=== PATIENT | female | born 1975 | race Two or more races ===

== ENCOUNTER → 2023-07-06 12:39 | Outpatient (BNVA) | payer OTHER, SELFPAY | PROVIDERS: PCP Pediatrics; Visit Provider Physician Assistant Surgical ==

== ENCOUNTER 2023-10-16 07:55 | Outpatient (AMB) | payer OTHER, SELFPAY ==
--- OUTSIDE RECORDS SUMMARY | 2023-10-16 07:56 | XMS_ITS | Continuity of Care Document ---
Author Organization [facility] Address [address] [place] [address]- Care Team Providers Care Detective Captain Name Role Phone Mariza Goodrich MD Primary Care Physician [phone] Encounter [facility] ACCT R [id number] Date(s): 09/18/19 - 10/18/[address] [address] [place] Attending Physician: Admtr, [id number] Admitting Physician: Admtr, [id number] Referring Physician: Admtr, Ar8 Allergies, Adverse Reactions, Alerts Substance Reaction Severity Status NKA Active Immunizations Given and Recorded Vaccine Date Status Refusal Reason influenza virus vaccine, inactivated 02/11/19 Dudley rded influenza virus vaccine, inactivated 02/11/18 Give n influenza virus vaccine, inactivated 04/02/17 Give n influenza virus vaccine, inactivated 03/15/16 Give n influenza virus vaccine, inactivated 02/22/15 Give n influenza virus vaccine, inactivated 02/17/14 Give n influenza virus vaccine, inactivated 03/14/13 Give n pneumococcal 23-valent vaccine 02/17/14 Given tetanus-diphtheria toxoids (Td) 10/08/12 Given Medications acetaminophen 325 mg oral tablet 650 mg, 2, tablet, By Mouth, Every 8 hours, PRN Pain, # 180 tablet, Refills 1, Tot. Refills 1, Maintenance, 06/11/19 11:30:00 EST, Route to Pharmacy Electronically, [facility]/pharmacy #[id number], 163, cm, 06/11/19 10:50:00 EST, Height, 108.3, kg, 02/17/19 7:48:0... Start Date: 06/11/19 Stop Date: 08/10/19 Status: Ordered Albuterol 0.083% inhalation michael PRN, Refills 0, Maintenance, lot#[id number] exp august 2020, 03/10/19 18:53:20 EST Start Date: 03/10/19 Status: Ordered Albuterol 0.083% inhalation michael See Instructions, given at office visit lot # [id number] Exp 09/17, Refills 0, Maintenance, 03/26/19 9:24:59 EST, Instructions Replace Required Details Start Date: 03/26/19 Status: Ordered albuterol 0.083% inhalation solution 3 mL = 2.5 mg, Inhalation, Every 6 hours, # 120 each, 1 Refills, Maintenance, 06/24/18 9:15:31 EST,Solution Start Date: 06/24/18 Status: Ordered albuterol CFC free 90 mcg/inh inhalation aerosol 2, puffs, Inhalation, 4 times a day, PRN, # 1 each, Refills 11, Tot. Refills 11, Maintenance, 03/25/18 9:14:15 EST, Aerosol, Route to Pharmacy Electronically, [id number], [facility]/pharmacy #[id number], Compound Start Date: 03/25/18 Status: Ordered ALPRAZolam 0.25 mg oral tablet 0.25 mg, 1, tablet, By Mouth, 2 times a day, Refills 0, Maintenance, 11/04/18 18:19:51 EDT Start Date: 11/04/18 Status: Ordered cetirizine 10 mg oral tablet 1 tablet = 10 mg, By Mouth, Daily, # 30 tablet, 6 Refills, Maintenance, 08/11/19 8:27:00 EDT, Tablet, [facility]/pharmacy #[id number], 163, cm, 06/11/19 10:50:00 EST, Height, 108.3, kg, 02/17/19 7:48:00 EDT, Dry Weight Start Date: 08/11/19 Status: Ordered CPAP and CPAP equipment CPAP and CPAP equipment, See Instructions, # 1 units, Refills 0, Tot. Refills 0, Maintenance, CPAP of 11 cm of H2O with a heated humidifier. Recommend ordering a machine with compliance data capabilities and following residual AHI. Dx: GULSHAN 327.2... Start Date: 02/19/18 Status: Ordered CPAP Equipment See Instructions, # 1 each, Maintenance, send compliance data fax [id number] Dx GULSHAN send mask and CPAP supplies for patient patient states that she has been using PAP regularly and feels better sinceusing CPAP To [facility], 02/19/18 16:36:42 EDT, C... Start Date: 02/19/18 Status: Ordered diclofenac 1% topical gel 1 application, Topically, 3 times a day, PRN Knee Pain. Scottish sig, # 100 Gm, 2 Refills, Maintenance, 08/11/19 8:28:00 EDT, Gel, [facility]/pharmacy #[id number], 163, cm, 06/11/19 10:50:00 EST, Height, 108.3, kg, 02/17/19 7:48:00 EDT, Dry Weight Start Date: 08/11/19 Status: Ordered Effexor XR 75 mg oral capsule, extended release 75 mg, 1, capsule, By Mouth, Daily, Rx'd per Psych Bello Stevens, Refills 0, Maintenance, 11/04/1917:19:33 EDT Start Date: 11/04/18 Status: Ordered ferrous sulfate 325 mg oral enteric coated tablet 325 mg, 1, tablet, By Mouth, 2 times a day, # 180 tablet, Refills 3, Tot. Refills 3, Maintenance, 08/11/19 8:30:00 EDT, Route to Pharmacy Electronically, [facility]/pharmacy #[id number], 163, cm, 06/11/19 10:50:00 EST, Height, 108.3, kg, 02/17/19 7:48:00 EDT, Dry... Start Date: 08/11/19 Status: Ordered Flonase 50 mcg/inh nasal spray 2 sprays, Nares, Both, Daily in AM, # 1 each, 6 Refills, Maintenance, 04/14/19 10:44:43 EST, [place],[facility]/pharmacy [id number], 2 sprays Nares, Both Daily in AM, 163, cm, 04/14/19 10:18:38 EST, Height, 108.3, kg, 02/17/19 7:48:07 EDT, Dry Weight Start Date: 04/14/19 Status: Ordered guaiFENesin 100 mg/5 mL oral liquid 10 mL = 200 mg, By Mouth, Every 4 hours, PRN for cough, # 600 mL, 0 Refills, Maintenance, 03/10/19 18:11:03 EST, Liquid Start Date: 03/10/19 Status: Ordered Heartburn Relief 10 mg oral tablet See Instructions, MANDA OCONNORES AL RAMESH, # 60 tablet, 2 Refills, 08/11/19 8:30:00 EDT, [facility]/pharmacy #[id number], 163, cm, 06/11/19 10:50:00 EST, Height, 108.3, kg, 02/17/19 7:48:00 EDT, Dry Weight Start Date: 08/11/19 Status: Ordered hydrochlorothiazide 25 mg oral tablet 25 mg, 1, tablet, By Mouth, Daily, # 30 tablet, Refills 11, Tot. Refills 11, Maintenance, 08/11/19 8:30:00 EDT, Route to Pharmacy Electronically, [facility]/pharmacy #[id number], 163, cm, 06/11/19 10:50:00 EST, Height, 108.3, kg, 02/17/19 7:48:00 EDT, Dry Weight Start Date: 08/11/19 Status: Ordered ibuprofen 600 mg oral tablet 600 mg, 1, tablet, By Mouth, Every 8 hours, PRN Pain Scottish Do not take with other NSAIDs (including Meloxicam), # 90 tablet, Refills 1, Tot. Refills 1, Maintenance, 08/11/19 8:31:00 EDT, Route to Pharmacy Electronically, [facility]/pharmacy #[id number], 163, c... Start Date: 08/11/19 Stop Date: 10/10/19 Status: Ordered ketoconazole 1% topical shampoo See Instructions, 1 applicator Topically 2 times per week for 4 weeks. Scottish sig, # 200 mL, 0 Refills, Maintenance, 04/09/19 9:23:01 EST, 1 applicator Topically 2 times per week for 4 weeks. Scottish sig, 163, cm, 04/09/19 8:51:21 EST, Height, 108.3,... Start Date: 04/09/19 Status: Ordered left knee hinged brace. left knee hinged brace., See Instructions, # 1 each, Refills 0, Tot. Refills 0, Maintenance, left knee hinged brace. DX: OA of knee, 07/31/18 15:34:04 EDT, Compound Start Date: 11/27/17 Status: Ordered Lyrica 100 mg oral capsule 1 capsule = 100 mg, By Mouth, Daily, # 90 capsule, 0 Refills, Maintenance, 11/04/18 18:19:01 EDT, Capsule Start Date: 11/04/18 Status: Ordered ondansetron 4 mg oral tablet, disintegrating 1 tablet = 4 mg, By Mouth, 3 times a day, # 9 tablet, 1 Refills, Maintenance, 08/11/19 8:34:00 EDT,[facility]/pharmacy #[id number], 163, cm, 06/11/19 10:50:00 EST, Height, 108.3, kg, 02/17/19 7:48:00 EDT, Dry Weight Start Date: 08/11/19 Stop Date: 08/17/19 Status: Ordered PredniSONE = 40 mg, By Mouth, Daily, PRN given at md appt, 0 Refills, Maintenance, 03/10/19 18:54:44 EST Start Date: 03/10/19 Status: Ordered ProAir HFA 90 mcg/inh inhalation aerosol with adapter 2, puffs, Inhalation, 4 times a day, PRN, # 1 each, Refills 6, Tot. Refills 6, Maintenance, 08/07/19 14:30:00 EDT, Route to Pharmacy Electronically, [id number], [facility]/pharmacy#[id number], 163, cm, 06/11/19 10:50:00 EST, Height, 108.... Start Date: 08/07/19 Stop Date: 03/04/20 Status: Ordered Singulair 10 mg oral tablet 10 mg, 1, tablet, By Mouth, Daily, # 30 tablet, Refills 6, Tot. Refills 6, Maintenance, 08/11/19 8:32:00 EDT, Route to Pharmacy Electronically, [facility]/pharmacy #[id number], 163, cm, 06/11/19 10:50:00 EST, Height, 108.3, kg, 02/17/19 7:48:00 EDT, Dry Weight Start Date: 08/11/19 Status: Ordered Spiriva HandiHaler 18 mcg inhalation capsule 1 capsule = 18 mcg, Inhalation, Daily, # 30 capsule, 11 Refills, Maintenance, 03/26/19 8:42:22 EST Start Date: 03/26/19 Stop Date: 03/20/20 Status: Ordered Symbicort 160mcg/4.5mcg Inhaler 2, puffs, Inhalation, 2 times a day, Discontinue Advair, # 6 Gm, Refills 6, Tot. Refills 6, Maintenance, 03/26/19 8:58:21 EST, Aerosol, Route to Pharmacy Electronically, [id number], [facility]/pharmacy #[id number] Start Date: 03/26/19 Status: Ordered Vitamin D3 1000 intl units oral tablet 1 tablet = 1,000 International_Units, By Mouth, Daily, # 30 tablet, 11 Refills, Maintenance, 06/28/18 18:01:13 EST, Tablet Start Date: 06/28/18 Status: Ordered Water-based Physical Therapy at [facility] Water-based Physical Therapy at [facility], See Instructions, # 1 each, Refills 0, Tot. Refills 0, Maintenance, 2 times per week. To improve function, ROM, decrease pain. Diagnosis: Fibromyalgia, Chronic Back Pain. ICD10 M79.7,M54.9, 11/04/18 18:32:11 EDT,... Start Date: 11/04/18 Status: Ordered Problem List Condition Effective Dates Status Health Status Inform ant Anemia(Confirmed) Active Asthma, Moderate-Persistent(Confirmed) Active Epiploic appendagitis(Confirmed) 1 Active Essential hypertension(Confirmed) Active Morbid obesity with BMI of 4 0.0-44.9, adult(Confirmed) Active Chronic myofascial pain/Fibromyalgia(Confirmed) Active Obstructive sleep apnea (on CPAP)(Confirmed) Active Care Management FELIX Galvez EDDY Clock Smith [phone](Confirmed) Active 1Dx in 2018 Social History Social History Type Response Smoking Status Never smoker entered on: 02/16/14 Sex Female
--- OUTSIDE RECORDS SUMMARY | 2023-10-16 07:57 | XMS_ITS | Continuity of Care Document ---
Author Organization [facility] Address [address] [place] [id number]- Care Team Providers Care Adult Nurse Practitioner Name Role Phone Kp JOHNS, Mariza Primary Care Physician [phone] Encounter [facility] Date(s): 03/09/23 - 04/08/[address] [address] Allergies, Adverse Reactions, Alerts No Known Allergies Immunizations Given and Recorded Vaccine Date Status Refusal Reason influenza virus vaccine, inactivated 01/25/23 Give n influenza virus vaccine, inactivated 02/11/19 Dudley rded influenza virus vaccine, inactivated 02/11/18 Give n influenza virus vaccine, inactivated 04/02/17 Give n influenza virus vaccine, inactivated 03/15/16 Give n influenza virus vaccine, inactivated 02/22/15 Give n influenza virus vaccine, inactivated 02/17/14 Give n influenza virus vaccine, inactivated 03/14/13 Give n tetanus/diphtheria/pertussis, acel(Tdap) 09/15/22 Given SARS-CoV-2 (COVID-19) mRNA-1273 vaccine 09/08/20 R ecorded SARS-CoV-2 (COVID-19) mRNA-1273 vaccine 08/11/20 R ecorded pneumococcal 23-valent vaccine 02/17/14 Given tetanus-diphtheria toxoids (Td) 10/08/12 Given Medications albuterol CFC free 90 mcg/inh inhalation aerosol 2, puffs, Inhalation, Every 4 hours, PRN, # 1 each, Refills 2, Tot. Refills 2, Maintenance, 01/25/23 8:49:00 EDT, Route to Pharmacy Electronically, [id number], [id number], 163, cm, 01/25/23 8:30:00 EDT, Height Start Date: 01/25/23 Status: Ordered cetirizine 10 mg oral tablet 1 tablet, By Mouth, Daily, # 30 tablet, 5 Refills, [id number], 163, cm, 01/10/21 8:49:00 EDT, Height, 102.9, kg, 05/21/20 8:52:00 EST, Dry Weight Start Date: 06/18/21 Status: Ordered cholestyramine 4 g/5.7 g oral powder for reconstitution = 2 Gm, By Mouth, Daily, dissolve in water or juice. Montenegrin Sig., # 180 Gm, 1 Refills, Maintenance, 03/14/23 10:53:00 EST, REC Powder, [facility]/pharmacy #[id number], Partial fill upon patient request if the prescription is for a schedule II opioid drug., 163, c... Start Date: 03/14/23 Stop Date: 09/10/23 Status: Ordered clonazePAM 0.5 mg oral tablet 1 tablet = 0.5 mg, By Mouth, Daily at bedtime, PRN Anxiety, # 30 tablet, 1 Refills, Maintenance, 01/25/23 9:00:00 EDT, Tablet, [facility]/pharmacy #[id number], Partial fill upon patient request if the prescription is for a schedule II opioid drug., 163, cm, ... Start Date: 01/25/23 Status: Ordered CPAP and CPAP equipment CPAP and CPAP equipment, See Instructions, # 1 units, Refills 0, Tot. Refills 0, Maintenance, CPAP of 11 cm of H2O with a heated humidifier. Recommend ordering a machine with compliance data capabilities and following residual AHI. Dx: GULSHAN 327.2... Start Date: 02/19/18 Status: Ordered CPAP Equipment See Instructions, # 1 each, Maintenance, send compliance data fax [phone] Dx GULSHAN send mask and CPAP supplies for patient patient states that she has been using PAP regularly and feels better sinceusing CPAP To [facility] [place], 02/19/18 16:36:42 EDT, C... Start Date: 02/19/18 Status: Ordered donut pillow donut pillow, See Instructions, # 1 each, Refills 0, Tot. Refills 0, Maintenance, use for sitting for 2-4 weeks for coccyx bruise M53.3, 03/07/23 16:09:00 EST, Supply Start Date: 03/07/23 Status: Ordered escitalopram 10 mg oral tablet 1 tablet = 10 mg, By Mouth, Daily, # 90 tablet, 0 Refills, Maintenance, 01/25/23 8:52:00 EDT, Tablet, [facility]/pharmacy #[id number], Partial fill upon patient request if the prescription is for a schedule II opioid drug., 163, cm, 01/25/23 8:30:00 EDT, Height Start Date: 01/25/23 Stop Date: 04/25/23 Status: Ordered Flonase 50 mcg/inh nasal spray 2 sprays, Nares, Both, Daily in AM, # 1 each, 11 Refills, Maintenance, 07/26/20 9:20:00 EDT, [place],[facility]/pharmacy #[id number], 2 sprays Nares, Both Daily in AM, 163, cm, 07/22/20 8:51:00 EDT, Height, 105.7,kg, 09/12/19 20:00:00 EDT, Dry Weight Start Date: 07/26/20 Status: Ordered hydrochlorothiazide 25 mg oral tablet 1, tablet, By Mouth, Daily, for 90 days, # 90 tablet, Refills 3, Tot. Refills 3, Physician Stop 01/20/24 9:07:00 EDT, 01/25/23 9:07:00 EDT, Route to Pharmacy Electronically, [facility]/pharmacy #[id number], 163, cm, 01/25/23 9:05:00 EDT, Height Start Date: 01/25/23 Stop Date: 01/20/24 Status: Ordered ketoconazole 2% topical shampoo See Instructions, 1 application Topically three times a week, # 120 mL, 3 Refills, Soft Stop, 01/25/23 8:59:00 EDT, Shampoo, [facility]/pharmacy #[id number], Partial fill upon patient request if the prescription is for a schedule II opioid drug., 1 application Top... Start Date: 01/25/23 Status: Ordered lidocaine 5% topical cream 1 application, Topically, 3 times a day, PRN Pain. Montenegrin sig, # 45 Gm, 1 Refills, Maintenance, 01/10/21 9:40:00 EDT, Cream, [facility]/pharmacy #[id number], Partial fill upon patient request if the prescriptionis for a schedule II opioid drug., 1 application To... Start Date: 01/10/21 Status: Ordered Lidoderm 5% film 1 patch, Topically, Daily, remove patches after 12 hours, # 30 patch, 0 Refills, Maintenance, 02/24/23 20:18:00 EDT, [facility]/pharmacy #[id number], Partial fill upon patient request if the prescription is for aschedule II opioid drug., 1 patch Topically Daily,I... Start Date: 02/24/23 Status: Ordered pregabalin 200 mg oral capsule 1 capsule = 200 mg, By Mouth, Daily, # 30 capsule, 1 Refills, Maintenance, 01/25/23 9:00:00 EDT, Capsule, [facility]/pharmacy #[id number], Partial fill upon patient request if the prescription is for a schedule II opioid drug., 163, cm, 01/25/23 8:30:00 EDT, Height Start Date: 01/25/23 Stop Date: 03/26/23 Status: Ordered Singulair 10 mg oral tablet 10 mg, 1, tablet, By Mouth, Daily, # 90 tablet, Refills 3, Tot. Refills 3, Maintenance, 01/25/23 8:49:00 EDT, Route to Pharmacy Electronically, [facility]/pharmacy #[id number], 163, cm, 01/25/23 8:30:00 EDT, Height Start Date: 01/25/23 Stop Date: 01/20/24 Status: Ordered Spiriva Respimat 10 ACT 2.5 mcg/inh inhalation aerosol 2 puffs = 5 mcg, Inhalation, Daily, georgian sig, # 4 Gm, 5 Refills, Maintenance, 03/14/23 10:57:00 EST, Aerosol, [facility]/pharmacy #[id number], Partial fill upon patient request if the prescription is for a schedule II opioid drug., 163, cm, 03/14/23 9:01:00 EST... Start Date: 03/14/23 Status: Ordered Symbicort 160mcg/4.5mcg Inhaler 2, puffs, Inhalation, 2 times a day, for 90 days, # 3 each, Refills 3, Tot. Refills 3, Physician Stop 01/20/24 8:50:00 EDT, 01/25/23 8:50:00 EDT, Route to Pharmacy Electronically, [id number], [facility]/pharmacy #[id number], 163, cm, 12/30... Start Date: 01/25/23 Stop Date: 01/20/24 Status: Ordered Tylenol Extra Strength 500 mg oral tablet 2 tablet = 1,000 mg, By Mouth, 3 times a day, PRN for fever, # 60 tablet, 0 Refills, Maintenance, 02/24/23 20:18:00 EDT, Tablet, [facility]/pharmacy #[id number], Partial fill upon patient request, 163, cm, 02/24/23 17:24:00 EDT, Height, 102, kg, 02/24/23 17:24:00... Start Date: 02/24/23 Stop Date: 03/06/23 Status: Ordered Problem List Condition Confirmation Course Effective Dates Status H ealth Status Informant Anemia Confirmed Active Asthma, Moderate-Persistent Confirmed Active Obesity (BMI 30-39.9) Confirmed Active COVID-19 Confirmed Active Epiploic appendagitis 1 Confirmed Active Essential hypertension Confirmed Active Morbid obesity with BMI of 40.0-44.9, adult Confirmed Active Chronic myofascial pain/Fibromyalgia Confirmed Active Obstructive sleep apnea (on CPAP) Confirmed Active Osteoarthritis of left knee Confirmed Active Severe obesity (BMI 35.0-39.9) with comorbidity Confirmed Active 1Dx in 2018 Social History Social History Type Response Smoking Status Never smoker entered on: 02/16/14 Sex Patient Care team information Care Team Personnel Name: Belle Stevens NP Position: [facility] PCO Associate Professional Member Role: [employer] Provider Address: Address: [address] [place] [address]- Name: Mariza Goodrich MD Position: [facility] Physician - Primary Care Member Role: PCP Address: Address: [address] [place] [address]- Name: Pati Apodaca RN Position: [facility] RN Member Role: Primary Care Nurse Name: Hollie Pfeiffer RN Position: [facility] Hospital Analyst Member Role: Primary Care Nurse Care Team Related Persons Name: ESTEPHANIA WYNN Address: [address] [place] [address] Name: EUNICE WYNN Address: home [address] [place] [address] Name: NELLI RENO Name: MATTHEW RENO Address: home [address] [place] [address]
--- OUTSIDE RECORDS SUMMARY | 2023-10-16 07:57 | XMS_ITS | Continuity of Care Document ---
Author Organization [facility] Address [address] [place] [address]- Care Team Providers Care Fork Truck Driver Name Role Phone Mariza Goodrich MD Primary Care Physician [phone] Encounter [facility] Date(s): 08/11/19 - 08/18/[address] [address]- [place] Encounter Diagnosis Asthma, Moderate-Persistent(Discharge Diagnosis) - 08/11/19 Anemia(Discharge Diagnosis) - 08/11/19 Chronic myofascial pain/Fibromyalgia(Discharge Diagnosis) - 08/11/19 Essential hypertension(Discharge Diagnosis) - 08/11/19 Attending Physician: Alex Ybarra MD Admitting Physician: Mariza Goodrich MD Referring Physician: Mariza Goodrich MD Allergies, Adverse Reactions, Alerts Substance Reaction Severity [...] 06/11/19 11:30:00 EST, Route to Pharmacy Electronically, [facility]/pharmacy #[id number], 163, cm, 06/11/19 10:50:00 EST, Height, 108.3, kg, 02/17/19 7:48:0... Start Date: 06/11/19 Stop Date: 08/10/19 Status: Ordered Albuterol 0.083% inhalation michael PRN, Refills 0, Maintenance, lot#[id number] exp august 2020, 03/10/19 18:53:20 EST Start Date: 03/10/19 Status: Ordered Albuterol 0.083% inhalation michael See Instructions, given at office visit lot # [id number] Exp 09/17, Refills 0, Maintenance, 03/26/19 9:24:59 [...] 9:14:15 EST, Aerosol, Route to Pharmacy Electronically, [id number], [facility]/pharmacy #[id number], Compound Start Date: 03/25/18 Status: Ordered ALPRAZolam 0.25 mg oral tablet 0.25 mg, 1, tablet, By Mouth, 2 times a day, Refills 0, Maintenance, 11/04/18 18:19:51 EDT Start Date: 11/04/18 Status: Ordered cetirizine 10 mg oral tablet 1 tablet = 10 mg, By Mouth, Daily, # 30 tablet, 6 Refills, Maintenance, 08/11/19 8:27:00 EDT, Tablet, [facility]/pharmacy #[id number], 163, cm, 06/11/19 10:50:00 EST, [...] 1 each, Maintenance, send compliance data fax [phone] Dx GULSHAN send mask and CPAP supplies for patient patient states that she has been using PAP regularly and feels better sinceusing CPAP To [facility], 02/19/18 16:36:42 EDT, C... Start Date: 02/19/18 Status: Ordered diclofenac 1% topical gel 1 application, Topically, 3 times a day, PRN Knee Pain. Belarusian sig, # 100 Gm, 2 Refills, Maintenance, 08/11/19 8:28:00 EDT, Gel, [facility]/pharmacy #[id number], 163, cm, 06/11/19 10:50:00 EST, [...] 08/11/19 8:30:00 EDT, Route to Pharmacy Electronically, [id number], 163, cm, 06/11/19 10:50:00 EST, Height, 108.3, kg, 02/17/19 7:48:00 EDT, Dry... Start Date: 08/11/19 Status: Ordered Flonase 50 mcg/inh nasal spray 2 sprays, Nares, Both, Daily in AM, # 1 each, 6 Refills, Maintenance, 04/14/19 10:44:43 EST, [place],[id number], 2 sprays Nares, Both Daily in [...] 10 mg oral tablet See Instructions, MANDA RIVASA SHEILA VECES AL RAMESH, # 60 tablet, 2 Refills, 08/11/19 8:30:00 EDT, [facility]/pharmacy #[id number], 163, cm, 06/11/19 10:50:00 EST, Height, 108.3, kg, 02/17/19 7:48:00 EDT, Dry Weight Start Date: 08/11/19 Status: Ordered hydrochlorothiazide 25 mg oral tablet 25 mg, 1, tablet, By Mouth, Daily, # 30 tablet, Refills 11, Tot. Refills 11, Maintenance, 08/11/19 8:30:00 EDT, Route to Pharmacy Electronically, [facility]/pharmacy #[id number], 163, cm, 06/11/19 10:50:00 EST, Height, 108.3, kg, 02/17/19 7:48:00 EDT, Dry Weight Start Date: 08/11/19 Status: Ordered ibuprofen 600 mg oral tablet 600 mg, 1, tablet, By Mouth, Every 8 hours, PRN Pain Belarusian Do not take with other NSAIDs (including Meloxicam), # 90 tablet, Refills 1, Tot. Refills 1, Maintenance, 08/11/19 8:31:00 EDT, Route to Pharmacy Electronically, [facility]/pharmacy #[id number], 163, c... Start Date: 08/11/19 Stop Date: 10/10/19 Status: Ordered ketoconazole 1% topical shampoo See Instructions, 1 applicator Topically 2 times per week for 4 weeks. Belarusian sig, # 200 mL, 0 Refills, Maintenance, 04/09/19 9:23:01 EST, 1 applicator Topically 2 times per week for 4 weeks. Belarusian sig, 163, cm, 04/09/19 8:51:21 EST, Height, 108.3,... Start Date: 04/09/19 Status: Ordered left knee hinged brace. left knee hinged brace., See Instructions, # 1 each, Refills 0, Tot. Refills 0, Maintenance, left knee hinged brace. DX: OA of knee, 11/27/17 15:34:04 EDT, Compound Start Date: 11/27/17 Status: Ordered Lyrica 100 mg oral capsule 1 capsule = 100 mg, By Mouth, Daily, # 90 capsule, 0 Refills, Maintenance, 11/04/18 18:19:01 EDT, Capsule Start Date: 11/04/18 Status: Ordered ondansetron 4 mg oral tablet, disintegrating 1 tablet = 4 mg, By Mouth, 3 times a day, # 9 tablet, 1 Refills, Maintenance, 08/11/19 8:34:00 EDT,[facility]/pharmacy #[id number], 163, cm, 06/11/19 10:50:00 EST, [...] 08/07/19 14:30:00 EDT, Route to Pharmacy Electronically, [id number], [facility]/pharmacy#[id number], 163, cm, 06/11/19 10:50:00 EST, Height, 108.... Start Date: 08/07/19 Stop Date: 03/04/20 Status: Ordered Singulair 10 mg oral tablet 10 mg, 1, tablet, By Mouth, Daily, # 30 tablet, Refills 6, Tot. Refills 6, Maintenance, 08/11/19 8:32:00 EDT, Route to Pharmacy Electronically, [facility]/pharmacy #[id number], 163, cm, 06/11/19 10:50:00 EST, [...] 8:58:21 EST, Aerosol, Route to Pharmacy Electronically, [id number], [facility]/pharmacy #[id number] Start Date: 03/26/19 Status: Ordered Vitamin D3 1000 intl units oral tablet 1 tablet = 1,000 International_Units, By Mouth, Daily, # 30 tablet, 11 Refills, Maintenance, 06/28/18 18:01:13 EST, Tablet Start Date: 06/28/18 Status: Ordered Water-based Physical Therapy at [facility] Water-based Physical Therapy at [facility], See Instructions, # 1 each, Refills [...] (on CPAP)(Confirmed) Active Care Management FELIX Galvez [facility] Packager [phone](Confirmed) Active 1Dx in 2018 Diagnosis Diagnosis Type Effective Dates Health Status Clinical Service Informant Asthma, Moderate-Persistent Discharge Diagnosis 08/11/19 Anemia Discharge Diagnosis 08/11/19 Chronic myofascial pain/Fibromyalgia Discharge Diagnosis 08/11/19 Essential hypertension Discharge Diagnosis 08/11/19 Social History Social History Type Response Smoking Status Never smoker entered on: 02/16/14 Sex Female
--- OUTSIDE RECORDS SUMMARY | 2023-10-16 07:57 | XMS_ITS | Continuity of Care Document ---
Author Organization [facility] Address [address] [place] [address]- Care Team Providers Care Roll Cleaner Name Role Phone Mariza Goodrich MD Primary Care Physician Encounter [facility] Date(s): 08/27/20 - 09/26/[address] [address]- Allergies, Adverse Reactions, Alerts No Known Medication Allergies Substance Reaction Severity Status NKA Active Immunizations [...] tablet, Refills 1, Tot. Refills 1, Maintenance, 06/02/20 8:52:00 EST, Route to Pharmacy Electronically, [facility]/pharmacy #[id number], 163, cm, 02/16/20 10:15:00 EDT, Height, 105.7, kg, 09/12/19 20:00:0... Start Date: 06/02/20 Stop Date: 08/01/20 Status: Ordered Aygestin 5 mg oral tablet 1 tablet = 5 mg, By Mouth, Daily, # 30 tablet, 2 Refills, Maintenance, 07/19/20 17:13:00 EDT, Tablet, [facility]/pharmacy #[id number], Partial fill upon patient request if the prescription is for a schedule II opioid drug., 163, cm, 07/19/20 16:05:00 EDT, Height,... Start Date: 07/19/20 Status: Ordered betamethasone topical dipropionate 0.05% cream 1 application, Topically, 2 times a day, # 15 Gm, 0 Refills, Maintenance, 07/22/20 11:38:00 EDT, Cream, [facility]/pharmacy #[id number], Partial fill upon patient request if the prescription is for a schedule II opioid drug., 1 application Topically 2 times a day,... Start Date: 07/22/20 Status: Ordered cetirizine 10 mg oral tablet 1 tablet = 10 mg, By Mouth, Daily, # 30 tablet, 6 Refills, Maintenance, 08/11/19 8:27:00 EDT, Tablet, [facility]/pharmacy #[id number], 163, cm, 06/11/19 10:50:00 EST, Height, 108.3, kg, 02/17/19 7:48:00 EDT, Dry Weight Start Date: 08/11/19 Status: Ordered clonazePAM 0.5 mg oral tablet 1 tablet = 0.5 mg, By Mouth, 2 times a day, PRN Anxiety Start Date: 05/14/20 Status: Ordered CPAP and CPAP equipment CPAP and CPAP equipment, See Instructions, # 1 units, Refills 0, Tot. Refills 0, Maintenance, CPAP of 11 cm of H2O with a heated humidifier. Recommend ordering a machine with compliance data capabilities and following residual AHI. Dx: GULSHAN 327.2... Start Date: 02/19/18 Status: Ordered CPAP Equipment See Instructions, # 1 each, Maintenance, send compliance data fax [phone] Dx GULSHAN send mask and CPAP supplies for patient patient states that she has been using PAP regularly and feels better sinceusing CPAP To [facility], 02/19/18 16:36:42 EDT, C... Start Date: 02/19/18 Status: Ordered escitalopram 10 mg oral tablet 1 tablet = 10 mg, By Mouth, Daily Start Date: 05/14/20 Status: Ordered Ferrousal 325 mg oral tablet 1 tablet = 325 mg, By Mouth, 3 times a day, 0 Refills, Maintenance, 06/02/19 21:11:00 EST Start Date: 06/02/19 Status: Ordered Flonase 50 mcg/inh nasal spray 2 sprays, Nares, Both, Daily in AM, # 1 each, 11 Refills, Maintenance, 07/26/20 9:20:00 EDT, [place],[facility]/pharmacy #[id number], 2 sprays Nares, Both Daily in AM, 163, cm, 07/22/20 8:51:00 EDT, Height, 105.7,kg, 09/12/19 20:00:00 EDT, Dry Weight Start Date: 07/26/20 Status: Ordered hydrochlorothiazide 25 mg oral tablet 25 mg, 1, tablet, By Mouth, Daily, # 30 tablet, Refills 2, Tot. Refills 2, Maintenance, 08/27/20 10:02:00 EDT, Route to Pharmacy Electronically, [facility]/pharmacy #[id number], 163, cm, 08/24/20 16:26:00 EDT, Height, 105.7, kg, 09/12/19 20:00:00 EDT, Dry Weight Start Date: 08/27/20 Status: Ordered ibuprofen 600 mg oral tablet 600 mg, 1, tablet, By Mouth, Every 8 hours, PRN Pain [place] Do not take with other NSAIDs (including Meloxicam), # 90 tablet, Refills 1, Tot. Refills 1, Maintenance, 08/02/20 9:38:00 EDT, Route to Pharmacy Electronically, [facility]/pharmacy #[id number], 163, c... Start Date: 08/02/20 Stop Date: 10/01/20 Status: Ordered multivitamin Vitamin B Complex oral tablet 1 tablet, By Mouth, Daily, # 100 tablet, 2 Refills, Maintenance, 12/01/19 14:53:00 EDT, Tablet, [facility]/pharmacy #[id number], 1 tablet By Mouth Daily, 163, cm, 10/14/19 12:52:00 EDT, Height, 108.3, kg, 02/17/19 7:48:00 EDT, Dry Weight Start Date: 12/01/19 Status: Ordered pregabalin 200 mg oral capsule 1 capsule = 200 mg, By Mouth, Daily, 0 Refills, Maintenance, 06/02/19 21:14:00 EST, Capsule Start Date: 06/02/19 Status: Ordered ProAir HFA 90 mcg/inh inhalation aerosol with adapter 2, puffs, Inhalation, 4 times a day, PRN, # 1 each, Refills 11, Tot. Refills 11, Maintenance, 10/24/20 14:24:00 EDT, Route to Pharmacy Electronically, [id number], [facility]/pharmacy #[id number], 163, cm, 07/22/20 8:51:00 EDT, Height, 105... Start Date: 10/24/20 Stop Date: 10/19/21 Status: Ordered ProAir HFA 90 mcg/inh inhalation aerosol with adapter 2, puffs, Inhalation, 4 times a day, PRN, for 30 days, # 1 each, Refills 5, Tot. Refills 5, Hard Stop 10/24/20 14:24:00 EDT, 04/27/20 14:24:00 EST, Route to Pharmacy Electronically, [id number], [facility]/pharmacy #[id number], 163, cm, 10... Start Date: 04/27/20 Stop Date: 10/24/20 Status: Ordered Singulair 10 mg oral tablet 10 mg, 1, tablet, By Mouth, Daily, # 30 tablet, Refills 6, Tot. Refills 6, Maintenance, 07/26/20 9:19:00 EDT, Route to Pharmacy Electronically, [facility]/pharmacy #[id number], 163, cm, 07/22/20 8:51:00 EDT, Height, 105.7, kg, 09/12/19 20:00:00 EDT, Dry Weight Start Date: 07/26/20 Status: Ordered Spiriva HandiHaler 18 mcg inhalation capsule 1 capsule = 18 mcg, Inhalation, Daily, for 30 days, # 30 capsule, 11 Refills, Hard Stop 05/28/21 8:54:00 EST, 06/02/20 8:54:00 EST, [id number], 163, cm, 02/16/20 10:15:00 EDT, Height, 105.7, kg, 09/12/19 20:00:00 EDT, Dry Weight Start Date: 06/02/20 Stop Date: 05/28/21 Status: Ordered Spiriva HandiHaler 18 mcg inhalation capsule 1 capsule = 18 mcg, Inhalation, Daily, # 30 capsule, 11 Refills, Maintenance, 05/28/21 8:54:00 EST,[id number], 163, cm, 07/22/20 8:51:00 EDT, Height, 105.7, kg, 09/12/19 20:00:00 EDT, Dry Weight Start Date: 05/28/21 Stop Date: 05/23/22 Status: Ordered Symbicort 160mcg/4.5mcg Inhaler See Instructions, INHALE DANDO DOS SOPLIDOS DOS VECES AL RAMESH, # 10.2 Unknown, Refills 6, Tot. Refills 6, 07/26/20 9:18:00 EDT, Instructions Replace Required Details, Route to Pharmacy Electronically,[id number], [facility]... Start Date: 07/26/20 Status: Ordered Vitamin D3 oral tablet By Mouth, Daily, 0 Refills, Maintenance, 06/02/19 21:11:00 EST Start Date: 06/02/19 Status: Ordered Zofran 4 mg oral tablet 1 tablet = 4 mg, By Mouth, Every 8 hours, PRN Nausea & Vomiting, # 10 tablet, 0 Refills, Maintenance, 08/12/20 15:08:00 EDT, Tablet, [id number], Partial fill upon patient request if the prescription is for a schedule II opioid drug., 163, cm,... 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 [phone](Confirmed) Active 1Dx in 2018 Social History Social History Type Response Smoking Status Never smoker entered on: 02/16/14 Sex Female
--- OUTSIDE RECORDS SUMMARY | 2023-10-16 07:57 | XMS_ITS | Continuity of Care Document ---
Author Organization [facility] Address [address] [place] [address]- Care Team Providers Care Mica Machine Operator Name Role Phone Not on Staff, PCP Primary Care Physician Unavail able Encounter [facility] Date(s): 06/02/19 - 06/03/[address] [address]- [facility] Discharge Disposition: A-D/C Walkout Attending Physician: Not on Staff, Attending MD Admitting Physician: Not on Staff, Admitting MD Referring Physician: Not on Staff, Referring MD Allergies, Adverse Reactions, Alerts No Known Medication Allergies Medications Advair Diskus 100 mcg-50 mcg inhalation powder 1, puffs, Inhalation, 2 times a day, Refills 0, Maintenance, 06/02/19 21:09:00 EST, Powder Start Date: 06/02/19 Status: Ordered ALPRAZolam 0.25 mg oral tablet 0.25 mg, 1, tablet, By Mouth, Daily, Refills 0, Maintenance, 06/02/19 21:13:00 EST Start Date: 06/02/19 Status: Ordered Ferrousal 325 mg oral tablet 1 tablet = 325 mg, By Mouth, 3 times a day, 0 Refills, Maintenance, 06/02/19 21:11:00 EST Start Date: 06/02/19 Status: Ordered Hydrochlorothiazide By Mouth, Daily, 0 Refills, Maintenance, 06/02/19 21:11:00 EST Start Date: 06/02/19 Status: Ordered pregabalin 200 mg oral capsule 1 capsule = 200 mg, By Mouth, Daily, 0 Refills, Maintenance, 06/02/19 21:14:00 EST, Capsule Start Date: 06/02/19 Status: Ordered ProAir Digihaler 90 mcg/inh inhalation powder 2 puffs, Inhalation, Every 6 hours, 0 Refills, Maintenance, 06/02/19 21:09:00 EST Start Date: 06/02/19 Status: Ordered Spiriva = 18 mcg, Inhalation, Daily, 0 Refills, Maintenance, 06/02/19 21:09:00 EST Start Date: 06/02/19 Status: Ordered venlafaxine 150 mg oral capsule, extended release 150 mg, 1, capsule, By Mouth, Daily, # 30 capsule, Refills 0, Maintenance, 06/02/19 21:12:00 EST Start Date: 06/02/19 Status: Ordered Vitamin D3 oral tablet By Mouth, Daily, 0 Refills, Maintenance, 06/02/19 21:11:00 EST Start Date: 06/02/19 Status: Ordered Vital Signs Most recent to oldest [Reference Range]: 1 2 Oxygen Saturation [94-100 %] 97 % (06/03/19 1:27 AM) 99 % (06/02/19 6:20 PM) Pulse Rate [55-90 bpm] 64 bpm (06/03/19 1:27 AM) 83 bpm (06/02/19 6:20 PM) Blood Pressure [90-138/55-84 mm Hg] 150/ 93mm Hg *H* (06/03/19 1:27 AM) Respiratory Rate [16-30 br/min] 18 br/mi n (06/03/19 1:27 AM) 18 br/min (06/02/19 6:20 PM) Temperature [96.8-100.4 DegF] 98.3 DegF (06/03/19 1:27 AM) Mode of Delivery (Oxygen) Room air (06/03/19 1:27 AM) Room air (06/02/19 6:20 PM) Blood pressure sites Arm, left (06/03/19 1:27 AM) Temperature Route Oral (06/03/19 1:27 AM)
--- OUTSIDE RECORDS SUMMARY | 2023-10-16 07:57 | XMS_ITS | Continuity of Care Document ---
Author Organization [facility] Address [address] [place] [address]- Care Team Providers Care Home Extension Agent Name Role Phone Mariza Goodrich MD Primary Care Physician Encounter [facility] Date(s): 03/29/23 - 04/28/[address] [address] Attending Physician: Cara Ingram Admitting Physician: Admtr, Cara Referring Physician: Admtr, Ar8 Allergies, Adverse Reactions, Alerts No Known Allergies [...] 01/25/23 8:49:00 EDT, Route to Pharmacy Electronically, [id number], [facility]/pharmacy #[id number], 163, cm, 01/25/23 8:30:00 EDT, Height Start Date: 01/25/23 Status: Ordered cetirizine 10 mg oral tablet 1 tablet, By Mouth, Daily, # 30 tablet, 5 Refills, [facility] STORE [id number], 163, cm, 01/10/21 8:49:00 EDT, Height, 102.9, kg, 05/21/20 8:52:00 EST, Dry Weight Start Date: 06/18/21 Status: Ordered cholestyramine 4 g/5.7 g oral powder for reconstitution = 2 Gm, By Mouth, Daily, dissolve in water or juice. Luxembourger Sig., # 180 Gm, 1 Refills, Maintenance, 04/16/23 15:55:00 EST, REC Powder, [facility]/pharmacy #[id number], Partial fill upon patient request if the prescription is for a schedule II opioid drug., 163, c... Start Date: 04/16/23 Stop Date: 10/13/23 Status: Ordered clonazePAM 0.5 mg oral tablet 1 tablet = 0.5 mg, By Mouth, Daily at bedtime, PRN Anxiety, # 30 tablet, 1 Refills, Maintenance, 01/25/23 9:00:00 EDT, Tablet, [facility]/pharmacy #[id number], Partial fill upon patient request [...] 1 each, Maintenance, send compliance data fax [phone] Dx GULSHAN send mask and CPAP supplies [...] 0 Refills, Maintenance, 01/25/23 8:52:00 EDT, Tablet, [facility]/pharmacy #[id number], Partial fill upon patient request if the prescription is for a schedule II opioid drug., 163, cm, 01/25/23 8:30:00 EDT, Height Start Date: 01/25/23 Stop Date: 04/25/23 Status: Ordered Flonase 50 mcg/inh nasal spray 2 sprays, Nares, Both, Daily in AM, # 1 each, 11 Refills, Maintenance, 07/26/20 9:20:00 EDT, [place],[facility]/pharmacy #[id number], 2 sprays Nares, Both Daily in AM, 163, cm, 07/22/20 8:51:00 EDT, Height, 105.7,kg, 09/12/19 20:00:00 EDT, Dry Weight Start Date: 07/26/20 Status: Ordered hydrochlorothiazide 25 mg oral tablet 1, tablet, By Mouth, Daily, for 90 days, # 90 tablet, Refills 3, Tot. Refills 3, Physician Stop 01/20/24 9:07:00 EDT, 01/25/23 9:07:00 EDT, Route to Pharmacy Electronically, [facility]/pharmacy #[id number], 163, cm, 01/25/23 9:05:00 EDT, Height Start Date: 01/25/23 Stop Date: 01/20/24 Status: Ordered ketoconazole 2% topical shampoo See Instructions, 1 application Topically three times a week, # 120 mL, 3 Refills, Soft Stop, 01/25/23 8:59:00 EDT, Shampoo, [facility]/pharmacy #[id number], Partial fill upon patient request if the prescription is for a schedule II opioid drug., 1 application Top... Start Date: 01/25/23 Status: Ordered lidocaine 5% topical cream 1 application, Topically, 3 times a day, PRN Pain. Luxembourger sig, # 45 Gm, 1 Refills, Maintenance, 01/10/21 9:40:00 EDT, Cream, [facility]/pharmacy #[id number], Partial fill upon patient request if the prescriptionis for a schedule II opioid drug., 1 application To... Start Date: 01/10/21 Status: Ordered Lidoderm 5% film 1 patch, Topically, Daily, remove patches after 12 hours, # 30 patch, 0 Refills, Maintenance, 02/24/23 20:18:00 EDT, [facility]/pharmacy #[id number], Partial fill upon patient request if the prescription is for aschedule II opioid drug., 1 patch Topically Daily,I... Start Date: 02/24/23 Status: Ordered pregabalin 200 mg oral capsule 1 capsule = 200 mg, By Mouth, Daily, # 30 capsule, 1 Refills, Maintenance, 01/25/23 9:00:00 EDT, Capsule, [facility]/pharmacy #[id number], Partial fill upon patient request if the prescription is for a schedule II opioid drug., 163, cm, 01/25/23 8:30:00 EDT, Height Start Date: 01/25/23 Stop Date: 03/26/23 Status: Ordered Singulair 10 mg oral tablet 10 mg, 1, tablet, By Mouth, Daily, # 90 tablet, Refills 3, Tot. Refills 3, Maintenance, 01/25/23 8:49:00 EDT, Route to Pharmacy Electronically, [facility]/pharmacy #[id number], 163, cm, 01/25/23 8:30:00 EDT, Height Start Date: 01/25/23 Stop Date: 01/20/24 Status: Ordered Spiriva Respimat 10 ACT 2.5 mcg/inh inhalation aerosol 2 puffs = 5 mcg, Inhalation, Daily, cymro sig, # 4 Gm, 5 Refills, Maintenance, 03/14/23 10:57:00 EST, Aerosol, [facility]/pharmacy #[id number], Partial fill upon patient request if the prescription is for a schedule II opioid drug., 163, cm, 03/14/23 9:01:00 EST... Start Date: 03/14/23 Status: Ordered Symbicort 160mcg/4.5mcg Inhaler 2, puffs, Inhalation, 2 times a day, for 90 days, # 3 each, Refills 3, Tot. Refills 3, Physician Stop 01/20/24 8:50:00 EDT, 01/25/23 8:50:00 EDT, Route to Pharmacy Electronically, [id number], [facility]/pharmacy #[id number], 163, cm, 12/30... Start Date: 01/25/23 Stop Date: 01/20/24 Status: Ordered Tylenol Extra Strength 500 mg oral tablet 2 tablet = 1,000 mg, By Mouth, 3 times a day, PRN for fever, # 60 tablet, 0 Refills, Maintenance, 02/24/23 20:18:00 EDT, Tablet, [facility]/pharmacy #[id number], Partial fill upon patient request, 163, [...] Team Personnel Name: Belle Stevens NP Position: [facility] PCO Associate Professional Member Role: Lifetime Consulting Provider Address: Address: [address] [place] [address]- [place] Name: Mariza Goodrich MD Position: [facility] Physician - Primary Care Member Role: PCP Address: Address: [address] [place] [address]- Name: Pati Apodaca RN Position: [facility] RN Member Role: Primary Care Nurse Name: Hollie Pfeiffer RN Position: [facility] Hospital Endocrinology Specialist Member Role: Primary Care Nurse Care Team Related Persons Name: ESTEPHANIA WYNN Address: [address] [place] [address] Name: EUNICE WYNN Address: [address] [place] [address] Name: NELLI RENO Name: MATTHEW RENO Address: home [address] [place] [address]
--- OUTSIDE RECORDS SUMMARY | 2023-10-16 07:57 | XMS_ITS | Continuity of Care Document ---
Author Organization [facility] Address [address] [place] [address]- Care Team Providers Care Palaeontologist Name Role Phone Mariza Goodrich MD Primary Care Physician [phone] Encounter [facility] Date(s): 09/08/20 - 10/08/[address] [address]- Attending Physician: AdmCara velasco Admitting Physician: AdmtrCara Referring Physician: Admtr, Ar8 Allergies, Adverse Reactions, Alerts No Known Medication [...] 06/02/20 8:52:00 EST, Route to Pharmacy Electronically, [facility]/pharmacy #[id number], 163, cm, 02/16/20 10:15:00 EDT, Height, 105.7, kg, 09/12/19 20:00:0... Start Date: 06/02/20 Stop Date: 08/01/20 Status: Ordered Aygestin 5 mg oral tablet 1 tablet = 5 mg, By Mouth, Daily, # 30 tablet, 2 Refills, Maintenance, 07/19/20 17:13:00 EDT, Tablet, [id number], Partial fill upon patient request if the prescription is for a schedule II opioid drug., 163, cm, 07/19/20 16:05:00 EDT, Height,... Start Date: 07/19/20 Status: Ordered betamethasone topical dipropionate 0.05% cream 1 application, Topically, 2 times a day, # 15 Gm, 0 Refills, Maintenance, 07/22/20 11:38:00 EDT, Cream, [id number], Partial fill upon patient request if the prescription is for a schedule II opioid drug., 1 application Topically 2 times a day,... Start Date: 07/22/20 Status: Ordered cetirizine 10 mg oral tablet 1 tablet = 10 mg, By Mouth, Daily, # 30 tablet, 6 Refills, Maintenance, 08/11/19 8:27:00 EDT, Tablet, [facility]/pharmacy #[id number], 163, cm, 06/11/19 10:50:00 EST, Height, [...] 1 each, Maintenance, send compliance data fax [id number] Dx GULSHAN send mask and CPAP supplies for patient patient states that she has been using PAP regularly and feels better sinceusing CPAP To [facility], 02/19/18 16:36:42 EDT, C... Start Date: 02/19/18 [...] each, 11 Refills, Maintenance, 07/26/20 9:20:00 EDT, [place],[facility]/pharmacy #[id number], 2 sprays Nares, Both Daily in AM, 163, cm, 07/22/20 8:51:00 EDT, Height, 105.7,kg, 09/12/19 20:00:00 EDT, Dry Weight Start Date: 07/26/20 Status: Ordered hydrochlorothiazide 25 mg oral tablet 25 mg, 1, tablet, By Mouth, Daily, # 30 tablet, Refills 2, Tot. Refills 2, Maintenance, 08/27/20 10:02:00 EDT, Route to Pharmacy Electronically, [facility]/pharmacy #[id number], 163, cm, 08/24/20 16:26:00 EDT, Height, 105.7, kg, 09/12/19 20:00:00 EDT, Dry Weight Start Date: 08/27/20 Status: Ordered ibuprofen 600 mg oral tablet 600 mg, 1, tablet, By Mouth, Every 8 hours, PRN Pain Lithuanian Do not take with other NSAIDs (including Meloxicam), # 90 tablet, Refills 1, Tot. Refills 1, Maintenance, 10/01/20 9:38:00 EDT, Route to Pharmacy Electronically, [facility]/pharmacy #[id number], 163, c... Start Date: 10/01/20 Stop Date: 11/30/20 Status: Ordered multivitamin Vitamin B Complex oral tablet 1 tablet, By Mouth, Daily, # 100 tablet, 2 Refills, Maintenance, 12/01/19 14:53:00 EDT, Tablet, [facility]/pharmacy #[id number], 1 tablet By Mouth Daily, 163, [...] 10/24/20 14:24:00 EDT, Route to Pharmacy Electronically, [id number], [facility]/pharmacy #[id number], 163, cm, 07/22/20 8:51:00 EDT, Height, 105... Start Date: 10/24/20 Stop Date: 10/19/21 Status: Ordered ProAir HFA 90 mcg/inh inhalation aerosol with adapter 2, puffs, Inhalation, 4 times a day, PRN, for 30 days, # 1 each, Refills 5, Tot. Refills 5, Hard Stop 10/24/20 14:24:00 EDT, 04/27/20 14:24:00 EST, Route to Pharmacy Electronically, [id number], [facility]/pharmacy #[id number], 163, cm, 10... Start Date: 04/27/20 Stop Date: 10/24/20 Status: Ordered Singulair 10 mg oral tablet 10 mg, 1, tablet, By Mouth, Daily, # 30 tablet, Refills 6, Tot. Refills 6, Maintenance, 07/26/20 9:19:00 EDT, Route to Pharmacy Electronically, [facility]/pharmacy #[id number], 163, cm, 07/22/20 8:51:00 EDT, Height, 105.7, kg, 09/12/19 20:00:00 EDT, Dry Weight Start Date: 07/26/20 Status: Ordered Spiriva HandiHaler 18 mcg inhalation capsule 1 capsule = 18 mcg, Inhalation, Daily, for 30 days, # 30 capsule, 11 Refills, Hard Stop 05/28/21 8:54:00 EST, 06/02/20 8:54:00 EST, [facility]/pharmacy #[id number], 163, cm, 02/16/20 10:15:00 EDT, Height, [...] Instructions Replace Required Details, Route to Pharmacy Electronically,[id number], [facility]/pharmacy... 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 [phone](Confirmed) Active 1Dx in 2018 Social History Social History Type Response Smoking Status Never smoker entered on: 02/16/14 Sex Female
--- OUTSIDE RECORDS SUMMARY | 2023-10-16 07:57 | XMS_ITS | Continuity of Care Document ---
Author Organization [facility] Address [address] [place] [address]- Care Team Providers Care Tree Puller Name Role Phone Kp JOHNS, Mariza Primary Care Physician [phone] Encounter [facility] Date(s): 07/23/20 - 08/22/[address] [address] Allergies, Adverse Reactions, Alerts No Known Medication [...] 8:52:00 EST, Route to Pharmacy Electronically, [facility]/pharmacy #[id number], 163, cm, 02/16/20 10:15:00 EDT, Height, 105.7, [...] 0 Refills, Maintenance, 07/22/20 11:38:00 EDT, Cream, [facility]/pharmacy #[id number], Partial fill upon patient request if the prescription is for a schedule II opioid drug., 1 application Topically 2 times a day,... Start Date: 07/22/20 Status: Ordered cetirizine 10 mg oral tablet 1 tablet = 10 mg, By Mouth, Daily, # 30 tablet, 6 Refills, Maintenance, 08/11/19 8:27:00 EDT, Tablet, [facility]/pharmacy #[id number], 163, cm, 06/11/19 10:50:00 EST, Height, [...] 1 each, Maintenance, send compliance data fax [id number] Dx GULSHAN send mask and CPAP supplies [...] each, 11 Refills, Maintenance, 07/26/20 9:20:00 EDT, [place],[facility]/pharmacy #[id number], 2 sprays Nares, Both Daily in AM, 163, cm, 07/22/20 8:51:00 EDT, Height, 105.7,kg, 09/12/19 20:00:00 EDT, Dry Weight Start Date: 07/26/20 Status: Ordered hydrochlorothiazide 25 mg oral tablet 25 mg, 1, tablet, By Mouth, Daily, # 30 tablet, Refills 11, Tot. Refills 11, Maintenance, 08/11/19 8:30:00 EDT, Route to Pharmacy Electronically, [facility]/pharmacy #[id number], 163, cm, 06/11/19 10:50:00 EST, Height, 108.3, kg, 02/17/19 7:48:00 EDT, Dry Weight Start Date: 08/11/19 Status: Ordered ibuprofen 600 mg oral tablet 600 mg, 1, tablet, By Mouth, Every 8 hours, PRN Pain German Do not take with other NSAIDs (including Meloxicam), # 90 tablet, Refills 1, Tot. Refills 1, Maintenance, 08/02/20 9:38:00 EDT, Route to Pharmacy Electronically, [facility]/pharmacy #[id number], 163, c... Start Date: 08/02/20 Stop Date: 10/01/20 Status: Ordered multivitamin Vitamin B Complex oral tablet 1 tablet, By Mouth, Daily, # 100 tablet, 2 Refills, Maintenance, 12/01/19 14:53:00 EDT, Tablet, [facility]/pharmacy #[id number], 1 tablet By Mouth Daily, 163, [...] 10/24/20 14:24:00 EDT, Route to Pharmacy Electronically, [id number], [facility]/pharmacy #[id number], 163, cm, 07/22/20 8:51:00 EDT, Height, 105... Start Date: 10/24/20 Stop Date: 10/19/21 Status: Ordered ProAir HFA 90 mcg/inh inhalation aerosol with adapter 2, puffs, Inhalation, 4 times a day, PRN, for 30 days, # 1 each, Refills 5, Tot. Refills 5, Hard Stop 10/24/20 14:24:00 EDT, 04/27/20 14:24:00 EST, Route to Pharmacy Electronically, [id number], [facility]/pharmacy #[id number], 163, cm, 10... Start Date: 04/27/20 Stop Date: 10/24/20 Status: Ordered Singulair 10 mg oral tablet 10 mg, 1, tablet, By Mouth, Daily, # 30 tablet, Refills 6, Tot. Refills 6, Maintenance, 07/26/20 9:19:00 EDT, Route to Pharmacy Electronically, [facility]/pharmacy #[id number], 163, cm, 07/22/20 8:51:00 EDT, Height, [...] Instructions Replace Required Details, Route to Pharmacy Electronically,[id number], [facility]... 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 [phone](Confirmed) Active 1Dx in 2018 Social History Social History Type Response Smoking Status Never smoker entered on: 02/16/14 Sex Female
--- OUTSIDE RECORDS SUMMARY | 2023-10-16 07:57 | XMS_ITS | Continuity of Care Document ---
Author Organization [facility] ter Address [address] [place] [address]- Care Team Providers Care Continuing Education Dean Name Role Phone Mariza Goodrich MD Primary Care Physician Encounter [facility] Date(s): 11/08/19 - 11/08/[address] [address]- [facility] Encounter Diagnosis Chest pain(Final) - 11/08/19 Discharge Disposition: A-D/C Home Attending Physician: Cherie Church MD Admitting Physician: Cherie Church MD Referring Physician: Not on Staff, Referring [...] 21:11:00 EST Start Date: 06/02/19 Status: Ordered Results Radiology Reports * Exam Date Time Procedure Performing Provider Status 11/08/19 6:59 PM Chest Portable Lizy Turner; Aut h (Verified) Notes: (Chest Portable) Reason For Exam: Shortness of Breath RESULT: Chest Portable Chest Portable Indication: Shortness of breath. Person of interest. COMPARISON: None. FINDINGS: LINES AND TUBES: None. LUNGS AND PLEURA: Clear lungs. Normal pulmonary vascularity. No pleural effusion. No pneumothorax. HEART, MEDIASTINUM AND ROSA MARIA: Heart is normal in size. Normal mediastinal and hilar contour. BONES AND SOFT TISSUES: No acute abnormality. IMPRESSION: No acute abnormality. WSN: [id number] Ordering Physician: Cherie Church Dictated By: Maldonado Aguilar MD Dictated Date/Time: 11/08/19 7:01 pm Reviewed By: Maldonado Aguilar MD Signed By: Maldonado Aguilar MD Signed Date/Time: 11/08/19 7:01 pm Transcribed By: JONN Transcribed Date/Time: 11/08/19 7:00 pm Vital Signs Most recent to oldest [Reference Range]: 1 2 3 Oxygen Saturation [94-100 %] 99 % (11/08/19 10:10 PM) 99 % (11/08/19 8:01 PM) 18 % *L* (11/08/19 6:09 PM) Pulse Rate [55-90 bpm] 69 bpm (11/08/19 10:10 PM) 70 bpm (11/08/19 8:01 PM) 56 bpm (11/08/19 6:09 PM) Blood Pressure [90-138/55-84 mm Hg] 130/86mm Hg (11/08/19 10:10 PM) 143/81mm Hg *H* (11/08/19 8:01 PM) 130/88mm Hg (11/08/19 6:09 PM) Respiratory Rate [16-30 br/min] 16 br/min (11/08/19 10:10 PM) 18 br/min (11/08/19 8:01 PM) 96 br/min *H* (11/08/19 6:09 PM) Temperature [96.8-100.4 DegF] 98.6 DegF (11/08/19 10:10 PM) 98.6 DegF (11/08/19 8:01 PM) 99.2 DegF (11/08/19 6:09 PM) Mode of Delivery (Oxygen) Room air (11/08/19 10:10 PM) Room air (11/08/19 8:01 PM) Room air (11/08/19 6:09 PM) Blood pressure sites Arm, right (11/08/19 10:10 PM) Arm, right (11/08/19 8:01 PM) Temperature Route Oral (11/08/19 10:10 PM) Oral (11/08/19 8:01 PM) Oral (11/08/19 6:09 PM)
--- OUTSIDE RECORDS SUMMARY | 2023-10-16 07:57 | XMS_ITS | Continuity of Care Document ---
Author Organization [facility] Address [address] [place] [id number]- Care Team Providers Care Android Software Engineer Name Role Phone Mariza Goodrich MD Primary Care Physician Encounter [facility] Date(s): 05/21/23 - 07/19/[address] [address]- Attending Physician: Yara Osuna NP Admitting Physician: Yara Osuna NP Referring Physician: Mariza Goodrich MD Allergies, Adverse Reactions, Alerts No Known Allergies [...] 01/25/23 8:49:00 EDT, Route to Pharmacy Electronically, [id number], [facility]/pharmacy #[id number], 163, cm, 01/25/23 8:30:00 EDT, Height Start Date: 01/25/23 Status: Ordered cetirizine 10 mg oral tablet 1 tablet, By Mouth, Daily, # 30 tablet, 5 Refills, [id number], 163, cm, 01/10/21 8:49:00 EDT, Height, 102.9, kg, 05/21/20 8:52:00 EST, Dry Weight Start Date: 06/18/21 Status: Ordered cholestyramine 4 g/5.7 g oral powder for reconstitution = 2 Gm, By Mouth, Daily, dissolve in water or juice. Hungarian Sig., # 180 Gm, 1 Refills, Maintenance, 04/16/23 15:55:00 EST, REC Powder, [facility]/pharmacy #[id number], Partial fill upon patient request if the prescription is for a schedule II opioid drug., 163, c... Start Date: 04/16/23 Stop Date: 10/13/23 Status: Ordered clonazePAM 0.5 mg oral tablet 1 tablet = 0.5 mg, By Mouth, Daily at bedtime, PRN Anxiety, # 30 tablet, 1 Refills, Maintenance, 01/25/23 9:00:00 EDT, Tablet, [facility]/pharmacy #[id number], Partial fill upon patient [...] CPAP Equipment See Instructions, # 1 each, Refills 11, Tot. Refills 11, Maintenance, Dispense: mask, tubing, filters, head gear, chin strap, water chamber, heating tubing. Dx GULSHAN G47.33. To be used for at least 4 hours every night. Length of need 99 Fax to [facility],... Start Date: 06/20/23 Status: Ordered cyclobenzaprine 5 mg oral tablet 1 tablet = 5 mg, By Mouth, 3 times a day, for 10 days, # 30 tablet, 1 Refills, Acute 07/26/23 16:38:00 EDT, 07/06/23 16:38:00 EST, Tablet, [facility]/pharmacy #[id number], Partial fill upon patient request if theprescription is for a schedule II opioid drug., 163... Start Date: 07/06/23 Stop Date: 07/26/23 Status: Ordered donut pillow donut pillow, See Instructions, # 1 each, Refills 0, Tot. Refills 0, Maintenance, use for sitting for 2-4 weeks for coccyx bruise M53.3, 03/07/23 16:09:00 EST, Supply Start Date: 03/07/23 Status: Ordered escitalopram 10 mg oral tablet 1 tablet = 10 mg, By Mouth, Daily, # 90 tablet, 0 Refills, Maintenance, 01/25/23 8:52:00 EDT, Tablet, [facility]/pharmacy #[id number], Partial fill upon patient request if the prescription is for a schedule II opioid drug., 163, cm, 01/25/23 8:30:00 EDT, Height Start Date: 01/25/23 Stop Date: 04/25/23 Status: Ordered Flonase 50 mcg/inh nasal spray 2 sprays, Nares, Both, Daily in AM, # 1 each, 11 Refills, Maintenance, 07/26/20 9:20:00 EDT, [place],[facility]/pharmacy #[id number], 2 sprays Nares, Both Daily in AM, 163, cm, 07/22/20 8:51:00 EDT, Height, 105.7,kg, 09/12/19 20:00:00 EDT, Dry Weight Start Date: 07/26/20 Status: Ordered hydrochlorothiazide 25 mg oral tablet 1, tablet, By Mouth, Daily, for 90 days, # 90 tablet, Refills 3, Tot. Refills 3, Physician Stop 01/20/24 9:07:00 EDT, 01/25/23 9:07:00 EDT, Route to Pharmacy Electronically, [facility]/pharmacy #[id number], 163, cm, 01/25/23 9:05:00 EDT, Height Start Date: 01/25/23 Stop Date: 01/20/24 Status: Ordered ibuprofen 600 mg oral tablet 600 mg, 1, tablet, By Mouth, Every 6 hours, PRN, # 40 tablet, Refills 1, Tot. Refills 1, Maintenance, Headache, 06/19/23 10:54:00 EST, Route to Pharmacy Electronically, [facility]/pharmacy #[id number], Partial fill upon patient request if the prescription is for a... Start Date: 06/19/23 Status: Ordered ketoconazole 2% topical shampoo See Instructions, 1 application Topically three times a week, # 120 mL, 3 Refills, Soft Stop, 07/06/23 16:38:00 EST, Shampoo, [facility]/pharmacy #[id number], Partial fill upon patient request if the prescriptionis for a schedule II opioid drug., 1 application To... Start Date: 07/06/23 Status: Ordered lidocaine 5% topical cream 1 application, Topically, 3 times a day, PRN Pain. Hungarian sig, # 45 Gm, 1 Refills, Maintenance, 01/10/21 9:40:00 EDT, Cream, [facility]/pharmacy #[id number], Partial fill upon patient request if the prescriptionis for a schedule II opioid drug., 1 application To... Start Date: 01/10/21 Status: Ordered Lidoderm 5% film 1 patch, Topically, Daily, remove patches after 12 hours, # 30 patch, 5 Refills, Maintenance, 07/06/23 16:39:00 EST, [facility]/pharmacy #[id number], Partial fill upon patient request if the prescription is for aschedule II opioid drug., 1 patch Topically Daily,I... Start Date: 07/06/23 Status: Ordered pregabalin 200 mg oral capsule 1 capsule = 200 mg, By Mouth, Daily, # 30 capsule, 1 Refills, Maintenance, 01/25/23 9:00:00 EDT, Capsule, [facility]/pharmacy #[id number], Partial fill upon patient request if the prescription is for a schedule II opioid drug., 163, cm, 01/25/23 8:30:00 EDT, Height Start Date: 01/25/23 Stop Date: 03/26/23 Status: Ordered Singulair 10 mg oral tablet 10 mg, 1, tablet, By Mouth, Daily, # 90 tablet, Refills 3, Tot. Refills 3, Maintenance, 01/25/23 8:49:00 EDT, Route to Pharmacy Electronically, [facility]/pharmacy #[id number], 163, cm, 01/25/23 8:30:00 EDT, Height Start Date: 01/25/23 Stop Date: 01/20/24 Status: Ordered Spiriva Respimat 10 ACT 2.5 mcg/inh inhalation aerosol 2 puffs = 5 mcg, Inhalation, Daily, comoran sig, # 4 Gm, 5 Refills, Maintenance, 03/14/23 10:57:00 EST, Aerosol, [facility]/pharmacy #[id number], Partial fill upon patient request if the prescription is for a schedule II opioid drug., 163, cm, 03/14/23 9:01:00 EST... Start Date: 03/14/23 Status: Ordered Symbicort 160mcg/4.5mcg Inhaler 2, puffs, Inhalation, 2 times a day, for 90 days, # 3 each, Refills 3, Tot. Refills 3, Physician Stop 01/20/24 8:50:00 EDT, 01/25/23 8:50:00 EDT, Route to Pharmacy Electronically, [id number], [facility]/pharmacy #[id number], 163, cm, 12/30... Start Date: 01/25/23 Stop Date: 01/20/24 Status: Ordered Tylenol Extra Strength 500 mg oral tablet 2 tablet = 1,000 mg, By Mouth, 3 times a day, PRN for fever, # 60 tablet, 0 Refills, Maintenance, 02/24/23 20:18:00 EDT, Tablet, [facility]/pharmacy #[id number], Partial fill upon patient request, 163, cm, 02/24/23 17:24:00 EDT, Height, 102, kg, 02/24/23 17:24:00... Start Date: 02/24/23 Stop Date: 03/06/23 Status: Ordered Voltaren Arthritis Pain 1% topical gel = 2 Gm, Topically, 4 times a day, # 100 Gm, 6 Refills, Maintenance, 07/12/23 16:13:00 EDT, Partial fill upon patient request if the prescription is for a schedule II opioid drug. Start Date: 07/12/23 Stop Date: 09/20/23 Status: Ordered Problem List Condition Confirmation Course Effective Dates Status H ealth Status Informant Anemia Confirmed Active Asthma, Moderate-Persistent Confirmed Active Obesity (BMI 30-39.9) Confirmed Active COVID-19 Confirmed Active Epiploic appendagitis 1 Confirmed Active Essential hypertension Confirmed Active Abnormal mammogram (L Mammo due 07/2023) Confirmed Active Morbid obesity with BMI of 40.0-44.9, adult Confirmed Active Chronic myofascial pain/Fibromyalgia Confirmed Active Obstructive sleep apnea (on CPAP) Confirmed Active Osteoarthritis of left knee Confirmed Active Severe obesity Confirmed Active 1Dx in 2018 Social History Social History Type Response Smoking Status Never smoker entered on: 02/16/14 Sex Patient Care team information Care Team Personnel Name: Hilda STEPHENS, Belle Barba Position: [facility] Associate Professional Member Role: Lifetime Consulting Provider Address: Address: [address] [place] [address]- Name: Mariza Goodrich MD Position: [facility] Physician - Primary Care Member Role: PCP Address: Address: [address] [place] [address] Name: Pati Apodaca RN Position: [facility] RN Member Role: Primary Care Nurse Name: Hollie Pfeiffer RN Position: [facility] Hospital Back Maker Member Role: Primary Care Nurse Care Team Related Persons Name: ESTEPHANIA WYNN Address: [address] [place] [address] Name: EUNICE WYNN Address: home [address] [facility] [address] [place] [address] Name: NELLI RENO Name: MATTHEW RENO Address: [place] [address]
--- OUTSIDE RECORDS SUMMARY | 2023-10-16 07:57 | XMS_ITS | Continuity of Care Document ---
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 Name Role Phone Kp JOHNS, Mariza Primary Care Physician [phone] Encounter [facility] Date(s): 08/22/23 - 09/21/[address] [address]- Allergies, Adverse Reactions, Alerts No Known Allergies [...] 01/25/23 8:49:00 EDT, Route to Pharmacy Electronically, [id number], [facility]/pharmacy #[id number], 163, cm, 01/25/23 8:30:00 EDT, Height Start Date: 01/25/23 Status: Ordered cetirizine 10 mg oral tablet 1 tablet, By Mouth, Daily, # 30 tablet, 5 Refills, [facility] STORE [id number], 163, cm, 01/10/21 8:49:00 EDT, Height, 102.9, kg, 05/21/20 8:52:00 EST, Dry Weight Start Date: 06/18/21 Status: Ordered cholestyramine 4 g/5.7 g oral powder for reconstitution = 2 Gm, By Mouth, Daily, dissolve in water or juice. Prydeinig Sig., # 180 Gm, 1 Refills, Maintenance, 04/16/23 15:55:00 EST, REC Powder, [facility]/pharmacy #[id number], Partial fill upon patient request if the prescription is for a schedule II opioid drug., 163, c... Start Date: 04/16/23 Stop Date: 10/13/23 Status: Ordered clonazePAM 0.5 mg oral tablet 1 tablet = 0.5 mg, By Mouth, Daily at bedtime, PRN Anxiety, # 30 tablet, 1 Refills, Maintenance, 01/25/23 9:00:00 EDT, Tablet, [facility]/pharmacy #[id number], Partial fill upon patient [...] night. Length of need 99 Fax to [facility],... Start Date: 06/20/23 Status: Ordered donut pillow donut pillow, See Instructions, # 1 each, Refills 0, Tot. Refills 0, Maintenance, use for sitting for 2-4 weeks for coccyx bruise M53.3, 03/07/23 16:09:00 EST, Supply Start Date: 03/07/23 Status: Ordered escitalopram 10 mg oral tablet 1 tablet = 10 mg, By Mouth, Daily, # 90 tablet, 0 Refills, Maintenance, 01/25/23 8:52:00 EDT, Tablet, [facility]/pharmacy #[id number], Partial fill upon patient request if the prescription is for a schedule II opioid drug., 163, cm, 01/25/23 8:30:00 EDT, Height Start Date: 01/25/23 Stop Date: 04/25/23 Status: Ordered Flonase 50 mcg/inh nasal spray 2 sprays, Nares, Both, Daily in AM, # 1 each, 11 Refills, Maintenance, 07/26/20 9:20:00 EDT, [place],[facility]/pharmacy #[id number], 2 sprays Nares, Both Daily in AM, 163, cm, 07/22/20 8:51:00 EDT, Height, 105.7,kg, 09/12/19 20:00:00 EDT, Dry Weight Start Date: 07/26/20 Status: Ordered hydrochlorothiazide 25 mg oral tablet 1, tablet, By Mouth, Daily, for 90 days, # 90 tablet, Refills 3, Tot. Refills 3, Physician Stop 01/20/24 9:07:00 EDT, 01/25/23 9:07:00 EDT, Route to Pharmacy Electronically, [facility]/pharmacy #[id number], 163, cm, 01/25/23 9:05:00 EDT, Height Start Date: 01/25/23 Stop Date: 01/20/24 Status: Ordered ibuprofen 600 mg oral tablet 600 mg, 1, tablet, By Mouth, Every 6 hours, PRN, # 40 tablet, Refills 1, Tot. Refills 1, Maintenance, Headache, 06/19/23 10:54:00 EST, Route to Pharmacy Electronically, [facility]/pharmacy #[id number], Partial fill upon patient request if the prescription is for a... Start Date: 06/19/23 Status: Ordered ketoconazole 2% topical shampoo See Instructions, 1 application Topically three times a week, # 120 mL, 3 Refills, Soft Stop, 07/06/23 16:38:00 EST, Shampoo, [facility]/pharmacy #[id number], Partial fill upon patient request if the prescriptionis for a schedule II opioid drug., 1 application To... Start Date: 07/06/23 Status: Ordered lidocaine 5% topical cream 1 application, Topically, 3 times a day, PRN Pain. Prydeinig sig, # 45 Gm, 1 Refills, Maintenance, 01/10/21 9:40:00 EDT, Cream, [facility]/pharmacy #[id number], Partial fill upon patient request if the prescriptionis for a schedule II opioid drug., 1 application To... Start Date: 01/10/21 Status: Ordered Lidoderm 5% film 1 patch, Topically, Daily, remove patches after 12 hours, # 30 patch, 5 Refills, Maintenance, 07/06/23 16:39:00 EST, [facility]/pharmacy #[id number], Partial fill upon patient request if the prescription is for aschedule II opioid drug., 1 patch Topically Daily,I... Start Date: 07/06/23 Status: Ordered pregabalin 200 mg oral capsule 1 capsule = 200 mg, By Mouth, Daily, # 30 capsule, 1 Refills, Maintenance, 01/25/23 9:00:00 EDT, Capsule, [facility]/pharmacy #[id number], Partial fill upon patient request if the prescription is for a schedule II opioid drug., 163, cm, 01/25/23 8:30:00 EDT, Height Start Date: 01/25/23 Stop Date: 03/26/23 Status: Ordered Singulair 10 mg oral tablet 10 mg, 1, tablet, By Mouth, Daily, # 90 tablet, Refills 3, Tot. Refills 3, Maintenance, 01/25/23 8:49:00 EDT, Route to Pharmacy Electronically, [facility]/pharmacy #[id number], 163, cm, 01/25/23 8:30:00 EDT, Height Start Date: 01/25/23 Stop Date: 01/20/24 Status: Ordered Spiriva Respimat 10 ACT 2.5 mcg/inh inhalation aerosol 2 puffs = 5 mcg, Inhalation, Daily, ugandan sig, # 4 Gm, 5 Refills, Maintenance, 03/14/23 10:57:00 EST, Aerosol, [facility]/pharmacy #[id number], Partial fill upon patient request if the prescription is for a schedule II opioid drug., 163, cm, 03/14/23 9:01:00 EST... Start Date: 03/14/23 Status: Ordered Symbicort 160mcg/4.5mcg Inhaler 2, puffs, Inhalation, 2 times a day, for 90 days, # 3 each, Refills 3, Tot. Refills 3, Physician Stop 01/20/24 8:50:00 EDT, 01/25/23 8:50:00 EDT, Route to Pharmacy Electronically, [id number], [facility]/pharmacy #[id number], 163, cm, 12/30... Start Date: 01/25/23 Stop Date: 01/20/24 Status: Ordered Tylenol Extra Strength 500 mg oral tablet 2 tablet = 1,000 mg, By Mouth, 3 times a day, PRN for fever, # 60 tablet, 0 Refills, Maintenance, 02/24/23 20:18:00 EDT, Tablet, [facility]/pharmacy #[id number], Partial fill upon patient [...] Team Personnel Name: Belle Stevens NP Position: [facility] PCO Associate Professional Member Role: Lifetime Consulting Provider Address: Address: [address] [place] [id number]- Name: Mariza Goodrich MD Position: [facility] Physician - Primary Care Member Role: PCP Address: Address: [address] [place] [address]- Name: Pati Apodaca RN Position: [facility] RN Member Role: Primary Care Nurse Name: Hollie Pfeiffer RN Position: [facility] Hospital Python Programmer Member Role: Primary Care Nurse Care Team Related Persons Name: ESTEPHANIA WYNN Address: [address] [place] [address] Name: EUNICE WYNN Address: [address] [facility] [address] [place] [address] Name: NELLI RENO Name: MATTHEW RENO Address: home [address] [place] [address]
--- OUTSIDE RECORDS SUMMARY | 2023-10-16 07:57 | XMS_ITS | Continuity of Care Document ---
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 Water Superintendent Name Role Phone Kp JOHNS, Mariza Primary Care Physician Encounter [facility] Date(s): 08/30/21 - 09/29/[address] [address]- Attending Physician: AdmtrCara Admitting Physician: AdmtrCara Referring Physician: Admtr, Ar8 Allergies, Adverse Reactions, Alerts No Known Allergies Immunizations Given and Recorded Vaccine Date Status Refusal Reason SARS-CoV-2 (COVID-19) mRNA-1273 vaccine 09/08/20 R ecorded SARS-CoV-2 (COVID-19) mRNA-1273 vaccine 08/11/20 R ecorded influenza virus vaccine, inactivated 02/11/19 [place]ley rded influenza virus vaccine, inactivated 02/11/18 Give n influenza virus vaccine, inactivated 04/02/17 Give n influenza virus vaccine, inactivated 03/15/16 Give n influenza virus vaccine, inactivated 02/22/15 Give n influenza virus vaccine, inactivated 02/17/14 Give n influenza virus vaccine, inactivated 03/14/13 Give n pneumococcal 23-valent vaccine 02/17/14 Given tetanus-diphtheria toxoids (Td) 10/08/12 Given Medications cetirizine 10 mg oral tablet 1 tablet, By Mouth, Daily, # 30 tablet, 5 Refills, [facility] STORE [id number], 163, cm, 01/10/21 8:49:00 EDT, Height, 102.9, kg, 05/21/20 8:52:00 EST, Dry Weight Start Date: 06/18/21 Status: Ordered clonazePAM 0.5 mg oral tablet [...] 1 each, Maintenance, send compliance data fax [id number] Dx GULSHAN send mask and CPAP supplies for patient patient states that she has been using PAP regularly and feels better sinceusing CPAP To [facility], 02/19/18 16:36:42 EDT, C... Start Date: 02/19/18 Status: Ordered escitalopram 10 mg oral tablet 1 tablet = 10 mg, By Mouth, Daily Start Date: 05/14/20 Status: Ordered etodolac 400 mg oral tablet 1 tablet = 400 mg, By Mouth, 2 times a day, Togolese sig. PRN Pain, # 60 tablet, 1 Refills, Maintenance, 05/19/21 17:37:00 EST, Tablet, [facility]/pharmacy #[id number], Partial fill upon patient request if the prescription is for a schedule II opioid drug., 163, cm... Start Date: 05/19/21 Status: Ordered Flonase 50 mcg/inh nasal spray 2 sprays, Nares, Both, Daily in AM, # 1 each, 11 Refills, Maintenance, 07/26/20 9:20:00 EDT, [place],[facility]/pharmacy #[id number], 2 sprays Nares, Both Daily in AM, 163, cm, 07/22/20 8:51:00 EDT, Height, 105.7,kg, 09/12/19 20:00:00 EDT, Dry Weight Start Date: 07/26/20 Status: Ordered hydrochlorothiazide 25 mg oral tablet 1, tablet, By Mouth, Daily, # 30 tablet, Refills 5, Route to Pharmacy Electronically, [facility] STORE [id number], 163, cm, 01/10/21 8:49:00 EDT, Height, 102.9, kg, 05/21/20 8:52:00 EST, Dry Weight Start Date: 06/18/21 Status: Ordered lidocaine 5% topical cream 1 application, Topically, 3 times a day, PRN Pain. Togolese sig, # 45 Gm, 1 Refills, Maintenance, 01/10/21 9:40:00 EDT, Cream, [facility]/pharmacy #[id number], Partial fill upon patient request if the prescriptionis for a schedule II opioid drug., 1 application To... Start Date: 01/10/21 Status: Ordered pregabalin 200 mg oral capsule 1 capsule = 200 mg, By Mouth, Daily, 0 Refills, Maintenance, 06/02/19 21:14:00 EST, Capsule Start Date: 06/02/19 Status: Ordered ProAir HFA 90 mcg/inh inhalation aerosol with adapter 2, puffs, Inhalation, 4 times a day, PRN, # 1 each, Refills 1, Tot. Refills 1, Maintenance, 08/29/21 17:19:00 EDT, Route to Pharmacy Electronically, [id number], [facility]/pharmacy#[id number], 163, cm, 01/10/21 8:49:00 EDT, Height, 102.9... Start Date: 08/29/21 Stop Date: 10/28/21 Status: Ordered Singulair 10 mg oral tablet 10 mg, 1, tablet, By Mouth, Daily, # 30 tablet, Refills 6, Tot. Refills 6, Maintenance, 08/29/21 17:19:00 EDT, Route to Pharmacy Electronically, [facility]/pharmacy #[id number], 163, cm, 01/10/21 8:49:00 EDT, Height, 102.9, kg, 05/21/20 8:52:00 EST, Dry Weight Start Date: 08/29/21 Status: Ordered Spiriva HandiHaler 18 mcg inhalation capsule 1 capsule = 18 mcg, Inhalation, Daily, for 30 days, # 30 capsule, 11 Refills, Hard Stop 11/24/21 10:04:00 EDT, 11/29/20 10:04:00 EDT, [facility]/pharmacy #[id number], 163, cm, 11/29/20 9:31:00 EDT, Height, 102.9,kg, 05/21/20 8:52:00 EST, Dry Weight Start Date: 11/29/20 Stop Date: 11/24/21 Status: Ordered Symbicort 160mcg/4.5mcg Inhaler See Instructions, INHALE DANDO DOS SOPLIDOS DOS VECES AL RAMESH, # 10.2 Unknown, Refills 6, Tot. Refills 6, 11/29/20 10:04:00 EDT, Instructions Replace Required Details, Route to Pharmacy Electronically, [id number], [facility]/pharmacy... Start Date: 11/29/20 Status: Ordered Problem List Condition Effective Dates Status Health Status Inform ant Anemia(Confirmed) Active Asthma, Moderate-Persistent(Confirmed) Active COVID-19(Confirmed) Active Epiploic appendagitis(Confirmed) 1 Active Essential hypertension(Confirmed) Active Morbid obesity with BMI of 4 0.0-44.9, adult(Confirmed) Active Chronic myofascial pain/Fibromyalgia(Confirmed) Active Obstructive sleep apnea (on CPAP)(Confirmed) Active 1Dx in 2018 Social History Social History Type Response Smoking Status Never smoker entered on: 02/16/14 Sex Female
--- OUTSIDE RECORDS SUMMARY | 2023-10-16 07:57 | XMS_ITS | Continuity of Care Document ---
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 Name Role Phone Kp JOHNS, Mariza Primary Care Physician [phone] Encounter [facility] Date(s): 07/06/21 - 08/05/[address] [address]- Attending Physician: Admtr, Cara Admitting Physician: AdmtrCara Referring Physician: Admtr, Ar8 [...] Mouth, Daily, # 30 tablet, 5 Refills, [facility] ST[facility] [address]23, 163, cm, 01/10/21 8:49:00 EDT, Height, 102.9, [...] 1 each, Maintenance, send compliance data fax [phone] Dx GULSHAN send mask and CPAP supplies for patient patient states that she has been using PAP regularly and feels better sinceusing CPAP To [facility], 02/19/18 16:36:42 EDT, C... Start Date: 02/19/18 Status: Ordered escitalopram 10 mg oral tablet 1 tablet = 10 mg, By Mouth, Daily Start Date: 05/14/20 Status: Ordered etodolac 400 mg oral tablet 1 tablet = 400 mg, By Mouth, 2 times a day, Faroese sig. PRN Pain, # 60 tablet, 1 Refills, Maintenance, 05/19/21 17:37:00 EST, Tablet, [facility]/pharmacy #[id number], Partial fill upon patient request if the prescription is for a schedule II opioid drug., 163, cm... Start Date: 05/19/21 Status: Ordered Flonase 50 mcg/inh nasal spray 2 sprays, Nares, Both, Daily in AM, # 1 each, 11 Refills, Maintenance, 07/26/20 9:20:00 EDT, [place],[facility]/pharmacy #[id number], 2 sprays Nares, Both Daily in AM, 163, cm, 07/22/20 8:51:00 EDT, Height, 105.7,kg, 09/12/19 20:00:00 EDT, Dry Weight Start Date: 07/26/20 Status: Ordered hydrochlorothiazide 25 mg oral tablet 1, tablet, By Mouth, Daily, # 30 tablet, Refills 5, Route to Pharmacy Electronically, [facility] ST[id number], 163, cm, 01/10/21 8:49:00 EDT, Height, 102.9, kg, 05/21/20 8:52:00 EST, Dry Weight Start Date: 06/18/21 Status: Ordered lidocaine 5% topical cream 1 application, Topically, 3 times a day, PRN Pain. Faroese sig, # 45 Gm, 1 Refills, Maintenance, 01/10/21 9:40:00 EDT, Cream, [facility]/pharmacy #[id number], Partial fill upon patient request if [...] 10/24/20 14:24:00 EDT, Route to Pharmacy Electronically, [id number], [facility]/pharmacy #[id number], 163, cm, 07/22/20 8:51:00 EDT, Height, 105... Start Date: 10/24/20 Stop Date: 10/19/21 Status: Ordered Singulair 10 mg oral tablet 10 mg, 1, tablet, By Mouth, Daily, # 30 tablet, Refills 6, Tot. Refills 6, Maintenance, 11/29/20 10:04:00 EDT, Route to Pharmacy Electronically, [facility]/pharmacy #[id number], 163, cm, 11/29/20 9:31:00 EDT, Height, 102.9, kg, 05/21/20 8:52:00 EST, Dry Weight Start Date: 11/29/20 Status: Ordered Spiriva HandiHaler 18 mcg inhalation [...] Replace Required Details, Route to Pharmacy Electronically, [id number], [facility]... Start Date: 11/29/20 Status: Ordered Problem List Condition Effective Dates Status Health Status Inform ant Anemia(Confirmed) Active Asthma, Moderate-Persistent(Confirmed) Active COVID-19(Confirmed) Active Epiploic appendagitis(Confirmed) 1 Active Essential hypertension(Confirmed) Active Morbid obesity with BMI of 4 0.0-44.9, adult(Confirmed) Active Chronic myofascial pain/Fibromyalgia(Confirmed) Active Obstructive sleep apnea (on CPAP)(Confirmed) Active Care Management [facility]N/BHCP Luis Brady Band Manager. [phone](Confirmed) Active 1Dx in 2018 Social History Social History Type Response Smoking Status Never smoker entered on: 02/16/14 Sex Female
--- OUTSIDE RECORDS SUMMARY | 2023-10-16 07:57 | XMS_ITS | Continuity of Care Document ---
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 Start Date: 06/11/19 Stop Date: 08/10/19 Status: Ordered Advair Diskus 100 mcg-50 mcg inhalation powder 1, puffs, Inhalation, 2 times a day, Refills 0, Maintenance, 06/02/19 21:09:00 EST, Powder Start Date: 06/02/19 Status: Ordered Albuterol 0.083% inhalation michael PRN, Refills 0, Maintenance, lot#[id number] exp august 2020, 03/10/19 18:53:20 EST Start Date: 03/10/19 Status: Ordered Albuterol 0.083% inhalation michael See Instructions, given at office visit lot # [id number] Exp 09/17, Refills 0, Maintenance, 03/26/19 9:24:59 EST, Instructions Replace Required Details Start Date: 03/26/19 Status: Ordered albuterol 0.083% inhalation solution 3 mL = 2.5 mg, Inhalation, Every 6 hours, # 120 each, 1 Refills, Maintenance, 10/21/19 9:22:00 EDT,Solution, [facility]/pharmacy #[id number], 163, cm, 10/14/19 12:52:00 EDT, Height, 108.3, kg, 02/17/19 7:48:00 EDT, Dry Weight Start Date: 10/21/19 Status: Ordered albuterol CFC free 90 mcg/inh inhalation aerosol 2, puffs, Inhalation, 4 times a day, PRN, # 1 each, Refills 11, Tot. Refills 11, Maintenance, 03/25/18 9:14:15 EST, Aerosol, Route to Pharmacy Electronically, [id number], [facility]/pharmacy #[id number], Compound Start Date: 03/25/18 Status: Ordered ALPRAZolam 0.25 mg oral tablet 0.25 mg, 1, tablet, By Mouth, 2 times a day, Refills 0, Maintenance, 11/04/18 18:19:51 EDT Start Date: 11/04/18 Status: Ordered ALPRAZolam 0.25 mg oral tablet 0.25 mg, 1, tablet, By Mouth, Daily, Refills 0, Maintenance, 06/02/19 21:13:00 EST Start Date: 06/02/19 Status: Ordered cetirizine 10 mg oral tablet 1 tablet = 10 mg, By Mouth, Daily, # 30 tablet, 6 Refills, Maintenance, 08/11/19 8:27:00 EDT, Tablet, [facility]/pharmacy #[id number], 163, cm, 06/11/19 10:50:00 EST, Height, [...] 1 each, Maintenance, send compliance data fax [phone] Dx GULSHAN send mask and CPAP supplies for patient patient states that she has been using PAP regularly and feels better sinceusing CPAP To [facility], 02/19/18 16:36:42 EDT, C... Start Date: 02/19/18 Status: Ordered diclofenac 1% topical gel 1 application, Topically, 3 times a day, PRN Knee Pain. Bulgarian sig, # 100 Gm, 2 Refills, Maintenance, 08/11/19 8:28:00 EDT, Gel, [facility]/pharmacy #[id number], 163, cm, 06/11/19 10:50:00 EST, Height, [...] EDT, Route to Pharmacy Electronically, [facility]/pharmacy #[id number], 163, cm, 06/11/19 10:50:00 EST, Height, 108.3, kg, 02/17/19 7:48:00 EDT, Dry... Start Date: 08/11/19 Status: Ordered Ferrousal 325 mg oral tablet 1 tablet = 325 mg, By Mouth, 3 times a day, 0 Refills, Maintenance, 06/02/19 21:11:00 EST Start Date: 06/02/19 Status: Ordered Flonase 50 mcg/inh nasal spray 2 sprays, Nares, Both, Daily in AM, # 1 each, 6 Refills, Maintenance, 04/14/19 10:44:43 EST, [place],[facility]/pharmacy #[id number], 2 sprays Nares, Both Daily in [...] 10 mg oral tablet See Instructions, MANDA SOSA VECES AL RAMESH, # 60 tablet, 2 Refills, 08/11/19 8:30:00 EDT, [facility]/pharmacy #[id number], 163, cm, 06/11/19 10:50:00 EST, Height, 108.3, kg, 02/17/19 7:48:00 EDT, Dry Weight Start Date: 08/11/19 Status: Ordered Hydrochlorothiazide By Mouth, Daily, 0 Refills, Maintenance, 06/02/19 21:11:00 EST Start Date: 06/02/19 Status: Ordered hydrochlorothiazide 25 mg oral tablet 25 mg, 1, tablet, By Mouth, Daily, # 30 tablet, Refills 11, Tot. Refills 11, Maintenance, 08/11/19 8:30:00 EDT, Route to Pharmacy Electronically, [facility]/pharmacy #[id number], 163, cm, 06/11/19 10:50:00 EST, Height, 108.3, kg, 02/17/19 7:48:00 EDT, Dry Weight Start Date: 08/11/19 Status: Ordered ibuprofen 600 mg oral tablet 600 mg, 1, tablet, By Mouth, Every 8 hours, PRN Pain Bulgarian Do not take with other NSAIDs (including Meloxicam), # 90 tablet, Refills 1, Tot. Refills 1, Maintenance, 08/11/19 8:31:00 EDT, Route to Pharmacy Electronically, [facility]/pharmacy #[id number], 163, c... Start Date: 08/11/19 Stop Date: 10/10/19 Status: Ordered ketoconazole 1% topical shampoo See Instructions, 1 applicator Topically 2 times per week for 4 weeks. Bulgarian sig, # 200 mL, 0 Refills, Maintenance, 04/09/19 9:23:01 EST, 1 applicator Topically 2 times per week for 4 weeks. Bulgarian sig, 163, cm, 04/09/19 8:51:21 EST, Height, [...] EDT, Capsule Start Date: 11/04/18 Status: Ordered multivitamin Vitamin B Complex oral tablet 1 tablet, By Mouth, Daily, # 100 tablet, 2 Refills, Maintenance, 12/01/19 14:53:00 EDT, Tablet, [facility]/pharmacy #[id number], 1 tablet By Mouth Daily, 163, cm, 10/14/19 12:52:00 EDT, Height, 108.3, kg, 02/17/19 7:48:00 EDT, Dry Weight Start Date: 12/01/19 Status: Ordered PredniSONE = 40 mg, By Mouth, Daily, PRN given at md appt, 0 Refills, Maintenance, 03/10/19 18:54:44 EST Start Date: 03/10/19 Status: Ordered pregabalin 200 mg oral capsule 1 capsule = 200 mg, By Mouth, Daily, 0 Refills, Maintenance, 06/02/19 21:14:00 EST, Capsule Start Date: 06/02/19 Status: Ordered ProAir Digihaler 90 mcg/inh inhalation powder 2 puffs, Inhalation, Every 6 hours, 0 Refills, Maintenance, 06/02/19 21:09:00 EST Start Date: 06/02/19 Status: Ordered ProAir HFA 90 mcg/inh inhalation aerosol with adapter 2, puffs, Inhalation, 4 times a day, PRN, # 1 each, Refills 6, Tot. Refills 6, Maintenance, 10/21/19 9:21:00 EDT, Route to Pharmacy Electronically, [id number], [facility]/pharmacy #[id number], 163, cm, 10/14/19 12:52:00 EDT, Height, 108.3... Start Date: 10/21/19 Stop Date: 05/18/20 Status: Ordered Singulair 10 mg oral tablet 10 mg, 1, tablet, By Mouth, Daily, # 30 tablet, Refills 6, Tot. Refills 6, Maintenance, 08/11/19 8:32:00 EDT, Route to Pharmacy Electronically, [facility]/pharmacy #[id number], 163, cm, 06/11/19 10:50:00 EST, Height, 108.3, kg, 02/17/19 7:48:00 EDT, Dry Weight Start Date: 08/11/19 Status: Ordered Spiriva = 18 mcg, Inhalation, Daily, 0 Refills, Maintenance, 06/02/19 21:09:00 EST Start Date: 06/02/19 Status: Ordered Spiriva HandiHaler 18 mcg inhalation capsule 1 capsule = 18 mcg, Inhalation, Daily, # 30 capsule, 11 Refills, Maintenance, 03/26/19 8:42:22 EST Start Date: 03/26/19 Stop Date: 03/20/20 Status: Ordered Symbicort 160mcg/4.5mcg Inhaler 2, puffs, Inhalation, 2 times a day, Discontinue Advair, # 6 Gm, Refills 6, Tot. Refills 6, Maintenance, 10/21/19 9:21:00 EDT, Aerosol, Route to Pharmacy Electronically, [id number], [facility]/pharmacy #[id number], 163, cm, 10/14/19 12:52... Start Date: 10/21/19 Status: Ordered venlafaxine 150 mg oral capsule, extended release 150 mg, 1, capsule, By Mouth, Daily, # 30 capsule, Refills 0, Maintenance, 06/02/19 21:12:00 EST Start Date: 06/02/19 Status: Ordered Vitamin D3 1000 intl units oral tablet 1 tablet = 1,000 International_Units, By Mouth, Daily, # 30 tablet, 11 Refills, Maintenance, 06/28/18 18:01:13 EST, Tablet Start Date: 06/28/18 Status: Ordered Vitamin D3 oral tablet By Mouth, Daily, 0 Refills, Maintenance, 06/02/19 21:11:00 EST Start Date: 06/02/19 Status: Ordered Water-based Physical Therapy at [facility] Water-based Physical Therapy at [facility], See Instructions, # 1 each, Refills 0, [...] sleep apnea (on CPAP)(Confirmed) Active Care Management Khoa Galvez [facility] Office Nurse [phone](Confirmed) Active 1Dx in 2018 Diagnosis Diagnosis Type Effective Dates Health Status Clini louie Service Informant Stye Discharge Diagnosis 01/23/20 Vital Signs Most recent to oldest [Reference Range]: 1 Height 163 cm (01/23/20 9:18 AM) Oxygen Saturation [94-100 %] 98 % (01/23/20 9:18 AM) Pulse Rate [55-90 bpm] 74 bpm (01/23/20 9:18 AM) Blood Pressure [90-138/55-84 mm Hg] 126/ 70mm Hg (01/23/20 9:18 AM) Respiratory Rate [16-30 br/min] 21 br/mi n (01/23/20 9:18 AM) Temperature [96.8-100.4 DegF] 98.4 DegF (01/23/20 9:18 AM) Mode of Delivery (Oxygen) Room air (01/23/20 9:18 AM) Blood pressure sites Arm, left (01/23/20 9:18 AM) Temperature Route Temporal (01/23/20 9:18 AM) Social History Social History Type Response Smoking Status Never smoker entered on: 02/16/14 Sex Female
--- OUTSIDE RECORDS SUMMARY | 2023-10-16 07:57 | XMS_ITS | Continuity of Care Document ---
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 Start Date: 06/02/20 Stop Date: 08/01/20 Status: Ordered ALPRAZolam 0.25 mg oral tablet 0.25 mg, 1, tablet, By Mouth, 2 times a day, Refills 0, Maintenance, 11/04/18 18:19:51 EDT Start Date: 11/04/18 Status: Ordered cetirizine 10 mg oral tablet 1 tablet = 10 mg, By Mouth, Daily, # 30 tablet, 6 Refills, Maintenance, 08/11/19 8:27:00 EDT, Tablet, [facility]/pharmacy #[id number], 163, cm, 06/11/19 10:50:00 EST, [...] 1 each, Maintenance, send compliance data fax [phone] Dx GULSHAN send mask and CPAP supplies for patient patient states that she has been using PAP regularly and feels better sinceusing CPAP To [facility], 02/19/18 16:36:42 EDT, C... Start Date: 02/19/18 Status: Ordered diclofenac 1% topical gel 1 application, Topically, 3 times a day, PRN Knee Pain. Polish sig, # 100 Gm, 2 Refills, Maintenance, 08/11/19 8:28:00 EDT, Gel, [id number], 163, cm, 06/11/19 10:50:00 EST, Height, 108.3, kg, 02/17/19 7:48:00 EDT, Dry Weight Start Date: 08/11/19 Status: Ordered escitalopram 10 mg oral tablet [...] each, 6 Refills, Maintenance, 04/14/19 10:44:43 EST, [place],[facility]/pharmacy #[id number], 2 sprays Nares, Both Daily in AM, 163, cm, 04/14/19 10:18:38 EST, Height, 108.3, kg, 02/17/19 7:48:07 EDT, Dry Weight Start Date: 04/14/19 Status: Ordered hydrochlorothiazide 25 mg oral tablet 25 mg, 1, tablet, By Mouth, Daily, # 30 tablet, Refills 11, Tot. Refills 11, Maintenance, 08/11/19 8:30:00 EDT, Route to Pharmacy Electronically, [facility]/pharmacy #[id number], 163, cm, 06/11/19 10:50:00 EST, Height, 108.3, kg, 02/17/19 7:48:00 EDT, Dry Weight Start Date: 08/11/19 Status: Ordered ibuprofen 600 mg oral tablet 600 mg, 1, tablet, By Mouth, Every 8 hours, PRN Pain Polish Do not take with other NSAIDs (including Meloxicam), # 90 tablet, Refills 1, Tot. Refills 1, Maintenance, 06/02/20 8:53:00 EST, Route to Pharmacy Electronically, [facility]/pharmacy #[id number], 163, c... Start Date: 06/02/20 Stop Date: 08/01/20 Status: Ordered ketoconazole 1% topical shampoo See Instructions, 1 applicator Topically 2 times per week for 4 weeks. Polish sig, # 200 mL, 0 Refills, Maintenance, 04/09/20 8:49:00 EST, [facility]/pharmacy #[id number], 1 applicator Topically 2 times per weekfor 4 weeks. Polish sig, 163, cm, 02/16/20 10:15:0... Start Date: 04/09/20 Status: Ordered left knee hinged brace. left knee hinged brace., See Instructions, # 1 each, Refills 0, Tot. Refills 0, Maintenance, left knee hinged brace. DX: OA of knee, 11/27/17 15:34:04 EDT, Compound Start Date: 11/27/17 Status: Ordered multivitamin Vitamin B Complex oral tablet 1 tablet, By Mouth, Daily, # 100 tablet, 2 Refills, Maintenance, 12/01/19 14:53:00 EDT, Tablet, [facility]/pharmacy #[id number], 1 tablet By Mouth Daily, [...] a day, PRN, # 1 each, Refills 5, Tot. Refills 5, Maintenance, 04/27/20 14:24:00 EST, Route to Pharmacy Electronically, [id number], [facility]/pharmacy#[id number], 163, cm, 02/16/20 10:15:00 EDT, Height, 105.... Start Date: 04/27/20 Stop Date: 10/24/20 Status: Ordered Qvar Redihaler 80 mcg/inh inhalation aerosol 1 puffs, Inhalation, 2 times a day, # 1 each, 0 Refills, Maintenance, 05/14/20 15:22:00 EST, [facility]/pharmacy #[id number], This is in ADDITION to Symbicort. To be used as short course given concern for acute flair. Rx in Polish, 1 puffs Inhalation 2 times a da... Start Date: 05/14/20 Stop Date: 05/21/20 Status: Ordered Singulair 10 mg oral tablet 10 mg, 1, tablet, By Mouth, Daily, # 30 tablet, Refills 6, Tot. Refills 6, Maintenance, 04/27/20 12:29:00 EST, Route to Pharmacy Electronically, [facility]/pharmacy #[id number], 163, cm, 02/16/20 10:15:00 EDT, Height, 105.7, kg, 09/12/19 20:00:00 EDT, Dry Weight Start Date: 04/27/20 Status: Ordered Spiriva HandiHaler 18 mcg inhalation capsule 1 capsule = 18 mcg, Inhalation, Daily, # 30 capsule, 11 Refills, Maintenance, 06/02/20 8:54:00 EST,[facility]/pharmacy #[id number], 163, cm, 02/16/20 10:15:00 EDT, Height, 105.7, kg, 09/12/19 20:00:00 EDT, Dry Weight Start Date: 06/02/20 Stop Date: 05/28/21 Status: Ordered Symbicort 160mcg/4.5mcg Inhaler 2, puffs, Inhalation, 2 times a day, Discontinue Advair, # 6 Gm, Refills 6, Tot. Refills 6, Maintenance, 10/21/19 9:21:00 EDT, Aerosol, Route to Pharmacy Electronically, [id number], [facility]/pharmacy #[id number], 163, cm, 10/14/19 12:52... 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 [phone](Confirmed) Active 1Dx in 2018 Social History Social History Type Response Smoking Status Never smoker entered on: 02/16/14 Sex Female
--- OUTSIDE RECORDS SUMMARY | 2023-10-16 07:57 | XMS_ITS | Continuity of Care Document ---
Author Organization [facility] Address [address] [place] [id number]- Care Team Providers Care Desulphuring Operator Name Role Phone Mariza Goodrich MD Primary Care Physician Encounter [facility] Date(s): 09/14/22 - 09/15/[address] [address]- Encounter Diagnosis Finger laceration(Final) - 09/15/22 Discharge Disposition: A-D/C Home Attending Physician: Dionna Martin MD Admitting Physician: Dionna Martin MD Referring Physician: Not on Staff, Referring MD Allergies, Adverse Reactions, Alerts No Known Allergies Immunizations Given and Recorded Vaccine Date Status Refusal Reason tetanus/diphtheria/pertussis, acel(Tdap) 09/15/22 Given SARS-CoV-2 (COVID-19) mRNA-1273 [...] Mouth, Daily, # 30 tablet, 5 Refills, [id number], 163, cm, 01/10/21 8:49:00 EDT, Height, 102.9, [...] 1 each, Maintenance, send compliance data fax [phone] Dx GULSHAN send mask and CPAP supplies for patient patient states that she has been using PAP regularly and feels better sinceusing CPAP To [facility], 02/19/18 16:36:42 EDT, C... Start Date: 02/19/18 Status: Ordered escitalopram 10 mg oral tablet 1 tablet = 10 mg, By Mouth, Daily Start Date: 05/14/20 Status: Ordered etodolac 400 mg oral tablet 1 tablet = 400 mg, By Mouth, 2 times a day, Bahamian sig. PRN Pain, # 60 tablet, 1 Refills, Maintenance, 05/19/21 17:37:00 EST, Tablet, [facility]/pharmacy #[id number], Partial fill upon patient request if the prescription is for a schedule II opioid drug., 163, cm... Start Date: 05/19/21 Status: Ordered Flonase 50 mcg/inh nasal spray 2 sprays, Nares, Both, Daily in AM, # 1 each, 11 Refills, Maintenance, 07/26/20 9:20:00 EDT, [place],[facility]/pharmacy #[id number], 2 sprays Nares, Both Daily in AM, 163, cm, 07/22/20 8:51:00 EDT, Height, 105.7,kg, 09/12/19 20:00:00 EDT, Dry Weight Start Date: 07/26/20 Status: Ordered hydrochlorothiazide 25 mg oral tablet 1, tablet, By Mouth, Daily, # 30 tablet, Refills 5, Route to Pharmacy Electronically, [id number], 163, cm, 01/10/21 8:49:00 EDT, Height, 102.9, kg, 05/21/20 8:52:00 EST, Dry Weight Start Date: 06/18/21 Status: Ordered lidocaine 5% topical cream 1 application, Topically, 3 times a day, PRN Pain. Bahamian sig, # 45 Gm, 1 Refills, Maintenance, 01/10/21 9:40:00 EDT, Cream, [facility]/pharmacy #[id number], Partial fill upon patient request if [...] Inhalation, 4 times a day, PRN, # 8.5 each, Refills 5, Route to Pharmacy Electronically, [id number], [facility] [id number], 163, cm, 01/10/21 8:49:00 EDT, Height, 102.9,kg, 05/21/20 8:52:00 EST, Dry Weight Start Date: 10/28/21 Status: Ordered Singulair 10 mg oral tablet 10 mg, 1, tablet, By Mouth, Daily, # 30 tablet, Refills 6, Tot. Refills 6, Maintenance, 08/29/21 17:19:00 EDT, Route to Pharmacy Electronically, [facility]/pharmacy #[id number], 163, cm, 01/10/21 8:49:00 EDT, Height, 102.9, kg, 05/21/20 8:52:00 EST, Dry Weight Start Date: 08/29/21 Status: Ordered Symbicort 160mcg/4.5mcg Inhaler See Instructions, INHALE DANDO DOS SOPLIDOS DOS VECES AL RAMESH, # 10.2 Unknown, Refills 6, Tot. Refills 6, 11/29/20 10:04:00 EDT, Instructions Replace Required Details, Route to Pharmacy Electronically, [id number], [facility]... Start Date: 11/29/20 Status: Ordered Problem List Condition Confirmation Course Effective Dates Status Health St atus Informant Anemia Confirmed Active Asthma, Moderate-Persistent Confirmed Active COVID-19 Confirmed Active Epiploic appendagitis 1 Confirmed Active Essential hypertension Confirmed Active Morbid obesity with BMI of 40.0-44.9, adult Confirmed Active Chronic myofascial pain/Fibromyalgia Confirmed Active Obstructive sleep apnea (on CPAP) Confirmed Active 1Dx in 2018 Results Radiology Reports * Exam Date Time Procedure Performing Provider Status 09/14/22 8:47 PM Finger 2nd Right Hand Gustafson Earnestine; Auth (Verified) Notes: (Finger 2nd Right Hand) Reason For Exam: Trauma RESULT: Finger 2nd Right Hand Finger 2nd Right Hand, 3 views Hx of Present Illness: Lac to right index finger; 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 FINDINGS: No fractures or bone lesions. No arthritic changes. Soft tissue swelling about the proximal second digit. No radiopaque foreign body. IMPRESSION: No radiopaque foreign body. WSN: [id number] Ordering Physician: Rosalie Byrd Dictated By: Sara Jansen MD Dictated Date/Time: 09/14/22 9:26 pm Reviewed By: Sara Jansen MD Signed By: Sara Jansen MD Signed Date/Time: 09/14/22 9:26 pm Transcribed By: JONN Transcribed Date/Time: 09/14/22 9:24 pm Vital Signs Most recent to oldest [Reference Range]: 1 2 3 Oxygen Saturation [94-100 %] 100 % (09/15/22 2:11 AM) 100 % (09/15/22 12:16 AM) 99 % (09/14/22 8:14 PM) Pulse Rate [55-90 bpm] 61 bpm (09/15/22 2:11 AM) 60 bpm (09/15/22 12:16 AM) 66 bpm (09/14/22 8:14 PM) Blood Pressure [90-138/55-84 mm Hg] 125/76mm Hg (09/15/22 2:11 AM) 139/81mm Hg *H* (09/15/22 12:16 AM) 159/75mm Hg *H* (09/14/22 8:14 PM) Respiratory Rate [16-30 br/min] 16 br/min (09/14/22 8:14 PM) 16 br/min (09/14/22 8:06 PM) Temperature [96.8-100.4 DegF] 98.4 DegF (09/15/22 2:11 AM) 98.4 DegF (09/14/22 8:21 PM) Mode of Delivery (Oxygen) Room air (09/15/22 2:11 AM) Room air (09/15/22 12:16 AM) Room air (09/14/22 8:14 PM) Blood pressure sites Arm, left (09/15/22 2:11 AM) Arm, left (09/15/22 12:16 AM) Temperature Route Oral (09/15/22 2:11 AM) Oral (09/14/22 8:21 PM) Social History Social History Type Response Smoking Status Never smoker entered on: 02/16/14 Sex Female XR Finger second - right Views * [facility] , CIS S: TRANSCRIBE Sara Jansen MD: VERIFY Event Display: Result: Authored Date: [id number] Finger 2nd Right Hand, 3 views Hx of Present Illness: Lac to right index finger; 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 FINDINGS: No fractures or bone lesions. No arthritic changes. Soft tissue swelling about the proximal second digit. No radiopaque foreign body. IMPRESSION: No radiopaque foreign body. WSN: [id number] Ordering Physician: Rosalie Byrd Dictated By: Sara Jansen MD Dictated Date/Time: 09/14/22 9:26 pm Reviewed By: Sara Jansen MD Signed By: Sara Jansen MD Signed Date/Time: 09/14/22 9:26 pm Transcribed By: JONN Transcribed Date/Time: 09/14/22 9:24 pm Patient Care team information Care Team Personnel Name: Belle Stevens NP Position: [facility] PCO Associate Professional Member Role: Lifetime Consulting Provider Address: Address: [address] [place] [address] Name: Mariza Goodrich MD Position: [facility] Primary Care Physician Member Role: PCP Address: Address: [address] [place] [address]- Name: Pati Apodaca RN Position: [facility] RN Member Role: Primary Care Nurse Name: Hollie Pfeiffer RN Position: [facility] Hospital Raiser Helper Member Role: Primary Care Nurse Name: Keely Jacobo Position: [facility] Associate Professional Member Role: ED Physician Bias Machine Operator Helper Address: Address: [address] [place] [address]- Name: Dionna Martin MD Position: [facility] ED Medicine MD Member Role: Admitting Physician Address: Address: [address] [place] [address]- Name: Cheryl Hammond Position: [facility] ED [facility] Name: Anel Rivera Position: [facility] ED [facility] Care Team Related Persons Name: ESTEPHANIA WYNN Address: [address] [place] [address] Name: EUNICE WYNN Address: home [address] [place] [address] Name: NELLI RENO Name: MATTHEW RENO Address: home [address] [place] [address]
--- OUTSIDE RECORDS SUMMARY | 2023-10-16 07:57 | XMS_ITS | Continuity of Care Document ---
Author Organization [facility] ter Address [address] [place] [id number]- Care Team Providers Care Pastry Cook Apprentice Name Role Phone Mariza Goodrich MD Primary Care Physician [phone] [place] [facility] [place] 03/31/19 - 08/03/[address] [address]- [facility] Attending Physician: Mariza Goodrich MD Admitting Physician: Mariza Goodrich MD Referring [...] 11:30:00 EST, Route to Pharmacy Electronically, [facility]/pharmacy #[id number], 163, cm, 06/11/19 10:50:00 EST, Height, 108.3, kg, 02/17/19 7:48:0... Start Date: 06/11/19 Stop Date: 08/10/19 Status: Ordered Albuterol 0.083% inhalation michael PRN, Refills 0, Maintenance, lot#[id number] exp august 2020, 03/10/19 18:53:20 EST Start Date: 03/10/19 Status: Ordered Albuterol 0.083% inhalation michael See Instructions, given at office visit lot # [id number] Exp 09/17, Refills 0, Maintenance, 03/26/19 9:24:59 [...] 9:14:15 EST, Aerosol, Route to Pharmacy Electronically, [id number], [facility]/pharmacy #[id number], Compound Start Date: 03/25/18 Status: Ordered ALPRAZolam 0.25 mg oral tablet 0.25 mg, 1, tablet, By Mouth, 2 times a day, Refills 0, Maintenance, 11/04/18 18:19:51 EDT Start Date: 11/04/18 Status: Ordered cetirizine 10 mg oral tablet 1 tablet = 10 mg, By Mouth, Daily, # 30 tablet, 6 Refills, Maintenance, 11/04/18 18:28:40 EDT, Tablet Start Date: 11/04/18 Status: Ordered Colace sodium 100 mg oral capsule 100 mg, 1, capsule, By Mouth, 2 times a day, PRN, # 60 capsule, Refills 0, Tot. Refills 0, Maintenance, for constipation, 12/24/17 18:11:10 EDT, Print Requisition Start Date: 12/24/17 Status: Ordered CPAP and CPAP equipment CPAP and CPAP equipment, See Instructions, # 1 units, Refills 0, Tot. Refills 0, Maintenance, CPAP of 11 cm of H2O with a heated humidifier. Recommend ordering a machine with compliance data capabilities and following residual AHI. Dx: GULSHAN 327.2... Start Date: 02/19/18 Status: Ordered CPAP Equipment See Instructions, # 1 each, Maintenance, send compliance data fax [phone] Dx GULSHAN send mask and CPAP supplies for patient patient states that she has been using PAP regularly and feels better sinceusing CPAP To [facility], 02/19/18 16:36:42 EDT, C... Start Date: 02/19/18 Status: Ordered diclofenac 1% topical gel 1 application, Topically, 3 times a day, PRN Knee Pain. Beninese sig, # 100 Gm, 2 Refills, Maintenance, 06/12/19 11:31:00 EST, Gel, [facility]/pharmacy #[id number], 163, cm, 06/11/19 10:50:00 EST, Height, 108.3, kg, 02/17/19 7:48:00 EDT, Dry Weight Start Date: 06/12/19 Status: Ordered Effexor XR 75 mg oral capsule, extended release 75 mg, 1, capsule, By Mouth, Daily, Rx'd per Psych Bello Stevens, Refills 0, Maintenance, 11/04/1917:19:33 EDT Start Date: 11/04/18 Status: Ordered ferrous sulfate 325 mg oral enteric coated tablet 325 mg, 1, tablet, By Mouth, 2 times a day, # 180 tablet, Refills 3, Tot. Refills 3, Maintenance, 12/10/17 16:59:07 EDT, Route to Pharmacy Electronically, [id number], [facility]/pharmacy #[id number] Start Date: 12/10/17 Status: Ordered Flonase 50 mcg/inh nasal spray 2 sprays, Nares, Both, Daily in AM, # 1 each, 6 Refills, Maintenance, 04/14/19 10:44:43 EST, [place],[facility]/pharmacy #[id number], 2 sprays Nares, Both [...] mg oral tablet See Instructions, MANDA RIVASA DOS VECES AL RAMESH, # 60 tablet, 2 Refills, Soft Stop, [facility] STORE [id number], 163, cm, 04/14/19 10:18:00 EST, Height, 108.3, kg, 02/17/19 7:48:00 EDT, Dry Weight Start Date: 05/15/19 Status: Ordered hydrochlorothiazide 25 mg oral tablet 25 mg, 1, tablet, By Mouth, Daily, # 30 tablet, Refills 11, Tot. Refills 11, Maintenance, 11/28/17 15:46:59 EDT, Route to Pharmacy Electronically, [id number], [facility]/pharmacy #[id number] Start Date: 11/28/17 Status: Ordered ketoconazole 1% topical shampoo See Instructions, 1 applicator Topically 2 times per week for 4 weeks. Beninese sig, # 200 mL, 0 Refills, Maintenance, 04/09/19 9:23:01 EST, 1 applicator Topically 2 times per week for 4 weeks. Beninese sig, 163, cm, 04/09/19 8:51:21 EST, Height, [...] EDT, Capsule Start Date: 11/04/18 Status: Ordered meloxicam 15 mg oral tablet 1 tablet = 15 mg, By Mouth, Daily, With food. Djiboutian sig. PRN Pain, # 30 tablet, 0 Refills, Maintenance, 02/25/19 17:05:09 EDT, Tablet Start Date: 02/25/19 Status: Ordered ondansetron 2 mg/mL injectable solution = 4 mg, Intramuscular, Once, LOT [id number] [id number] 10/2019 Left Deltoid, # 2 mL, 0 Refills, Maintenance,06/11/19 11:33:00 EST Start Date: 06/11/19 Stop Date: 06/11/19 Status: Ordered PredniSONE = 40 mg, By Mouth, Daily, PRN given at md appt, 0 Refills, Maintenance, 03/10/19 18:54:44 EST Start Date: 03/10/19 Status: Ordered predniSONE 10 mg oral tablet 1 tablet = 10 mg, By Mouth, Daily, # 7 tablet, 0 Refills, Soft Stop, 04/14/19 10:45:22 EST, Tablet,[id number], 163, cm, 04/14/19 10:18:38 EST, Height, 108.3, kg, 02/17/19 7:48:07 EDT, Dry Weight Start Date: 04/14/19 Stop Date: 04/21/19 Status: Ordered ProAir HFA 90 mcg/inh inhalation aerosol with adapter 2, puffs, Inhalation, 4 times a day, PRN, # 1 application, Refills 6, Tot. Refills 6, Maintenance, 02/11/18 19:13:20 EDT, Route to Pharmacy Electronically, [id number], [facility]/pharmacy #[id number] Start Date: 02/11/18 Stop Date: 09/09/18 Status: Ordered Provera 10 mg oral tablet 10 mg, 1, tablet, By Mouth, Daily, # 30 tablet, Refills 2, Tot. Refills 2, Maintenance, 10/30/17 11:33:21 EDT, Route to Pharmacy Electronically, [id number], [id number] Start Date: 10/30/17 Status: Ordered Singulair 10 mg oral tablet 10 mg, 1, tablet, By Mouth, Daily, # 30 tablet, Refills 6, Tot. Refills 6, Maintenance, 03/26/19 8:57:56 EST, Route to Pharmacy Electronically, [id number], [facility]/pharmacy #[id number] Start Date: 03/26/19 Status: Ordered Spiriva HandiHaler 18 mcg inhalation capsule 1 capsule = 18 mcg, Inhalation, Daily, # 30 capsule, 11 Refills, Maintenance, 03/26/19 8:42:22 EST Start Date: 03/26/19 Stop Date: 03/20/20 Status: Ordered Symbicort 160mcg/4.5mcg Inhaler 2, puffs, Inhalation, 2 times a day, Discontinue Advair, # 6 Gm, Refills 6, Tot. Refills 6, Maintenance, 03/26/19 8:58:21 EST, Aerosol, Route to Pharmacy Electronically, [id number], [facility]/pharmacy #[id number] Start Date: 03/26/19 Status: Ordered Vitamin D3 1000 intl units oral tablet 1 tablet = 1,000 International_Units, By Mouth, Daily, # 30 tablet, 11 Refills, Maintenance, 06/28/18 18:01:13 EST, Tablet Start Date: 06/28/18 Status: Ordered Water-based Physical Therapy at [facility] Water-based Physical Therapy at [facility], See Instructions, # 1 each, Refills 0, Tot. Refills 0, Maintenance, 2 times per week. To improve function, ROM, decrease pain. Diagnosis: Fibromyalgia, Chronic Back Pain. ICD10 M79.7,M54.9, 11/04/18 18:32:11 EDT,... Start Date: 11/04/18 Status: Ordered Zofran ODT 4 mg oral tablet, disintegrating 1 tablet = 4 mg, By Mouth, Every 8 hours, PRN as needed for nausea/vomiting, Beninese sig, # 9 tablet, 0 Refills, Maintenance, 06/11/19 11:28:00 EST, DIS Tablet, [facility]/pharmacy #[id number], 163, cm, 06/11/19 10:50:00 EST, Height, 108.3, kg, 02/17/19 7:48:00 ED... 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
--- OUTSIDE RECORDS SUMMARY | 2023-10-16 07:57 | XMS_ITS | Continuity of Care Document ---
Author Organization [facility] ter Address [address] [place] [id number]- Care Team Providers Care Sport Psychologist Name Role Phone Mariza Goodrich MD Primary Care Physician Encounter [facility] [place] Date(s): 02/24/23 - 02/24/[address] [address]- Encounter Diagnosis Musculoskeletal pain(Final) - 02/24/23 Discharge Disposition: A-D/C Home Attending Physician: Steven Cortes DO Admitting Physician: Steven Cortes DO Referring Physician: Not on Staff, Referring MD [...] 01/25/23 8:49:00 EDT, Route to Pharmacy Electronically, [id number], [facility]/pharmacy #[id number], 163, cm, 01/25/23 8:30:00 EDT, Height Start Date: 01/25/23 Status: Ordered cetirizine 10 mg oral tablet 1 tablet, By Mouth, Daily, # 30 tablet, 5 Refills, [facility] STORE [id number], 163, cm, 01/10/21 8:49:00 EDT, Height, 102.9, kg, 05/21/20 8:52:00 EST, Dry Weight Start Date: 06/18/21 Status: Ordered clonazePAM 0.5 mg oral tablet 1 tablet = 0.5 mg, By Mouth, Daily at bedtime, PRN Anxiety, # 30 tablet, 1 Refills, Maintenance, 01/25/23 9:00:00 EDT, Tablet, [facility]/pharmacy #[id number], Partial fill upon patient request [...] 1 each, Maintenance, send compliance data fax [phone] Dx GULSHAN send mask and CPAP supplies for patient patient states that she has been using PAP regularly and feels better sinceusing CPAP To [facility], 02/19/18 16:36:42 EDT, C... Start Date: 02/19/18 Status: Ordered escitalopram 10 mg oral tablet 1 tablet = 10 mg, By Mouth, Daily, # 90 tablet, 0 Refills, Maintenance, 01/25/23 8:52:00 EDT, Tablet, [facility]/pharmacy #[id number], Partial fill upon patient request if the prescription is for a schedule II opioid drug., 163, cm, 01/25/23 8:30:00 EDT, Height Start Date: 01/25/23 Stop Date: 04/25/23 Status: Ordered etodolac 400 mg oral tablet 1 tablet = 400 mg, By Mouth, 2 times a day, Sierra Leonean sig. PRN Pain, # 60 tablet, 1 Refills, Maintenance, 05/19/21 17:37:00 EST, Tablet, [facility]/pharmacy #[id number], Partial fill upon patient request if the prescription is for a schedule II opioid drug., 163, cm... Start Date: 05/19/21 Status: Ordered Flonase 50 mcg/inh nasal spray 2 sprays, Nares, Both, Daily in AM, # 1 each, 11 Refills, Maintenance, 07/26/20 9:20:00 EDT, Loop,[facility]/pharmacy #[id number], 2 sprays Nares, Both Daily in AM, 163, cm, 07/22/20 8:51:00 EDT, Height, 105.7,kg, 09/12/19 20:00:00 EDT, Dry Weight Start Date: 07/26/20 Status: Ordered hydrochlorothiazide 25 mg oral tablet 1, tablet, By Mouth, Daily, for 90 days, # 90 tablet, Refills 3, Tot. Refills 3, Physician Stop 01/20/24 9:07:00 EDT, 01/25/23 9:07:00 EDT, Route to Pharmacy Electronically, [facility]/pharmacy #[id number], 163, cm, 01/25/23 9:05:00 EDT, Height Start Date: 01/25/23 Stop Date: 01/20/24 Status: Ordered ketoconazole 2% topical shampoo See Instructions, 1 application Topically three times a week, # 120 mL, 3 Refills, Soft Stop, 01/25/23 8:59:00 EDT, Shampoo, [facility]/pharmacy #[id number], Partial fill upon patient request if the prescription is for a schedule II opioid drug., 1 application Top... Start Date: 01/25/23 Status: Ordered lidocaine 5% topical cream 1 application, Topically, 3 times a day, PRN Pain. Sierra Leonean sig, # 45 Gm, 1 Refills, Maintenance, 01/10/21 9:40:00 EDT, Cream, [facility]/pharmacy #[id number], Partial fill upon patient request if the prescriptionis for a schedule II opioid drug., 1 application To... Start Date: 01/10/21 Status: Ordered Lidoderm 5% film 1 patch, Topically, Daily, remove patches after 12 hours, # 30 patch, 0 Refills, Maintenance, 02/24/23 20:18:00 EDT, [facility]/pharmacy #[id number], Partial fill upon patient request if the prescription is for aschedule II opioid drug., 1 patch Topically Daily,I... Start Date: 02/24/23 Status: Ordered MorPHINE Immediate Release Tablet 15 mg, Tablet, By Mouth, Every 4 hours, PRN for Pain , Severe, Routine, 02/24/23 17:20:00 EDT Start Date: 02/24/23 Stop Date: 03/03/23 Status: Ordered pregabalin 200 mg oral capsule 1 capsule = 200 mg, By Mouth, Daily, # 30 capsule, 1 Refills, Maintenance, 01/25/23 9:00:00 EDT, Capsule, [facility]/pharmacy #[id number], Partial fill upon patient request if the prescription is for a schedule II opioid drug., 163, cm, 01/25/23 8:30:00 EDT, Height Start Date: 01/25/23 Stop Date: 03/26/23 Status: Ordered Singulair 10 mg oral tablet 10 mg, 1, tablet, By Mouth, Daily, # 90 tablet, Refills 3, Tot. Refills 3, Maintenance, 01/25/23 8:49:00 EDT, Route to Pharmacy Electronically, [facility]/pharmacy #[id number], 163, cm, 01/25/23 8:30:00 EDT, Height Start Date: 01/25/23 Stop Date: 01/20/24 Status: Ordered Spiriva HandiHaler 18 mcg inhalation capsule 1 capsule = 18 mcg, Inhalation, Daily, # 90 capsule, 3 Refills, Maintenance, 01/25/23 8:51:00 EDT, [facility]/pharmacy #[id number], Partial fill upon patient request if the prescription is for a schedule II opioid drug., 163, cm, 01/25/23 8:30:00 EDT, Height Start Date: 01/25/23 Stop Date: 01/20/24 Status: Ordered Symbicort 160mcg/4.5mcg Inhaler 2, puffs, Inhalation, 2 times a day, for 90 days, # 3 each, Refills 3, Tot. Refills 3, Physician Stop 01/20/24 8:50:00 EDT, 01/25/23 8:50:00 EDT, Route to Pharmacy Electronically, [id number], [facility]/pharmacy #[id number], 163, cm, 12/30... Start Date: 01/25/23 Stop Date: 01/20/24 Status: Ordered Tylenol Extra Strength 500 mg oral tablet 2 tablet = 1,000 mg, By Mouth, 3 times a day, PRN for fever, # 60 tablet, 0 Refills, Maintenance, 02/24/23 20:18:00 EDT, Tablet, [facility]/pharmacy #[id number], Partial fill upon patient request, [...] with comorbidity Confirmed Active 1Dx in 2018 Results Radiology Reports * Exam Date Time Procedure Performing Provider Status 02/24/23 6:[address] Pelvis W/O Contrast Ramila Hdez; Auth (Verified) Notes: (CT Pelvis W/O Contrast) Reason For Exam: Trauma RESULT: CT Pelvis W/O Contrast CLINICAL INDICATION: Hx of Present Illness: pt reports having a fall on with increasing pain in her tailbone; Reason: Trauma; Clinical Question(s): Other:; pelvic fracture; Order Comment: PROCEDURE: CT Pelvis W/O Contrast TECHNIQUE: Thin section axial images were obtained of the pelvis. Coronal and sagittal reformationsperformed. Enteric contrast without administered. COMPARISONS: CT abdomen and pelvis 03/20/2018. FINDINGS: Pelvis: IUD within the uterus. Bladder: Normal. Large Bowel: A few scattered diverticula in the visualized colon without active inflammation. Lymph nodes: None enlarged. Free fluid: None. Bones: No evidence of fracture or dislocation. Nonfusion of posterior element of S1 vertebral body.Unchanged bony cyst within the left ischium. Calcifications noted near the gluteal tendon attachments bilaterally. Possible calcific tendinosis. Intrauterine device in expected location. IMPRESSION: No evidence of fracture or dislocation. I have personally reviewed the images and I agree with this report. WSN: [id number] Ordering Physician: Steven Cortes Dictated By: Latrell Solomon MD Dictated Date/Time: 02/24/23 7:51 pm Reviewed By: Pieter Zacarias MD Signed By: Pieter Zacarias MD Signed Date/Time: 02/24/23 7:56 pm Transcribed By: JONN Transcribed Date/Time: 02/24/23 7:45 pm * Exam Date Time Procedure Performing Provider Status 02/24/23 6:50 PM XR Femur 2 Views Right Adams Monzon es; Auth (Verified) Notes: (XR Femur 2 Views Right) Reason For Exam: with Pain;Trauma RESULT: Femur 2 Views Right Femur 2 Views Right, 2 views Hx of Present Illness: pt reports having a fall on with increasing pain in her tailbone; Reason: Trauma; with Pain; Clinical Question(s): Fracture COMPARISON: None. FINDINGS: No fracture, dislocation or bone lesion. Small enthesophytes. Visualized portions of the joints are normal. Normal soft tissues. No knee joint effusion. IMPRESSION: Normal. WSN: [id number] Ordering Physician: Steven Cortes Dictated By: Monica Padgett MD Dictated Date/Time: 02/24/23 7:26 pm Reviewed By: Monica Padgett MD Signed By: Monica Padgett MD Signed Date/Time: 02/24/23 7:26 pm Transcribed By: JONN Transcribed Date/Time: 02/24/23 7:25 pm Vital Signs Most recent to oldest [Reference Range]: 1 2 3 Height 163 cm (02/24/23 5:24 PM) 163 cm (02/24/23 2:41 PM) Weight 102 kg (02/24/23 5:24 PM) 102 kg (02/24/23 2:41 PM) Oxygen Saturation [94-100 %] 98 % (02/24/23 5:24 PM) 96 % (02/24/23 2:41 PM) Pulse Rate [55-90 bpm] 64 bpm (02/24/23 5:24 PM) 80 bpm (02/24/23 2:41 PM) Body Mass Index [18.5-24.99 kg/m2] 38.39 kg/m2 *>HHI* (02/24/23 2:41 PM) Blood Pressure [90-138/55-84 mm Hg] 117/63mm Hg (02/24/23 5:24 PM) 160/91mm Hg *H* (02/24/23 2:41 PM) Respiratory Rate [16-30 br/min] 18 br/min (02/24/23 5:50 PM) 16 br/min (02/24/23 5:24 PM) 18 br/min (02/24/23 2:41 PM) Temperature [96.8-100.4 DegF] 98.0 DegF (02/24/23 5:24 PM) 98.6 DegF (02/24/23 2:41 PM) Mode of Delivery (Oxygen) Room air (02/24/23 5:24 PM) Room air (02/24/23 2:41 PM) Blood pressure sites Arm, right (02/24/23 5:24 PM) Arm, right (02/24/23 2:41 PM) Temperature Route Oral (02/24/23 5:24 PM) Oral (02/24/23 2:41 PM) Dry Weight 102 kg (02/24/23 5:24 PM) 102 kg (02/24/23 2:41 PM) Weight Obtained Via Patient/family state d (02/24/23 2:41 PM) Dry Weight Obtained Via Patient/family s tated (02/24/23 2:41 PM) Social History Social History Type Response Smoking Status Never smoker entered on: 02/16/14 Sex Patient Care team information Care Team Personnel Name: Belle Stevens NP Position: [facility] PCO Associate Professional Member Role: Lifetime Consulting Provider Address: Address: [address] [place] [id number]- Name: Mariza Goodrich MD Position: [facility] Physician - Primary Care Member Role: PCP Address: Address: [address] [place] [id number]- Name: Pati Apodaca RN Position: [facility] RN Member Role: Primary Care Nurse Name: Hollie Pfeiffer RN Position: [facility] Hospital Ice Maker Member Role: Primary Care Nurse Name: Carla Dyer Position: [facility] ED TA [facility] Name: Steven Cortes DO Position: [facility] ED Medicine MD Member Role: Admitting Physician Address: Address: [address] [place] [address]- Name: Magalys Esparza Position: [facility] Associate Professional Member Role: ED Physician Insulation Worker Interior Surface Address: Address: [address] [place] [id number]- Name: Mariano Obrien RN Position: [facility] ED RN W/OE and Tasks Member Role: Patient Care Provider Care Team Related Persons Name: ESTEPHANIA WYNN Address: home [address] [place] [address] Name: EUNICE WYNN Address: home [address] [facility] [address] [place] [address] Name: NELLI RENO Name: MATTHEW RENO Address: home [address] [place] [address]
--- OUTSIDE RECORDS SUMMARY | 2023-10-16 07:58 | XMS_ITS | Continuity of Care Document ---
Author Organization [facility] Address [address] [place] [address]- Care Team Providers Care Tank Refinisher Name Role Phone Mariza Goodrich MD Primary Care Physician [phone] [place] [facility] Date(s): 05/20/21 - 05/21/[address] [address]- Discharge Disposition: A-D/C Walkout Attending Physician: Not [...] Medications cetirizine 10 mg oral tablet 1 tablet = 10 mg, By Mouth, Daily, # 30 tablet, 6 Refills, Maintenance, 11/29/20 10:03:00 EDT, Tablet, [id number], 163, cm, 11/29/20 9:31:00 EDT, Height, 102.9, kg, 05/21/20 8:52:00 EST, Dry Weight Start Date: 11/29/20 Status: Ordered clonazePAM 0.5 mg oral tablet [...] 1 each, Maintenance, send compliance data fax [phone] Dx GULSHAN send mask and CPAP supplies for patient patient states that she has been using PAP regularly and feels better sinceusing CPAP To [facility], 02/19/18 16:36:42 EDT, C... Start Date: 02/19/18 Status: Ordered escitalopram 10 mg oral tablet 1 tablet = 10 mg, By Mouth, Daily Start Date: 05/14/20 Status: Ordered etodolac 400 mg oral tablet 1 tablet = 400 mg, By Mouth, 2 times a day, Serbian sig. PRN Pain, # 60 tablet, 1 Refills, Maintenance, 05/19/21 17:37:00 EST, Tablet, [facility]/pharmacy #[id number], Partial fill upon patient request if the prescription is for a schedule II opioid drug., 163, cm... Start Date: 05/19/21 Status: Ordered Flonase 50 mcg/inh nasal spray 2 sprays, Nares, Both, Daily in AM, # 1 each, 11 Refills, Maintenance, 07/26/20 9:20:00 EDT, [place],[facility]/pharmacy #[id number], 2 sprays Nares, Both Daily in AM, 163, cm, 07/22/20 8:51:00 EDT, Height, 105.7,kg, 09/12/19 20:00:00 EDT, Dry Weight Start Date: 07/26/20 Status: Ordered hydrochlorothiazide 25 mg oral tablet 25 mg, 1, tablet, By Mouth, Daily, # 30 tablet, Refills 6, Tot. Refills 6, Maintenance, 11/29/20 10:04:00 EDT, Route to Pharmacy Electronically, [facility]/pharmacy #[id number], 163, cm, 11/29/20 9:31:00 EDT, Height, 102.9, kg, 05/21/20 8:52:00 EST, Dry Weight Start Date: 11/29/20 Status: Ordered lidocaine 5% topical cream 1 application, Topically, 3 times a day, PRN Pain. Serbian sig, # 45 Gm, 1 Refills, Maintenance, 01/10/21 9:40:00 EDT, Cream, [facility]/pharmacy #[id number], Partial fill upon patient request [...] 10/24/20 14:24:00 EDT, Route to Pharmacy Electronically, [id number], [facility]/pharmacy #[id number], 163, cm, 07/22/20 8:51:00 EDT, Height, 105... Start Date: 10/24/20 Stop Date: 10/19/21 Status: Ordered Singulair 10 mg oral tablet 10 mg, 1, tablet, By Mouth, Daily, # 30 tablet, Refills 6, Tot. Refills 6, Maintenance, 11/29/20 10:04:00 EDT, Route to Pharmacy Electronically, [facility]/pharmacy #[id number], 163, cm, 11/29/20 9:31:00 EDT, Height, 102.9, kg, 05/21/20 8:52:00 EST, Dry Weight Start Date: 11/29/20 Status: Ordered Spiriva HandiHaler 18 mcg inhalation capsule 1 capsule = 18 mcg, Inhalation, Daily, for 30 days, # 30 capsule, 11 Refills, Hard Stop 11/24/21 10:04:00 EDT, 11/29/20 10:04:00 EDT, [facility]/pharmacy #[id number], 163, cm, 11/29/20 9:31:00 EDT, Height, 102.9,kg, 05/21/20 8:52:00 EST, Dry Weight Start Date: 11/29/20 Stop Date: 11/24/21 Status: Ordered Symbicort 160mcg/4.5mcg Inhaler See Instructions, INHALE DANDO DOS SOPLIDOS DOS VECES AL RAMESH, # 10.2 Unknown, Refills 6, Tot. Refills 6, 11/29/20 10:04:00 EDT, Instructions Replace Required Details, Route to Pharmacy Electronically, [id number], [facility] Start Date: 11/29/20 Status: Ordered Problem List Condition Effective Dates Status Health Status Inform ant Anemia(Confirmed) Active Asthma, Moderate-Persistent(Confirmed) Active COVID-19(Confirmed) Active Epiploic appendagitis(Confirmed) 1 Active Essential hypertension(Confirmed) Active Morbid obesity with BMI of 4 0.0-44.9, adult(Confirmed) Active Chronic myofascial pain/Fibromyalgia(Confirmed) Active Obstructive sleep apnea (on CPAP)(Confirmed) Active Care Management BHN/BHCP [facility] kendra Brady Manager Concrete. [phone](Confirmed) Active 1Dx in 2018 Results Radiology Reports * Exam Date Time Procedure Performing Provider Status 05/20/21 8:24 PM Chest 2 Views Frontal and Lat Do , Tie n; Auth (Verified) Notes: (Chest 2 Views Frontal and Lat) Reason For Exam: Chest Pain;Other: RESULT: Chest 2 Views Frontal and Lat Chest 2 Views Frontal and Lat Hx of Present Illness: chest pain since am; Reason: Other:; Chest Pain; Clinical Question(s): Other: COMPARISON: 03/31/2019 FINDINGS: LINES AND TUBES: None. LUNGS AND PLEURA: Clear lungs. Normal pulmonary vascularity. No pleural effusion. No pneumothorax. HEART, MEDIASTINUM AND ROSA MARIA: Heart is normal in size. Normal upper mediastinal and hilar contour. BONES AND SOFT TISSUES: No acute abnormality. IMPRESSION: No acute abnormality. WSN: [id number] Ordering Physician: Aarti Jacinto Dictated By: Pieter Zacarias MD Dictated Date/Time: 05/20/21 8:29 pm Reviewed By: Pieter Zacarias MD Signed By: Pieter Zacarias MD Signed Date/Time: 05/20/21 8:29 pm Transcribed By: JONN Transcribed Date/Time: 05/20/21 8:28 pm Vital Signs Most recent to oldest [Reference Range]: 1 2 Oxygen Saturation [94-100 %] 98 % (05/20/21 9:46 PM) 99 % (05/20/21 7:28 PM) Pulse Rate [55-90 bpm] 63 bpm (05/20/21 9:46 PM) 66 bpm (05/20/21 7:28 PM) Blood Pressure [90-138/55-84 mm Hg] 140/ 77mm Hg *H* (05/20/21 9:46 PM) 131/78mm Hg (05/20/21 7:28 PM) Respiratory Rate [16-30 br/min] 20 br/mi n (05/20/21 9:46 PM) 18 br/min (05/20/21 7:28 PM) Temperature [96.8-100.4 DegF] 98.4 DegF (05/20/21 9:46 PM) 97.7 DegF (05/20/21 7:28 PM) Mode of Delivery (Oxygen) Room air (05/20/21 9:46 PM) Room air (05/20/21 7:28 PM) Blood pressure sites Arm, right (05/20/21 9:46 PM) Arm, left (05/20/21 7:28 PM) Temperature Route Oral (05/20/21 9:46 PM) Oral (05/20/21 7:28 PM) Social History Social History Type Response Smoking Status Never smoker entered on: 02/16/14 Sex Female
--- OUTSIDE RECORDS SUMMARY | 2023-10-16 07:58 | XMS_ITS | Continuity of Care Document ---
Author Organization [facility] Address [address] [place] [id number]- Care Team Providers Care Anesthesiology Tech Name Role Phone Kp JOHNS, Mariza Primary Care Physician [phone] Encounter [facility] Date(s): 04/16/23 - 05/16/[address] [address]- Allergies, Adverse Reactions, Alerts No Known Allergies [...] 01/25/23 8:49:00 EDT, Route to Pharmacy Electronically, [id number], [id number], 163, cm, 01/25/23 8:30:00 EDT, Height Start Date: 01/25/23 Status: Ordered cetirizine 10 mg oral tablet 1 tablet, By Mouth, Daily, # 30 tablet, 5 Refills, [id number], 163, cm, 01/10/21 8:49:00 EDT, Height, 102.9, kg, 05/21/20 8:52:00 EST, Dry Weight Start Date: 06/18/21 Status: Ordered cholestyramine 4 g/5.7 g oral powder for reconstitution = 2 Gm, By Mouth, Daily, dissolve in water or juice. Uzbek Sig., # 180 Gm, 1 Refills, Maintenance, 04/16/23 15:55:00 EST, REC Powder, [facility]/pharmacy #[id number], Partial fill upon patient request if the prescription is for a schedule II opioid drug., 163, c... Start Date: 04/16/23 Stop Date: 10/13/23 Status: Ordered clonazePAM 0.5 mg oral tablet 1 tablet = 0.5 mg, By Mouth, Daily at bedtime, PRN Anxiety, # 30 tablet, 1 Refills, Maintenance, 01/25/23 9:00:00 EDT, Tablet, [facility]/pharmacy #[id number], Partial fill upon patient request [...] 1 each, Maintenance, send compliance data fax [phone] Dx GULSHAN send mask and CPAP supplies [...] Refills, Maintenance, 01/25/23 8:52:00 EDT, Tablet, [facility]/pharmacy #[id number], Partial fill upon patient request if the prescription is for a schedule II opioid drug., 163, cm, 01/25/23 8:30:00 EDT, Height Start Date: 01/25/23 Stop Date: 04/25/23 Status: Ordered Flonase 50 mcg/inh nasal spray 2 sprays, Nares, Both, Daily in AM, # 1 each, 11 Refills, Maintenance, 07/26/20 9:20:00 EDT, [place],[facility]/pharmacy #[id number], 2 sprays Nares, Both Daily in AM, 163, cm, 07/22/20 8:51:00 EDT, Height, 105.7,kg, 09/12/19 20:00:00 EDT, Dry Weight Start Date: 07/26/20 Status: Ordered hydrochlorothiazide 25 mg oral tablet 1, tablet, By Mouth, Daily, for 90 days, # 90 tablet, Refills 3, Tot. Refills 3, Physician Stop 01/20/24 9:07:00 EDT, 01/25/23 9:07:00 EDT, Route to Pharmacy Electronically, [facility]/pharmacy #[id number], 163, cm, 01/25/23 9:05:00 EDT, Height Start Date: 01/25/23 Stop Date: 01/20/24 Status: Ordered ketoconazole 2% topical shampoo See Instructions, 1 application Topically three times a week, # 120 mL, 3 Refills, Soft Stop, 01/25/23 8:59:00 EDT, Shampoo, [facility]/pharmacy #[id number], Partial fill upon patient request if the prescription is for a schedule II opioid drug., 1 application Top... Start Date: 01/25/23 Status: Ordered lidocaine 5% topical cream 1 application, Topically, 3 times a day, PRN Pain. Uzbek sig, # 45 Gm, 1 Refills, Maintenance, 01/10/21 9:40:00 EDT, Cream, [facility]/pharmacy #[id number], Partial fill upon patient request if the prescriptionis for a schedule II opioid drug., 1 application To... Start Date: 01/10/21 Status: Ordered Lidoderm 5% film 1 patch, Topically, Daily, remove patches after 12 hours, # 30 patch, 0 Refills, Maintenance, 02/24/23 20:18:00 EDT, [facility]/pharmacy #[id number], Partial fill upon patient request if the prescription is for aschedule II opioid drug., 1 patch Topically Daily,I... Start Date: 02/24/23 Status: Ordered pregabalin 200 mg oral capsule 1 capsule = 200 mg, By Mouth, Daily, # 30 capsule, 1 Refills, Maintenance, 01/25/23 9:00:00 EDT, Capsule, [facility]/pharmacy #[id number], Partial fill upon patient request if the prescription is for a schedule II opioid drug., 163, cm, 01/25/23 8:30:00 EDT, Height Start Date: 01/25/23 Stop Date: 03/26/23 Status: Ordered Singulair 10 mg oral tablet 10 mg, 1, tablet, By Mouth, Daily, # 90 tablet, Refills 3, Tot. Refills 3, Maintenance, 01/25/23 8:49:00 EDT, Route to Pharmacy Electronically, [facility]/pharmacy #[id number], 163, cm, 01/25/23 8:30:00 EDT, Height Start Date: 01/25/23 Stop Date: 01/20/24 Status: Ordered Spiriva Respimat 10 ACT 2.5 mcg/inh inhalation aerosol 2 puffs = 5 mcg, Inhalation, Daily, macedonian sig, # 4 Gm, 5 Refills, Maintenance, 03/14/23 10:57:00 EST, Aerosol, [facility]/pharmacy #[id number], Partial fill upon patient request if the prescription is for a schedule II opioid drug., 163, cm, 03/14/23 9:01:00 EST... Start Date: 03/14/23 Status: Ordered Symbicort 160mcg/4.5mcg Inhaler 2, puffs, Inhalation, 2 times a day, for 90 days, # 3 each, Refills 3, Tot. Refills 3, Physician Stop 01/20/24 8:50:00 EDT, 01/25/23 8:50:00 EDT, Route to Pharmacy Electronically, [id number], [facility]/pharmacy #[id number], 163, cm, 12/30... Start Date: 01/25/23 Stop Date: 01/20/24 Status: Ordered Tylenol Extra Strength 500 mg oral tablet 2 tablet = 1,000 mg, By Mouth, 3 times a day, PRN for fever, # 60 tablet, 0 Refills, Maintenance, 02/24/23 20:18:00 EDT, Tablet, [facility]/pharmacy #[id number], Partial fill upon patient request, [...] Team Personnel Name: Belle Stevens NP Position: [facility] PCO Associate Professional Member Role: Lifetime Consulting Provider Address: Address: [address] [place] [id number]- [place] Name: Mariza Goodrich MD Position: [facility] Physician - Primary Care Member Role: PCP Address: Address: [address] [place] [id number] Name: Pati Apodaca RN Position: [facility] RN Member Role: Primary Care Nurse Name: Hollie Pfeiffer RN Position: [facility] Hospital Pediatrician Member Role: Primary Care Nurse Care Team Related Persons Name: ESTEPHANIA WYNN Address: [address] [place] [address] Name: EUNICE WYNN Address: home [address] [place] [address] Name: NELLI RENO Name: MATTHEW RENO Address: home [address] [place] [address]
--- OUTSIDE RECORDS SUMMARY | 2023-10-16 07:58 | XMS_ITS | Continuity of Care Document ---
Author Organization [facility] Address [address] [place] [address]- Care Team Providers Care Sales Product Manager Name Role Phone Mariza Goodrich MD Primary Care Physician Encounter [facility] Date(s): 02/15/23 - 04/10/[address] [address]- Encounter Diagnosis Pain in left knee(Final) - Discharge Disposition: A-D/C Home Attending Physician: Yara Osuna NP Admitting Physician: Yara Osuna NP Referring Physician: Yara Osuna NP Allergies, Adverse Reactions, Alerts No Known Allergies [...] 01/25/23 8:49:00 EDT, Route to Pharmacy Electronically, [id number], [facility]/pharmacy #[id number], 163, cm, 01/25/23 8:30:00 EDT, Height Start Date: 01/25/23 Status: Ordered cetirizine 10 mg oral tablet 1 tablet, By Mouth, Daily, # 30 tablet, 5 Refills, [id number], 163, cm, 01/10/21 8:49:00 EDT, Height, 102.9, kg, 05/21/20 8:52:00 EST, Dry Weight Start Date: 06/18/21 Status: Ordered cholestyramine 4 g/5.7 g oral powder for reconstitution = 2 Gm, By Mouth, Daily, dissolve in water or juice. Guyanese Sig., # 180 Gm, 1 Refills, Maintenance, 03/14/23 10:53:00 EST, REC Powder, [facility]/pharmacy #[id number], Partial fill upon patient request if the prescription is for a schedule II opioid drug., 163, c... Start Date: 03/14/23 Stop Date: 09/10/23 Status: Ordered clonazePAM 0.5 mg oral tablet 1 tablet = 0.5 mg, By Mouth, Daily at bedtime, PRN Anxiety, # 30 tablet, 1 Refills, Maintenance, 01/25/23 9:00:00 EDT, Tablet, [facility]/pharmacy #[id number], Partial fill upon patient request [...] 1 each, Maintenance, send compliance data fax [phone] Dx GULSHAN send mask and CPAP supplies for patient patient states that she has been using PAP regularly and feels better sinceusing CPAP To [facility], 02/19/18 16:36:42 EDT, C... Start Date: 02/19/18 [...] 0 Refills, Maintenance, 01/25/23 8:52:00 EDT, Tablet, [facility]/pharmacy #[id number], Partial fill upon patient request if the prescription is for a schedule II opioid drug., 163, cm, 01/25/23 8:30:00 EDT, Height Start Date: 01/25/23 Stop Date: 04/25/23 Status: Ordered Flonase 50 mcg/inh nasal spray 2 sprays, Nares, Both, Daily in AM, # 1 each, 11 Refills, Maintenance, 07/26/20 9:20:00 EDT, [place],[facility]/pharmacy #[id number], 2 sprays Nares, Both Daily in AM, 163, cm, 07/22/20 8:51:00 EDT, Height, 105.7,kg, 09/12/19 20:00:00 EDT, Dry Weight Start Date: 07/26/20 Status: Ordered hydrochlorothiazide 25 mg oral tablet 1, tablet, By Mouth, Daily, for 90 days, # 90 tablet, Refills 3, Tot. Refills 3, Physician Stop 01/20/24 9:07:00 EDT, 01/25/23 9:07:00 EDT, Route to Pharmacy Electronically, [facility]/pharmacy #[id number], 163, cm, 01/25/23 9:05:00 EDT, Height Start Date: 01/25/23 Stop Date: 01/20/24 Status: Ordered ketoconazole 2% topical shampoo See Instructions, 1 application Topically three times a week, # 120 mL, 3 Refills, Soft Stop, 01/25/23 8:59:00 EDT, Shampoo, [facility]/pharmacy #[id number], Partial fill upon patient request if the prescription is for a schedule II opioid drug., 1 application Top... Start Date: 01/25/23 Status: Ordered lidocaine 5% topical cream 1 application, Topically, 3 times a day, PRN Pain. Guyanese sig, # 45 Gm, 1 Refills, Maintenance, 01/10/21 9:40:00 EDT, Cream, [facility]/pharmacy #[id number], Partial fill upon patient request if the prescriptionis for a schedule II opioid drug., 1 application To... Start Date: 01/10/21 Status: Ordered Lidoderm 5% film 1 patch, Topically, Daily, remove patches after 12 hours, # 30 patch, 0 Refills, Maintenance, 02/24/23 20:18:00 EDT, [id number], Partial fill upon patient request if the prescription is for aschedule II opioid drug., 1 patch Topically Daily,I... Start Date: 02/24/23 Status: Ordered pregabalin 200 mg oral capsule 1 capsule = 200 mg, By Mouth, Daily, # 30 capsule, 1 Refills, Maintenance, 01/25/23 9:00:00 EDT, Capsule, [facility]/pharmacy #[id number], Partial fill upon patient request if the prescription is for a schedule II opioid drug., 163, cm, 01/25/23 8:30:00 EDT, Height Start Date: 01/25/23 Stop Date: 03/26/23 Status: Ordered Singulair 10 mg oral tablet 10 mg, 1, tablet, By Mouth, Daily, # 90 tablet, Refills 3, Tot. Refills 3, Maintenance, 01/25/23 8:49:00 EDT, Route to Pharmacy Electronically, [facility]/pharmacy #[id number], 163, cm, 01/25/23 8:30:00 EDT, Height Start Date: 01/25/23 Stop Date: 01/20/24 Status: Ordered Spiriva Respimat 10 ACT 2.5 mcg/inh inhalation aerosol 2 puffs = 5 mcg, Inhalation, Daily, qatari sig, # 4 Gm, 5 Refills, Maintenance, 03/14/23 10:57:00 EST, Aerosol, [facility]/pharmacy #[id number], Partial fill upon patient request if the prescription is for a schedule II opioid drug., 163, cm, 03/14/23 9:01:00 EST... Start Date: 03/14/23 Status: Ordered Symbicort 160mcg/4.5mcg Inhaler 2, puffs, Inhalation, 2 times a day, for 90 days, # 3 each, Refills 3, Tot. Refills 3, Physician Stop 01/20/24 8:50:00 EDT, 01/25/23 8:50:00 EDT, Route to Pharmacy Electronically, [id number], [facility]/pharmacy #[id number], 163, cm, 12/30... Start Date: 01/25/23 Stop Date: 01/20/24 Status: Ordered Tylenol Extra Strength 500 mg oral tablet 2 tablet = 1,000 mg, By Mouth, 3 times a day, PRN for fever, # 60 tablet, 0 Refills, Maintenance, 02/24/23 20:18:00 EDT, Tablet, [facility]/pharmacy #[id number], Partial fill upon patient request, [...] Team Personnel Name: Belle Stevens NP Position: [facility] PCO Associate Professional Member Role: Lifetime Consulting Provider Address: Address: [address] [place] [id number]- Name: Mariza Goodrich MD Position: [facility] Physician - Primary Care Member Role: PCP Address: Address: [address] [place] [address]- Name: Pati Apodaca RN Position: [facility] RN Member Role: Primary Care Nurse Name: Hollie Pfeiffer RN Position: [facility]na Caregiver Member Role: Primary Care Nurse Care Team Related Persons Name: ESTEPHANIA WYNN Address: [address] [place] [address] Name: EUNICE WYNN Address: home [address] [facility] [address] [place] [address] Name: NELLI RENO Name: MATTHEW RENO Address: home [address] [place] [address]
--- OUTSIDE RECORDS SUMMARY | 2023-10-16 07:58 | XMS_ITS | Continuity of Care Document ---
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 Name Role Phone Mariza Goodrich MD Primary Care Physician Encounter [facility] Date(s): 06/22/20 - 07/22/[address] [address]- Allergies, Adverse Reactions, Alerts No Known Medication [...] 06/02/20 8:52:00 EST, Route to Pharmacy Electronically, [facility]/pharmacy #[id number], 163, cm, 02/16/20 10:15:00 EDT, Height, 105.7, [...] 1 each, Maintenance, send compliance data fax [phone] Dx GULSHAN send mask and CPAP supplies for patient patient states that she has been using PAP regularly and feels better sinceusing CPAP To [facility], 02/19/18 16:36:42 EDT, C... Start Date: 02/19/18 Status: Ordered diclofenac 1% topical gel 1 application, Topically, 3 times a day, PRN Knee Pain. Rwandan sig, # 100 Gm, 2 Refills, Maintenance, [...] each, 6 Refills, Maintenance, 04/14/19 10:44:43 EST, [place],[facility]/pharmacy #[id number], 2 sprays Nares, Both Daily in AM, 163, cm, 04/14/19 10:18:38 EST, Height, 108.3, kg, 02/17/19 7:48:07 EDT, Dry Weight Start Date: 04/14/19 Status: Ordered hydrochlorothiazide 25 mg oral tablet 25 mg, 1, tablet, By Mouth, Daily, # 30 tablet, Refills 11, Tot. Refills 11, Maintenance, 08/11/19 8:30:00 EDT, Route to Pharmacy Electronically, [facility]/pharmacy #[id number], 163, cm, 06/11/19 10:50:00 EST, Height, 108.3, kg, 02/17/19 7:48:00 EDT, Dry Weight Start Date: 08/11/19 Status: Ordered ibuprofen 600 mg oral tablet 600 mg, 1, tablet, By Mouth, Every 8 hours, PRN Pain Rwandan Do not take with other NSAIDs (including Meloxicam), # 90 tablet, Refills 1, Tot. Refills 1, Maintenance, 06/02/20 8:53:00 EST, Route to Pharmacy Electronically, [facility]/pharmacy #[id number], 163, c... Start Date: 06/02/20 Stop Date: 08/01/20 Status: Ordered multivitamin Vitamin B Complex oral tablet 1 tablet, By Mouth, Daily, # 100 tablet, 2 Refills, Maintenance, 12/01/19 14:53:00 EDT, Tablet, [facility]/pharmacy #[id number], 1 tablet By Mouth Daily, [...] 04/27/20 14:24:00 EST, Route to Pharmacy Electronically, [id number], [facility]/pharmacy#[id number], 163, cm, 02/16/20 10:15:00 EDT, Height, 105.... Start Date: 04/27/20 Stop Date: 10/24/20 Status: Ordered Singulair 10 mg oral tablet 10 mg, 1, tablet, By Mouth, Daily, # 30 tablet, Refills 6, Tot. Refills 6, Maintenance, 04/27/20 12:29:00 EST, Route to Pharmacy Electronically, [facility]/pharmacy #[id number], 163, cm, 02/16/20 10:15:00 EDT, Height, 105.7, kg, 09/12/19 20:00:00 EDT, Dry Weight Start Date: 04/27/20 Status: Ordered Spiriva HandiHaler 18 mcg inhalation capsule 1 capsule = 18 mcg, Inhalation, Daily, # 30 capsule, 11 Refills, Maintenance, 06/02/20 8:54:00 EST,[facility]/pharmacy #[id number], 163, cm, 02/16/20 10:15:00 EDT, Height, 105.7, kg, 09/12/19 20:00:00 EDT, Dry Weight Start Date: 06/02/20 Stop Date: 05/28/21 Status: Ordered Symbicort 160mcg/4.5mcg Inhaler See Instructions, INHALE DANDO DOS SOPLIDOS DOS VECES AL RAMESH, # 10.2 Unknown, Refills 6, Maintenance, Instructions Replace Required Details, Route to Pharmacy Electronically, [id number], [id number], 163, cm, 06/29/20 10:... 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 [phone](Confirmed) Active 1Dx in 2018 Social History Social History Type Response Smoking Status Never smoker entered on: 02/16/14 Sex Female
--- OUTSIDE RECORDS SUMMARY | 2023-10-16 07:58 | XMS_ITS | Continuity of Care Document ---
Author Organization [facility] Address [address] [place] [address]- Care Team Providers Care Animal Therapist Name Role Phone Kp JOHNS, Mariza Primary Care Physician [phone] Encounter [facility] Date(s): 09/20/22 - 10/28/[address] [address]- Attending Physician: Not on Staff, Attending MD Allergies, Adverse Reactions, Alerts No Known [...] Mouth, Daily, # 30 tablet, 5 Refills, [facility] [address], 163, cm, 01/10/21 8:49:00 EDT, Height, 102.9, [...] 1 each, Maintenance, send compliance data fax [phone] Dx GULSHAN send mask and CPAP supplies [...] mg, By Mouth, 2 times a day, Iranian sig. PRN Pain, # 60 tablet, 1 Refills, Maintenance, 05/19/21 17:37:00 EST, Tablet, [facility]/pharmacy #[id number], Partial fill upon patient request if the prescription is for a schedule II opioid drug., 163, cm... Start Date: 05/19/21 Status: Ordered Flonase 50 mcg/inh nasal spray 2 sprays, Nares, Both, Daily in AM, # 1 each, 11 Refills, Maintenance, 07/26/20 9:20:00 EDT, [place],[facility]/pharmacy #[id number], 2 sprays Nares, Both Daily in AM, 163, cm, 07/22/20 8:51:00 EDT, Height, 105.7,kg, 09/12/19 20:00:00 EDT, Dry Weight Start Date: 07/26/20 Status: Ordered hydrochlorothiazide 25 mg oral tablet 1, tablet, By Mouth, Daily, # 30 tablet, Refills 5, Route to Pharmacy Electronically, [facility] [address], 163, cm, 01/10/21 8:49:00 EDT, Height, 102.9, kg, 05/21/20 8:52:00 EST, Dry Weight Start Date: 06/18/21 Status: Ordered lidocaine 5% topical cream 1 application, Topically, 3 times a day, PRN Pain. Iranian sig, # 45 Gm, 1 Refills, Maintenance, 01/10/21 9:40:00 EDT, Cream, [facility]/pharmacy #[id number], Partial fill upon patient request if [...] each, Refills 5, Route to Pharmacy Electronically, [id number], [facility] [address], 163, cm, 01/10/21 8:49:00 EDT, Height, 102.9,kg, 05/21/20 8:52:00 EST, Dry Weight Start Date: 10/28/21 Status: Ordered Singulair 10 mg oral tablet 10 mg, 1, tablet, By Mouth, Daily, # 30 tablet, Refills 6, Tot. Refills 6, Maintenance, 08/29/21 17:19:00 EDT, Route to Pharmacy Electronically, [facility]/pharmacy #[id number], 163, cm, 01/10/21 8:49:00 EDT, Height, 102.9, kg, 05/21/20 8:52:00 EST, Dry Weight Start Date: 08/29/21 Status: Ordered Symbicort 160mcg/4.5mcg Inhaler See Instructions, INHALE DANDO DOS SOPLIDOS DOS VECES AL RAMESH, # 10.2 Unknown, Refills 6, Tot. Refills 6, 11/29/20 10:04:00 EDT, Instructions Replace Required Details, Route to Pharmacy Electronically, [id number], [facility]/pharmacy... Start Date: 11/29/20 Status: Ordered Problem List Condition Confirmation Course Effective Dates Status Health St atus Informant Anemia Confirmed Active Asthma, Moderate-Persistent Confirmed Active COVID-19 Confirmed Active Epiploic appendagitis 1 Confirmed Active Essential hypertension Confirmed Active Morbid obesity with BMI of 40.0-44.9, adult Confirmed Active Chronic myofascial pain/Fibromyalgia Confirmed Active Obstructive sleep apnea (on CPAP) Confirmed Active 1Dx in 2018 Social History Social History Type Response Smoking Status Never smoker entered on: 02/16/14 Sex Female Patient Care team information Care Team Personnel Name: Hilda STEPHENS, Belle Barba Position: [facility] PCO Associate Professional Member Role: Lifetime Consulting Provider Address: Address: [address] [place] [id number]- Name: Mariza Goodrich MD Position: [facility] Physician - Primary Care Member Role: PCP Address: Address: [address] [place] [address]- Name: Pati Apodaca RN Position: [facility] RN Member Role: Primary Care Nurse Name: Hollie Pfeiffer RN Position: [facility] Hospital Bar Tacker Sewing Machine Member Role: Primary Care Nurse Care Team Related Persons Name: ESTEPHANIA WYNN Address: home [address] [place] [address] Name: EUNICE WYNN Address: home [address] [facility] [address] [place] [address] Name: NELLI RENO Name: MATTHEW RENO Address: home [address] [place] [address]
--- OUTSIDE RECORDS SUMMARY | 2023-10-16 07:58 | XMS_ITS | Continuity of Care Document ---
Author Organization [facility] Address [address] [place] [id number]- Care Team Providers Care Foster Care Case Manager Name Role Phone Mariza Goodrich MD Primary Care Physician Encounter [facility] Date(s): 10/07/20 - 11/06/[address] [address]- Allergies, Adverse Reactions, Alerts No Known Medication [...] 06/02/20 8:52:00 EST, Route to Pharmacy Electronically, [facility]/pharmacy #[id number], 163, cm, 02/16/20 10:15:00 EDT, Height, 105.7, kg, 09/12/19 20:00:0... Start Date: 06/02/20 Stop Date: 08/01/20 Status: Ordered betamethasone topical dipropionate 0.05% cream 1 application, Topically, 2 times a day, # 15 Gm, 0 Refills, Maintenance, 07/22/20 11:38:00 EDT, Cream, [facility]/pharmacy #[id number], Partial fill upon patient request if the prescription is for a schedule II opioid drug., 1 application Topically 2 times a day,... Start Date: 07/22/20 Status: Ordered cetirizine 10 mg oral tablet 1 tablet = 10 mg, By Mouth, Daily, # 30 tablet, 6 Refills, Maintenance, 08/11/19 8:27:00 EDT, Tablet, [facility]/pharmacy #[id number], 163, cm, 06/11/19 10:50:00 EST, [...] 1 each, Maintenance, send compliance data fax [phone] Dx GULSHAN send mask and CPAP supplies [...] each, 11 Refills, Maintenance, 07/26/20 9:20:00 EDT, [place],[facility]/pharmacy #[id number], 2 sprays Nares, Both Daily in AM, 163, cm, 07/22/20 8:51:00 EDT, Height, 105.7,kg, 09/12/19 20:00:00 EDT, Dry Weight Start Date: 07/26/20 Status: Ordered hydrochlorothiazide 25 mg oral tablet 25 mg, 1, tablet, By Mouth, Daily, # 30 tablet, Refills 2, Tot. Refills 2, Maintenance, 08/27/20 10:02:00 EDT, [id number] 163, cm, 08/24/20 16:26:00 EDT, Height, 105.7, kg, 09/12/19 20:00:00 EDT, Dry Weight Start Date: 08/27/20 Status: Ordered ibuprofen 600 mg oral tablet 600 mg, 1, tablet, By Mouth, Every 8 hours, PRN Pain Indonesian Do not take with other NSAIDs (including Meloxicam), # 90 tablet, Refills 1, Tot. Refills 1, Maintenance, 10/01/20 9:38:00 EDT, [facility]ically[id number] 163, c... Start Date: 10/01/20 Stop Date: 11/30/20 Status: Ordered multivitamin Vitamin B Complex oral tablet 1 tablet, By Mouth, Daily, # 100 tablet, 2 Refills, Maintenance, 12/01/19 14:53:00 EDT, Tablet, [facility]/pharmacy #[id number], 1 tablet By Mouth Daily, 163, cm, 10/14/19 12:52:00 EDT, Height, 108.3, kg, 02/17/19 7:48:00 EDT, Dry Weight Start Date: 12/01/19 Status: Ordered norethindrone 5 mg oral tablet 1, tablet, By Mouth, Daily, # 30 tablet, Refills 2, Tot. Refills 0, Maintenance, 10/24/20 23:07:00 EDT, Route to Pharmacy Electronically, [facility] STORE [facility], 163, cm, 09/30/20 13:47:00 EDT, Height, 105.7, kg, 09/12/19 20:00:00 EDT, Dry Weight Start Date: 10/24/20 Status: Ordered pregabalin 200 mg oral capsule 1 capsule = 200 mg, By Mouth, Daily, 0 Refills, Maintenance, 06/02/19 21:14:00 EST, Capsule Start Date: 06/02/19 Status: Ordered ProAir HFA 90 mcg/inh inhalation aerosol with adapter 2, puffs, Inhalation, 4 times a day, PRN, # 1 each, Refills 11, Tot. Refills 11, Maintenance, 10/24/20 14:24:00 EDT, Route to Pharmacy Electronically, [id number], [facility]/pharmacy #[id number], 163, cm, 07/22/20 8:51:00 EDT, Height, 105... Start Date: 10/24/20 Stop Date: 10/19/21 Status: Ordered Singulair 10 mg oral tablet 10 mg, 1, tablet, By Mouth, Daily, # 30 tablet, Refills 6, Tot. Refills 6, Maintenance, 07/26/20 9:19:00 EDT, Route to Pharmacy Electronically, [facility]/pharmacy #[id number], 163, cm, 07/22/20 8:51:00 EDT, Height, 105.7, kg, 09/12/19 20:00:00 EDT, Dry Weight Start Date: 07/26/20 Status: Ordered Spiriva HandiHaler 18 mcg inhalation capsule 1 capsule = 18 mcg, Inhalation, Daily, for 30 days, # 30 capsule, 11 Refills, Hard Stop 05/28/21 8:54:00 EST, 06/02/20 8:54:00 EST, [facility]/pharmacy #[id number], 163, cm, 02/16/20 10:15:00 EDT, Height, 105.7, kg, 09/12/19 20:00:00 EDT, Dry Weight Start Date: 06/02/20 Stop Date: 05/28/21 Status: Ordered Spiriva HandiHaler 18 mcg inhalation capsule 1 capsule = 18 mcg, Inhalation, Daily, # 30 capsule, 11 Refills, Maintenance, 05/28/21 8:54:00 EST,[facility]/pharmacy #[id number], 163, cm, 07/22/20 8:51:00 EDT, Height, 105.7, kg, 09/12/19 20:00:00 EDT, Dry Weight Start Date: 05/28/21 Stop Date: 05/23/22 Status: Ordered Symbicort 160mcg/4.5mcg Inhaler See Instructions, INHALE DANDO DOS SOPLIDOS DOS VECES AL RAMESH, # 10.2 Unknown, Refills 6, Tot. Refills 6, 07/26/20 9:18:00 EDT, Instructions Replace Required Details, Route to Pharmacy Electronically,[id number], [facility]... 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 [id number](Confirmed) Active 1Dx in 2018 Social History Social History Type Response Smoking Status Never smoker entered on: 02/16/14 Sex Female
--- OUTSIDE RECORDS SUMMARY | 2023-10-16 07:58 | XMS_ITS | Continuity of Care Document ---
Author Organization [facility] Address [address] [place] [id number]- Care Team Providers Care Cleaner Greaser Name Role Phone Mariza Goodrich MD Primary Care Physician Encounter [facility] Date(s): 08/30/20 - 09/29/[address] [email or web address] Attending Physician: Cara Ingram Admitting Physician: AdmtrCara Referring Physician: Admtr, Ar8 [...] 06/02/20 8:52:00 EST, Route to Pharmacy Electronically, [facility]/pharmacy #[id number], 163, cm, 02/16/20 10:15:00 EDT, Height, 105.7, kg, 09/12/19 20:00:0... Start Date: 06/02/20 Stop Date: 08/01/20 Status: Ordered Aygestin 5 mg oral tablet 1 tablet = 5 mg, By Mouth, Daily, # 30 tablet, 2 Refills, Maintenance, 07/19/20 17:13:00 EDT, Tablet, [facility]/pharmacy #[id number], Partial fill upon patient request if the prescription is for a schedule II opioid drug., 163, cm, 07/19/20 16:05:00 EDT, Height,... Start Date: 07/19/20 Status: Ordered betamethasone topical dipropionate 0.05% cream 1 application, Topically, 2 times a day, # 15 Gm, 0 Refills, Maintenance, 07/22/20 11:38:00 EDT, Cream, [facility]/pharmacy #[id number], Partial fill upon patient request if the prescription is for a schedule II opioid drug., 1 application Topically 2 times a day,... Start Date: 07/22/20 Status: Ordered cetirizine 10 mg oral tablet 1 tablet = 10 mg, By Mouth, Daily, # 30 tablet, 6 Refills, Maintenance, 08/11/19 8:27:00 EDT, Tablet, [facility]/pharmacy #[id number], 163, cm, 06/11/19 10:50:00 [...] 1 each, Maintenance, send compliance data fax [phone] Dx GULSHAN send mask and CPAP supplies [...] each, 11 Refills, Maintenance, 07/26/20 9:20:00 EDT, [place],[facility]/pharmacy #[id number], 2 sprays Nares, Both Daily in AM, 163, cm, 07/22/20 8:51:00 EDT, Height, 105.7,kg, 09/12/19 20:00:00 EDT, Dry Weight Start Date: 07/26/20 Status: Ordered hydrochlorothiazide 25 mg oral tablet 25 mg, 1, tablet, By Mouth, Daily, # 30 tablet, Refills 2, Tot. Refills 2, Maintenance, 08/27/20 10:02:00 EDT, Route to Pharmacy Electronically, [facility]/pharmacy #[id number], 163, cm, 08/24/20 16:26:00 EDT, Height, 105.7, kg, 09/12/19 20:00:00 EDT, Dry Weight Start Date: 08/27/20 Status: Ordered ibuprofen 600 mg oral tablet 600 mg, 1, tablet, By Mouth, Every 8 hours, for 30 days, PRN Pain Mozambican Do not take with other NSAIDs (including Meloxicam), # 90 tablet, Refills 1, Tot. Refills 1, Hard Stop 10/01/20 9:38:00 EDT, 08/02/20 9:38:00 EDT, Route to Pharmacy Electronic... Start Date: 08/02/20 Stop Date: 10/01/20 Status: Ordered ibuprofen 600 mg oral tablet 600 mg, 1, tablet, By Mouth, Every 8 hours, PRN Pain Mozambican Do not take with other NSAIDs (including Meloxicam), # 90 tablet, Refills 1, Tot. Refills 1, Maintenance, 10/01/20 9:38:00 EDT, Route to Pharmacy Electronically, [facility]/pharmacy #[id number], 163, c... Start Date: 10/01/20 Stop Date: 11/30/20 Status: Ordered multivitamin Vitamin B Complex oral tablet 1 tablet, By Mouth, Daily, # 100 tablet, 2 Refills, Maintenance, 12/01/19 14:53:00 EDT, Tablet, [facility]/pharmacy #[id number], 1 tablet By Mouth Daily, [...] 10/24/20 14:24:00 EDT, Route to Pharmacy Electronically, [id number], [facility]/pharmacy #[id number], 163, cm, 07/22/20 8:51:00 EDT, Height, 105... Start Date: 10/24/20 Stop Date: 10/19/21 Status: Ordered ProAir HFA 90 mcg/inh inhalation aerosol with adapter 2, puffs, Inhalation, 4 times a day, PRN, for 30 days, # 1 each, Refills 5, Tot. Refills 5, Hard Stop 10/24/20 14:24:00 EDT, 04/27/20 14:24:00 EST, Route to Pharmacy Electronically, [id number], [facility]/pharmacy #[id number], 163, cm, 10... Start Date: 04/27/20 Stop Date: 10/24/20 Status: Ordered Singulair 10 mg oral tablet 10 mg, 1, tablet, By Mouth, Daily, # 30 tablet, Refills 6, Tot. Refills 6, Maintenance, 07/26/20 9:19:00 EDT, Route to Pharmacy Electronically, [facility]/pharmacy #[id number], 163, cm, 07/22/20 8:51:00 EDT, Height, 105.7, kg, 09/12/19 20:00:00 EDT, Dry Weight Start Date: 07/26/20 Status: Ordered Spiriva HandiHaler 18 mcg inhalation capsule 1 capsule = 18 mcg, Inhalation, Daily, for 30 days, # 30 capsule, 11 Refills, Hard Stop 05/28/21 8:54:00 EST, 06/02/20 8:54:00 EST, [facility]/pharmacy #[id number], 163, cm, 02/16/20 10:15:00 EDT, Height, 105.7, kg, 09/12/19 20:00:00 EDT, Dry Weight Start Date: 06/02/20 Stop Date: 05/28/21 Status: Ordered Spiriva HandiHaler 18 mcg inhalation capsule 1 capsule = 18 mcg, Inhalation, Daily, # 30 capsule, 11 Refills, Maintenance, 05/28/21 8:54:00 EST,[facility]/pharmacy #[id number], 163, cm, 07/22/20 8:51:00 EDT, Height, 105.7, kg, 09/12/19 20:00:00 EDT, Dry Weight Start Date: 05/28/21 Stop Date: 05/23/22 Status: Ordered Symbicort 160mcg/4.5mcg Inhaler See Instructions, INHALE DANDO DOS SOPLIDOS DOS VECES AL RAMESH, # 10.2 Unknown, Refills 6, Tot. Refills 6, 07/26/20 9:18:00 EDT, Instructions Replace Required Details, Route to Pharmacy Electronically,[id number], [facility]/pharmacy... Start Date: 07/26/20 Status: Ordered Vitamin D3 oral tablet By Mouth, Daily, 0 Refills, Maintenance, 06/02/19 21:11:00 EST Start Date: 06/02/19 Status: Ordered Zofran 4 mg oral tablet 1 tablet = 4 mg, By Mouth, Every 8 hours, PRN Nausea & Vomiting, # 10 tablet, 0 Refills, Maintenance, 08/12/20 15:08:00 EDT, Tablet, [facility]/pharmacy #[id number], Partial fill upon patient request [...] CPAP)(Confirmed) Active Care Management BHN/BHCP Luis Brady Jewel Flat Surfacer. [id number](Confirmed) Active 1Dx in 2018 Social History Social History Type Response Smoking Status Never smoker entered on: 02/16/14 Sex Female
--- OUTSIDE RECORDS SUMMARY | 2023-10-16 07:58 | XMS_ITS | Continuity of Care Document ---
Author Organization [facility] Address [address] [place] [address]- Care Team Providers Care Insights Manager Name Role Phone Mariza Goodrich MD Primary Care Physician [phone] Encounter [facility] Date(s): 05/20/20 - 06/19/[address] [address]- Allergies, Adverse Reactions, Alerts No Known Medication [...] 06/02/20 8:52:00 EST, Route to Pharmacy Electronically, [facility]/pharmacy #[id number], 163, cm, 02/16/20 10:15:00 EDT, Height, 105.7, [...] 1 each, Maintenance, send compliance data fax [phone] Dx GULSHAN send mask and CPAP supplies for patient patient states that she has been using PAP regularly and feels better [facility]using CPAP To [facility], 02/19/18 16:36:42 EDT, C... Start Date: 02/19/18 Status: Ordered diclofenac 1% topical gel 1 application, Topically, 3 times a day, PRN Knee Pain. Haitian sig, # 100 Gm, 2 Refills, Maintenance, [...] each, 6 Refills, Maintenance, 04/14/19 10:44:43 EST, [place],[facility]/pharmacy #[id number], 2 sprays Nares, Both Daily in AM, 163, cm, 04/14/19 10:18:38 EST, Height, 108.3, kg, 02/17/19 7:48:07 EDT, Dry Weight Start Date: 04/14/19 Status: Ordered hydrochlorothiazide 25 mg oral tablet 25 mg, 1, tablet, By Mouth, Daily, # 30 tablet, Refills 11, Tot. Refills 11, Maintenance, 08/11/19 8:30:00 EDT, Route to Pharmacy Electronically, [facility]/pharmacy #[id number], 163, cm, 06/11/19 10:50:00 EST, Height, 108.3, kg, 02/17/19 7:48:00 EDT, Dry Weight Start Date: 08/11/19 Status: Ordered ibuprofen 600 mg oral tablet 600 mg, 1, tablet, By Mouth, Every 8 hours, PRN Pain Haitian Do not take with other NSAIDs (including Meloxicam), # 90 tablet, Refills 1, Tot. Refills 1, Maintenance, 06/02/20 8:53:00 EST, Route to Pharmacy Electronically, [facility]/pharmacy #[id number], 163, c... Start Date: 06/02/20 Stop Date: 08/01/20 Status: Ordered ketoconazole 1% topical shampoo See Instructions, 1 applicator Topically 2 times per week for 4 weeks. Haitian sig, # 200 mL, 0 Refills, Maintenance, 04/09/20 8:49:00 EST, [facility]/pharmacy #[id number], 1 applicator Topically 2 times per weekfor 4 weeks. Haitian sig, 163, cm, 02/16/20 10:15:0... Start Date: [...] 2 Refills, Maintenance, 12/01/19 14:53:00 EDT, Tablet, [facility]/pharmacy #[id number], 1 tablet By Mouth Daily, [...] 04/27/20 14:24:00 EST, Route to Pharmacy Electronically, [id number], [facility]/pharmacy#[id number], 163, cm, 02/16/20 10:15:00 EDT, Height, 105.... Start Date: 04/27/20 Stop Date: 10/24/20 Status: Ordered Qvar Redihaler 80 mcg/inh inhalation aerosol 1 puffs, Inhalation, 2 times a day, # 1 each, 0 Refills, Maintenance, 05/14/20 15:22:00 EST, [facility]/pharmacy #[id number], This is in ADDITION to Symbicort. To be used as short course given concern for acute flair. Rx in Haitian, 1 puffs Inhalation 2 times a da... Start Date: 05/14/20 Stop Date: 05/21/20 Status: Ordered Singulair 10 mg oral tablet 10 mg, 1, tablet, By Mouth, Daily, # 30 tablet, Refills 6, Tot. Refills 6, Maintenance, 04/27/20 12:29:00 EST, Route to Pharmacy Electronically, [facility]/pharmacy #[id number], 163, cm, 02/16/20 10:15:00 EDT, Height, 105.7, kg, 09/12/19 20:00:00 EDT, Dry Weight Start Date: 04/27/20 Status: Ordered Spiriva HandiHaler 18 mcg inhalation capsule 1 capsule = 18 mcg, Inhalation, Daily, # 30 capsule, 11 Refills, Maintenance, 06/02/20 8:54:00 EST,[facility]/pharmacy #[id number], 163, cm, 02/16/20 10:15:00 EDT, Height, 105.7, kg, 09/12/19 20:00:00 EDT, Dry Weight Start Date: 06/02/20 Stop Date: 05/28/21 Status: Ordered Symbicort 160mcg/4.5mcg Inhaler 2, puffs, Inhalation, 2 times a day, Discontinue Advair, # 6 Gm, Refills 6, Tot. Refills 6, Maintenance, 10/21/19 9:21:00 EDT, Aerosol, Route to Pharmacy Electronically, [id number], [facility]/pharmacy #[id number], 163, cm, 10/14/19 12:52... 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 [id number](Confirmed) Active 1Dx in 2018 Social History Social History Type Response Smoking Status Never smoker entered on: 02/16/14 Sex Female
--- OUTSIDE RECORDS SUMMARY | 2023-10-16 07:58 | XMS_ITS | Continuity of Care Document ---
Author Organization [facility] Address [address] [place] [address]- Care Team Providers Care Carving Machine Operator Name Role Phone Kp JOHNS, Mariza Primary Care Physician [phone] Encounter [facility] Date(s): 06/11/23 - 07/11/[address] [address]- Allergies, Adverse Reactions, Alerts No Known Allergies [...] 01/25/23 8:49:00 EDT, Route to Pharmacy Electronically, [id number], [id number], 163, cm, 01/25/23 8:30:00 EDT, Height Start Date: 01/25/23 Status: Ordered cetirizine 10 mg oral tablet 1 tablet, By Mouth, Daily, # 30 tablet, 5 Refills, [id number], 163, cm, 01/10/21 8:49:00 EDT, Height, 102.9, kg, 05/21/20 8:52:00 EST, Dry Weight Start Date: 06/18/21 Status: Ordered cholestyramine 4 g/5.7 g oral powder for reconstitution = 2 Gm, By Mouth, Daily, dissolve in water or juice. Dominican Sig., # 180 Gm, 1 Refills, Maintenance, 04/16/23 15:55:00 EST, REC Powder, [facility]/pharmacy #[id number], Partial fill upon patient request if the prescription is for a schedule II opioid drug., 163, c... Start Date: 04/16/23 Stop Date: 10/13/23 Status: Ordered clonazePAM 0.5 mg oral tablet 1 tablet = 0.5 mg, By Mouth, Daily at bedtime, PRN Anxiety, # 30 tablet, 1 Refills, Maintenance, 01/25/23 9:00:00 EDT, Tablet, [facility]/pharmacy #[id number], Partial fill upon patient [...] night. Length of need 99 Fax to [facility],... Start Date: 06/20/23 Status: Ordered cyclobenzaprine 5 mg oral tablet 1 tablet = 5 mg, By Mouth, 3 times a day, for 10 days, # 30 tablet, 1 Refills, Acute 07/26/23 16:38:00 EDT, 07/06/23 16:38:00 EST, Tablet, [facility]/pharmacy #[id number], Partial fill upon patient [...] 0 Refills, Maintenance, 01/25/23 8:52:00 EDT, Tablet, [facility]/pharmacy #[id number], Partial fill upon patient request if the prescription is for a schedule II opioid drug., 163, cm, 01/25/23 8:30:00 EDT, Height Start Date: 01/25/23 Stop Date: 04/25/23 Status: Ordered Flonase 50 mcg/inh nasal spray 2 sprays, Nares, Both, Daily in AM, # 1 each, 11 Refills, Maintenance, 07/26/20 9:20:00 EDT, [place],[facility]/pharmacy #[id number], 2 sprays Nares, Both Daily in AM, 163, cm, 07/22/20 8:51:00 EDT, Height, 105.7,kg, 09/12/19 20:00:00 EDT, Dry Weight Start Date: 07/26/20 Status: Ordered hydrochlorothiazide 25 mg oral tablet 1, tablet, By Mouth, Daily, for 90 days, # 90 tablet, Refills 3, Tot. Refills 3, Physician Stop 01/20/24 9:07:00 EDT, 01/25/23 9:07:00 EDT, Route to Pharmacy Electronically, [facility]/pharmacy #[id number], 163, cm, 01/25/23 9:05:00 EDT, Height Start Date: 01/25/23 Stop Date: 01/20/24 Status: Ordered ibuprofen 600 mg oral tablet 600 mg, 1, tablet, By Mouth, Every 6 hours, PRN, # 40 tablet, Refills 1, Tot. Refills 1, Maintenance, Headache, 06/19/23 10:54:00 EST, Route to Pharmacy Electronically, [facility]/pharm[facility] #[id number], Partial fill upon patient request if the prescription is for a... Start Date: 06/19/23 Status: Ordered ketoconazole 2% topical shampoo See Instructions, 1 application Topically three times a week, # 120 mL, 3 Refills, Soft Stop, 07/06/23 16:38:00 EST, Shampoo, [facility]/pharmacy #[id number], Partial fill upon patient request if the prescriptionis for a schedule II opioid drug., 1 application To... Start Date: 07/06/23 Status: Ordered lidocaine 5% topical cream 1 application, Topically, 3 times a day, PRN Pain. Dominican sig, # 45 Gm, 1 Refills, Maintenance, 01/10/21 9:40:00 EDT, Cream, [facility]/pharmacy #[id number], Partial fill upon patient request if the prescriptionis for a schedule II opioid drug., 1 application To... Start Date: 01/10/21 Status: Ordered Lidoderm 5% film 1 patch, Topically, Daily, remove patches after 12 hours, # 30 patch, 5 Refills, Maintenance, 07/06/23 16:39:00 EST, [facility]/pharmacy #[id number], Partial fill upon patient request if the prescription is for aschedule II opioid drug., 1 patch Topically Daily,I... Start Date: 07/06/23 Status: Ordered pregabalin 200 mg oral capsule 1 capsule = 200 mg, By Mouth, Daily, # 30 capsule, 1 Refills, Maintenance, 01/25/23 9:00:00 EDT, Capsule, [facility]/pharmacy #[id number], Partial fill upon patient request if the prescription is for a schedule II opioid drug., 163, cm, 01/25/23 8:30:00 EDT, Height Start Date: 01/25/23 Stop Date: 03/26/23 Status: Ordered Singulair 10 mg oral tablet 10 mg, 1, tablet, By Mouth, Daily, # 90 tablet, Refills 3, Tot. Refills 3, Maintenance, 01/25/23 8:49:00 EDT, Route to Pharmacy Electronically, [facility]/pharmacy #[id number], 163, cm, 01/25/23 8:30:00 EDT, Height Start Date: 01/25/23 Stop Date: 01/20/24 Status: Ordered Spiriva Respimat 10 ACT 2.5 mcg/inh inhalation aerosol 2 puffs = 5 mcg, Inhalation, Daily, ukrainian sig, # 4 Gm, 5 Refills, Maintenance, 03/14/23 10:57:00 EST, Aerosol, [facility]/pharmacy #[id number], Partial fill upon patient request if the prescription is for a schedule II opioid drug., 163, cm, 03/14/23 9:01:00 EST... Start Date: 03/14/23 Status: Ordered Symbicort 160mcg/4.5mcg Inhaler 2, puffs, Inhalation, 2 times a day, for 90 days, # 3 each, Refills 3, Tot. Refills 3, Physician Stop 01/20/24 8:50:00 EDT, 01/25/23 8:50:00 EDT, Route to Pharmacy Electronically, [id number], [facility]/pharmacy #[id number], 163, cm, 12/30... Start Date: 01/25/23 Stop Date: 01/20/24 Status: Ordered Tylenol Extra Strength 500 mg oral tablet 2 tablet = 1,000 mg, By Mouth, 3 times a day, PRN for fever, # 60 tablet, 0 Refills, Maintenance, 02/24/23 20:18:00 EDT, Tablet, [facility]/pharmacy #[id number], Partial fill upon patient [...] Date: 07/12/23 Stop Date: 09/20/23 Status: Ordered Voltaren Arthritis Pain 1% topical gel = 2 Gm, Topically, 4 times a day, for 10 days, # 100 Gm, 1 Refills, Hard Stop 07/12/23 16:13:00 EDT, 06/22/23 16:13:00 EST, [facility]/pharmacy #[id number], Partial fill upon patient request if the prescription is for a schedule II opioid drug., 163, cm, 06/22/23... Start Date: 06/22/23 Stop Date: 07/12/23 Status: Ordered Problem List Condition Confirmation Course [...] team information Care Team Personnel Name: Hilda LINUX ADMINISTRATOR, Belle Barba Position: [facility] PCO Associate Professional Member Role: Lifetime Consulting Provider Address: Address: [address] [place] [address]- Name: Mariza Goodrich MD Position: [facility] Physician - Primary Care Member Role: PCP Address: Address: [address] [place] [address]- Name: Pati Apodaca RN Position: [facility] RN Member Role: Primary Care Nurse Name: Hollie Pfeiffer RN Position: [facility] Hospital Conference Planner Member Role: Primary Care Nurse Care Team Related Persons Name: ESTEPHANIA WYNN Address: [address] [place] [address] Name: EUNICE WYNN Address: home [address] [facility] [address] [place] [address] Name: NELLI RENO Name: MATTHEW RENO Address: home [address] [place] [address]
--- OUTSIDE RECORDS SUMMARY | 2023-10-16 07:58 | XMS_ITS | Continuity of Care Document ---
Author Organization [facility] Address [address] [place] [address]- Care Team Providers Care Quality Assurance Associate Name Role Phone Mariza Goodrich MD Primary Care Physician Encounter [facility] Date(s): 04/27/20 - 05/27/20 [facility] [address] [place], [place] [address] Allergies, Adverse Reactions, Alerts No Known Medication [...] 06/11/19 11:30:00 EST, Route to Pharmacy Electronically, [facility]/pharmacy #[id number], 163, cm, 06/11/19 10:50:00 EST, Height, 108.3, kg, 02/17/19 7:48:0... Start Date: 06/11/19 Stop Date: 08/10/19 Status: Ordered ALPRAZolam 0.25 mg oral tablet 0.25 mg, 1, tablet, By Mouth, 2 times a day, Refills 0, Maintenance, 11/04/18 18:19:51 EDT Start Date: 11/04/18 Status: Ordered cetirizine 10 mg oral tablet 1 tablet = 10 mg, By Mouth, Daily, # 30 tablet, 6 Refills, Maintenance, 08/11/19 8:27:00 EDT, Tablet, [facility]/pharmacy #[id number], 163, cm, 06/11/19 10:50:00 EST, Height, [...] 1 each, Maintenance, send compliance data fax [id number] Dx GULSHAN send mask and CPAP supplies for patient patient states that she has been using PAP regularly and feels better sinceusing CPAP To [facility], 02/19/18 16:36:42 EDT, C... Start Date: 02/19/18 Status: Ordered diclofenac 1% topical gel 1 application, Topically, 3 times a day, PRN Knee Pain. Vatican Citizen sig, # 100 Gm, 2 Refills, Maintenance, 08/11/19 8:28:00 EDT, Gel, [facility]/pharmacy #[id number], 163, cm, 06/11/19 10:50:00 EST, Height, [...] each, 6 Refills, Maintenance, 04/14/19 10:44:43 EST, [place],[facility]/pharmacy #[id number], 2 sprays Nares, Both Daily in AM, 163, cm, 04/14/19 10:18:38 EST, Height, 108.3, kg, 02/17/19 7:48:07 EDT, Dry Weight Start Date: 04/14/19 Status: Ordered hydrochlorothiazide 25 mg oral tablet 25 mg, 1, tablet, By Mouth, Daily, # 30 tablet, Refills 11, Tot. Refills 11, Maintenance, 08/11/19 8:30:00 EDT, Route to Pharmacy Electronically, [facility]/pharmacy #[id number], 163, cm, 06/11/19 10:50:00 EST, Height, 108.3, kg, 02/17/19 7:48:00 EDT, Dry Weight Start Date: 08/11/19 Status: Ordered ibuprofen 600 mg oral tablet 600 mg, 1, tablet, By Mouth, Every 8 hours, PRN Pain Vatican Citizen Do not take with other NSAIDs (including Meloxicam), # 90 tablet, Refills 1, Tot. Refills 1, Maintenance, 08/11/19 8:31:00 EDT, Route to Pharmacy Electronically, [facility]/pharmacy #[id number], 163, c... Start Date: 08/11/19 Stop Date: 10/10/19 Status: Ordered ketoconazole 1% topical shampoo See Instructions, 1 applicator Topically 2 times per week for 4 weeks. Vatican Citizen sig, # 200 mL, 0 Refills, Maintenance, 04/09/20 8:49:00 EST, [facility]/pharmacy #[id number], 1 applicator Topically 2 times per weekfor 4 weeks. Vatican Citizen sig, 163, cm, 02/16/20 10:15:0... Start Date: [...] 2 Refills, Maintenance, 12/01/19 14:53:00 EDT, Tablet, [facility]/pharmacy #[id number], 1 tablet By Mouth Daily, 163, [...] 04/27/20 14:24:00 EST, Route to Pharmacy Electronically, [id number], [facility]/pharmacy#[id number], 163, cm, 02/16/20 10:15:00 EDT, Height, 105.... Start Date: 04/27/20 Stop Date: 10/24/20 Status: Ordered Qvar Redihaler 80 mcg/inh inhalation aerosol 1 puffs, Inhalation, 2 times a day, # 1 each, 0 Refills, Maintenance, 05/14/20 15:22:00 EST, [facility]/pharmacy #[id number], This is in ADDITION to Symbicort. To be used as short course given concern for acute flair. Rx in [place] Citizen, 1 puffs Inhalation 2 times a da... Start Date: 05/14/20 Stop Date: 05/21/20 Status: Ordered Singulair 10 mg oral tablet 10 mg, 1, tablet, By Mouth, Daily, # 30 tablet, Refills 6, Tot. Refills 6, Maintenance, 04/27/20 12:29:00 EST, Route to Pharmacy Electronically, [facility]/pharmacy #[id number], 163, cm, 02/16/20 10:15:00 EDT, Height, 105.7, kg, 09/12/19 20:00:00 EDT, Dry Weight Start Date: 04/27/20 Status: Ordered Spiriva HandiHaler 18 mcg inhalation capsule 1 capsule = 18 mcg, Inhalation, Daily, # 30 capsule, 11 Refills, Maintenance, 05/03/20 13:03:00 EST, [facility]/pharmacy #[id number], 163, cm, 02/16/20 10:15:00 EDT, Height, 105.7, kg, 09/12/19 20:00:00 EDT, Dry Weight Start Date: 05/03/20 Stop Date: 04/28/21 Status: Ordered Symbicort 160mcg/4.5mcg Inhaler 2, puffs, Inhalation, 2 times a day, Discontinue Advair, # 6 Gm, Refills 6, Tot. Refills 6, Maintenance, 10/21/19 9:21:00 EDT, Aerosol, Route to Pharmacy Electronically, [id number], [facility]/pharmacy #[id number], 163, cm, 10/14/19 12:52... Start Date: 10/21/19 Status: Ordered Vitamin D3 oral tablet By Mouth, Daily, 0 Refills, Maintenance, 06/02/19 21:11:00 EST Start Date: 06/02/19 Status: Ordered Water-based Physical Therapy at [facility] Water-based Physical Therapy at [facility], See Instructions, # 1 each, Refills [...] CPAP)(Confirmed) Active Care Management BHN/BHCP Luis Brady Mental Hygiene Consultant. [phone](Confirmed) Active 1Dx in 2018 Social History Social History Type Response Smoking Status Never smoker entered on: 02/16/14 Sex Female
--- OUTSIDE RECORDS SUMMARY | 2023-10-16 07:58 | XMS_ITS | Continuity of Care Document ---
Author Organization [facility] Address [address] [place] [address]- Care Team Providers Care Waterfront Director Name Role Phone Mariza Goodrich MD Primary Care Physician [phone] Encounter [facility] Date(s): 11/26/19 - 12/26/[address] [address]- [facility] Allergies, Adverse Reactions, Alerts No Known Medication [...] 06/11/19 11:30:00 EST, Route to Pharmacy Electronically, [facility]/pharmacy #[id number], 163, cm, 06/11/19 10:50:00 EST, Height, 108.3, kg, 02/17/19 7:48:0... Start Date: 06/11/19 Stop Date: 08/10/19 Status: Ordered Advair Diskus 100 mcg-50 mcg inhalation powder 1, puffs, Inhalation, 2 times a day, Refills 0, Maintenance, 06/02/19 21:09:00 EST, Powder Start Date: 06/02/19 Status: Ordered Albuterol 0.083% inhalation michael PRN, Refills 0, Maintenance, lot#[id number] exp august 2020, 03/10/19 18:53:20 EST Start Date: 03/10/19 Status: Ordered Albuterol 0.083% inhalation michael See Instructions, given at office visit lot # [id number] Exp 09/17, Refills 0, Maintenance, 03/26/19 9:24:59 EST, Instructions Replace Required Details Start Date: 03/26/19 Status: Ordered albuterol 0.083% inhalation solution 3 mL = 2.5 mg, Inhalation, Every 6 hours, # 120 each, 1 Refills, Maintenance, 10/21/19 9:22:00 EDT,Solution, [facility]/pharmacy #[id number], 163, cm, 10/14/19 12:52:00 EDT, Height, 108.3, kg, 02/17/19 7:48:00 EDT, Dry Weight Start Date: 10/21/19 Status: Ordered albuterol CFC free 90 mcg/inh inhalation aerosol 2, puffs, Inhalation, 4 times a day, PRN, # 1 each, Refills 11, Tot. Refills 11, Maintenance, 03/25/18 9:14:15 EST, Aerosol, Route to Pharmacy Electronically, [id number], [facility]/pharmacy #[id number], Compound Start Date: 03/25/18 Status: Ordered [...] 6 Refills, Maintenance, 08/11/19 8:27:00 EDT, Tablet, [facility]/pharmacy #[id number], 163, cm, 06/11/19 10:50:00 EST, Height, 108.3, kg, 02/17/19 7:48:00 EDT, Dry Weight Start Date: 08/11/19 Status: Ordered CPAP and CPAP equipment CPAP and CPAP equipment, See Instructions, # 1 units, Refills 0, Tot. Refills 0, Maintenance, CPAP of 11 cm of H2O with a heated humidifier. Recommend ordering a machine with compliance data capabilities and following residual AHI. Dx: UGLSHAN 327.2... Start Date: 02/19/18 Status: Ordered CPAP Equipment See Instructions, # 1 each, Maintenance, send compliance data fax [id number] Dx GULSHAN send mask and CPAP supplies for patient patient states that she has been using PAP regularly and feels better sinceusing CPAP To [facility], 02/19/18 16:36:42 EDT, C... Start Date: 02/19/18 Status: Ordered diclofenac 1% topical gel 1 application, Topically, 3 times a day, PRN Knee Pain. Bhutanese sig, # 100 Gm, 2 Refills, Maintenance, 08/11/19 8:28:00 EDT, Gel, [facility]/pharmacy #[id number], 163, cm, 06/11/19 10:50:00 EST, Height, [...] 08/11/19 8:30:00 EDT, Route to Pharmacy Electronically, [facility]/pharmacy #[id number], 163, cm, 06/11/19 10:50:00 EST, Height, [...] each, 6 Refills, Maintenance, 04/14/19 10:44:43 EST, [place],[facility]/pharmacy #[id number], 2 sprays Nares, Both Daily in [...] 10 mg oral tablet See Instructions, MANDA CARDENAS AL RAMESH, # 60 tablet, 2 Refills, 08/11/19 8:30:00 EDT, [facility]/pharmacy #[id number], 163, cm, 06/11/19 10:50:00 EST, Height, 108.3, kg, 02/17/19 7:48:00 EDT, Dry Weight Start Date: 08/11/19 Status: Ordered Hydrochlorothiazide By Mouth, Daily, 0 Refills, Maintenance, 06/02/19 21:11:00 EST Start Date: 06/02/19 Status: Ordered hydrochlorothiazide 25 mg oral tablet 25 mg, 1, tablet, By Mouth, Daily, # 30 tablet, Refills 11, Tot. Refills 11, Maintenance, 08/11/19 8:30:00 EDT, Route to Pharmacy Electronically, [facility]/pharmacy #[id number], 163, cm, 06/11/19 10:50:00 EST, Height, 108.3, kg, 02/17/19 7:48:00 EDT, Dry Weight Start Date: 08/11/19 Status: Ordered ibuprofen 600 mg oral tablet 600 mg, 1, tablet, By Mouth, Every 8 hours, PRN Pain Bhutanese Do not take with other NSAIDs (including Meloxicam), # 90 tablet, Refills 1, Tot. Refills 1, Maintenance, 08/11/19 8:31:00 EDT, Route to Pharmacy Electronically, [facility]/pharmacy #[id number], 163, c... Start Date: 08/11/19 Stop Date: 10/10/19 Status: Ordered ketoconazole 1% topical shampoo See Instructions, 1 applicator Topically 2 times per week for 4 weeks. Bhutanese sig, # 200 mL, 0 Refills, Maintenance, 04/09/19 9:23:01 EST, 1 applicator Topically 2 times per week for 4 weeks. Bhutanese sig, 163, cm, 04/09/19 8:51:21 EST, Height, [...] 2 Refills, Maintenance, 12/01/19 14:53:00 EDT, Tablet, [facility]/pharmacy #[id number], 1 tablet By Mouth Daily, 163, [...] 10/21/19 9:21:00 EDT, Route to Pharmacy Electronically, [id number], [facility]/pharmacy #[id number], 163, cm, 10/14/19 12:52:00 EDT, Height, 108.3... Start Date: 10/21/19 Stop Date: 05/18/20 Status: Ordered Singulair 10 mg oral tablet 10 mg, 1, tablet, By Mouth, Daily, # 30 tablet, Refills 6, Tot. Refills 6, Maintenance, 08/11/19 8:32:00 EDT, Route to Pharmacy Electronically, [facility]/pharmacy #[id number], 163, cm, 06/11/19 10:50:00 EST, Height, [...] 9:21:00 EDT, Aerosol, Route to Pharmacy Electronically, [id number], [facility]/pharmacy #[id number], 163, cm, 10/14/19 12:52... Start Date: [...] 06/02/19 Status: Ordered Water-based Physical Therapy at [facility] Water-based Physical Therapy at [facility], See Instructions, # 1 each, [...] CPAP)(Confirmed) Active Care Management FELIX Galvez EDDY Coutierier [phone](Confirmed) Active 1Dx in 2018 Social History Social History Type Response Smoking Status Never smoker entered on: 02/16/14 Sex Female
--- OUTSIDE RECORDS SUMMARY | 2023-10-16 07:58 | XMS_ITS | Continuity of Care Document ---
Author Organization [facility] Address [address] [place] [address]- Care Team Providers Care Water Trainer Name Role Phone Mariza Goodrich MD Primary Care Physician [facility]counter [facility] Date(s): 04/26/20 - 05/26/[address] [address]- Allergies, Adverse Reactions, Alerts No Known Medication [...] 06/11/19 11:30:00 EST, Route to Pharmacy Electronically, [facility]/pharmacy #[id number], 163, cm, 06/11/19 10:50:00 EST, Height, 108.3, [...] 1 each, Maintenance, send compliance data fax [phone] Dx GULSHAN send mask and CPAP supplies for patient patient states that she has been using PAP regularly and feels better sinceusing CPAP To [facility], 02/19/18 16:36:42 EDT, C... Start Date: 02/19/18 Status: Ordered diclofenac 1% topical gel 1 application, Topically, 3 times a day, PRN Knee Pain. Thai sig, # 100 Gm, 2 Refills, Maintenance, [...] each, 6 Refills, Maintenance, 04/14/19 10:44:43 EST, [place],[facility]/pharmacy #[id number], 2 sprays Nares, Both Daily in AM, 163, cm, 04/14/19 10:18:38 EST, Height, 108.3, kg, 02/17/19 7:48:07 EDT, Dry Weight Start Date: 04/14/19 Status: Ordered hydrochlorothiazide 25 mg oral tablet 25 mg, 1, tablet, By Mouth, Daily, # 30 tablet, Refills 11, Tot. Refills 11, Maintenance, 08/11/19 8:30:00 EDT, Route to Pharmacy Electronically, [facility]/pharmacy #[id number], 163, cm, 06/11/19 10:50:00 EST, Height, 108.3, kg, 02/17/19 7:48:00 EDT, Dry Weight Start Date: 08/11/19 Status: Ordered ibuprofen 600 mg oral tablet 600 mg, 1, tablet, By Mouth, Every 8 hours, PRN Pain Thai Do not take with other NSAIDs (including Meloxicam), # 90 tablet, Refills 1, Tot. Refills 1, Maintenance, 08/11/19 8:31:00 EDT, Route to Pharmacy Electronically, [facility]/pharmacy #[id number], 163, c... Start Date: 08/11/19 Stop Date: 10/10/19 Status: Ordered ketoconazole 1% topical shampoo See Instructions, 1 applicator Topically 2 times per week for 4 weeks. Thai sig, # 200 mL, 0 Refills, Maintenance, 04/09/20 8:49:00 EST, [facility]/pharmacy #[id number], 1 applicator Topically 2 times per weekfor 4 weeks. Thai sig, 163, cm, 02/16/20 10:15:0... Start Date: [...] 2 Refills, Maintenance, 12/01/19 14:53:00 EDT, Tablet, [facility]/pharmacy #[id number], 1 tablet By Mouth Daily, 163, [...] 04/27/20 14:24:00 EST, Route to Pharmacy Electronically, [id number], [facility]/pharmacy#[id number], 163, cm, 02/16/20 10:15:00 EDT, Height, 105.... Start Date: 04/27/20 Stop Date: 10/24/20 Status: Ordered Qvar Redihaler 80 mcg/inh inhalation aerosol 1 puffs, Inhalation, 2 times a day, # 1 each, 0 Refills, Maintenance, 05/14/20 15:22:00 EST, [facility]/pharmacy #[id number], This is in ADDITION to Symbicort. To be used as short course given concern for acute flair. Rx in Thai, 1 puffs Inhalation 2 times a da... Start Date: 05/14/20 Stop Date: 05/21/20 Status: Ordered Singulair 10 mg oral tablet 10 mg, 1, tablet, By Mouth, Daily, # 30 tablet, Refills 6, Tot. Refills 6, Maintenance, 04/27/20 12:29:00 EST, Route to Pharmacy Electronically, [facility]/pharmacy #[id number], 163, cm, 02/16/20 10:15:00 EDT, Height, 105.7, kg, 09/12/19 20:00:00 EDT, Dry Weight Start Date: 04/27/20 Status: Ordered Spiriva HandiHaler 18 mcg inhalation capsule 1 capsule = 18 mcg, Inhalation, Daily, # 30 capsule, 11 Refills, Maintenance, 05/03/20 13:03:00 EST, [facility]/pharmacy #[id number], 163, cm, 02/16/20 10:15:00 EDT, Height, 105.7, kg, 09/12/19 20:00:00 EDT, Dry Weight Start Date: 05/03/20 Stop Date: 04/28/21 Status: Ordered Symbicort 160mcg/4.5mcg Inhaler 2, puffs, Inhalation, 2 times a day, Discontinue Advair, # 6 Gm, Refills 6, Tot. Refills 6, Maintenance, 10/21/19 9:21:00 EDT, Aerosol, Route to Pharmacy Electronically, [id number], [facility]/pharmacy #[id number], 163, cm, 10/14/19 12:52... Start Date: 10/21/19 Status: Ordered Vitamin D3 oral tablet By Mouth, Daily, 0 Refills, Maintenance, 06/02/19 21:11:00 EST Start Date: 06/02/19 Status: Ordered Water-based Physical Therapy at [facility] Water-based Physical Therapy at [facility], See Instructions, # 1 each, Refills [...] CPAP)(Confirmed) Active Care Management BHN/BHCP Luis Brady Director Airport Operations. [phone](Confirmed) Active 1Dx in 2018 Social History Social History Type Response Smoking Status Never smoker entered on: 02/16/14 Sex Female
--- OUTSIDE RECORDS SUMMARY | 2023-10-16 07:58 | XMS_ITS | Continuity of Care Document ---
Author Organization [facility] Address [address] [place] [address]- Care Team Providers Care Pump Rebuilder Name Role Phone Mariza Goodrich MD Primary Care Physician [place] [facility] [place] 07/28/21 - 09/01/[address] [address] Attending Physician: Mariza Goodrich MD Admitting Physician: [...] Mouth, Daily, # 30 tablet, 5 Refills, [id number], 163, cm, 01/10/21 8:49:00 EDT, Height, 102.9, [...] 1 each, Maintenance, send compliance data fax [phone] Dx GULSHAN send mask and CPAP supplies [...] mg, By Mouth, 2 times a day, [place] Helen[place] sig. PRN Pain, # 60 tablet, 1 Refills, Maintenance, 05/19/21 17:37:00 EST, Tablet, [facility]/pharmacy #[id number], Partial fill upon patient request if the prescription is for a schedule II opioid drug., 163, cm... Start Date: 05/19/21 Status: Ordered Flonase 50 mcg/inh nasal spray 2 sprays, Nares, Both, Daily in AM, # 1 each, 11 Refills, Maintenance, 07/26/20 9:20:00 EDT, [place],[facility]/pharmacy #[id number], 2 sprays Nares, Both Daily in AM, 163, cm, 07/22/20 8:51:00 EDT, Height, 105.7,kg, 09/12/19 20:00:00 EDT, Dry Weight Start Date: 07/26/20 Status: Ordered hydrochlorothiazide 25 mg oral tablet 1, tablet, By Mouth, Daily, # 30 tablet, Refills 5, Route to Pharmacy Electronically, [facility] STORE [id number], 163, cm, 01/10/21 8:49:00 EDT, Height, 102.9, kg, 05/21/20 8:52:00 EST, Dry Weight Start Date: 06/18/21 Status: Ordered lidocaine 5% topical cream 1 application, Topically, 3 times a day, PRN Pain. [place] sig, # 45 Gm, 1 Refills, Maintenance, 01/10/21 9:40:00 EDT, Cream, [facility]/pharmacy #[id number], Partial fill upon patient request if [...] 08/29/21 17:19:00 EDT, Route to Pharmacy Electronically, [id number], [facility]/pharmacy#[id number], 163, cm, 01/10/21 8:49:00 EDT, Height, 102.9... Start Date: 08/29/21 Stop Date: 10/28/21 Status: Ordered Singulair 10 mg oral tablet 10 mg, 1, tablet, By Mouth, Daily, # 30 tablet, Refills 6, Tot. Refills 6, Maintenance, 08/29/21 17:19:00 EDT, Route to Pharmacy Electronically, [facility]/pharmacy #[id number], 163, cm, 01/10/21 8:49:00 EDT, Height, 102.9, kg, 05/21/20 8:52:00 EST, Dry Weight Start Date: 08/29/21 Status: Ordered Spiriva HandiHaler 18 mcg inhalation capsule 1 capsule = 18 mcg, Inhalation, Daily, for 30 days, # 30 capsule, 11 Refills, Hard Stop 11/24/21 10:04:00 EDT, 11/29/20 10:04:00 EDT, [facility]/pharmacy #[id number], 163, cm, 11/29/20 9:31:00 EDT, Height, 102.9,kg, 05/21/20 8:52:00 EST, Dry Weight Start Date: 11/29/20 Stop Date: 11/24/21 Status: Ordered Symbicort 160mcg/4.5mcg Inhaler See Instructions, INHALE DANDO DOS SOPLIDOS DOS VECES AL RAMESH, # 10.2 Unknown, Refills 6, Tot. Refills 6, 11/29/20 10:04:00 EDT, Instructions Replace Required Details, Route to Pharmacy Electronically, [id number], [facility]... 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 [phone](Confirmed) Active 1Dx in 2018 Social History Social History Type Response Smoking Status Never smoker entered on: 02/16/14 Sex Female
--- OUTSIDE RECORDS SUMMARY | 2023-10-16 07:58 | XMS_ITS | Continuity of Care Document ---
Author Organization [facility] Address [address] [place] [address]- Care Team Providers Care Social Work Professor Name Role Phone Mariza Goodrich MD Primary Care Physician [phone] Encounter [facility] Date(s): 12/22/19 - 01/21/[address] [address]- [facility] Allergies, Adverse Reactions, Alerts No Known Medication [...] 06/11/19 11:30:00 EST, Route to Pharmacy Electronically, [facility]/pharmacy #[id number], 163, cm, 06/11/19 10:50:00 EST, Height, 108.3, kg, 02/17/19 7:48:0... Start Date: 06/11/19 Stop Date: 08/10/19 Status: Ordered Advair Diskus 100 mcg-50 mcg inhalation powder 1, puffs, Inhalation, 2 times a day, Refills 0, Maintenance, 06/02/19 21:09:00 EST, Powder Start Date: 06/02/19 Status: Ordered Albuterol 0.083% inhalation michael PRN, Refills 0, Maintenance, lot#[id number] exp august 2020, 03/10/19 18:53:20 EST Start Date: 03/10/19 Status: Ordered Albuterol 0.083% inhalation michael See Instructions, given at office visit lot # [id number] Exp 09/17, Refills 0, Maintenance, 03/26/19 9:24:59 EST, Instructions Replace Required Details Start Date: 03/26/19 Status: Ordered albuterol 0.083% inhalation solution 3 mL = 2.5 mg, Inhalation, Every 6 hours, # 120 each, 1 Refills, Maintenance, 10/21/19 9:22:00 EDT,Solution, [facility]/pharmacy #[id number], 163, cm, 10/14/19 12:52:00 EDT, Height, 108.3, kg, 02/17/19 7:48:00 EDT, Dry Weight Start Date: 10/21/19 Status: Ordered albuterol CFC free 90 mcg/inh inhalation aerosol 2, puffs, Inhalation, 4 times a day, PRN, # 1 each, Refills 11, Tot. Refills 11, Maintenance, 03/25/18 9:14:15 EST, Aerosol, Route to Pharmacy Electronically, [id number], [facility]/pharmacy #[id number], Compound Start Date: 03/25/18 [...] 6 Refills, Maintenance, 08/11/19 8:27:00 EDT, Tablet, [facility]/pharmacy #[id number], 163, cm, 06/11/19 10:50:00 [...] 1 each, Maintenance, send compliance data fax [phone] Dx GULSHAN send mask and CPAP supplies for patient patient states that she has been using PAP regularly and feels better sinceusing CPAP To [facility], 02/19/18 16:36:42 EDT, C... Start Date: 02/19/18 Status: Ordered diclofenac 1% topical gel 1 application, Topically, 3 times a day, PRN Knee Pain. [place] Islander sig, # 100 Gm, 2 Refills, Maintenance, 08/11/19 8:28:00 EDT, Gel, [facility]/pharmacy #[id number], 163, cm, 06/11/19 10:50:00 [...] 08/11/19 8:30:00 EDT, Route to Pharmacy Electronically, [facility]/pharmacy #[id number], 163, cm, 06/11/19 10:50:00 [...] each, 6 Refills, Maintenance, 04/14/19 10:44:43 EST, [place],[facility]/pharmacy #[id number], 2 sprays Nares, Both Daily [...] 60 tablet, 2 Refills, 08/11/19 8:30:00 EDT, [facility]/pharmacy #[id number], 163, cm, 06/11/19 10:50:00 [...] 08/11/19 8:30:00 EDT, Route to Pharmacy Electronically, [facility]/pharmacy #[id number], 163, cm, 06/11/19 10:50:00 EST, Height, 108.3, kg, 02/17/19 7:48:00 EDT, Dry Weight Start Date: 08/11/19 Status: Ordered ibuprofen 600 mg oral tablet 600 mg, 1, tablet, By Mouth, Every 8 hours, PRN Pain [place] Islander Do not take with other NSAIDs (including Meloxicam), # 90 tablet, Refills 1, Tot. Refills 1, Maintenance, 08/11/19 8:31:00 EDT, Route to Pharmacy Electronically, [facility]/pharmacy #[id number], 163, c... Start Date: 08/11/19 Stop Date: 10/10/19 Status: Ordered ketoconazole 1% topical shampoo See Instructions, 1 applicator Topically 2 times per week for 4 weeks. [place] Islander sig, # 200 mL, 0 Refills, Maintenance, 04/09/19 9:23:01 EST, 1 applicator Topically 2 times per week for 4 weeks. [place] Islander sig, 163, cm, 04/09/19 8:51:21 EST, Height, [...] 2 Refills, Maintenance, 12/01/19 14:53:00 EDT, Tablet, [facility]/pharmacy #[id number], 1 tablet By Mouth Daily, [...] 10/21/19 9:21:00 EDT, Route to Pharmacy Electronically, [id number], [facility]/pharmacy #[id number], 163, cm, 10/14/19 12:52:00 EDT, Height, 108.3... Start Date: 10/21/19 Stop Date: 05/18/20 Status: Ordered Singulair 10 mg oral tablet 10 mg, 1, tablet, By Mouth, Daily, # 30 tablet, Refills 6, Tot. Refills 6, Maintenance, 08/11/19 8:32:00 EDT, Route to Pharmacy Electronically, [facility]/pharmacy #[id number], 163, cm, 06/11/19 10:50:00 [...] 9:21:00 EDT, Aerosol, Route to Pharmacy Electronically, [id number], [facility]/pharmacy #[id number], 163, cm, 10/14/19 12:52... Start [...] 06/02/19 Status: Ordered Water-based Physical Therapy at [facility] Water-based Physical Therapy at [facility], See Instructions, # 1 each, Refills [...] CPAP)(Confirmed) Active Care Management FELIX Galvez EDDY [employer] [phone](Confirmed) Active 1Dx in 2018 Social History Social History Type Response Smoking Status Never smoker entered on: 02/16/14 Sex Female
--- OUTSIDE RECORDS SUMMARY | 2023-10-16 07:58 | XMS_ITS | Continuity of Care Document ---
Author Organization [facility] Address [address] [place] [address]- Care Team Providers Care Senior Radiation Protection Technician Name Role Phone Mariza Goodrich MD Primary Care Physician Encounter [facility] Date(s): 06/23/20 - 07/30/[address] [address]- Attending Physician: Mariza Goodrich MD Admitting Physician: Mariza Goodrich MD Allergies, Adverse Reactions, [...] 06/02/20 8:52:00 EST, Route to Pharmacy Electronically, [facility]/pharmacy #[id number], 163, cm, 02/16/20 10:15:00 EDT, Height, 105.7, [...] 6 Refills, Maintenance, 08/11/19 8:27:00 EDT, Tablet, [facility]/pharmacy #[id number], 163, cm, 06/11/19 10:50:00 [...] 1 each, Maintenance, send compliance data fax [phone] Dx GULSHAN send mask and CPAP supplies for patient patient states that she has been using PAP regularly and feels better sinceusing CPAP To [facility], 02/19/18 16:36:42 EDT, C... Start Date: 02/19/18 [...] each, 11 Refills, Maintenance, 07/26/20 9:20:00 EDT, [place],[facility]/pharmacy #[id number], 2 sprays Nares, Both Daily in AM, 163, cm, 07/22/20 8:51:00 EDT, Height, 105.7,kg, 09/12/19 20:00:00 EDT, Dry Weight Start Date: 07/26/20 Status: Ordered hydrochlorothiazide 25 mg oral tablet 25 mg, 1, tablet, By Mouth, Daily, # 30 tablet, Refills 11, Tot. Refills 11, Maintenance, 08/11/19 8:30:00 EDT, Route to Pharmacy Electronically, [facility]/pharmacy #[id number], 163, cm, 06/11/19 10:50:00 EST, Height, 108.3, kg, 02/17/19 7:48:00 EDT, Dry Weight Start Date: 08/11/19 Status: Ordered ibuprofen 600 mg oral tablet 600 mg, 1, tablet, By Mouth, Every 8 hours, PRN Pain Welsh Do not take with other NSAIDs (including Meloxicam), # 90 tablet, Refills 1, Tot. Refills 1, Maintenance, 06/02/20 8:53:00 EST, Route to Pharmacy Electronically, [facility]/pharmacy #[id number], 163, c... Start Date: 06/02/20 Stop Date: 08/01/20 Status: Ordered multivitamin Vitamin B Complex oral tablet 1 tablet, By Mouth, Daily, # 100 tablet, 2 Refills, Maintenance, 12/01/19 14:53:00 EDT, Tablet, [facility]/pharmacy #[id number], 1 tablet By Mouth Daily, [...] 10/24/20 14:24:00 EDT, Route to Pharmacy Electronically, [id number], [facility]/pharmacy #[id number], 163, cm, 07/22/20 8:51:00 EDT, Height, 105... Start Date: 10/24/20 Stop Date: 10/19/21 Status: Ordered ProAir HFA 90 mcg/inh inhalation aerosol with adapter 2, puffs, Inhalation, 4 times a day, PRN, for 30 days, # 1 each, Refills 5, Tot. Refills 5, Hard Stop 10/24/20 14:24:00 EDT, 04/27/20 14:24:00 EST, Route to Pharmacy Electronically, [id number], [facility]/pharmacy #[id number], 163, cm, 10... Start Date: 04/27/20 Stop Date: 10/24/20 Status: Ordered Singulair 10 mg oral tablet 10 mg, 1, tablet, By Mouth, Daily, # 30 tablet, Refills 6, Tot. Refills 6, Maintenance, 07/26/20 9:19:00 EDT, Route to Pharmacy Electronically, [facility]/pharmacy #[id number], 163, cm, 07/22/20 8:51:00 EDT, Height, 105.7, kg, 09/12/19 20:00:00 EDT, Dry Weight Start Date: 07/26/20 Status: Ordered Spiriva HandiHaler 18 mcg inhalation capsule 1 capsule = 18 mcg, Inhalation, Daily, for 30 days, # 30 capsule, 11 Refills, Hard Stop 05/28/21 8:54:00 EST, 06/02/20 8:54:00 EST, [facility]/pharmacy #[id number], 163, cm, 02/16/20 10:15:00 EDT, Height, 105.7, kg, 09/12/19 20:00:00 EDT, Dry Weight Start Date: 06/02/20 Stop Date: 05/28/21 Status: Ordered Spiriva HandiHaler 18 mcg inhalation capsule 1 capsule = 18 mcg, Inhalation, Daily, # 30 capsule, 11 Refills, Maintenance, 05/28/21 8:54:00 EST,[facility]/pharmacy #[id number], 163, cm, 07/22/20 8:51:00 EDT, Height, 105.7, kg, 09/12/19 20:00:00 EDT, Dry Weight Start Date: 05/28/21 Stop Date: 05/23/22 Status: Ordered Symbicort 160mcg/4.5mcg Inhaler See Instructions, INHALE DANDO DOS SOPLIDOS DOS VECES AL RAMESH, # 10.2 Unknown, Refills 6, Tot. Refills 6, 07/26/20 9:18:00 EDT, Instructions Replace Required Details, Route to Pharmacy Electronically,[id number], [facility]/pharmacy... 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 [phone](Confirmed) Active 1Dx in 2018 Social History Social History Type Response Smoking Status Never smoker entered on: 02/16/14 Sex Female
--- OUTSIDE RECORDS SUMMARY | 2023-10-16 07:58 | XMS_ITS | Continuity of Care Document ---
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 Start Date: 06/11/19 Stop Date: 08/10/19 Status: Ordered Albuterol 0.083% inhalation michael PRN, Refills 0, Maintenance, lot#[id number] exp august 2020, 03/10/19 18:53:20 EST Start Date: 03/10/19 Status: Ordered Albuterol 0.083% inhalation michael See Instructions, given at office visit lot # [id number] Exp 09/17, Refills 0, Maintenance, 03/26/19 9:24:59 EST, Instructions Replace Required Details Start Date: 03/26/19 Status: Ordered albuterol 0.083% inhalation solution 3 mL = 2.5 mg, Inhalation, Every 6 hours, # 120 each, 1 Refills, Maintenance, 10/21/19 9:22:00 EDT,Solution, [facility]/pharmacy #[id number], 163, cm, 10/14/19 12:52:00 EDT, Height, 108.3, kg, 02/17/19 7:48:00 EDT, Dry Weight Start Date: 10/21/19 Status: Ordered albuterol CFC free 90 mcg/inh inhalation aerosol 2, puffs, Inhalation, 4 times a day, PRN, # 1 each, Refills 11, Tot. Refills 11, Maintenance, 03/25/18 9:14:15 EST, Aerosol, Route to Pharmacy Electronically, [id number], [facility]/pharmacy #[id number], Compound Start Date: 03/25/18 Status: Ordered ALPRAZolam 0.25 mg oral tablet 0.25 mg, 1, tablet, By Mouth, 2 times a day, Refills 0, Maintenance, 11/04/18 18:19:51 EDT Start Date: 11/04/18 Status: Ordered cetirizine 10 mg oral tablet 1 tablet = 10 mg, By Mouth, Daily, # 30 tablet, 6 Refills, Maintenance, 08/11/19 8:27:00 EDT, Tablet, [facility]/pharmacy #[id number], 163, cm, 06/11/19 10:50:00 [...] 1 each, Maintenance, send compliance data fax [phone] Dx GULSHAN send mask and CPAP supplies for patient patient states that she has been using PAP regularly and feels better sinceusing CPAP To [facility] [place], 02/19/18 16:36:42 EDT, C... Start Date: 02/19/18 Status: Ordered diclofenac 1% topical gel 1 application, Topically, 3 times a day, PRN Knee Pain. Hungarian sig, # 100 Gm, 2 Refills, Maintenance, 08/11/19 8:28:00 EDT, Gel, [facility]/pharmacy #[id number], 163, cm, 06/11/19 10:50:00 [...] 08/11/19 8:30:00 EDT, Route to Pharmacy Electronically, [facility]/pharmacy #[id number], 163, cm, 06/11/19 10:50:00 EST, Height, 108.3, kg, 02/17/19 7:48:00 EDT, Dry... Start Date: 08/11/19 Status: Ordered Flonase 50 mcg/inh nasal spray 2 sprays, Nares, Both, Daily in AM, # 1 each, 6 Refills, Maintenance, 04/14/19 10:44:43 EST, [place],[id number], 2 sprays Nares, Both Daily in [...] 60 tablet, 2 Refills, 08/11/19 8:30:00 EDT, [facility]/pharmacy #[id number], 163, cm, 06/11/19 10:50:00 EST, Height, 108.3, kg, 02/17/19 7:48:00 EDT, Dry Weight Start Date: 08/11/19 Status: Ordered hydrochlorothiazide 25 mg oral tablet 25 mg, 1, tablet, By Mouth, Daily, # 30 tablet, Refills 11, Tot. Refills 11, Maintenance, 08/11/19 8:30:00 EDT, Route to Pharmacy Electronically, [facility]/pharmacy #[id number], 163, cm, 06/11/19 10:50:00 EST, Height, 108.3, kg, 02/17/19 7:48:00 EDT, Dry Weight Start Date: 08/11/19 Status: Ordered ibuprofen 600 mg oral tablet 600 mg, 1, tablet, By Mouth, Every 8 hours, PRN Pain Hungarian Do not take with other NSAIDs (including Meloxicam), # 90 tablet, Refills 1, Tot. Refills 1, Maintenance, 08/11/19 8:31:00 EDT, Route to Pharmacy Electronically, [facility]/pharmacy #[id number], 163, c... Start Date: 08/11/19 Stop Date: 10/10/19 Status: Ordered ketoconazole 1% topical shampoo See Instructions, 1 applicator Topically 2 times per week for 4 weeks. Hungarian sig, # 200 mL, 0 Refills, Maintenance, 04/09/19 9:23:01 EST, 1 applicator Topically 2 times per week for 4 weeks. Hungarian sig, 163, cm, 04/09/19 8:51:21 EST, Height, [...] 9 tablet, 1 Refills, Maintenance, 08/11/19 8:34:00 EDT,[facility]/pharmacy #[id number], 163, cm, 06/11/19 10:50:00 EST, Height, 108.3, kg, 02/17/19 7:48:00 EDT, Dry Weight Start Date: 08/11/19 Stop Date: 08/17/19 Status: Ordered PredniSONE = 40 mg, By Mouth, Daily, PRN given at md appt, 0 Refills, Maintenance, 03/10/19 18:54:44 EST Start Date: 03/10/19 Status: Ordered predniSONE 20 mg oral tablet See Instructions, 2 tablets daily for 5 days, Instructions in latvian please, # 10 each, 0 Refills,10/21/19 9:26:00 EDT, [facility]/pharmacy #[id number], 163, cm, 10/14/19 12:52:00 EDT, Height, 108.3, kg, 02/17/19 7:48:00 EDT, Dry Weight Start Date: 10/21/19 Status: Ordered ProAir HFA 90 mcg/inh inhalation aerosol with adapter 2, puffs, Inhalation, 4 times a day, PRN, # 1 each, Refills 6, Tot. Refills 6, Maintenance, 10/21/19 9:21:00 EDT, Route to Pharmacy Electronically, [id number], [facility]/pharmacy #[id number], 163, cm, 10/14/19 12:52:00 EDT, Height, 108.3... Start Date: 10/21/19 Stop Date: 05/18/20 Status: Ordered Singulair 10 mg oral tablet 10 mg, 1, tablet, By Mouth, Daily, # 30 tablet, Refills 6, Tot. Refills 6, Maintenance, 08/11/19 8:32:00 EDT, Route to Pharmacy Electronically, [facility]/pharmacy #[id number], 163, cm, 06/11/19 10:50:00 [...] 9:21:00 EDT, Aerosol, Route to Pharmacy Electronically, [id number], [facility]/pharmacy #[id number], 163, cm, 10/14/19 12:52... 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
--- OUTSIDE RECORDS SUMMARY | 2023-10-16 07:58 | XMS_ITS | Continuity of Care Document ---
Author Organization [facility] Address [address] [place] [address]- Care Team Providers Care Applications Project Manager Name Role Phone Mariza Goodrich MD Primary Care Physician [place] [facility] [place] - 05/11/[address] [address]- Attending Physician: Paula Paul MD Admitting Physician: Paula Paul MD Referring Physician: Paula Paul MD Allergies, Adverse Reactions, Alerts No Known [...] 1 each, Maintenance, send compliance data fax [phone] Dx GULSHAN send mask and CPAP supplies for patient patient states that she has been using PAP regularly and feels better sinceusing CPAP To [facility] [place], 02/19/18 16:36:42 EDT, C... Start Date: 02/19/18 Status: Ordered escitalopram 10 mg oral tablet 1 tablet = 10 mg, By Mouth, Daily Start Date: 05/14/20 Status: Ordered etodolac 400 mg oral tablet 1 tablet = 400 mg, By Mouth, 2 times a day, Discontinue Meloxicam. Somali sig. PRN Pain, # 60 tablet, 1 Refills, Maintenance, 03/08/21 17:11:00 EST, Tablet, [facility]/pharmacy #[id number], Partial fill upon patient request if the prescription is for a schedule I... Start Date: 03/08/21 Status: Ordered Flonase 50 mcg/inh nasal spray 2 sprays, Nares, Both, Daily in AM, # 1 each, 11 Refills, Maintenance, 07/26/20 9:20:00 EDT, [place],[facility]/pharmacy #[id number], 2 sprays Nares, Both Daily [...] Topically, 3 times a day, PRN Pain. Somali sig, # 45 Gm, 1 Refills, Maintenance, [...] 10/24/20 14:24:00 EDT, Route to Pharmacy Electronically, [id number], [facility]/pharmacy #[id number], 163, cm, 07/22/20 8:51:00 [...] Replace Required Details, Route to Pharmacy Electronically, [id number], [facility]/pharmacy... 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 [phone](Confirmed) Active 1Dx in 2018 Social History Social History Type Response Smoking Status Never smoker entered on: 02/16/14 Sex Female
--- OUTSIDE RECORDS SUMMARY | 2023-10-16 07:58 | XMS_ITS | Continuity of Care Document ---
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 Name Role Phone Kp JOHNS, Mariza Primary Care Physician Encounter [facility] [place] ACCT R [id number] Date(s): 09/28/22 - 10/28/[address] [address]- Attending Physician: Cara Ingram Admitting Physician: AdmCara velasco Referring Physician: AdmtrCara Allergies, Adverse Reactions, Alerts No Known Allergies [...] Mouth, Daily, # 30 tablet, 5 Refills, [id number], 163, cm, 01/10/21 8:49:00 EDT, Height, 102.9, [...] 1 each, Maintenance, send compliance data fax [phone] Dx GULSHAN send mask and CPAP supplies [...] 1 Refills, Maintenance, 05/19/21 17:37:00 EST, Tablet, [facility]/pharmacy #[id number], Partial fill upon patient request if the prescription is for a schedule II opioid drug., 163, cm... Start Date: 05/19/21 Status: Ordered Flonase 50 mcg/inh nasal spray 2 sprays, Nares, Both, Daily in AM, # 1 each, 11 Refills, Maintenance, 07/26/20 9:20:00 EDT, [place],[facility]/pharmacy #[id number], 2 sprays Nares, Both Daily in AM, 163, cm, 07/22/20 8:51:00 EDT, Height, 105.7,kg, 09/12/19 20:00:00 EDT, Dry Weight Start Date: 07/26/20 Status: Ordered hydrochlorothiazide 25 mg oral tablet 1, tablet, By Mouth, Daily, # 30 tablet, Refills 5, Route to Pharmacy Electronically, [facility] STORE [id number], 163, cm, 01/10/21 8:49:00 EDT, Height, 102.9, kg, 05/21/20 8:52:00 EST, Dry Weight Start Date: 06/18/21 Status: Ordered lidocaine 5% topical cream 1 application, Topically, 3 times a day, PRN Pain. Sierra Leonean sig, # 45 Gm, 1 Refills, Maintenance, 01/10/21 9:40:00 EDT, Cream, [facility]/pharmacy #[id number], Partial fill upon patient [...] each, Refills 5, Route to Pharmacy Electronically, [id number], [facility] STORE [id number], 163, cm, 01/10/21 8:49:00 EDT, Height, 102.9,kg, 05/21/20 8:52:00 EST, Dry Weight Start Date: 10/28/21 Status: Ordered Singulair 10 mg oral tablet 10 mg, 1, tablet, By Mouth, Daily, # 30 tablet, Refills 6, Tot. Refills 6, Maintenance, 08/29/21 17:19:00 EDT, Route to Pharmacy Electronically, [facility]/pharmacy #[id number], 163, cm, 01/10/21 8:49:00 EDT, Height, 102.9, kg, 05/21/20 8:52:00 EST, Dry Weight Start Date: 08/29/21 Status: Ordered Symbicort 160mcg/4.5mcg Inhaler See Instructions, INHALE DANDO DOS SOPLIDOS DOS VECES AL RAMESH, # 10.2 Unknown, Refills 6, Tot. Refills 6, 11/29/20 10:04:00 EDT, Instructions Replace Required Details, Route to Pharmacy Electronically, [id number], [facility]/pharmacy... Start Date: 11/29/20 Status: Ordered Problem List [...] Never smoker entered on: 02/16/14 Sex Female Laboratory * Event Display: Non Lab Results Authored Date: [id number] Radiology * Event Display: Non Radiology Results Authored Date: [id number] Note * Vi Mina: PERFORM, SIGN, VERIFY Event Display: Patient Education/Instruction Authored Date: [id number] [facility] Clinical Summary Person Information Visit Date 11/02/2014 2:10 PM Name CASSIUS EVANS Age 39 Years 1975 12:00 AM PCP Charles JHONS, Shashank PCP Sex Female Race White Ethnicity / Language Sierra Leonean Reason for Visit: Allergy Info: NKA Smoking Status Never smoker Vital Signs Height Weight BMI Blood Pressure / Temperature Pulse Rate Respiratory Rate 02 Sat Mode of Delivery / Medication Information Albuterol (albuterol 0.083% inhalation solution) 3 mL, Inhalation, every 6 hours, As Needed, for wheezing, Refills: 11 Albuterol (ProAir HFA 90 mcg/inh inhalation aerosol with adapter) 2 puffs, Inhalation, 4 times a day, 30 days, As Needed, Cough, Refills: 5 Cromolyn Ophthalmic (cromolyn ophthalmic 4% solution) 1 drops, Both eyes, 4 times a day, instructions in Sierra Leonean, As Needed, itchy eyes, Refills: 0 Durable Medical Equipment (Aerochamber) , See Instructions, USE WITH INHALERS, Refills: 0 Famotidine (famotidine 20 mg oral tablet) 1 tablet, Oral, twice a day, 7 days, Refills: 0 Ferrous Sulfate (ferrous sulfate 325 mg oral enteric coated tablet) 1 tablet, Oral, twice a day, 90days, Refills: 3 Fluticasone Nasal (Flonase 50 mcg/inh nasal spray) 1 sprays, Nares, Both, twice a day, in each nostril, Refills: 5 Fluticasone-Salmeterol (Advair Diskus 250 mcg-50 mcg inhalation powder) 1 puffs, Inhalation, twice a day, rinse mouth and throat after use, Refills: 5 Fluticasone-Salmeterol (Advair Diskus 500 mcg-50 mcg inhalation powder) 1 puffs, Inhalation, twice a day, rinse mouth and throat after use, Refills: 3 Gabapentin (Neurontin 100 mg oral capsule) 1 capsule, Oral, 3 times a day, 30 days, Refills: 3 Hydrochlorothiazide (hydrochlorothiazide 25 mg oral tablet) 1 tablet, Oral, Daily, 30 days, Refills: 5 Ibuprofen (ibuprofen 600 mg oral tablet) 1 tablet, Oral, 4 times a day, As Needed, for pain, Refills: 0 Loratadine (loratadine 10 mg oral tablet) 1 tablet, Oral, Daily, Refills: 5 Meloxicam (meloxicam 15 mg oral tablet) 1 tablet, Oral, Daily, Refills: 6 Oxycodone (oxycodone 5 mg oral tablet) 1 tablet, Oral, Every 4 to 6 hours, dominican rx, med may cause drowsiness, As Needed, Pain, Refills: 0 Polyethylene Glycol 3350 (polyethylene glycol 3350 oral powder for reconstitution) 17 Gm, Oral, Daily, 30 days, Refills: 4 Ranitidine (ranitidine 150 mg oral tablet) 1 tablet, Oral, twice a day, 30 days, Refills: 0 Future Orders No future orders Orders Completed this Visit No visit orders documented Problem List Date Problem 03/14/13 Asthma 03/14/13 Essential hypertension Diagnosis Procedures No Procedures Documented If the following labs have been performed in the last year, the most recent result is displayed below. Diagnostic Results Lab Result Value Date Lead Hemoglobin A1C LDL HDL Triglycerides Total Cholesterol Disclaimer: The information provided is of a general nature and is intended to be used in conjunction with the recommendations and advice of your health care practitioner. Every effort has been made to ensure that the information provided is accurate and complete at the time it is provided to you however, as your needs change, or, as new information becomes available, different or additional instructions may be required. If you have questions, please consult with your primary care provider or pharmacist, as appropriate. This information is not intended to serve as substitution for assessment and evaluation by a qualified health care provider. If you do not have a primary care provider, you may find a [facility] provider by calling [facility] [facility] at [phone]. For information about the plan of care including goals and instructions for your diagnosis, please see the patient education orders section of this document. Patient Visit Summary: Follow-Up Instructions With: Address: When: Booked Echocardiogram for 11/16/14 @ 3:15. Put on 3 month reminder Comments: Patient Education Materials Additional Instructions: Patient Care team information Care Team Personnel Name: Belle Stevens NP Position: [facility] PCO Associate Professional Member Role: Lifetime Consulting Provider Address: Address: [address] [place] [id number]- Name: Mariza Goodrich MD Position: [facility] Physician - Primary Care Member Role: PCP Address: Address: [address] [place] [id number]- Name: Pati Apodaca RN Position: [facility] RN Member Role: Primary Care Nurse Name: Hollie Pfeiffer RN Position: [facility] Hospital Landscaper Helper Member Role: Primary Care Nurse Care Team Related Persons Name: ESTEPHANIA WYNN Address: [address] [place] [address] Name: EUNICE WYNN Address: [address] [address] Name: NELLI RENO Name: MATTHEW RENO Address: [address] [place] [address]
--- OUTSIDE RECORDS SUMMARY | 2023-10-16 07:59 | XMS_ITS | Continuity of Care Document ---
Author Organization [facility] Address [address] [place] [id number]- Care Team Providers Care Siderographist Name Role Phone Kp JOHNS, Mariza Primary Care Physician Encounter [facility] Date(s): 03/06/23 - 04/05/[address] [address] Allergies, Adverse Reactions, Alerts No Known [...] 01/25/23 8:49:00 EDT, Route to Pharmacy Electronically, [id number], [id number], 163, cm, 01/25/23 8:30:00 EDT, Height Start Date: 01/25/23 Status: Ordered cetirizine 10 mg oral tablet 1 tablet, By Mouth, Daily, # 30 tablet, 5 Refills, [facility], 163, cm, 01/10/21 8:49:00 EDT, Height, 102.9, kg, 05/21/20 8:52:00 EST, Dry Weight Start Date: 06/18/21 Status: Ordered cholestyramine 4 g/5.7 g oral powder for reconstitution = 2 Gm, By Mouth, Daily, dissolve in water or juice. Tajik Sig., # 180 Gm, 1 Refills, Maintenance, 03/14/23 10:53:00 EST, REC Powder, [facility]/pharmacy #[id number], Partial fill upon patient request if the prescription is for a schedule II opioid drug., 163, c... Start Date: 03/14/23 Stop Date: 09/10/23 Status: Ordered clonazePAM 0.5 mg oral tablet 1 tablet = 0.5 mg, By Mouth, Daily at bedtime, PRN Anxiety, # 30 tablet, 1 Refills, Maintenance, 01/25/23 9:00:00 EDT, Tablet, [facility]/pharmacy #[id number], Partial fill upon patient request if [...] 1 each, Maintenance, send compliance data fax [phone] Dx GULSHAN send mask and CPAP supplies for patient patient states that she has been using PAP regularly and feels better sinceusing CPAP To [facility], 02/19/18 16:36:42 EDT, C... Start Date: 02/19/18 [...] 0 Refills, Maintenance, 01/25/23 8:52:00 EDT, Tablet, [facility]/pharmacy #[id number], Partial fill upon patient request if the prescription is for a schedule II opioid drug., 163, cm, 01/25/23 8:30:00 EDT, Height Start Date: 01/25/23 Stop Date: 04/25/23 Status: Ordered Flonase 50 mcg/inh nasal spray 2 sprays, Nares, Both, Daily in AM, # 1 each, 11 Refills, Maintenance, 07/26/20 9:20:00 EDT, [place],[facility]/pharmacy #[id number], 2 sprays Nares, Both Daily in AM, 163, cm, 07/22/20 8:51:00 EDT, Height, 105.7,kg, 09/12/19 20:00:00 EDT, Dry Weight Start Date: 07/26/20 Status: Ordered hydrochlorothiazide 25 mg oral tablet 1, tablet, By Mouth, Daily, for 90 days, # 90 tablet, Refills 3, Tot. Refills 3, Physician Stop 01/20/24 9:07:00 EDT, 01/25/23 9:07:00 EDT, Route to Pharmacy Electronically, [facility]/pharmacy #[id number], 163, cm, 01/25/23 9:05:00 EDT, Height Start Date: 01/25/23 Stop Date: 01/20/24 Status: Ordered ketoconazole 2% topical shampoo See Instructions, 1 application Topically three times a week, # 120 mL, 3 Refills, Soft Stop, 01/25/23 8:59:00 EDT, Shampoo, [facility]/pharmacy #[id number], Partial fill upon patient request if the prescription is for a schedule II opioid drug., 1 application Top... Start Date: 01/25/23 Status: Ordered lidocaine 5% topical cream 1 application, Topically, 3 times a day, PRN Pain. Tajik sig, # 45 Gm, 1 Refills, Maintenance, 01/10/21 9:40:00 EDT, Cream, [facility]/pharmacy #[id number], Partial fill upon patient request if the prescriptionis for a schedule II opioid drug., 1 application To... Start Date: 01/10/21 Status: Ordered Lidoderm 5% film 1 patch, Topically, Daily, remove patches after 12 hours, # 30 patch, 0 Refills, Maintenance, 02/24/23 20:18:00 EDT, [facility]/pharmacy #[id number], Partial fill upon patient request if the prescription is for aschedule II opioid drug., 1 patch Topically Daily,I... Start Date: 02/24/23 Status: Ordered pregabalin 200 mg oral capsule 1 capsule = 200 mg, By Mouth, Daily, # 30 capsule, 1 Refills, Maintenance, 01/25/23 9:00:00 EDT, Capsule, [facility]/pharmacy #[id number], Partial fill upon patient request if the prescription is for a schedule II opioid drug., 163, cm, 01/25/23 8:30:00 EDT, Height Start Date: 01/25/23 Stop Date: 03/26/23 Status: Ordered Singulair 10 mg oral tablet 10 mg, 1, tablet, By Mouth, Daily, # 90 tablet, Refills 3, Tot. Refills 3, Maintenance, 01/25/23 8:49:00 EDT, Route to Pharmacy Electronically, [facility]/pharmacy #[id number], 163, cm, 01/25/23 8:30:00 EDT, Height Start Date: 01/25/23 Stop Date: 01/20/24 Status: Ordered Spiriva Respimat 10 ACT 2.5 mcg/inh inhalation aerosol 2 puffs = 5 mcg, Inhalation, Daily, sudanese sig, # 4 Gm, 5 Refills, Maintenance, 03/14/23 10:57:00 EST, Aerosol, [facility]/pharmacy #[id number], Partial fill upon patient request if the prescription is for a schedule II opioid drug., 163, cm, 03/14/23 9:01:00 EST... Start Date: 03/14/23 Status: Ordered Symbicort 160mcg/4.5mcg Inhaler 2, puffs, Inhalation, 2 times a day, for 90 days, # 3 each, Refills 3, Tot. Refills 3, Physician Stop 01/20/24 8:50:00 EDT, 01/25/23 8:50:00 EDT, Route to Pharmacy Electronically, [id number], [facility]/pharmacy #[id number], 163, cm, 12/30... Start Date: 01/25/23 Stop Date: 01/20/24 Status: Ordered Tylenol Extra Strength 500 mg oral tablet 2 tablet = 1,000 mg, By Mouth, 3 times a day, PRN for fever, # 60 tablet, 0 Refills, Maintenance, 02/24/23 20:18:00 EDT, Tablet, [facility]/pharmacy #[id number], Partial fill upon patient request, 163, [...] Team Personnel Name: Belle Stevens NP Position: [facility] PCO Associate Professional Member Role: Lifetime Consulting Provider Address: Address: [address] [place] [address]- Name: Mariza Goodrich MD Position: [facility] Physician - Primary Care Member Role: PCP Address: Address: [address] [place] [address]- Name: Pati Apodaca RN Position: [facility] RN Member Role: Primary Care Nurse Name: Hollie Pfeiffer RN Position: [facility] Hospital Sleep Tech Member Role: Primary Care Nurse Care Team Related Persons Name: ESTEPHANIA WYNN Address: [address] [place] [address] Name: EUNICE WYNN Address: [address] [place] [address] Name: NELLI RENO Name: MATTHEW RENO Address: [address] [place] [address]
--- OUTSIDE RECORDS SUMMARY | 2023-10-16 07:59 | XMS_ITS | Continuity of Care Document ---
Author Organization [facility] Address [address] [place] [address]- Care Team Providers Care Human Performance Consultant Name Role Phone Kp JOHNS, Mariza Primary Care Physician Encounter [facility] [place] Date(s): 10/03/21 - 11/02/[address] [address]- Attending Physician: AdmtrCara Admitting Physician: AdmtrCara Referring [...] Mouth, Daily, # 30 tablet, 5 Refills, [facility] [address], 163, cm, 01/10/21 8:49:00 EDT, Height, 102.9, [...] 1 each, Maintenance, send compliance data fax [phone] Dx GULSHAN send mask and CPAP supplies [...] mg, By Mouth, 2 times a day, Liberian sig. PRN Pain, # 60 tablet, 1 Refills, Maintenance, 05/19/21 17:37:00 EST, Tablet, [facility]/pharmacy #[id number], Partial fill upon patient request if the prescription is for a schedule II opioid drug., 163, cm... Start Date: 05/19/21 Status: Ordered Flonase 50 mcg/inh nasal spray 2 sprays, Nares, Both, Daily in AM, # 1 each, 11 Refills, Maintenance, 07/26/20 9:20:00 EDT, [place],[facility]/pharmacy #[id number], 2 sprays Nares, Both Daily in AM, 163, cm, 07/22/20 8:51:00 EDT, Height, 105.7,kg, 09/12/19 20:00:00 EDT, Dry Weight Start Date: 07/26/20 Status: Ordered hydrochlorothiazide 25 mg oral tablet 1, tablet, By Mouth, Daily, # 30 tablet, Refills 5, Route to Pharmacy Electronically, [facility] STORE [id number], 163, cm, 01/10/21 8:49:00 EDT, Height, 102.9, kg, 05/21/20 8:52:00 EST, Dry Weight Start Date: 06/18/21 Status: Ordered lidocaine 5% topical cream 1 application, Topically, 3 times a day, PRN Pain. Liberian sig, # 45 Gm, 1 Refills, Maintenance, [...] each, Refills 5, Route to Pharmacy Electronically, [id number], [facility] STORE [id number], 163, cm, 01/10/21 8:49:00 EDT, Height, 102.9,kg, [...] Stop 11/24/21 10:04:00 EDT, 11/29/20 10:04:00 EDT, [facility]/pharmacy #[id number], 163, cm, 11/29/20 9:31:00 EDT, Height, 102.9,kg, 05/21/20 8:52:00 EST, Dry Weight Start Date: 11/29/20 Stop Date: 11/24/21 Status: Ordered Symbicort 160mcg/4.5mcg Inhaler See Instructions, INHALE DANDO DOS SOPLIDOS DOS VECES AL RAMESH, # 10.2 Unknown, Refills 6, Tot. Refills 6, 11/29/20 10:04:00 EDT, Instructions Replace Required Details, Route to Pharmacy Electronically, [id number], [facility]/pharmacy... Start Date: [...]
--- OUTSIDE RECORDS SUMMARY | 2023-10-16 07:59 | XMS_ITS | Continuity of Care Document ---
Author Organization [facility] Address [address] [place] [address]- Care Team Providers Care Supplemental Manager Name Role Phone Kp JOHNS, Mariza Primary Care Physician [phone] Encounter [facility] Date(s): 07/06/23 - 08/05/[address] [address]- Attending Physician: Admtr, Cara Admitting Physician: Admtr, [id number] Referring Physician: Admtr, [...] 01/25/23 8:49:00 EDT, Route to Pharmacy Electronically, [id number], [facility]/pharmacy #[id number], 163, cm, 01/25/23 8:30:00 EDT, Height Start Date: 01/25/23 Status: Ordered cetirizine 10 mg oral tablet 1 tablet, By Mouth, Daily, # 30 tablet, 5 Refills, [id number], 163, cm, 01/10/21 8:49:00 EDT, Height, 102.9, kg, 05/21/20 8:52:00 EST, Dry Weight Start Date: 06/18/21 Status: Ordered cholestyramine 4 g/5.7 g oral powder for reconstitution = 2 Gm, By Mouth, Daily, dissolve in water or juice. Anguillan Sig., # 180 Gm, 1 Refills, Maintenance, 04/16/23 15:55:00 EST, REC Powder, [facility]/pharmacy #[id number], Partial fill upon patient request if the prescription is for a schedule II opioid drug., 163, c... Start Date: 04/16/23 Stop Date: 10/13/23 Status: Ordered clonazePAM 0.5 mg oral tablet 1 tablet = 0.5 mg, By Mouth, Daily at bedtime, PRN Anxiety, # 30 tablet, 1 Refills, Maintenance, 01/25/23 9:00:00 EDT, Tablet, [facility]/pharmacy #[id number], Partial fill upon patient request if [...] night. Length of [facility],... Start Date: 06/20/23 Status: Ordered donut pillow donut pillow, See Instructions, # 1 each, Refills 0, Tot. Refills 0, Maintenance, use for sitting for 2-4 weeks for coccyx bruise M53.3, 03/07/23 16:09:00 EST, Supply Start Date: 03/07/23 Status: Ordered escitalopram 10 mg oral tablet 1 tablet = 10 mg, By Mouth, Daily, # 90 tablet, 0 Refills, Maintenance, 01/25/23 8:52:00 EDT, Tablet, [facility]/pharmacy #[id number], Partial fill upon patient request if the prescription is for a schedule II opioid drug., 163, cm, 01/25/23 8:30:00 EDT, Height Start Date: 01/25/23 Stop Date: 04/25/23 Status: Ordered Flonase 50 mcg/inh nasal spray 2 sprays, Nares, Both, Daily in AM, # 1 each, 11 Refills, Maintenance, 07/26/20 9:20:00 EDT, [place],[facility]/pharmacy #[id number], 2 sprays Nares, Both Daily in AM, 163, cm, 07/22/20 8:51:00 EDT, Height, 105.7,kg, 09/12/19 20:00:00 EDT, Dry Weight Start Date: 07/26/20 Status: Ordered hydrochlorothiazide 25 mg oral tablet 1, tablet, By Mouth, Daily, for 90 days, # 90 tablet, Refills 3, Tot. Refills 3, Physician Stop 01/20/24 9:07:00 EDT, 01/25/23 9:07:00 EDT, Route to Pharmacy Electronically, [facility]/pharmacy #[id number], 163, cm, 01/25/23 9:05:00 EDT, Height Start Date: 01/25/23 Stop Date: 01/20/24 Status: Ordered ibuprofen 600 mg oral tablet 600 mg, 1, tablet, By Mouth, Every 6 hours, PRN, # 40 tablet, Refills 1, Tot. Refills 1, Maintenance, Headache, 06/19/23 10:54:00 EST, Route to Pharmacy Electronically, [facility]/pharmacy #[id number], Partial fill upon patient request if the prescription is for a... Start Date: 06/19/23 Status: Ordered ketoconazole 2% topical shampoo See Instructions, 1 application Topically three times a week, # 120 mL, 3 Refills, Soft Stop, 07/06/23 16:38:00 EST, Shampoo, [facility]/pharmacy #[id number], Partial fill upon patient request if the prescriptionis for a schedule II opioid drug., 1 application To... Start Date: 07/06/23 Status: Ordered lidocaine 5% topical cream 1 application, Topically, 3 times a day, PRN Pain. Anguillan sig, # 45 Gm, 1 Refills, Maintenance, 01/10/21 9:40:00 EDT, Cream, [facility]/pharmacy #[id number], Partial fill upon patient request if the prescriptionis for a schedule II opioid drug., 1 application To... Start Date: 01/10/21 Status: Ordered Lidoderm 5% film 1 patch, Topically, Daily, remove patches after 12 hours, # 30 patch, 5 Refills, Maintenance, 07/06/23 16:39:00 EST, [facility]/pharm[facility] #[id number], Partial fill upon patient request if the prescription is for aschedule II opioid drug., 1 patch Topically Daily,I... Start Date: 07/06/23 Status: Ordered pregabalin 200 mg oral capsule 1 capsule = 200 mg, By Mouth, Daily, # 30 capsule, 1 Refills, Maintenance, 01/25/23 9:00:00 EDT, Capsule, [facility]/pharm[facility] #[id number], Partial fill upon patient request if the prescription is for a schedule II opioid drug., 163, cm, 01/25/23 8:30:00 EDT, Height Start Date: 01/25/23 Stop Date: 03/26/23 Status: Ordered Singulair 10 mg oral tablet 10 mg, 1, tablet, By Mouth, Daily, # 90 tablet, Refills 3, Tot. Refills 3, Maintenance, 01/25/23 8:49:00 EDT, Route to Pharmacy Electronically, [facility]/pharmacy #[id number], 163, cm, 01/25/23 8:30:00 EDT, Height Start Date: 01/25/23 Stop Date: 01/20/24 Status: Ordered Spiriva Respimat 10 ACT 2.5 mcg/inh inhalation aerosol 2 puffs = 5 mcg, Inhalation, Daily, bengali sig, # 4 Gm, 5 Refills, Maintenance, 03/14/23 10:57:00 EST, Aerosol, [facility]/pharmacy #[id number], Partial fill upon patient request if the prescription is for a schedule II opioid drug., 163, cm, 03/14/23 9:01:00 EST... Start Date: 03/14/23 Status: Ordered Symbicort 160mcg/4.5mcg Inhaler 2, puffs, Inhalation, 2 times a day, for 90 days, # 3 each, Refills 3, Tot. Refills 3, Physician Stop 01/20/24 8:50:00 EDT, 01/25/23 8:50:00 EDT, Route to Pharmacy Electronically, [id number], [facility]/pharmacy #[id number], 163, cm, 12/30... Start Date: 01/25/23 Stop Date: 01/20/24 Status: Ordered Tylenol Extra Strength 500 mg oral tablet 2 tablet = 1,000 mg, By Mouth, 3 times a day, PRN for fever, # 60 tablet, 0 Refills, Maintenance, 02/24/23 20:18:00 EDT, Tablet, [facility]/pharmacy #[id number], Partial fill upon patient request, 163, [...] Status Never smoker entered on: 02/16/14 Sex Laboratory * Event Display: Non BH Lab Results Authored Date: Radiology * Event Display: Non BH Radiology Results Authored Date: Note * Vi Mina: PERFORM, SIGN, VERIFY Event Display: Patient Education/Instruction Authored Date: [facility] Clinical Summary Person Information Visit Date 11/02/2014 2:10 PM Name CASSIUS EVANS Age 39 Years 1975 12:00 AM PCP Shashank Soto MD PCP Sex Female Race White Ethnicity / Language Anguillan Reason for Visit: Allergy Info: NKA Smoking [...] eyes, 4 times a day, instructions in Anguillan, As Needed, itchy eyes, Refills: 0 Durable [...] tablet, Oral, Every 4 to 6 hours, bengali rx, med may cause drowsiness, As Needed, [...] primary care provider, you may find a [facility] provider by calling [facility] at [phone]. For information about the plan of care including goals and instructions for your diagnosis, please see the patient education orders section of this document. Patient Visit Summary: Follow-Up Instructions With: Address: When: Booked Echocardiogram for 11/16/14 @ 3:15. Put on 3 month reminder Comments: Patient Education Materials Additional Instructions: Patient Care team information Care Team Personnel Name: Belle Stevens NP Position: [facility] PCO Associate Professional Member Role: Lifetime Consulting Provider Address: Address: [address] [place] [address]- Name: Mariza Goodrich MD Position: [facility] Physician - Primary Care Member Role: PCP Address: Address: [address] [place] [address]- Name: Pati Apodaca RN Position: [facility] RN Member Role: Primary Care Nurse Name: Hollie Pfeiffer RN Position: [facility] Hospital Databases Computer Consultant Member Role: Primary Care Nurse Care Team Related Persons Name: ESTEPHANIA WYNN Address: [address] [place] [address] Name: EUNICE WYNN Address: home [address] [facility] [address] [place] [address] Name: NELLI RENO Name: MATTHEW RENO Address: home [address] [place] [address]
--- OUTSIDE RECORDS SUMMARY | 2023-10-16 07:59 | XMS_ITS | Continuity of Care Document ---
Author Organization [facility] Address [address] [place] [address]- Care Team Providers Care Criminal Legal Assistant Name Role Phone Kp JOHNS, Mariza Primary Care Physician [phone] Encounter [facility] Date(s): 01/27/23 - 02/26/[address] [address] Allergies, Adverse Reactions, Alerts No [...] 01/25/23 8:49:00 EDT, Route to Pharmacy Electronically, [id number], [id number], 163, cm, 01/25/23 8:30:00 EDT, Height Start Date: 01/25/23 Status: Ordered cetirizine 10 mg oral tablet 1 tablet, By Mouth, Daily, # 30 tablet, 5 Refills, [id number], 163, cm, 01/10/21 8:49:00 EDT, Height, 102.9, kg, 05/21/20 8:52:00 EST, Dry Weight Start Date: 06/18/21 Status: Ordered clonazePAM 0.5 mg oral tablet 1 tablet = 0.5 mg, By Mouth, Daily at bedtime, PRN Anxiety, # 30 tablet, 1 Refills, Maintenance, 01/25/23 9:00:00 EDT, Tablet, [facility]/pharmacy #[id number], Partial fill upon patient request if [...] 1 each, Maintenance, send compliance data fax [phone] Dx GULSHAN send mask and CPAP supplies for patient patient states that she has been using PAP regularly and feels better sinceusing CPAP To [facility], 02/19/18 16:36:42 EDT, C... Start Date: 02/19/18 Status: Ordered escitalopram 10 mg oral tablet 1 tablet = 10 mg, By Mouth, Daily, # 90 tablet, 0 Refills, Maintenance, 01/25/23 8:52:00 EDT, Tablet, [facility]/pharmacy #[id number], Partial fill upon patient request if the prescription is for a schedule II opioid drug., 163, cm, 01/25/23 8:30:00 EDT, Height Start Date: 01/25/23 Stop Date: 04/25/23 Status: Ordered etodolac 400 mg oral tablet 1 tablet = 400 mg, By Mouth, 2 times a day, Cypriot sig. PRN Pain, # 60 tablet, 1 Refills, Maintenance, 05/19/21 17:37:00 EST, Tablet, [facility]/pharmacy #[id number], Partial fill upon patient request if the prescription is for a schedule II opioid drug., 163, cm... Start Date: 05/19/21 Status: Ordered Flonase 50 mcg/inh nasal spray 2 sprays, Nares, Both, Daily in AM, # 1 each, 11 Refills, Maintenance, 07/26/20 9:20:00 EDT, [place],[facility]/pharmacy #[id number], 2 sprays Nares, Both Daily in AM, 163, cm, 07/22/20 8:51:00 EDT, Height, 105.7,kg, 09/12/19 20:00:00 EDT, Dry Weight Start Date: 07/26/20 Status: Ordered hydrochlorothiazide 25 mg oral tablet 1, tablet, By Mouth, Daily, for 90 days, # 90 tablet, Refills 3, Tot. Refills 3, Physician Stop 01/20/24 9:07:00 EDT, 01/25/23 9:07:00 EDT, Route to Pharmacy Electronically, [facility]/pharmacy #[id number], 163, cm, 01/25/23 9:05:00 EDT, Height Start Date: 01/25/23 Stop Date: 01/20/24 Status: Ordered ketoconazole 2% topical shampoo See Instructions, 1 application Topically three times a week, # 120 mL, 3 Refills, Soft Stop, 01/25/23 8:59:00 EDT, Shampoo, [facility]/pharmacy #[id number], Partial fill upon patient request if the prescription is for a schedule II opioid drug., 1 application Top... Start Date: 01/25/23 Status: Ordered lidocaine 5% topical cream 1 application, Topically, 3 times a day, PRN Pain. Cypriot sig, # 45 Gm, 1 Refills, Maintenance, 01/10/21 9:40:00 EDT, Cream, [facility]/pharmacy #[id number], Partial fill upon patient request if the prescriptionis for a schedule II opioid drug., 1 application To... Start Date: 01/10/21 Status: Ordered Lidoderm 5% film 1 patch, Topically, Daily, remove patches after 12 hours, # 30 patch, 0 Refills, Maintenance, 02/24/23 20:18:00 EDT, [facility]/pharmacy #[id number], Partial fill upon patient request if the prescription is for aschedule II opioid drug., 1 patch Topically Daily,I... Start Date: 02/24/23 Status: Ordered pregabalin 200 mg oral capsule 1 capsule = 200 mg, By Mouth, Daily, # 30 capsule, 1 Refills, Maintenance, 01/25/23 9:00:00 EDT, Capsule, [facility]/pharmacy #[id number], Partial fill upon patient request if the prescription is for a schedule II opioid drug., 163, cm, 01/25/23 8:30:00 EDT, Height Start Date: 01/25/23 Stop Date: 03/26/23 Status: Ordered Singulair 10 mg oral tablet 10 mg, 1, tablet, By Mouth, Daily, # 90 tablet, Refills 3, Tot. Refills 3, Maintenance, 01/25/23 8:49:00 EDT, Route to Pharmacy Electronically, [facility]/pharmacy #[id number], 163, cm, 01/25/23 8:30:00 EDT, Height Start Date: 01/25/23 Stop Date: 01/20/24 Status: Ordered Spiriva HandiHaler 18 mcg inhalation capsule 1 capsule = 18 mcg, Inhalation, Daily, # 90 capsule, 3 Refills, Maintenance, 01/25/23 8:51:00 EDT, [facility]/pharmacy #[id number], Partial fill upon patient request if the prescription is for a schedule II opioid drug., 163, cm, 01/25/23 8:30:00 EDT, Height Start Date: 01/25/23 Stop Date: 01/20/24 Status: Ordered Symbicort 160mcg/4.5mcg Inhaler 2, puffs, Inhalation, 2 times a day, for 90 days, # 3 each, Refills 3, Tot. Refills 3, Physician Stop 01/20/24 8:50:00 EDT, 01/25/23 8:50:00 EDT, Route to Pharmacy Electronically, [id number], [facility]/pharmacy #[id number], 163, cm, 12/30... Start Date: 01/25/23 Stop Date: 01/20/24 Status: Ordered Tylenol Extra Strength 500 mg oral tablet 2 tablet = 1,000 mg, By Mouth, 3 times a day, PRN for fever, # 60 tablet, 0 Refills, Maintenance, 02/24/23 20:18:00 EDT, Tablet, [id number], Partial fill upon patient request, 163, cm, [...] Personnel Name: Hilda STEPHENS, Belle Barba Position: [facility] PCO Associate Professional Member Role: Lifetime Consulting Provider Address: Address: [address] [place] [address]- Name: Mariza Goodrich MD Position: [facility] Physician - Primary Care Member Role: PCP Address: Address: [address] [place] [address]- Name: Pati Apodaca RN Position: [facility] RN Member Role: Primary Care Nurse Name: Hollie Pfeiffer RN Position: [facility] Hospital Cost Accounting Manager Member Role: Primary Care Nurse Care Team Related Persons Name: ESTEPHANIA WYNN Address: [address] [place] [address] Name: EUNICE WYNN Address: home [address] [facility] [address] [place] [address] Name: NELLI RENO Name: MATTHEW RENO Address: home [address] [place] [address]
--- OUTSIDE RECORDS SUMMARY | 2023-10-16 07:59 | XMS_ITS | Continuity of Care Document ---
Author Organization [facility] Address [address] [place] [address]- Care Team Providers Care Mutual Fund Analyst Name Role Phone Kp JOHNS, Mariza Primary Care Physician [phone] Encounter [facility] Date(s): 06/21/21 - 08/05/[address] [address]- Attending Physician: Not on Staff, Attending MD [...] Mouth, Daily, # 30 tablet, 5 Refills, [facility], 163, cm, 01/10/21 8:49:00 EDT, Height, 102.9, [...] 1 each, Maintenance, send compliance data fax [phone] Dx GULSHAN send mask and CPAP supplies [...] mg, By Mouth, 2 times a day, Kyrgyz sig. PRN Pain, # 60 tablet, 1 Refills, Maintenance, 05/19/21 17:37:00 EST, Tablet, [facility]/pharmacy #[id number], Partial fill upon patient request if the prescription is for a schedule II opioid drug., 163, cm... Start Date: 05/19/21 Status: Ordered Flonase 50 mcg/inh nasal spray 2 sprays, Nares, Both, Daily in AM, # 1 each, 11 Refills, Maintenance, 07/26/20 9:20:00 EDT, [place],[facility]/pharmacy #[id number], 2 sprays Nares, Both Daily in AM, 163, cm, 07/22/20 8:51:00 EDT, Height, 105.7,kg, 09/12/19 20:00:00 EDT, Dry Weight Start Date: 07/26/20 Status: Ordered hydrochlorothiazide 25 mg oral tablet 1, tablet, By Mouth, Daily, # 30 tablet, Refills 5, Route to Pharmacy Electronically, [facility], 163, cm, 01/10/21 8:49:00 EDT, Height, 102.9, kg, 05/21/20 8:52:00 EST, Dry Weight Start Date: 06/18/21 Status: Ordered lidocaine 5% topical cream 1 application, Topically, 3 times a day, PRN Pain. Kyrgyz sig, # 45 Gm, 1 Refills, Maintenance, 01/10/21 9:40:00 EDT, Cream, [facility]/pharmacy #[id number], Partial fill upon patient request [...] 10/24/20 14:24:00 EDT, Route to Pharmacy Electronically, [id number], [facility]/pharmacy #[id number], 163, cm, 07/22/20 8:51:00 EDT, Height, 105... Start Date: 10/24/20 Stop Date: 10/19/21 Status: Ordered Singulair 10 mg oral tablet 10 mg, 1, tablet, By Mouth, Daily, # 30 tablet, Refills 6, Tot. Refills 6, Maintenance, 11/29/20 10:04:00 EDT, Route to Pharmacy Electronically, [facility]/pharmacy #[id number], 163, cm, 11/29/20 9:31:00 EDT, Height, 102.9, kg, 05/21/20 8:52:00 EST, Dry Weight Start Date: 11/29/20 Status: Ordered Spiriva HandiHaler 18 mcg inhalation capsule 1 capsule = 18 mcg, Inhalation, Daily, for 30 days, # 30 capsule, 11 Refills, Hard Stop 11/24/21 10:04:00 EDT, 11/29/20 10:04:00 EDT, [facility]/pharmacy #[id number], 163, cm, 11/29/20 9:31:00 EDT, Height, 102.9,kg, 05/21/20 8:52:00 EST, Dry Weight Start Date: 11/29/20 Stop Date: 11/24/21 Status: Ordered Symbicort 160mcg/4.5mcg Inhaler See Instructions, INHALE DANDO DOS SOPLIDOS DOS VECES AL RAMESH, # 10.2 Unknown, Refills 6, Tot. Refills 6, 11/29/20 10:04:00 EDT, Instructions Replace Required Details, Route to Pharmacy Electronically, [id number], [facility] Start Date: 11/29/20 Status: Ordered Problem List Condition Effective Dates Status Health Status Inform ant Anemia(Confirmed) Active Asthma, Moderate-Persistent(Confirmed) Active COVID-19(Confirmed) Active Epiploic appendagitis(Confirmed) 1 Active Essential hypertension(Confirmed) Active Morbid obesity with BMI of 4 0.0-44.9, adult(Confirmed) Active Chronic myofascial pain/Fibromyalgia(Confirmed) Active Obstructive sleep apnea (on CPAP)(Confirmed) Active Care Management BHN/BHCP Luis Brady Loader Unloader. [id number](Confirmed) Active 1Dx in 2018 Social History Social History Type Response Smoking Status Never smoker entered on: 02/16/14 Sex Female
--- OUTSIDE RECORDS SUMMARY | 2023-10-16 07:59 | XMS_ITS | Continuity of Care Document ---
Author Organization [facility] Address [address] [place] [address]- Care Team Providers Care Hr Business Partner Consultant Name Role Phone Kp JOHNS, Mariza Primary Care Physician [phone] Encounter [facility] Date(s): 08/17/20 - 09/16/[address] [address]- Allergies, Adverse Reactions, Alerts No Known Medication [...] 06/02/20 8:52:00 EST, Route to Pharmacy Electronically, [facility]/pharmacy #[id number], 163, cm, 02/16/20 10:15:00 EDT, Height, 105.7, kg, 09/12/19 20:00:0... Start Date: 06/02/20 Stop Date: 08/01/20 Status: Ordered Aygestin 5 mg oral tablet 1 tablet = 5 mg, By Mouth, Daily, # 30 tablet, 2 Refills, Maintenance, 07/19/20 17:13:00 EDT, Tablet, [facility]/pharmacy #[id number], Partial fill upon patient request if the prescription is for a schedule II opioid drug., 163, cm, 07/19/20 16:05:00 EDT, Height,... Start Date: 07/19/20 Status: Ordered betamethasone topical dipropionate 0.05% cream 1 application, Topically, 2 times a day, # 15 Gm, 0 Refills, Maintenance, 07/22/20 11:38:00 EDT, Cream, [facility]/pharmacy #[id number], Partial fill upon patient request if the prescription is for a schedule II opioid drug., 1 application Topically 2 times a day,... Start Date: 07/22/20 Status: Ordered cetirizine 10 mg oral tablet 1 tablet = 10 mg, By Mouth, Daily, # 30 tablet, 6 Refills, Maintenance, 08/11/19 8:27:00 EDT, Tablet, [facility]/pharmacy #[id number], 163, cm, 06/11/19 10:50:00 [...] 1 each, Maintenance, send compliance data fax [id number] Dx GULSHAN send mask and CPAP supplies [...] each, 11 Refills, Maintenance, 07/26/20 9:20:00 EDT, [place],[facility]/pharmacy #[id number], 2 sprays Nares, Both Daily in AM, 163, cm, 07/22/20 8:51:00 EDT, Height, 105.7,kg, 09/12/19 20:00:00 EDT, Dry Weight Start Date: 07/26/20 Status: Ordered hydrochlorothiazide 25 mg oral tablet 25 mg, 1, tablet, By Mouth, Daily, # 30 tablet, Refills 2, Tot. Refills 2, Maintenance, 08/27/20 10:02:00 EDT, Route to Pharmacy Electronically, [facility]/pharmacy #[id number], 163, cm, 08/24/20 16:26:00 EDT, Height, 105.7, kg, 09/12/19 20:00:00 EDT, Dry Weight Start Date: 08/27/20 Status: Ordered ibuprofen 600 mg oral tablet 600 mg, 1, tablet, By Mouth, Every 8 hours, PRN Pain Palauan Do not take with other NSAIDs (including Meloxicam), # 90 tablet, Refills 1, Tot. Refills 1, Maintenance, 08/02/20 9:38:00 EDT, Route to Pharmacy Electronically, [facility]/pharmacy #4471, 163, c... Start Date: 08/02/20 Stop Date: 10/01/20 Status: Ordered multivitamin Vitamin B Complex oral tablet 1 tablet, By Mouth, Daily, # 100 tablet, 2 Refills, Maintenance, 12/01/19 14:53:00 EDT, Tablet, [facility]/pharmacy #[id number], 1 tablet By Mouth [...] 10/24/20 14:24:00 EDT, Route to Pharmacy Electronically, [id number], [facility]/pharmacy #[id number], 163, cm, 07/22/20 8:51:00 EDT, Height, 105... Start Date: 10/24/20 Stop Date: 10/19/21 Status: Ordered ProAir HFA 90 mcg/inh inhalation aerosol with adapter 2, puffs, Inhalation, 4 times a day, PRN, for 30 days, # 1 each, Refills 5, Tot. Refills 5, Hard Stop 10/24/20 14:24:00 EDT, 04/27/20 14:24:00 EST, Route to Pharmacy Electronically, [id number], [facility]/pharmacy #[id number], 163, cm, 10... Start Date: 04/27/20 Stop Date: 10/24/20 Status: Ordered Singulair 10 mg oral tablet 10 mg, 1, tablet, By Mouth, Daily, # 30 tablet, Refills 6, Tot. Refills 6, Maintenance, 07/26/20 9:19:00 EDT, Route to Pharmacy Electronically, [facility]/pharmacy #[id number], 163, cm, 07/22/20 8:51:00 EDT, Height, 105.7, kg, 09/12/19 20:00:00 EDT, Dry Weight Start Date: 07/26/20 Status: Ordered Spiriva HandiHaler 18 mcg inhalation capsule 1 capsule = 18 mcg, Inhalation, Daily, for 30 days, # 30 capsule, 11 Refills, Hard Stop 05/28/21 8:54:00 EST, 06/02/20 8:54:00 EST, [facility]/pharmacy #[id number], 163, cm, 02/16/20 10:15:00 EDT, Height, 105.7, kg, 09/12/19 20:00:00 EDT, Dry Weight Start Date: 06/02/20 Stop Date: 05/28/21 Status: Ordered Spiriva HandiHaler 18 mcg inhalation capsule 1 capsule = 18 mcg, Inhalation, Daily, # 30 capsule, 11 Refills, Maintenance, 05/28/21 8:54:00 EST,[facility]/pharmacy #[id number], 163, cm, 07/22/20 8:51:00 EDT, Height, 105.7, kg, 09/12/19 20:00:00 EDT, Dry Weight Start Date: 05/28/21 Stop Date: 05/23/22 Status: Ordered Symbicort 160mcg/4.5mcg Inhaler See Instructions, INHALE DANDO DOS SOPLIDOS DOS VECES AL RAMESH, # 10.2 Unknown, Refills 6, Tot. Refills 6, 07/26/20 9:18:00 EDT, Instructions Replace Required Details, Route to Pharmacy Electronically,[id number], [facility] Start Date: 07/26/20 Status: Ordered Vitamin [...] CPAP)(Confirmed) Active Care Management BHN/BHCP Luis Brady Appeals Rn. [id number](Confirmed) Active 1Dx in 2018 Social History Social History Type Response Smoking Status Never smoker entered on: 02/16/14 Sex Female
--- OUTSIDE RECORDS SUMMARY | 2023-10-16 07:59 | XMS_ITS | Continuity of Care Document ---
Author Organization [facility] Address [address] [place] [id number]- Care Team Providers Care Patent Prosecution Paralegal Name Role Phone Mariza Goodrich MD Primary Care Physician Encounter [facility] Date(s): 09/12/19 - 09/12/[address] [address]- [facility] Encounter Diagnosis Anxiety(Final) - 09/12/19 Discharge Disposition: A-D/C Home Attending Physician: Kamran Cruz MD Admitting Physician: Kamran Cruz MD Referring Physician: Not on Staff, Referring [...] recent to oldest [Reference Range]: 1 2 Weight 105.7 kg (09/12/19 8:00 PM) Oxygen Saturation [94-100 %] 100 % (09/12/19 8:00 PM) 99 % (09/12/19 7:57 PM) Pulse Rate [55-90 bpm] 92 bpm *H* (09/12/19 8:00 PM) 103 bpm *H* (09/12/19 7:57 PM) Blood Pressure [90-138/55-84 mm Hg] 145/ 87mm Hg *H* (09/12/19 8:00 PM) Respiratory Rate [16-30 br/min] 16 br/mi n (09/12/19 8:00 PM) Temperature [96.8-100.4 DegF] 99.9 DegF (09/12/19 8:00 PM) Mode of Delivery (Oxygen) Room air (09/12/19 8:00 PM) Room air (09/12/19 7:57 PM) Blood pressure sites Arm, right (09/12/19 8:00 PM) Temperature Route Oral (09/12/19 8:00 PM) Dry Weight 105.7 kg (09/12/19 8:00 PM) Weight Obtained Via Standing scale (09/12/19 8:00 PM) Dry Weight Obtained Via Standing scale (09/12/19 8:00 PM)
--- OUTSIDE RECORDS SUMMARY | 2023-10-16 07:59 | XMS_ITS | Continuity of Care Document ---
Author Organization [facility] Address [address] [place] [address]- Care Team Providers Care Architect Internship Name Role Phone Kp JOHNS, Mariza Primary Care Physician [phone] Encounter [facility] [place] Date(s): 09/30/20 - 10/30/[address] [address]- Attending Physician: Cara Ingram Admitting Physician: AdmCara velasco Referring Physician: Admtr ArPantera Allergies, Adverse Reactions, Alerts No Known Medication [...] 06/02/20 8:52:00 EST, Route to Pharmacy Electronically, [facility]/pharmacy #[id number], 163, cm, 02/16/20 10:15:00 EDT, Height, 105.7, kg, 09/12/19 20:00:0... Start Date: 06/02/20 Stop Date: 08/01/20 Status: Ordered betamethasone topical dipropionate 0.05% cream 1 application, Topically, 2 times a day, # 15 Gm, 0 Refills, Maintenance, 07/22/20 11:38:00 EDT, Cream, [facility]/pharmacy #[id number], Partial fill upon patient request if the prescription is for a schedule II opioid drug., 1 application Topically 2 times a day,... Start Date: 07/22/20 Status: Ordered cetirizine 10 mg oral tablet 1 tablet = 10 mg, By Mouth, Daily, # 30 tablet, 6 Refills, Maintenance, 08/11/19 8:27:00 EDT, Tablet, [facility]/pharmacy #[id number], 163, cm, 06/11/19 10:50:00 EST, [...] 1 each, Maintenance, send compliance data fax [phone] Dx GULSHAN send mask and CPAP supplies [...] each, 11 Refills, Maintenance, 07/26/20 9:20:00 EDT, [place],[facility]/pharmacy #[id number], 2 sprays Nares, Both Daily in AM, 163, cm, 07/22/20 8:51:00 EDT, Height, 105.7,kg, 09/12/19 20:00:00 EDT, Dry Weight Start Date: 07/26/20 Status: Ordered hydrochlorothiazide 25 mg oral tablet 25 mg, 1, tablet, By Mouth, Daily, # 30 tablet, Refills 2, Tot. Refills 2, Maintenance, 08/27/20 10:02:00 EDT, [id number], cm, 08/24/20 16:26:00 EDT, Height, 105.7, kg, 09/12/19 20:00:00 EDT, Dry Weight Start Date: 08/27/20 Status: Ordered ibuprofen 600 mg oral tablet 600 mg, 1, tablet, By Mouth, Every 8 hours, PRN Pain Palestinian Do not take with other NSAIDs (including Meloxicam), # 90 tablet, Refills 1, Tot. Refills 1, Maintenance, 10/01/20 9:38:00 EDT, [id number] 163, c... Start Date: 10/01/20 Stop Date: 11/30/20 Status: Ordered multivitamin Vitamin B Complex oral tablet 1 tablet, By Mouth, Daily, # 100 tablet, 2 Refills, Maintenance, 12/01/19 14:53:00 EDT, Tablet, [facility]/pharmacy #[id number], 1 tablet By Mouth Daily, 163, cm, 10/14/19 12:52:00 EDT, Height, 108.3, kg, 02/17/19 7:48:00 EDT, Dry Weight Start Date: 12/01/19 Status: Ordered norethindrone 5 mg oral tablet 1, tablet, By Mouth, Daily, # 30 tablet, Refills 2, Tot. Refills 0, Maintenance, 10/24/20 23:07:00 EDT, Route to Pharmacy Electronically, [facility] STORE [id number], 163, cm, 09/30/20 13:47:00 EDT, Height, 105.7, [...] 10/24/20 14:24:00 EDT, Route to Pharmacy Electronically, [id number], [facility]/pharmacy #[id number], 163, cm, 07/22/20 8:51:00 EDT, Height, 105... Start Date: 10/24/20 Stop Date: 10/19/21 Status: Ordered Singulair 10 mg oral tablet 10 mg, 1, tablet, By Mouth, Daily, # 30 tablet, Refills 6, Tot. Refills 6, Maintenance, 07/26/20 9:19:00 EDT, Route to Pharmacy Electronically, [facility]/pharmacy #[id number], 163, cm, 07/22/20 8:51:00 EDT, Height, 105.7, kg, 09/12/19 20:00:00 EDT, Dry Weight Start Date: 07/26/20 Status: Ordered Spiriva HandiHaler 18 mcg inhalation capsule 1 capsule = 18 mcg, Inhalation, Daily, for 30 days, # 30 capsule, 11 Refills, Hard Stop 05/28/21 8:54:00 EST, 06/02/20 8:54:00 EST, [facility]/pharmacy #[id number], 163, cm, 02/16/20 10:15:00 EDT, Height, 105.7, kg, 09/12/19 20:00:00 EDT, Dry Weight Start Date: 06/02/20 Stop Date: 05/28/21 Status: Ordered Spiriva HandiHaler 18 mcg inhalation capsule 1 capsule = 18 mcg, Inhalation, Daily, # 30 capsule, 11 Refills, Maintenance, 05/28/21 8:54:00 EST,[facility]/pharmacy #[id number], 163, cm, 07/22/20 8:51:00 EDT, Height, 105.7, kg, 09/12/19 20:00:00 EDT, Dry Weight Start Date: 05/28/21 Stop Date: 05/23/22 Status: Ordered Symbicort 160mcg/4.5mcg Inhaler See Instructions, INHALE DANDO DOS SOPLIDOS DOS VECES AL RAMESH, # 10.2 Unknown, Refills 6, Tot. Refills 6, 07/26/20 9:18:00 EDT, Instructions Replace Required Details, Route to Pharmacy Electronically,[id number], [facility]/pharmacy... Start Date: 07/26/20 Status: Ordered Vitamin D3 oral tablet By Mouth, Daily, 0 Refills, Maintenance, 06/02/19 21:11:00 EST Start Date: 06/02/19 Status: Ordered Zofran 4 mg oral tablet 1 tablet = 4 mg, By Mouth, Every 8 hours, PRN Nausea & Vomiting, # 10 tablet, 0 Refills, Maintenance, 08/12/20 15:08:00 EDT, Tablet, [id number], Partial fill upon patient request if the [...] CPAP)(Confirmed) Active Care Management BHN/BHCP Luis Brady Die Trouble Shooter. [phone](Confirmed) Active 1Dx in 2018 Social History Social History Type Response Smoking Status Never smoker entered on: 02/16/14 Sex Female
--- OUTSIDE RECORDS SUMMARY | 2023-10-16 07:59 | XMS_ITS | Continuity of Care Document ---
Author Organization [facility] Address [address] [place] [address]- Care Team Providers Care Offset Press Operator Apprentice Name Role Phone Mariza Goodrich MD Primary Care Physician [place] [facility] [place] [id number] Date(s): 06/18/19 - 06/28/[address] [address]- [place] Attending Physician: Admtr, Ar8 Admitting Physician: [...] 11:30:00 EST, Route to Pharmacy Electronically, [facility]/pharmacy #[id number], 163, cm, 06/11/19 10:50:00 EST, Height, 108.3, kg, 02/17/19 7:48:0... Start Date: 06/11/19 Stop Date: 08/10/19 Status: Ordered Albuterol 0.083% inhalation michael PRN, Refills 0, Maintenance, lot#[id number] exp august 2020, 03/10/19 18:53:20 EST Start Date: 03/10/19 Status: Ordered Albuterol 0.083% inhalation michael See Instructions, given at office visit lot # [id number] Exp 09/17, Refills 0, Maintenance, 03/26/19 9:24:59 [...] 9:14:15 EST, Aerosol, Route to Pharmacy Electronically, [id number], [facility]/pharmacy #[id number], Compound Start Date: 03/25/18 Status: Ordered [...] 1 each, Maintenance, send compliance data fax [phone] Dx GULSHAN send mask and CPAP supplies for patient patient states that she has been using PAP regularly and feels better sinceusing CPAP To [facility], 02/19/18 16:36:42 EDT, C... Start Date: 02/19/18 Status: Ordered diclofenac 1% topical gel 1 application, Topically, 3 times a day, PRN Knee Pain. Mosotho sig, # 100 Gm, 2 Refills, Maintenance, 06/12/19 11:31:00 EST, Gel, [id number], 163, cm, 06/11/19 10:50:00 [...] 12/10/17 16:59:07 EDT, Route to Pharmacy Electronically, [id number], [id number] Start Date: 12/10/17 Status: Ordered Flonase 50 mcg/inh nasal spray 2 sprays, Nares, Both, Daily in AM, # 1 each, 6 Refills, Maintenance, 04/14/19 10:44:43 EST, [place],[id number], 2 sprays Nares, Both Daily in [...] # 60 tablet, 2 Refills, Soft Stop, [id number], 163, cm, 04/14/19 10:18:00 EST, Height, 108.3, kg, 02/17/19 7:48:00 EDT, Dry Weight Start Date: 05/15/19 Status: Ordered hydrochlorothiazide 25 mg oral tablet 25 mg, 1, tablet, By Mouth, Daily, # 30 tablet, Refills 11, Tot. Refills 11, Maintenance, 11/28/17 15:46:59 EDT, Route to Pharmacy Electronically, [id number], [facility]/pharmacy #[id number] Start Date: 11/28/17 Status: Ordered ketoconazole 1% topical shampoo See Instructions, 1 applicator Topically 2 times per week for 4 weeks. Mosotho sig, # 200 mL, 0 Refills, Maintenance, 04/09/19 9:23:01 EST, 1 applicator Topically 2 times per week for 4 weeks. Mosotho sig, 163, cm, 04/09/19 8:51:21 EST, Height, [...] 15 mg, By Mouth, Daily, With food. Scottish sig. PRN Pain, # 30 tablet, 0 Refills, Maintenance, 02/25/19 17:05:09 EDT, Tablet Start Date: 02/25/19 Status: Ordered ondansetron 2 mg/mL injectable solution = 4 mg, Intramuscular, Once, LOT [id number] EXP 10/2019 Left Deltoid, # 2 mL, [...] 0 Refills, Soft Stop, 04/14/19 10:45:22 EST, Tablet,[facility]/pharmacy #[id number], 163, cm, 04/14/19 10:18:38 EST, Height, 108.3, kg, 02/17/19 7:48:07 EDT, Dry Weight Start Date: 04/14/19 Stop Date: 04/21/19 Status: Ordered ProAir HFA 90 mcg/inh inhalation aerosol with adapter 2, puffs, Inhalation, 4 times a day, PRN, # 1 application, Refills 6, Tot. Refills 6, Maintenance, 02/11/18 19:13:20 EDT, Route to Pharmacy Electronically, [id number], [facility]/pharmacy #[id number] Start Date: 02/11/18 Stop Date: 09/09/18 Status: Ordered Provera 10 mg oral tablet 10 mg, 1, tablet, By Mouth, Daily, # 30 tablet, Refills 2, Tot. Refills 2, Maintenance, 10/30/17 11:33:21 EDT, Route to Pharmacy Electronically, [id number], [facility]/pharmacy #[id number] Start Date: 10/30/17 Status: Ordered simethicone 80 mg oral tablet, chewable 80 mg, 1, tablet, Chew, 4 times a day, PRN, for 14 days, # 48 tablet, Refills 1, Tot. Refills 1, Acute 07/02/19 9:55:00 EST, as needed for gas, 06/04/19 9:55:00 EST, Route to Pharmacy Electronically,[facility]/pharmacy #[id number], 163, cm, 06/04/19 9:20:00 EST,... Start Date: 06/04/19 Stop Date: 07/02/19 Status: Ordered Singulair 10 mg oral tablet 10 mg, 1, tablet, By Mouth, Daily, # 30 tablet, Refills 6, Tot. Refills 6, Maintenance, 03/26/19 8:57:56 EST, Route to Pharmacy Electronically, [id number], [facility]/pharmacy #[id number] Start Date: 03/26/19 Status: Ordered Spiriva [...] 8:58:21 EST, Aerosol, Route to Pharmacy Electronically, [id number], [facility]/pharmacy #[id number] Start Date: 03/26/19 Status: Ordered Vitamin D3 1000 intl units oral tablet 1 tablet = 1,000 International_Units, By Mouth, Daily, # 30 tablet, 11 Refills, Maintenance, 06/28/18 18:01:13 EST, Tablet Start Date: 06/28/18 Status: Ordered Water-based Physical Therapy at [facility] Water-based Physical Therapy at [facility], See Instructions, # 1 each, Refills 0, Tot. Refills 0, Maintenance, 2 times per week. To improve function, ROM, decrease pain. Diagnosis: Fibromyalgia, Chronic Back Pain. ICD10 M79.7,M54.9, 11/04/18 18:32:11 EDT,... Start Date: 11/04/18 Status: Ordered Zofran ODT 4 mg oral tablet, disintegrating 1 tablet = 4 mg, By Mouth, Every 8 hours, PRN as needed for nausea/vomiting, Mosotho sig, # 9 tablet, 0 Refills, Maintenance, 06/11/19 11:28:00 EST, DIS Tablet, [id number], 163, cm, 06/11/19 10:50:00 [...] apnea (on CPAP)(Confirmed) Active Care Management FELIX Cui EDDY Filament Tester [phone](Confirmed) Active 1Dx in 2018 Social History Social History Type Response Smoking Status Never smoker entered on: 02/16/14 Sex Female
--- OUTSIDE RECORDS SUMMARY | 2023-10-16 07:59 | XMS_ITS | Continuity of Care Document ---
Author Organization [facility] Address [address] [place] [address]- Care Team Providers Care Confidential Investigator Name Role Phone Mariza Goodrich MD Primary Care Physician [phone] Encounter [facility] Date(s): 07/20/20 - 10/27/[address] [address] Discharge Disposition: A-D/C Home Attending Physician: Kiki Arrington MD Admitting Physician: Kiki Arrington MD Referring Physician: Kiki Arrington MD Allergies, Adverse Reactions, Alerts No Known [...] 06/02/20 8:52:00 EST, Route to Pharmacy Electronically, [facility]/pharmacy #[id number], 163, cm, 02/16/20 10:15:00 EDT, Height, 105.7, kg, 09/12/19 20:00:0... Start Date: 06/02/20 Stop Date: 08/01/20 Status: Ordered betamethasone topical dipropionate 0.05% cream 1 application, Topically, 2 times a day, # 15 Gm, 0 Refills, Maintenance, 07/22/20 11:38:00 EDT, Cream, [facility]/pharmacy #[id number], Partial fill upon patient request if the prescription is for a schedule II opioid drug., 1 application Topically 2 times a day,... Start Date: 07/22/20 Status: Ordered cetirizine 10 mg oral tablet 1 tablet = 10 mg, By Mouth, Daily, # 30 tablet, 6 Refills, Maintenance, 08/11/19 8:27:00 EDT, Tablet, [facility]/pharmacy #[id number], 163, cm, 06/11/19 10:50:00 EST, [...] 1 each, Maintenance, send compliance data fax [phone] Dx GULSHAN send mask and CPAP supplies [...] each, 11 Refills, Maintenance, 07/26/20 9:20:00 EDT, [place],[id number], 2 sprays Nares, Both Daily in AM, 163, cm, 07/22/20 8:51:00 EDT, Height, 105.7,kg, 09/12/19 20:00:00 EDT, Dry Weight Start Date: 07/26/20 Status: Ordered hydrochlorothiazide 25 mg oral tablet 25 mg, 1, tablet, By Mouth, Daily, # 30 tablet, Refills 2, Tot. Refills 2, Maintenance, 08/27/20 10:02:00 EDT, [id number] 163, cm, 08/24/20 16:26:00 EDT, Height, 105.7, kg, 09/12/19 20:00:00 EDT, Dry Weight Start Date: 08/27/20 Status: Ordered ibuprofen 600 mg oral tablet 600 mg, 1, tablet, By Mouth, Every 8 hours, PRN Pain Arabic Do not take with other NSAIDs (including Meloxicam), # 90 tablet, Refills 1, Tot. Refills 1, Maintenance, 10/01/20 9:38:00 EDT, [id number] 163, c... Start Date: 10/01/20 Stop Date: 11/30/20 Status: Ordered multivitamin Vitamin B Complex oral tablet 1 tablet, By Mouth, Daily, # 100 tablet, 2 Refills, Maintenance, 12/01/19 14:53:00 EDT, Tablet, [facility]/pharmacy #[id number], 1 tablet By Mouth Daily, 163, cm, 10/14/19 12:52:00 EDT, Height, 108.3, kg, 02/17/19 7:48:00 EDT, Dry Weight Start Date: 12/01/19 Status: Ordered norethindrone 5 mg oral tablet 1, tablet, By Mouth, Daily, # 30 tablet, Refills 2, Tot. Refills 0, Maintenance, 10/24/20 23:07:00 EDT, Route to Pharmacy Electronically, [id number], 163, cm, 09/30/20 13:47:00 EDT, Height, 105.7, [...] 10/24/20 14:24:00 EDT, Route to Pharmacy Electronically, [id number], [facility]/pharmacy #[id number], 163, cm, 07/22/20 8:51:00 EDT, Height, 105... Start Date: 10/24/20 Stop Date: 10/19/21 Status: Ordered Singulair 10 mg oral tablet 10 mg, 1, tablet, By Mouth, Daily, # 30 tablet, Refills 6, Tot. Refills 6, Maintenance, 07/26/20 9:19:00 EDT, Route to Pharmacy Electronically, [facility]/pharmacy #[id number], 163, cm, 07/22/20 8:51:00 EDT, Height, 105.7, kg, 09/12/19 20:00:00 EDT, Dry Weight Start Date: 07/26/20 Status: Ordered Spiriva HandiHaler 18 mcg inhalation capsule 1 capsule = 18 mcg, Inhalation, Daily, for 30 days, # 30 capsule, 11 Refills, Hard Stop 05/28/21 8:54:00 EST, 06/02/20 8:54:00 EST, [facility]/pharmacy #[id number], 163, cm, 02/16/20 10:15:00 EDT, Height, 105.7, kg, 09/12/19 20:00:00 EDT, Dry Weight Start Date: 06/02/20 Stop Date: 05/28/21 Status: Ordered Spiriva HandiHaler 18 mcg inhalation capsule 1 capsule = 18 mcg, Inhalation, Daily, # 30 capsule, 11 Refills, Maintenance, 05/28/21 8:54:00 EST,[facility]/pharmacy #[id number], 163, cm, 07/22/20 8:51:00 EDT, Height, 105.7, kg, 09/12/19 20:00:00 EDT, Dry Weight Start Date: 05/28/21 Stop Date: 05/23/22 Status: Ordered Symbicort 160mcg/4.5mcg Inhaler See Instructions, INHALE DANDO DOS SOPLIDOS DOS VECES AL RAMESH, # 10.2 Unknown, Refills 6, Tot. Refills 6, 07/26/20 9:18:00 EDT, Instructions Replace Required Details, Route to Pharmacy Electronically,[id number], [facility]/pharmacy... Start Date: 07/26/20 Status: Ordered Vitamin D3 oral tablet By Mouth, Daily, 0 Refills, Maintenance, 06/02/19 21:11:00 EST Start Date: 06/02/19 Status: Ordered Zofran 4 mg oral tablet 1 tablet = 4 mg, By Mouth, Every 8 hours, PRN Nausea & Vomiting, # 10 tablet, 0 Refills, Maintenance, 08/12/20 15:08:00 EDT, Tablet, [facility]/pharmacy #[id number], Partial fill upon patient request if the [...] CPAP)(Confirmed) Active Care Management BHN/BHCP Luis Brady Climate Change Analyst. [phone](Confirmed) Active 1Dx in 2018 Social History Social History Type Response Smoking Status Never smoker entered on: 02/16/14 Sex Female
--- OUTSIDE RECORDS SUMMARY | 2023-10-16 07:59 | XMS_ITS | Continuity of Care Document ---
Author Organization [facility] Address [address] [place] [address]- Care Team Providers Care Computer Graphics Illustrator Name Role Phone Mariza Goodrich MD Primary Care Physician Encounter [facility] Date(s): 01/23/20 - 02/22/20 [facility] [address] [place] [address]- [facility] Attending Physician: Cara Ingram Admitting Physician: AdmtrCara [...] 06/11/19 11:30:00 EST, Route to Pharmacy Electronically, [facility]/pharmacy #[id number], 163, cm, 06/11/19 10:50:00 EST, Height, 108.3, kg, 02/17/19 7:48:0... Start Date: 06/11/19 Stop Date: 08/10/19 Status: Ordered Advair Diskus 100 mcg-50 mcg inhalation powder 1, puffs, Inhalation, 2 times a day, Refills 0, Maintenance, 06/02/19 21:09:00 EST, Powder Start Date: 06/02/19 Status: Ordered Albuterol 0.083% inhalation michael PRN, Refills 0, Maintenance, lot#[id number] exp august 2020, 03/10/19 18:53:20 EST Start Date: 03/10/19 Status: Ordered Albuterol 0.083% inhalation michael See Instructions, given at office visit lot # [id number] Exp 09/17, Refills 0, Maintenance, 03/26/19 9:24:59 EST, Instructions Replace Required Details Start Date: 03/26/19 Status: Ordered albuterol 0.083% inhalation solution 3 mL = 2.5 mg, Inhalation, Every 6 hours, # 120 each, 1 Refills, Maintenance, 10/21/19 9:22:00 EDT,Solution, [facility]/pharmacy #[id number], 163, cm, 10/14/19 12:52:00 EDT, Height, 108.3, kg, 02/17/19 7:48:00 EDT, Dry Weight Start Date: 10/21/19 Status: Ordered albuterol CFC free 90 mcg/inh inhalation aerosol 2, puffs, Inhalation, 4 times a day, PRN, # 1 each, Refills 11, Tot. Refills 11, Maintenance, 03/25/18 9:14:15 EST, Aerosol, Route to Pharmacy Electronically, [id number], [facility]/pharmacy #[id number], Compound Start Date: 03/25/18 Status: [...] 6 Refills, Maintenance, 08/11/19 8:27:00 EDT, Tablet, [facility]/pharmacy #[id number], 163, cm, 06/11/19 10:50:00 EST, [...] 1 each, Maintenance, send compliance data fax [phone] Dx GULSHAN send mask and CPAP supplies for patient patient states that she has been using PAP regularly and feels better sinceusing CPAP To [facility], 02/19/18 16:36:42 EDT, C... Start Date: 02/19/18 Status: Ordered diclofenac 1% topical gel 1 application, Topically, 3 times a day, PRN Knee Pain. Arabic sig, # 100 Gm, 2 Refills, Maintenance, 08/11/19 8:28:00 EDT, Gel, [facility]/pharmacy #[id number], 163, cm, 06/11/19 10:50:00 EST, [...] 08/11/19 8:30:00 EDT, Route to Pharmacy Electronically, [facility]/pharmacy #[id number], 163, cm, 06/11/19 10:50:00 EST, [...] each, 6 Refills, Maintenance, 04/14/19 10:44:43 EST, [place],[facility]/pharmacy #[id number], 2 sprays Nares, Both Daily [...] 60 tablet, 2 Refills, 08/11/19 8:30:00 EDT, [facility]/pharmacy #[id number], 163, cm, 06/11/19 10:50:00 EST, Height, 108.3, kg, 02/17/19 7:48:00 EDT, Dry Weight Start Date: 08/11/19 Status: Ordered Hydrochlorothiazide By Mouth, Daily, 0 Refills, Maintenance, 06/02/19 21:11:00 EST Start Date: 06/02/19 Status: Ordered hydrochlorothiazide 25 mg oral tablet 25 mg, 1, tablet, By Mouth, Daily, # 30 tablet, Refills 11, Tot. Refills 11, Maintenance, 08/11/19 8:30:00 EDT, Route to Pharmacy Electronically, [facility]/pharmacy #[id number], 163, cm, 06/11/19 10:50:00 EST, Height, 108.3, kg, 02/17/19 7:48:00 EDT, Dry Weight Start Date: 08/11/19 Status: Ordered ibuprofen 600 mg oral tablet 600 mg, 1, tablet, By Mouth, Every 8 hours, PRN Pain Arabic Do not take with other NSAIDs (including Meloxicam), # 90 tablet, Refills 1, Tot. Refills 1, Maintenance, 08/11/19 8:31:00 EDT, Route to Pharmacy Electronically, [facility]/pharmacy #[id number], 163, c... Start Date: 08/11/19 Stop Date: 10/10/19 Status: Ordered ketoconazole 1% topical shampoo See Instructions, 1 applicator Topically 2 times per week for 4 weeks. Arabic sig, # 200 mL, 0 Refills, Maintenance, 04/09/19 9:23:01 EST, 1 applicator Topically 2 times per week for 4 weeks. Arabic sig, 163, cm, 04/09/19 8:51:21 EST, Height, [...] 2 Refills, Maintenance, 12/01/19 14:53:00 EDT, Tablet, [facility]/pharmacy #[id number], 1 tablet By Mouth Daily, 163, cm, 10/14/19 12:52:00 EDT, Height, 108.3, kg, 02/17/19 7:48:00 EDT, Dry Weight Start Date: 12/01/19 Status: Ordered PredniSONE = 40 mg, By Mouth, Daily, PRN given at md appt, 0 Refills, Maintenance, 03/10/19 18:54:44 EST Start Date: 03/10/19 Status: Ordered predniSONE 5 mg oral tablet 1 tablet = 5 mg, By Mouth, Daily, # 5 tablet, 0 Refills, Maintenance, 02/16/20 10:38:00 EDT, Tablet, [facility]/pharmacy #[id number], 163, cm, 02/16/20 10:15:00 EDT, Height, 105.7, kg, 09/12/19 20:00:00 EDT, Dry Weight Start Date: 02/16/20 Stop Date: 02/21/20 Status: Ordered pregabalin 200 mg oral capsule [...] 10/21/19 9:21:00 EDT, Route to Pharmacy Electronically, [id number], [facility]/pharmacy #[id number], 163, cm, 10/14/19 12:52:00 EDT, Height, 108.3... Start Date: 10/21/19 Stop Date: 05/18/20 Status: Ordered Singulair 10 mg oral tablet 10 mg, 1, tablet, By Mouth, Daily, # 30 tablet, Refills 6, Tot. Refills 6, Maintenance, 08/11/19 8:32:00 EDT, Route to Pharmacy Electronically, [facility]/pharmacy #[id number], 163, cm, 06/11/19 10:50:00 EST, [...] 9:21:00 EDT, Aerosol, Route to Pharmacy Electronically, [id number], [facility]/pharmacy #[id number], 163, cm, 10/14/19 12:52... Start [...] 06/02/19 Status: Ordered Water-based Physical Therapy at [facility] Water-based Physical Therapy at [facility], See Instructions, # 1 each, Refills [...] (on CPAP)(Confirmed) Active Care Management FEL[facility] Galvez [facility] [employer] [phone](Confirmed) Active 1Dx in 2018 Social History Social History Type Response Smoking Status Never smoker entered on: 02/16/14 Sex Female
--- OUTSIDE RECORDS SUMMARY | 2023-10-16 07:59 | XMS_ITS | Continuity of Care Document ---
Author Organization [facility] Address [address] [place] [id number]- Care Team Providers Care Certified Massage Therapist Name Role Phone Mariza Goodrich MD Primary Care Physician Encounter [facility] Date(s): 03/23/20 - 04/22/[address] [address]- Allergies, Adverse Reactions, Alerts No Known Medication [...] 06/11/19 11:30:00 EST, Route to Pharmacy Electronically, [facility]/pharmacy #[id number], 163, cm, 06/11/19 10:50:00 EST, Height, 108.3, kg, 02/17/19 7:48:0... Start Date: 06/11/19 Stop Date: 08/10/19 Status: Ordered Advair Diskus 100 mcg-50 mcg inhalation powder 1, puffs, Inhalation, 2 times a day, Refills 0, Maintenance, 06/02/19 21:09:00 EST, Powder Start Date: 06/02/19 Status: Ordered Albuterol 0.083% inhalation michael PRN, Refills 0, Maintenance, lot#[id number] exp august 2020, 03/10/19 18:53:20 EST Start Date: 03/10/19 Status: Ordered Albuterol 0.083% inhalation michael See Instructions, given at office visit lot # [id number] Exp 09/17, Refills 0, Maintenance, 03/26/19 9:24:59 EST, Instructions Replace Required Details Start Date: 03/26/19 Status: Ordered albuterol 0.083% inhalation solution 3 mL = 2.5 mg, Inhalation, Every 6 hours, # 120 each, 1 Refills, Maintenance, 10/21/19 9:22:00 EDT,Solution, [facility]/pharmacy #[id number], 163, cm, 10/14/19 12:52:00 EDT, Height, 108.3, kg, 02/17/19 7:48:00 EDT, Dry Weight Start Date: 10/21/19 Status: Ordered albuterol CFC free 90 mcg/inh inhalation aerosol 2, puffs, Inhalation, 4 times a day, PRN, # 1 each, Refills 11, Tot. Refills 11, Maintenance, 03/25/18 9:14:15 EST, Aerosol, Route to Pharmacy Electronically, [id number], [facility]/pharmacy #[id number], Compound Start Date: 03/25/18 [...] 6 Refills, Maintenance, 08/11/19 8:27:00 EDT, Tablet, [facility]/pharmacy #[id number], 163, cm, 06/11/19 10:50:00 [...] 1 each, Maintenance, send compliance data fax [id number] Dx GULSHAN send mask and CPAP supplies for patient patient states that she has been using PAP regularly and feels better sinceusing CPAP To [facility] [place], 02/19/18 16:36:42 EDT, C... Start Date: 02/19/18 Status: Ordered diclofenac 1% topical gel 1 application, Topically, 3 times a day, PRN Knee Pain. Wallisian sig, # 100 Gm, 2 Refills, Maintenance, 08/11/19 8:28:00 EDT, Gel, [facility]/pharmacy #[id number], 163, cm, 06/11/19 10:50:00 [...] 08/11/19 8:30:00 EDT, Route to Pharmacy Electronically, [facility]/pharmacy #[id number], 163, cm, 06/11/19 10:50:00 [...] each, 6 Refills, Maintenance, 04/14/19 10:44:43 EST, [place],[facility]/pharmacy #[id number], 2 sprays Nares, Both [...] 60 tablet, 2 Refills, 08/11/19 8:30:00 EDT, [facility]/pharmacy #[id number], 163, cm, 06/11/19 10:50:00 [...] 08/11/19 8:30:00 EDT, Route to Pharmacy Electronically, [facility]/pharmacy #[id number], 163, cm, 06/11/19 10:50:00 EST, Height, 108.3, kg, 02/17/19 7:48:00 EDT, Dry Weight Start Date: 08/11/19 Status: Ordered ibuprofen 600 mg oral tablet 600 mg, 1, tablet, By Mouth, Every 8 hours, PRN Pain Wallisian Do not take with other NSAIDs (including Meloxicam), # 90 tablet, Refills 1, Tot. Refills 1, Maintenance, 08/11/19 8:31:00 EDT, Route to Pharmacy Electronically, [facility]/pharmacy #[id number], 163, c... Start Date: 08/11/19 Stop Date: 10/10/19 Status: Ordered ketoconazole 1% topical shampoo See Instructions, 1 applicator Topically 2 times per week for 4 weeks. Wallisian sig, # 200 mL, 0 Refills, Maintenance, 04/09/20 8:49:00 EST, [facility]/pharmacy #[id number], 1 applicator Topically 2 times per weekfor 4 weeks. Wallisian sig, 163, cm, 02/16/20 10:15:0... Start Date: 04/09/20 Status: Ordered ketoconazole 1% topical shampoo See Instructions, 1 applicator Topically 2 times per week for 4 weeks. Wallisian sig, # 200 mL, 0 Refills, Maintenance, 04/09/19 9:23:01 EST, 1 applicator Topically 2 times per week for 4 weeks. Wallisian sig, 163, cm, 04/09/19 8:51:21 EST, Height, [...] 2 Refills, Maintenance, 12/01/19 14:53:00 EDT, Tablet, [facility]/pharmacy #[id number], 1 tablet By Mouth [...] 0 Refills, Maintenance, 02/16/20 10:38:00 EDT, Tablet, [facility]/pharmacy #[id number], 163, cm, 02/16/20 10:15:00 [...] 10/21/19 9:21:00 EDT, Route to Pharmacy Electronically, [id number], [facility]/pharmacy #[id number], 163, cm, 10/14/19 12:52:00 EDT, Height, 108.3... Start Date: 10/21/19 Stop Date: 05/18/20 Status: Ordered Singulair 10 mg oral tablet 10 mg, 1, tablet, By Mouth, Daily, # 30 tablet, Refills 6, Tot. Refills 6, Maintenance, 08/11/19 8:32:00 EDT, Route to Pharmacy Electronically, [facility]/pharmacy #[id number], 163, cm, 06/11/19 10:50:00 [...] 9:21:00 EDT, Aerosol, Route to Pharmacy Electronically, [id number], [facility]/pharmacy #[id number], 163, cm, 10/14/19 12:52... Start Date: [...] 06/02/19 Status: Ordered Water-based Physical Therapy at [facility] Water-based Physical Therapy at [facility], See Instructions, # 1 each, Refills [...] CPAP)(Confirmed) Active Care Management FELIX Galvez EDDY Hand Patcher [phone](Confirmed) Active 1Dx in 2018 Social History Social History Type Response Smoking Status Never smoker entered on: 02/16/14 Sex Female
--- OUTSIDE RECORDS SUMMARY | 2023-10-16 07:59 | XMS_ITS | Continuity of Care Document ---
Author Organization [facility] Address [address] [place] [address]- Care Team Providers Care Cylinder Steamer Name Role Phone Mariza Goodrich MD Primary Care Physician Encounter [facility] AC[facility] R [id number] Date(s): 08/11/19 - 08/21/[address] [address]- [place] Attending Physician: Admtr, Ar8 Admitting Physician: [...] 06/11/19 11:30:00 EST, Route to Pharmacy Electronically, [facility]/pharmacy #[id number], 163, cm, 06/11/19 10:50:00 EST, Height, 108.3, kg, 02/17/19 7:48:0... Start Date: 06/11/19 Stop Date: 08/10/19 Status: Ordered Albuterol 0.083% inhalation michael PRN, Refills 0, Maintenance, lot#[id number] exp august 2020, 03/10/19 18:53:20 EST Start Date: 03/10/19 Status: Ordered Albuterol 0.083% inhalation michael See Instructions, given at office visit lot # [id number] Exp 09/17, Refills 0, Maintenance, 03/26/19 9:24:59 [...] 9:14:15 EST, Aerosol, Route to Pharmacy Electronically, [id number], [facility]/pharmacy #[id number], Compound Start Date: 03/25/18 Status: Ordered ALPRAZolam 0.25 mg oral tablet 0.25 mg, 1, tablet, By Mouth, 2 times a day, Refills 0, Maintenance, 11/04/18 18:19:51 EDT Start Date: 11/04/18 Status: Ordered cetirizine 10 mg oral tablet 1 tablet = 10 mg, By Mouth, Daily, # 30 tablet, 6 Refills, Maintenance, 08/11/19 8:27:00 EDT, Tablet, [facility]/pharmacy #[id number], 163, cm, 06/11/19 10:50:00 EST, Height, [...] 1 each, Maintenance, send compliance data fax [phone] Dx GULSHAN send mask and CPAP supplies for patient patient states that she has been using PAP regularly and feels better sinceusing CPAP To [facility], 02/19/18 16:36:42 EDT, C... Start Date: 02/19/18 Status: Ordered diclofenac 1% topical gel 1 application, Topically, 3 times a day, PRN Knee Pain. Panamanian sig, # 100 Gm, 2 Refills, Maintenance, 08/11/19 8:28:00 EDT, Gel, [facility]/pharmacy #[id number], 163, cm, 06/11/19 10:50:00 EST, Height, [...] 08/11/19 8:30:00 EDT, Route to Pharmacy Electronically, [facility]/pharmacy #[id number], 163, cm, 06/11/19 10:50:00 EST, Height, 108.3, kg, 02/17/19 7:48:00 EDT, Dry... Start Date: 08/11/19 Status: Ordered Flonase 50 mcg/inh nasal spray 2 sprays, Nares, Both, Daily in AM, # 1 each, 6 Refills, Maintenance, 04/14/19 10:44:43 EST, [place],[facility]/pharmacy #[id number], 2 sprays Nares, Both Daily in [...] 60 tablet, 2 Refills, 08/11/19 8:30:00 EDT, [facility]/pharmacy #[id number], 163, cm, 06/11/19 10:50:00 EST, Height, 108.3, kg, 02/17/19 7:48:00 EDT, Dry Weight Start Date: 08/11/19 Status: Ordered hydrochlorothiazide 25 mg oral tablet 25 mg, 1, tablet, By Mouth, Daily, # 30 tablet, Refills 11, Tot. Refills 11, Maintenance, 08/11/19 8:30:00 EDT, Route to Pharmacy Electronically, [facility]/pharmacy #[id number], 163, cm, 06/11/19 10:50:00 EST, Height, 108.3, kg, 02/17/19 7:48:00 EDT, Dry Weight Start Date: 08/11/19 Status: Ordered ibuprofen 600 mg oral tablet 600 mg, 1, tablet, By Mouth, Every 8 hours, PRN Pain Panamanian Do not take with other NSAIDs (including Meloxicam), # 90 tablet, Refills 1, Tot. Refills 1, Maintenance, 08/11/19 8:31:00 EDT, Route to Pharmacy Electronically, [facility]/pharmacy #[id number], 163, c... Start Date: 08/11/19 Stop Date: 10/10/19 Status: Ordered ketoconazole 1% topical shampoo See Instructions, 1 applicator Topically 2 times per week for 4 weeks. Panamanian sig, # 200 mL, 0 Refills, Maintenance, 04/09/19 9:23:01 EST, 1 applicator Topically 2 times per week for 4 weeks. Panamanian sig, 163, cm, 04/09/19 8:51:21 EST, Height, [...] 9 tablet, 1 Refills, Maintenance, 08/11/19 8:34:00 EDT,[facility]/pharmacy #[id number], 163, cm, 06/11/19 10:50:00 EST, Height, [...] 08/07/19 14:30:00 EDT, Route to Pharmacy Electronically, [id number], [facility]/pharmacy#[id number], 163, cm, 06/11/19 10:50:00 EST, Height, 108.... Start Date: 08/07/19 Stop Date: 03/04/20 Status: Ordered Singulair 10 mg oral tablet 10 mg, 1, tablet, By Mouth, Daily, # 30 tablet, Refills 6, Tot. Refills 6, Maintenance, 08/11/19 8:32:00 EDT, Route to Pharmacy Electronically, [facility]/pharmacy #[id number], 163, cm, 06/11/19 10:50:00 EST, Height, [...] 8:58:21 EST, Aerosol, Route to Pharmacy Electronically, [id number], [facility]/pharmacy #[id number] Start Date: 03/26/19 Status: Ordered Vitamin D3 1000 intl units oral tablet 1 tablet = 1,000 International_Units, By Mouth, Daily, # 30 tablet, 11 Refills, Maintenance, 06/28/18 18:01:13 EST, Tablet Start Date: 06/28/18 Status: Ordered Water-based Physical Therapy at [facility] Water-based Physical Therapy at [facility], See Instructions, # 1 each, Refills [...] CPAP)(Confirmed) Active Care Management FELIX Galvez EDDY Community Marketing Manager [phone](Confirmed) Active 1Dx in 2018 Social History Social History Type Response Smoking Status Never smoker entered on: 02/16/14 Sex Female
--- OUTSIDE RECORDS SUMMARY | 2023-10-16 07:59 | XMS_ITS | Continuity of Care Document ---
Author Organization [facility] Address [address] [place] [address]- Care Team Providers Care Supervisor Engraving Name Role Phone Mariza Goodrich MD Primary Care Physician [phone] Encounter [facility] Date(s): 06/07/20 - 07/07/[address] [address]- Allergies, Adverse Reactions, Alerts No Known Medication [...] 06/02/20 8:52:00 EST, Route to Pharmacy Electronically, [facility]/pharmacy #[id number], 163, cm, 02/16/20 10:15:00 EDT, Height, 105.7, kg, 09/12/19 20:00:0... Start Date: 06/02/20 Stop Date: 08/01/20 Status: Ordered cetirizine 10 mg oral tablet [...] 1 each, Maintenance, send compliance data fax [phone] Dx GULSHAN send mask and CPAP supplies [...] each, 6 Refills, Maintenance, 04/14/19 10:44:43 EST, [place],[id number], 2 sprays Nares, Both Daily in AM, 163, cm, 04/14/19 10:18:38 EST, Height, 108.3, kg, 02/17/19 7:48:07 EDT, Dry Weight Start Date: 04/14/19 Status: Ordered hydrochlorothiazide 25 mg oral tablet 25 mg, 1, tablet, By Mouth, Daily, # 30 tablet, Refills 11, Tot. Refills 11, Maintenance, 08/11/19 8:30:00 EDT, Route to Pharmacy Electronically, [facility]/pharmacy #[id number], 163, cm, 06/11/19 10:50:00 EST, Height, 108.3, kg, 02/17/19 7:48:00 EDT, Dry Weight Start Date: 08/11/19 Status: Ordered ibuprofen 600 mg oral tablet 600 mg, 1, tablet, By Mouth, Every 8 hours, PRN Pain Hungarian Do not take with other NSAIDs (including Meloxicam), # 90 tablet, Refills 1, Tot. Refills 1, Maintenance, 06/02/20 8:53:00 EST, Route to Pharmacy Electronically, [facility]/pharmacy #[id number], 163, c... Start Date: 06/02/20 Stop Date: 08/01/20 Status: Ordered multivitamin Vitamin B Complex oral tablet 1 tablet, By Mouth, Daily, # 100 tablet, 2 Refills, Maintenance, 12/01/19 14:53:00 EDT, Tablet, [facility]/pharmacy #[id number], 1 tablet By Mouth [...] 04/27/20 14:24:00 EST, Route to Pharmacy Electronically, [id number], [facility]/pharmacy#[id number], 163, cm, 02/16/20 10:15:00 EDT, Height, 105.... Start Date: 04/27/20 Stop Date: 10/24/20 Status: Ordered Singulair 10 mg oral tablet 10 mg, 1, tablet, By Mouth, Daily, # 30 tablet, Refills 6, Tot. Refills 6, Maintenance, 04/27/20 12:29:00 EST, Route to Pharmacy Electronically, [facility]/pharmacy #[id number], 163, cm, 02/16/20 10:15:00 EDT, Height, 105.7, kg, 09/12/19 20:00:00 EDT, Dry Weight Start Date: 04/27/20 Status: Ordered Spiriva HandiHaler 18 mcg inhalation capsule 1 capsule = 18 mcg, Inhalation, Daily, # 30 capsule, 11 Refills, Maintenance, 06/02/20 8:54:00 EST,[facility]/pharmacy #[id number], 163, cm, 02/16/20 10:15:00 EDT, Height, 105.7, kg, 09/12/19 20:00:00 EDT, Dry Weight Start Date: 06/02/20 Stop Date: 05/28/21 Status: Ordered Symbicort 160mcg/4.5mcg Inhaler 2, puffs, Inhalation, 2 times a day, Discontinue Advair, # 6 Gm, Refills 6, Tot. Refills 6, Maintenance, 10/21/19 9:21:00 EDT, Aerosol, Route to Pharmacy Electronically, [id number], [facility]/pharmacy #[id number], 163, cm, 10/14/19 12:52... [...] CPAP)(Confirmed) Active Care Management BHN/BHCP Luis Brady Parts Identification Technician. [phone](Confirmed) Active 1Dx in 2018 Social History Social History Type Response Smoking Status Never smoker entered on: 02/16/14 Sex Female
--- OUTSIDE RECORDS SUMMARY | 2023-10-16 07:59 | XMS_ITS | Continuity of Care Document ---
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 Start Date: 06/11/19 Stop Date: 08/10/19 Status: Ordered Albuterol 0.083% inhalation michael PRN, Refills 0, Maintenance, lot#[id number] exp august 2020, 03/10/19 18:53:20 EST Start Date: 03/10/19 Status: Ordered Albuterol 0.083% inhalation michael See Instructions, given at office visit lot # [id number] Exp 09/17, Refills 0, Maintenance, 03/26/19 9:24:59 EST, Instructions Replace Required Details Start Date: 03/26/19 Status: Ordered albuterol 0.083% inhalation solution 3 mL = 2.5 mg, Inhalation, Every 6 hours, # 120 each, 1 Refills, Maintenance, 10/21/19 9:22:00 EDT,Solution, [facility]/pharmacy #[id number], 163, cm, 10/14/19 12:52:00 EDT, Height, 108.3, kg, 02/17/19 7:48:00 EDT, Dry Weight Start Date: 10/21/19 Status: Ordered albuterol CFC free 90 mcg/inh inhalation aerosol 2, puffs, Inhalation, 4 times a day, PRN, # 1 each, Refills 11, Tot. Refills 11, Maintenance, 03/25/18 9:14:15 EST, Aerosol, Route to Pharmacy Electronically, [id number], [facility]/pharmacy #[id number], Compound Start Date: 03/25/18 Status: Ordered ALPRAZolam 0.25 mg oral tablet 0.25 mg, 1, tablet, By Mouth, 2 times a day, Refills 0, Maintenance, 11/04/18 18:19:51 EDT Start Date: 11/04/18 Status: Ordered cetirizine 10 mg oral tablet 1 tablet = 10 mg, By Mouth, Daily, # 30 tablet, 6 Refills, Maintenance, 08/11/19 8:27:00 EDT, Tablet, [facility]/pharmacy #[id number], 163, cm, 06/11/19 10:50:00 EST, [...] 1 each, Maintenance, send compliance data fax [phone] Dx GULSHAN send mask and CPAP supplies for patient patient states that she has been using PAP regularly and feels better sinceusing CPAP To [facility], 02/19/18 16:36:42 EDT, C... Start Date: 02/19/18 Status: Ordered diclofenac 1% topical gel 1 application, Topically, 3 times a day, PRN Knee Pain. Romanian sig, # 100 Gm, 2 Refills, Maintenance, 08/11/19 8:28:00 EDT, Gel, [facility]/pharmacy #[id number], 163, cm, 06/11/19 10:50:00 EST, [...] 08/11/19 8:30:00 EDT, Route to Pharmacy Electronically, [facility]/pharmacy #[id number], 163, cm, 06/11/19 10:50:00 EST, Height, 108.3, kg, 02/17/19 7:48:00 EDT, Dry... Start Date: 08/11/19 Status: Ordered Flonase 50 mcg/inh nasal spray 2 sprays, Nares, Both, Daily in AM, # 1 each, 6 Refills, Maintenance, 04/14/19 10:44:43 EST, [place],[facility]/pharmacy #[id number], 2 sprays Nares, Both Daily [...] 60 tablet, 2 Refills, 08/11/19 8:30:00 EDT, [facility]/pharmacy #[id number], 163, cm, 06/11/19 10:50:00 EST, Height, 108.3, kg, 02/17/19 7:48:00 EDT, Dry Weight Start Date: 08/11/19 Status: Ordered hydrochlorothiazide 25 mg oral tablet 25 mg, 1, tablet, By Mouth, Daily, # 30 tablet, Refills 11, Tot. Refills 11, Maintenance, 08/11/19 8:30:00 EDT, Route to Pharmacy Electronically, [facility]/pharmacy #[id number], 163, cm, 06/11/19 10:50:00 EST, Height, 108.3, kg, 02/17/19 7:48:00 EDT, Dry Weight Start Date: 08/11/19 Status: Ordered ibuprofen 600 mg oral tablet 600 mg, 1, tablet, By Mouth, Every 8 hours, PRN Pain Romanian Do not take with other NSAIDs (including Meloxicam), # 90 tablet, Refills 1, Tot. Refills 1, Maintenance, 08/11/19 8:31:00 EDT, [id number] 163, c... Start Date: 08/11/19 Stop Date: 10/10/19 Status: Ordered ketoconazole 1% topical shampoo See Instructions, 1 applicator Topically 2 times per week for 4 weeks. Romanian sig, # 200 mL, 0 Refills, Maintenance, 04/09/19 9:23:01 EST, 1 applicator Topically 2 times per week for 4 weeks. Romanian sig, 163, cm, 04/09/19 8:51:21 EST, Height, [...] 2 Refills, Maintenance, 12/01/19 14:53:00 EDT, Tablet, [facility]/pharmacy #[id number], 1 tablet By Mouth Daily, [...] 10/21/19 9:21:00 EDT, Route to Pharmacy Electronically, [id number], [facility]/pharmacy #[id number], 163, cm, 10/14/19 12:52:00 EDT, Height, 108.3... Start Date: 10/21/19 Stop Date: 05/18/20 Status: Ordered Singulair 10 mg oral tablet 10 mg, 1, tablet, By Mouth, Daily, # 30 tablet, Refills 6, Tot. Refills 6, Maintenance, 08/11/19 8:32:00 EDT, Route to Pharmacy Electronically, [facility]/pharmacy #[id number], 163, cm, 06/11/19 10:50:00 EST, [...] 9:21:00 EDT, Aerosol, Route to Pharmacy Electronically, [id number], [facility]/pharmacy #[id number], 163, cm, 10/14/19 12:52... 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
--- OUTSIDE RECORDS SUMMARY | 2023-10-16 07:59 | XMS_ITS | Continuity of Care Document ---
Author Organization [facility] Address [address] [place] [id number]- Care Team Providers Care Family And Consumer Sciences Professor Name Role Phone Mariza Goodrich MD Primary Care Physician Encounter [facility] Date(s): 01/22/20 - 02/21/[address] [address]- [facility] Allergies, Adverse Reactions, Alerts No Known Medication [...] 06/11/19 11:30:00 EST, Route to Pharmacy Electronically, [facility]/pharmacy #[id number], 163, cm, 06/11/19 10:50:00 EST, Height, 108.3, kg, 02/17/19 7:48:0... Start Date: 06/11/19 Stop Date: 08/10/19 Status: Ordered Advair Diskus 100 mcg-50 mcg inhalation powder 1, puffs, Inhalation, 2 times a day, Refills 0, Maintenance, 06/02/19 21:09:00 EST, Powder Start Date: 06/02/19 Status: Ordered Albuterol 0.083% inhalation michael PRN, Refills 0, Maintenance, lot#[id number] exp august 2020, 03/10/19 18:53:20 EST Start Date: 03/10/19 Status: Ordered Albuterol 0.083% inhalation michael See Instructions, given at office visit lot # [id number] Exp 09/17, Refills 0, Maintenance, 03/26/19 9:24:59 EST, Instructions Replace Required Details Start Date: 03/26/19 Status: Ordered albuterol 0.083% inhalation solution 3 mL = 2.5 mg, Inhalation, Every 6 hours, # 120 each, 1 Refills, Maintenance, 10/21/19 9:22:00 EDT,Solution, [facility]/pharmacy #[id number], 163, cm, 10/14/19 12:52:00 EDT, Height, 108.3, kg, 02/17/19 7:48:00 EDT, Dry Weight Start Date: 10/21/19 Status: Ordered albuterol CFC free 90 mcg/inh inhalation aerosol 2, puffs, Inhalation, 4 times a day, PRN, # 1 each, Refills 11, Tot. Refills 11, Maintenance, 03/25/18 9:14:15 EST, Aerosol, Route to Pharmacy Electronically, [id number], [facility]/pharmacy #[id number], Compound Start Date: 03/25/18 [...] 6 Refills, Maintenance, 08/11/19 8:27:00 EDT, Tablet, [facility]/pharmacy #[id number], 163, cm, 06/11/19 10:50:00 [...] 1 each, Maintenance, send compliance data fax [id number] Dx GULSHAN send mask and CPAP supplies for patient patient states that she has been using PAP regularly and feels better sinceusing CPAP To [facility], 02/19/18 16:36:42 EDT, C... Start Date: 02/19/18 Status: Ordered diclofenac 1% topical gel 1 application, Topically, 3 times a day, PRN Knee Pain. Tajik sig, # 100 Gm, 2 Refills, Maintenance, 08/11/19 8:28:00 EDT, Gel, [facility]/pharmacy #[id number], 163, cm, 06/11/19 10:50:00 [...] 08/11/19 8:30:00 EDT, Route to Pharmacy Electronically, [facility]/pharmacy #[id number], 163, cm, 06/11/19 10:50:00 [...] each, 6 Refills, Maintenance, 04/14/19 10:44:43 EST, [place],[facility]/pharmacy #[id number], 2 sprays Nares, Both [...] 60 tablet, 2 Refills, 08/11/19 8:30:00 EDT, [facility]/pharmacy #[id number], 163, cm, 06/11/19 10:50:00 [...] 08/11/19 8:30:00 EDT, Route to Pharmacy Electronically, [facility]/pharmacy #[id number], 163, cm, 06/11/19 10:50:00 EST, Height, 108.3, kg, 02/17/19 7:48:00 EDT, Dry Weight Start Date: 08/11/19 Status: Ordered ibuprofen 600 mg oral tablet 600 mg, 1, tablet, By Mouth, Every 8 hours, PRN Pain Tajik Do not take with other NSAIDs (including Meloxicam), # 90 tablet, Refills 1, Tot. Refills 1, Maintenance, 08/11/19 8:31:00 EDT, Route to Pharmacy Electronically, [facility]/pharmacy #[id number], 163, c... Start Date: 08/11/19 Stop Date: 10/10/19 Status: Ordered ketoconazole 1% topical shampoo See Instructions, 1 applicator Topically 2 times per week for 4 weeks. Tajik sig, # 200 mL, 0 Refills, Maintenance, 04/09/19 9:23:01 EST, 1 applicator Topically 2 times per week for 4 weeks. Tajik sig, 163, cm, 04/09/19 8:51:21 EST, Height, [...] 2 Refills, Maintenance, 12/01/19 14:53:00 EDT, Tablet, [facility]/pharmacy #[id number], 1 tablet By Mouth [...] 0 Refills, Maintenance, 02/16/20 10:38:00 EDT, Tablet, [facility]/pharmacy #[id number], 163, cm, 02/16/20 10:15:00 [...] 10/21/19 9:21:00 EDT, Route to Pharmacy Electronically, [id number], [facility]/pharmacy #[id number], 163, cm, 10/14/19 12:52:00 EDT, Height, 108.3... Start Date: 10/21/19 Stop Date: 05/18/20 Status: Ordered Singulair 10 mg oral tablet 10 mg, 1, tablet, By Mouth, Daily, # 30 tablet, Refills 6, Tot. Refills 6, Maintenance, 08/11/19 8:32:00 EDT, Route to Pharmacy Electronically, [facility]/pharmacy #[id number], 163, cm, 06/11/19 10:50:00 [...] 9:21:00 EDT, Aerosol, Route to Pharmacy Electronically, [id number], [facility]/pharmacy #[id number], 163, cm, 10/14/19 12:52... 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
--- OUTSIDE RECORDS SUMMARY | 2023-10-16 07:59 | XMS_ITS | Continuity of Care Document ---
Author Organization [facility] Address [address] [place] [address]- Care Team Providers Care Administrative Assistant Coordinator Name Role Phone Mariza Goodrich MD Primary Care Physician Encounter [facility] Date(s): 06/03/19 - 06/13/19 [facility] [address] [place] [address]- [facility] Attending Physician: Admtr, [id number] Admitting Physician: Admtr, Ar8 Referring Physician: Admtr, Ar8 Allergies, Adverse Reactions, [...] EST, Route to Pharmacy Electronically, [facility]/pharmacy #[id number], 163, cm, 06/11/19 10:50:00 EST, Height, 108.3, kg, 02/17/19 7:48:0... Start Date: 06/11/19 Stop Date: 08/10/19 Status: Ordered Albuterol 0.083% inhalation michael PRN, Refills 0, Maintenance, lot#[id number] exp august 2020, 03/10/19 18:53:20 EST Start Date: 03/10/19 Status: Ordered Albuterol 0.083% inhalation michael See Instructions, given at office visit lot # [id number] Exp 09/17, Refills 0, Maintenance, 03/26/19 9:24:59 [...] 9:14:15 EST, Aerosol, Route to Pharmacy Electronically, [id number], [facility]/pharmacy #[id number], Compound Start Date: 03/25/18 Status: [...] 1 each, Maintenance, send compliance data fax [id number] Dx GULSHAN send mask and CPAP supplies for patient patient states that she has been using PAP regularly and feels better sinceusing CPAP To [facility], 02/19/18 16:36:42 EDT, C... Start Date: 02/19/18 Status: Ordered diclofenac 1% topical gel 1 application, Topically, 3 times a day, PRN Knee Pain. Guamanian sig, # 100 Gm, 2 Refills, Maintenance, 06/12/19 11:31:00 EST, Gel, [facility]/pharmacy #[id number], 163, cm, 06/11/19 10:50:00 EST, [...] 12/10/17 16:59:07 EDT, Route to Pharmacy Electronically, [id number], [facility]/pharmacy #[id number] Start Date: 12/10/17 Status: Ordered Flonase 50 mcg/inh nasal spray 2 sprays, Nares, Both, Daily in AM, # 1 each, 6 Refills, Maintenance, 04/14/19 10:44:43 EST, [place],[id number], 2 sprays Nares, Both Daily in AM, 163, cm, 04/14/19 10:18:38 EST, Height, 108.3, kg, 02/17/19 7:48:07 EDT, Dry Weight Start Date: 04/14/19 Status: Ordered guaiFENesin 100 mg/5 mL oral liquid 5 mL = 100 mg, By Mouth, Every 4 hours, PRN for cough, # 300 mL, 2 Refills, Acute 06/18/19 7:00:00 EST, 06/11/19 11:28:00 EST, Liquid, [facility]/pharmacy #[id number], 163, cm, 06/11/19 10:50:00 EST, Height, 108.3, kg, 02/17/19 7:48:00 EDT, Dry Weight Start Date: 06/11/19 Stop Date: 06/18/19 Status: Ordered guaiFENesin 100 mg/5 mL oral liquid 10 mL = 200 mg, By Mouth, Every 4 hours, PRN for cough, # 600 mL, 0 Refills, Maintenance, 03/10/19 18:11:03 EST, Liquid Start Date: 03/10/19 Status: Ordered Heartburn Relief 10 mg oral tablet See Instructions, MANDA CARDENAS AL RAMESH, # 60 tablet, 2 Refills, Soft Stop, [id number], 163, cm, 04/14/19 10:18:00 EST, Height, 108.3, kg, 02/17/19 7:48:00 EDT, Dry Weight Start Date: 05/15/19 Status: Ordered hydrochlorothiazide 25 mg oral tablet 25 mg, 1, tablet, By Mouth, Daily, # 30 tablet, Refills 11, Tot. Refills 11, Maintenance, 11/28/17 15:46:59 EDT, Route to Pharmacy Electronically, [id number], [facility]/pharmacy #[id number] Start Date: 11/28/17 Status: Ordered ibuprofen 600 mg oral tablet 600 mg, 1, tablet, By Mouth, Every 8 hours, for 14 days, with food or milk. do not take meloxican during 2 weeks, # 50 tablet, Refills 0, Tot. Refills 0, Acute 06/18/19 9:52:00 EST, 06/04/19 9:52:00 EST, Route to Pharmacy Electronically, [facility]/pharmacy... Start Date: 06/04/19 Stop Date: 06/18/19 Status: Ordered ketoconazole 1% topical shampoo See Instructions, 1 applicator Topically 2 times per week for 4 weeks. Guamanian sig, # 200 mL, 0 Refills, Maintenance, 04/09/19 9:23:01 EST, 1 applicator Topically 2 times per week for 4 weeks. Guamanian sig, 163, cm, 04/09/19 8:51:21 EST, Height, [...] 15 mg, By Mouth, Daily, With food. Icelandic sig. PRN Pain, # 30 tablet, 0 Refills, Maintenance, 02/25/19 17:05:09 EDT, Tablet Start Date: 02/25/19 Status: Ordered ondansetron 2 mg/mL injectable solution = 4 mg, Intramuscular, Once, LOT [id number] EXP 10/2019 Left Deltoid, # 2 mL, [...] 0 Refills, Soft Stop, 04/14/19 10:45:22 EST, Tablet,[facility]/pharmacy #[id number], 163, cm, 04/14/19 10:18:38 EST, Height, 108.3, kg, 02/17/19 7:48:07 EDT, Dry Weight Start Date: 04/14/19 Stop Date: 04/21/19 Status: Ordered predniSONE 20 mg oral tablet 2 tablet = 40 mg, By Mouth, Daily, for 5 days, # 10 tablet, 0 Refills, Acute 06/16/19 11:29:00 EST,06/11/19 11:29:00 EST, [facility]/pharmacy #[id number], 163, cm, 06/11/19 10:50:00 EST, Height, 108.3, kg, 02/17/19 7:48:00 EDT, Dry Weight Start Date: 06/11/19 Stop Date: 06/16/19 Status: Ordered ProAir HFA 90 mcg/inh inhalation aerosol with adapter 2, puffs, Inhalation, 4 times a day, PRN, # 1 application, Refills 6, Tot. Refills 6, Maintenance, 02/11/18 19:13:20 EDT, Route to Pharmacy Electronically, [id number], [facility]/pharmacy #[id number] Start Date: 02/11/18 Stop Date: 09/09/18 Status: Ordered Provera 10 mg oral tablet 10 mg, 1, tablet, By Mouth, Daily, # 30 tablet, Refills 2, Tot. Refills 2, Maintenance, 10/30/17 11:33:21 EDT, Route to Pharmacy Electronically, [id number], [facility]/pharmacy #[id number] Start Date: 10/30/17 Status: Ordered simethicone 80 mg oral tablet, chewable 80 mg, 1, tablet, Chew, 4 times a day, PRN, for 14 days, # 48 tablet, Refills 1, Tot. Refills 1, Acute 07/02/19 9:55:00 EST, as needed for gas, 06/04/19 9:55:00 EST, Route to Pharmacy Electronically,[facility]/pharmacy #[id number], 163, cm, 06/04/19 9:20:00 EST,... Start Date: 06/04/19 Stop Date: 07/02/19 Status: Ordered Singulair 10 mg oral tablet 10 mg, 1, tablet, By Mouth, Daily, # 30 tablet, Refills 6, Tot. Refills 6, Maintenance, 03/26/19 8:57:56 EST, Route to Pharmacy Electronically, [id number], [facility]/pharmacy #[id number] Start Date: 03/26/19 Status: Ordered Spiriva [...] 8:58:21 EST, Aerosol, Route to Pharmacy Electronically, [id number], [facility]/pharmacy #[id number] Start Date: 03/26/19 Status: Ordered Vitamin D3 1000 intl units oral tablet 1 tablet = 1,000 International_Units, By Mouth, Daily, # 30 tablet, 11 Refills, Maintenance, 06/28/18 18:01:13 EST, Tablet Start Date: 06/28/18 Status: Ordered Water-based Physical Therapy at [facility] Water-based Physical Therapy at [facility], See Instructions, # 1 each, Refills 0, Tot. Refills 0, Maintenance, 2 times per week. To improve function, ROM, decrease pain. Diagnosis: Fibromyalgia, Chronic Back Pain. ICD10 M79.7,M54.9, 11/04/18 18:32:11 EDT,... Start Date: 11/04/18 Status: Ordered Zofran ODT 4 mg oral tablet, disintegrating 1 tablet = 4 mg, By Mouth, Every 8 hours, PRN as needed for nausea/vomiting, Guamanian sig, # 9 tablet, 0 Refills, Maintenance, [...]
--- OUTSIDE RECORDS SUMMARY | 2023-10-16 07:59 | XMS_ITS | Continuity of Care Document ---
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 Start Date: 06/02/20 Stop Date: 08/01/20 Status: Ordered Aygestin 5 mg oral tablet 1 tablet = 5 mg, By Mouth, Daily, # 30 tablet, 2 Refills, Maintenance, 07/19/20 17:13:00 EDT, Tablet, [facility]/pharmacy #[id number], Partial fill upon patient request if the prescription is for a schedule II opioid drug., 163, cm, 07/19/20 16:05:00 EDT, Height,... Start Date: 07/19/20 Status: Ordered betamethasone topical dipropionate 0.05% cream 1 application, Topically, 2 times a day, # 15 Gm, 0 Refills, Maintenance, 07/22/20 11:38:00 EDT, Cream, [facility]/pharmacy #[id number], Partial fill upon patient request if the prescription is for a schedule II opioid drug., 1 application Topically 2 times a day,... Start Date: 07/22/20 Status: Ordered cetirizine 10 mg oral tablet 1 tablet = 10 mg, By Mouth, Daily, # 30 tablet, 6 Refills, Maintenance, 08/11/19 8:27:00 EDT, Tablet, [facility]/pharmacy #[id number], 163, cm, 06/11/19 10:50:00 EST, [...] 1 each, Maintenance, send compliance data fax [id number] Dx GULSHAN send mask and CPAP supplies for patient patient states that she has been using PAP regularly and feels better sinceusing CPAP To [facility], 02/19/18 16:36:42 EDT, C... Start Date: [...] each, 11 Refills, Maintenance, 07/26/20 9:20:00 EDT, [place],[facility]/pharmacy #[id number], 2 sprays Nares, Both Daily in AM, 163, cm, 07/22/20 8:51:00 EDT, Height, 105.7,kg, 09/12/19 20:00:00 EDT, Dry Weight Start Date: 07/26/20 Status: Ordered hydrochlorothiazide 25 mg oral tablet 25 mg, 1, tablet, By Mouth, Daily, # 30 tablet, Refills 11, Tot. Refills 11, Maintenance, 08/11/19 8:30:00 EDT, Route to Pharmacy Electronically, [facility]/pharmacy #[id number], 163, cm, 06/11/19 10:50:00 EST, Height, 108.3, kg, 02/17/19 7:48:00 EDT, Dry Weight Start Date: 08/11/19 Status: Ordered ibuprofen 600 mg oral tablet 600 mg, 1, tablet, By Mouth, Every 8 hours, PRN Pain Romanian Do not take with other NSAIDs (including Meloxicam), # 90 tablet, Refills 1, Tot. Refills 1, Maintenance, 08/02/20 9:38:00 EDT, Route to Pharmacy Electronically, [facility]/pharmacy #[id number], 163, c... Start Date: 08/02/20 Stop Date: 10/01/20 Status: Ordered multivitamin Vitamin B Complex oral tablet 1 tablet, By Mouth, Daily, # 100 tablet, 2 Refills, Maintenance, 12/01/19 14:53:00 EDT, Tablet, [facility]/pharmacy #[id number], 1 tablet By Mouth Daily, [...] 10/24/20 14:24:00 EDT, Route to Pharmacy Electronically, [id number], [facility]/pharmacy #[id number], 163, cm, 07/22/20 8:51:00 EDT, Height, 105... Start Date: 10/24/20 Stop Date: 10/19/21 Status: Ordered ProAir HFA 90 mcg/inh inhalation aerosol with adapter 2, puffs, Inhalation, 4 times a day, PRN, for 30 days, # 1 each, Refills 5, Tot. Refills 5, Hard Stop 10/24/20 14:24:00 EDT, 04/27/20 14:24:00 EST, Route to Pharmacy Electronically, [id number], [facility]/pharmacy #[id number], 163, cm, 10... Start Date: 04/27/20 Stop Date: 10/24/20 Status: Ordered Singulair 10 mg oral tablet 10 mg, 1, tablet, By Mouth, Daily, # 30 tablet, Refills 6, Tot. Refills 6, Maintenance, 07/26/20 9:19:00 EDT, Route to Pharmacy Electronically, [facility]/pharmacy #[id number], 163, cm, 07/22/20 8:51:00 EDT, Height, 105.7, kg, 09/12/19 20:00:00 EDT, Dry Weight Start Date: 07/26/20 Status: Ordered Spiriva HandiHaler 18 mcg inhalation capsule 1 capsule = 18 mcg, Inhalation, Daily, for 30 days, # 30 capsule, 11 Refills, Hard Stop 05/28/21 8:54:00 EST, 06/02/20 8:54:00 EST, [facility]/pharmacy #[id number], 163, cm, 02/16/20 10:15:00 EDT, Height, 105.7, kg, 09/12/19 20:00:00 EDT, Dry Weight Start Date: 06/02/20 Stop Date: 05/28/21 Status: Ordered Spiriva HandiHaler 18 mcg inhalation capsule 1 capsule = 18 mcg, Inhalation, Daily, # 30 capsule, 11 Refills, Maintenance, 05/28/21 8:54:00 EST,[facility]/pharmacy #[id number], 163, cm, 07/22/20 8:51:00 EDT, Height, 105.7, kg, 09/12/19 20:00:00 EDT, Dry Weight Start Date: 05/28/21 Stop Date: 05/23/22 Status: Ordered Symbicort 160mcg/4.5mcg Inhaler See Instructions, INHALE DANDO DOS SOPLIDOS DOS VECES AL RAMESH, # 10.2 Unknown, Refills 6, Tot. Refills 6, 07/26/20 9:18:00 EDT, Instructions Replace Required Details, Route to Pharmacy Electronically,[id number], [facility]... Start Date: 07/26/20 Status: Ordered Vitamin [...] apnea (on CPAP)(Confirmed) Active Care Management BHN/BHCP uLis Brady It Consultant. [phone](Confirmed) Active 1Dx in 2018 Social History Social History Type Response Smoking Status Never smoker entered on: 02/16/14 Sex Female
--- OUTSIDE RECORDS SUMMARY | 2023-10-16 07:59 | XMS_ITS | Continuity of Care Document ---
Author Organization [facility] Address [address] [place] [address]- Care Team Providers Care Make Up Girl Name Role Phone Mariza Goodrich MD Primary Care Physician Encounter [facility] Date(s): 06/15/20 - 07/15/[address] [address]- Allergies, Adverse Reactions, Alerts No Known Medication [...] 06/02/20 8:52:00 EST, Route to Pharmacy Electronically, [facility]/pharmacy #[id number], 163, cm, 02/16/20 10:15:00 EDT, Height, 105.7, [...] 1 each, Maintenance, send compliance data fax [phone] Dx GULSHAN send mask and CPAP supplies for patient patient states that she has been using PAP regularly and feels better sinceusing CPAP To [facility], 02/19/18 16:36:42 EDT, C... Start Date: 02/19/18 Status: Ordered diclofenac 1% topical gel 1 application, Topically, 3 times a day, PRN Knee Pain. Ivorian sig, # 100 Gm, 2 Refills, Maintenance, [...] each, 6 Refills, Maintenance, 04/14/19 10:44:43 EST, [id number], 2 sprays Nares, Both Daily in AM, 163, cm, 04/14/19 10:18:38 EST, Height, 108.3, kg, 02/17/19 7:48:07 EDT, Dry Weight Start Date: 04/14/19 Status: Ordered hydrochlorothiazide 25 mg oral tablet 25 mg, 1, tablet, By Mouth, Daily, # 30 tablet, Refills 11, Tot. Refills 11, Maintenance, 08/11/19 8:30:00 EDT, Route to Pharmacy Electronically, [facility]/pharmacy #[id number], 163, cm, 06/11/19 10:50:00 EST, Height, 108.3, kg, 02/17/19 7:48:00 EDT, Dry Weight Start Date: 08/11/19 Status: Ordered ibuprofen 600 mg oral tablet 600 mg, 1, tablet, By Mouth, Every 8 hours, PRN Pain Ivorian Do not take with other NSAIDs (including Meloxicam), # 90 tablet, Refills 1, Tot. Refills 1, Maintenance, 06/02/20 8:53:00 EST, Route to Pharmacy Electronically, [facility]/pharmacy #[id number], 163, c... Start Date: 06/02/20 Stop Date: 08/01/20 Status: Ordered multivitamin Vitamin B Complex oral tablet 1 tablet, By Mouth, Daily, # 100 tablet, 2 Refills, Maintenance, 12/01/19 14:53:00 EDT, Tablet, [facility]/pharmacy #[id number], 1 tablet By Mouth [...] 04/27/20 14:24:00 EST, Route to Pharmacy Electronically, [id number], [facility]/pharmacy#[id number], 163, cm, 02/16/20 10:15:00 EDT, Height, 105.... Start Date: 04/27/20 Stop Date: 10/24/20 Status: Ordered Singulair 10 mg oral tablet 10 mg, 1, tablet, By Mouth, Daily, # 30 tablet, Refills 6, Tot. Refills 6, Maintenance, 04/27/20 12:29:00 EST, Route to Pharmacy Electronically, [facility]/pharmacy #[id number], 163, cm, 02/16/20 10:15:00 EDT, Height, 105.7, kg, 09/12/19 20:00:00 EDT, Dry Weight Start Date: 04/27/20 Status: Ordered Spiriva HandiHaler 18 mcg inhalation capsule 1 capsule = 18 mcg, Inhalation, Daily, # 30 capsule, 11 Refills, Maintenance, 06/02/20 8:54:00 EST,[facility]/pharmacy #[id number], 163, cm, 02/16/20 10:15:00 EDT, Height, 105.7, kg, 09/12/19 20:00:00 EDT, Dry Weight Start Date: 06/02/20 Stop Date: 05/28/21 Status: Ordered Symbicort 160mcg/4.5mcg Inhaler See Instructions, INHALE DANDO DOS SOPLIDOS DOS VECES AL RAMESH, # 10.2 Unknown, Refills 6, Maintenance, Instructions Replace Required Details, Route to Pharmacy Electronically, [id number], [facility], 163, cm, 06/29/20 10:... Start Date: 07/12/20 [...] CPAP)(Confirmed) Active Care Management BHN/BHCP Luis Brady Mysql Dba. [phone](Confirmed) Active 1Dx in 2018 Social History Social History Type Response Smoking Status Never smoker entered on: 02/16/14 Sex Female
--- OUTSIDE RECORDS SUMMARY | 2023-10-16 07:59 | XMS_ITS | Continuity of Care Document ---
Author Organization [facility] Address [address] [place] [address]- Care Team Providers Care Hack Saw Operator Name Role Phone Kp JOHNS, Mariza Primary Care Physician [place] [facility] [place] [facility] [place] Date(s[place] 06/19/23 - 07/21/[address] [address]- Attending Physician: Not on Staff, Attending MD [...] 01/25/23 8:49:00 EDT, Route to Pharmacy Electronically, [id number], [facility]/pharmacy #[id number], 163, cm, 01/25/23 8:30:00 EDT, Height Start Date: 01/25/23 Status: Ordered cetirizine 10 mg oral tablet 1 tablet, By Mouth, Daily, # 30 tablet, 5 Refills, [id number], 163, cm, 01/10/21 8:49:00 EDT, Height, 102.9, kg, 05/21/20 8:52:00 EST, Dry Weight Start Date: 06/18/21 Status: Ordered cholestyramine 4 g/5.7 g oral powder for reconstitution = 2 Gm, By Mouth, Daily, dissolve in water or juice. Djiboutian Sig., # 180 Gm, 1 Refills, Maintenance, 04/16/23 15:55:00 EST, REC Powder, [facility]/pharmacy #[id number], Partial fill upon patient request if the prescription is for a schedule II opioid drug., 163, c... Start Date: 04/16/23 Stop Date: 10/13/23 Status: Ordered clonazePAM 0.5 mg oral tablet 1 tablet = 0.5 mg, By Mouth, Daily at bedtime, PRN Anxiety, # 30 tablet, 1 Refills, Maintenance, 01/25/23 9:00:00 EDT, Tablet, [facility]/pharmacy #[id number], Partial fill upon patient request if [...] night. Length of need 99 [facility]ax to [facility],... Start Date: 06/20/23 Status: Ordered cyclobenzaprine 5 mg oral tablet 1 tablet = 5 mg, By Mouth, 3 times a day, for 10 days, # 30 tablet, 1 Refills, Acute 07/26/23 16:38:00 EDT, 07/06/23 16:38:00 EST, Tablet, [facility]/pharmacy #[id number], Partial fill upon patient request if [...] 0 Refills, Maintenance, 01/25/23 8:52:00 EDT, Tablet, [facility]/pharmacy #[id number], Partial fill upon patient request if the prescription is for a schedule II opioid drug., 163, cm, 01/25/23 8:30:00 EDT, Height Start Date: 01/25/23 Stop Date: 04/25/23 Status: Ordered Flonase 50 mcg/inh nasal spray 2 sprays, Nares, Both, Daily in AM, # 1 each, 11 Refills, Maintenance, 07/26/20 9:20:00 EDT, [place],[facility]/pharmacy #[id number], 2 sprays Nares, Both Daily in AM, 163, cm, 07/22/20 8:51:00 EDT, Height, 105.7,kg, 09/12/19 20:00:00 EDT, Dry Weight Start Date: 07/26/20 Status: Ordered hydrochlorothiazide 25 mg oral tablet 1, tablet, By Mouth, Daily, for 90 days, # 90 tablet, Refills 3, Tot. Refills 3, Physician Stop 01/20/24 9:07:00 EDT, 01/25/23 9:07:00 EDT, Route to Pharmacy Electronically, [facility]/pharmacy #[id number], 163, cm, 01/25/23 9:05:00 EDT, Height Start Date: 01/25/23 Stop Date: 01/20/24 Status: Ordered ibuprofen 600 mg oral tablet 600 mg, 1, tablet, By Mouth, Every 6 hours, PRN, # 40 tablet, Refills 1, Tot. Refills 1, Maintenance, Headache, 06/19/23 10:54:00 EST, Route to Pharmacy Electronically, [facility]/pharmacy #[id number], Partial fill upon patient request if the prescription is for a... Start Date: 06/19/23 Status: Ordered ketoconazole 2% topical shampoo See Instructions, 1 application Topically three times a week, # 120 mL, 3 Refills, Soft Stop, 07/06/23 16:38:00 EST, Shampoo, [facility]/pharmacy #[id number], Partial fill upon patient request if the prescriptionis for a schedule II opioid drug., 1 application To... Start Date: 07/06/23 Status: Ordered lidocaine 5% topical cream 1 application, Topically, 3 times a day, PRN Pain. Djiboutian sig, # 45 Gm, 1 Refills, Maintenance, 01/10/21 9:40:00 EDT, Cream, [facility]/pharmacy #[id number], Partial fill upon patient request if the prescriptionis for a schedule II opioid drug., 1 application To... Start Date: 01/10/21 Status: Ordered Lidoderm 5% film 1 patch, Topically, Daily, remove patches after 12 hours, # 30 patch, 5 Refills, Maintenance, 07/06/23 16:39:00 EST, [facility]/pharmacy #[id number], Partial fill upon patient request if the prescription is for aschedule II opioid drug., 1 patch Topically Daily,I... Start Date: 07/06/23 Status: Ordered pregabalin 200 mg oral capsule 1 capsule = 200 mg, By Mouth, Daily, # 30 capsule, 1 Refills, Maintenance, 01/25/23 9:00:00 EDT, Capsule, [facility]/pharmacy #[id number], Partial fill upon patient request if the prescription is for a schedule II opioid drug., 163, cm, 01/25/23 8:30:00 EDT, Height Start Date: 01/25/23 Stop Date: 03/26/23 Status: Ordered Singulair 10 mg oral tablet 10 mg, 1, tablet, By Mouth, Daily, # 90 tablet, Refills 3, Tot. Refills 3, Maintenance, 01/25/23 8:49:00 EDT, Route to Pharmacy Electronically, [facility]/pharmacy #[id number], 163, cm, 01/25/23 8:30:00 EDT, Height Start Date: 01/25/23 Stop Date: 01/20/24 Status: Ordered Spiriva Respimat 10 ACT 2.5 mcg/inh inhalation aerosol 2 puffs = 5 mcg, Inhalation, Daily, chinese sig, # 4 Gm, 5 Refills, Maintenance, 03/14/23 10:57:00 EST, Aerosol, [facility]/pharmacy #[id number], Partial fill upon patient request if the prescription is for a schedule II opioid drug., 163, cm, 03/14/23 9:01:00 EST... Start Date: 03/14/23 Status: Ordered Symbicort 160mcg/4.5mcg Inhaler 2, puffs, Inhalation, 2 times a day, for 90 days, # 3 each, Refills 3, Tot. Refills 3, Physician Stop 01/20/24 8:50:00 EDT, 01/25/23 8:50:00 EDT, Route to Pharmacy Electronically, [id number], [facility]/pharmacy #[id number], 163, cm, 12/30... Start Date: 01/25/23 Stop Date: 01/20/24 Status: Ordered Tylenol Extra Strength 500 mg oral tablet 2 tablet = 1,000 mg, By Mouth, 3 times a day, PRN for fever, # 60 tablet, 0 Refills, Maintenance, 02/24/23 20:18:00 EDT, Tablet, [facility]/pharmacy #[id number], Partial fill upon patient request, 163, [...] Personnel Name: Hilda STEPHENS, Belle Barba Position: [facility] PCO Associate Professional Member Role: Lifetime Consulting Provider Address: Address: [address] [place] [id number]- Name: Mariza Goodrich MD Position: [facility] Physician - Primary Care Member Role: PCP Address: Address: [address] [place] [id number]- Name: Pati Apodaca RN Position: [facility] RN Member Role: Primary Care Nurse Name: Hollie Pfeiffer RN Position: [facility] Hospital New Account Interviewer Member Role: Primary Care Nurse Care Team Related Persons Name: ESTEPHANIA WYNN Address: home [address] [place] [address] Name: EUNICE WYNN Address: home [address] [facility] [address] [place] [address] Name: NELLI RENO Name: MATTHEW RENO Address: home [address] [place] [address]
--- OUTSIDE RECORDS SUMMARY | 2023-10-16 08:00 | XMS_ITS | Continuity of Care Document ---
Author Organization [facility] Address [address] [place] [address]- Care Team Providers Care Leaf Stripper Name Role Phone Mariza Goodrich MD Primary Care Physician [phone] Encounter [facility] Date(s): 05/03/20 - 06/02/[address] [address]- Allergies, Adverse Reactions, Alerts No Known Medication [...] [facility] #[id number], 163, cm, 02/16/20 10:15:00 EDT, Height, 105.7, [...] 1 each, Maintenance, send compliance data fax [phone] Dx GULSHAN send mask and CPAP supplies for patient patient states that she has been using PAP regularly and feels better sinceusing CPAP To [facility] [place], 02/19/18 16:36:42 EDT, C... Start Date: 02/19/18 Status: Ordered diclofenac 1% topical gel 1 application, Topically, 3 times a day, PRN Knee Pain. Emirati sig, # 100 Gm, 2 Refills, Maintenance, [...] each, 6 Refills, Maintenance, 04/14/19 10:44:43 EST, [place],[facility]/pharmacy #[id number], 2 sprays Nares, Both [...] By Mouth, Every 8 hours, PRN Pain Emirati Do not take with other NSAIDs (including Meloxicam), # 90 tablet, Refills 1, Tot. Refills 1, Maintenance, 06/02/20 8:53:00 EST, Route to Pharmacy Electronically, [facility]/pharmacy #[id number], 163, c... Start Date: 06/02/20 Stop Date: 08/01/20 Status: Ordered ketoconazole 1% topical shampoo See Instructions, 1 applicator Topically 2 times per week for 4 weeks. Emirati sig, # 200 mL, 0 Refills, Maintenance, 04/09/20 8:49:00 EST, [facility]/pharmacy #[id number], 1 applicator Topically 2 times per weekfor 4 weeks. Emirati sig, 163, cm, 02/16/20 10:15:0... Start Date: [...] 04/27/20 14:24:00 EST, Route to Pharmacy Electronically, [id number], [facility]/pharmacy#[id number], 163, cm, 02/16/20 10:15:00 EDT, Height, 105.... Start Date: 04/27/20 Stop Date: 10/24/20 Status: Ordered Qvar Redihaler 80 mcg/inh inhalation aerosol 1 puffs, Inhalation, 2 times a day, # 1 each, 0 Refills, Maintenance, 05/14/20 15:22:00 EST, [facility]/pharmacy #[id number], This is in ADDITION to Symbicort. To be used as short course given concern for acute flair. Rx in Emirati, 1 puffs Inhalation 2 times a da... [...] 9:21:00 EDT, Aerosol, Route to Pharmacy Electronically, [id number], [facility]/pharmacy #[id number], 163, cm, 10/14/19 12:52... Start Date: 10/21/19 Status: Ordered Vitamin D3 oral tablet By Mouth, Daily, 0 Refills, Maintenance, 06/02/19 21:11:00 EST Start Date: 06/02/19 Status: Ordered Water-based Physical Therapy at [facility] Water-based Physical Therapy at [facility], See Instructions, # 1 each, [...] CPAP)(Confirmed) Active Care Management [facility] Luis Brady Remediation Consultant. [phone](Confirmed) Active 1Dx in 2018 Social History Social History Type Response Smoking Status Never smoker entered on: 02/16/14 Sex Female
--- OUTSIDE RECORDS SUMMARY | 2023-10-16 08:00 | XMS_ITS | Continuity of Care Document ---
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 Start Date: 06/11/19 Stop Date: 08/10/19 Status: Ordered Albuterol 0.083% inhalation michael PRN, Refills 0, Maintenance, lot#[id number] exp august 2020, 03/10/19 18:53:20 EST Start Date: 03/10/19 Status: Ordered Albuterol 0.083% inhalation michael See Instructions, given at office visit lot # [id number] Exp 09/17, Refills 0, Maintenance, 03/26/19 9:24:59 [...] 9:14:15 EST, Aerosol, Route to Pharmacy Electronically, [id number], [facility]/pharmacy #[id number], Compound Start Date: 03/25/18 Status: Ordered ALPRAZolam 0.25 mg oral tablet 0.25 mg, 1, tablet, By Mouth, 2 times a day, Refills 0, Maintenance, 11/04/18 18:19:51 EDT Start Date: 11/04/18 Status: Ordered cetirizine 10 mg oral tablet 1 tablet = 10 mg, By Mouth, Daily, # 30 tablet, 6 Refills, Maintenance, 08/11/19 8:27:00 EDT, Tablet, [facility]/pharmacy #[id number], 163, cm, 06/11/19 10:50:00 EST, Height, [...] 1 each, Maintenance, send compliance data fax [phone] Dx GULSHAN send mask and CPAP supplies for patient patient states that she has been using PAP regularly and feels better sinceusing CPAP To [facility], 02/19/18 16:36:42 EDT, C... Start Date: 02/19/18 Status: Ordered diclofenac 1% topical gel 1 application, Topically, 3 times a day, PRN Knee Pain. Greenlandic sig, # 100 Gm, 2 Refills, Maintenance, 08/11/19 8:28:00 EDT, Gel, [facility]/pharmacy #[id number], 163, cm, 06/11/19 10:50:00 EST, Height, [...] 08/11/19 8:30:00 EDT, Route to Pharmacy Electronically, [facility]/pharmacy #[id number], 163, cm, 06/11/19 10:50:00 EST, Height, 108.3, kg, 02/17/19 7:48:00 EDT, Dry... Start Date: 08/11/19 Status: Ordered Flonase 50 mcg/inh nasal spray 2 sprays, Nares, Both, Daily in AM, # 1 each, 6 Refills, Maintenance, 04/14/19 10:44:43 EST, [place],[facility]/pharmacy #[id number], 2 sprays Nares, Both Daily in [...] 60 tablet, 2 Refills, 08/11/19 8:30:00 EDT, [facility]/pharmacy #[id number], 163, cm, 06/11/19 10:50:00 EST, Height, 108.3, kg, 02/17/19 7:48:00 EDT, Dry Weight Start Date: 08/11/19 Status: Ordered hydrochlorothiazide 25 mg oral tablet 25 mg, 1, tablet, By Mouth, Daily, # 30 tablet, Refills 11, Tot. Refills 11, Maintenance, 08/11/19 8:30:00 EDT, Route to Pharmacy Electronically, [facility]/pharmacy #[id number], 163, cm, 06/11/19 10:50:00 EST, Height, 108.3, kg, 02/17/19 7:48:00 EDT, Dry Weight Start Date: 08/11/19 Status: Ordered ibuprofen 600 mg oral tablet 600 mg, 1, tablet, By Mouth, Every 8 hours, PRN Pain Greenlandic Do not take with other NSAIDs (including Meloxicam), # 90 tablet, Refills 1, Tot. Refills 1, Maintenance, 08/11/19 8:31:00 EDT, Route to Pharmacy Electronically, [facility]/pharmacy #[id number], 163, c... Start Date: 08/11/19 Stop Date: 10/10/19 Status: Ordered ketoconazole 1% topical shampoo See Instructions, 1 applicator Topically 2 times per week for 4 weeks. Greenlandic sig, # 200 mL, 0 Refills, Maintenance, 04/09/19 9:23:01 EST, 1 applicator Topically 2 times per week for 4 weeks. Greenlandic sig, 163, cm, 04/09/19 8:51:21 EST, Height, [...] 9 tablet, 1 Refills, Maintenance, 08/11/19 8:34:00 EDT,[facility]/pharmacy #[id number], 163, cm, 06/11/19 10:50:00 EST, Height, [...] 08/07/19 14:30:00 EDT, Route to Pharmacy Electronically, [id number], [facility]/pharmacy#[id number], 163, cm, 06/11/19 10:50:00 EST, Height, 108.... Start Date: 08/07/19 Stop Date: 03/04/20 Status: Ordered Singulair 10 mg oral tablet 10 mg, 1, tablet, By Mouth, Daily, # 30 tablet, Refills 6, Tot. Refills 6, Maintenance, 08/11/19 8:32:00 EDT, Route to Pharmacy Electronically, [facility]/pharmacy #[id number], 163, cm, 06/11/19 10:50:00 EST, Height, [...] 8:58:21 EST, Aerosol, Route to Pharmacy Electronically, [id number], [facility]/pharmacy #[id number] Start Date: 03/26/19 Status: Ordered Vitamin D3 1000 intl units oral tablet 1 tablet = 1,000 International_Units, By Mouth, Daily, # 30 tablet, 11 Refills, Maintenance, 06/28/18 18:01:13 EST, Tablet Start Date: 06/28/18 Status: Ordered Water-based Physical Therapy at [facility] Water-based Physical Therapy at [facility], See Instructions, # 1 each, Refills [...] (on CPAP)(Confirmed) Active Care Management FELIX Galvez [facility] Hot Knife 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
--- OUTSIDE RECORDS SUMMARY | 2023-10-16 08:00 | XMS_ITS | Continuity of Care Document ---
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 Start Date: 06/11/19 Stop Date: 08/10/19 Status: Ordered Albuterol 0.083% inhalation michael PRN, Refills 0, Maintenance, lot#[id number] exp august 2020, 03/10/19 18:53:20 EST Start Date: 03/10/19 Status: Ordered Albuterol 0.083% inhalation michael See Instructions, given at office visit lot # [id number] Exp 09/17, Refills 0, Maintenance, 03/26/19 9:24:59 [...] 9:14:15 EST, Aerosol, Route to Pharmacy Electronically, [id number], [facility]/pharmacy #[id number], Compound Start Date: 03/25/18 Status: Ordered ALPRAZolam 0.25 mg oral tablet 0.25 mg, 1, tablet, By Mouth, 2 times a day, Refills 0, Maintenance, 11/04/18 18:19:51 EDT Start Date: 11/04/18 Status: Ordered Augmentin 875 mg-125 mg oral tablet 1 tablet, By Mouth, Every 12 hours, for 10 days, # 20 tablet, 0 Refills, Acute 09/28/19 9:22:00 EDT, 09/18/19 9:22:00 EDT, Tablet, [facility]/pharmacy #[id number], 163, cm, 06/11/19 10:50:00 EST, Height, 108.3, kg, 02/17/19 7:48:00 EDT, Dry Weight Start Date: 09/18/19 Stop Date: 09/28/19 Status: Ordered cetirizine 10 mg oral tablet 1 tablet = 10 mg, By Mouth, Daily, # 30 tablet, 6 Refills, Maintenance, 08/11/19 8:27:00 EDT, Tablet, [facility]/pharmacy #[id number], 163, cm, 06/11/19 10:50:00 [...] 1 each, Maintenance, send compliance data fax [phone] Dx GULSHAN send mask and CPAP supplies for patient patient states that she has been using PAP regularly and feels better sinceusing CPAP To [facility], 02/19/18 16:36:42 EDT, C... Start Date: 02/19/18 Status: Ordered diclofenac 1% topical gel 1 application, Topically, 3 times a day, PRN Knee Pain. Sri Lankan sig, # 100 Gm, 2 Refills, Maintenance, 08/11/19 8:28:00 EDT, Gel, [facility]/pharmacy #[id number], 163, cm, 06/11/19 10:50:00 [...] 08/11/19 8:30:00 EDT, Route to Pharmacy Electronically, [facility]/pharmacy #[id number], 163, cm, 06/11/19 10:50:00 EST, Height, 108.3, kg, 02/17/19 7:48:00 EDT, Dry... Start Date: 08/11/19 Status: Ordered Flonase 50 mcg/inh nasal spray 2 sprays, Nares, Both, Daily in AM, # 1 each, 6 Refills, Maintenance, 04/14/19 10:44:43 EST, [place],[facility]/pharmacy #[id number], 2 sprays Nares, Both [...] 60 tablet, 2 Refills, 08/11/19 8:30:00 EDT, [facility]/pharmacy #[id number], 163, cm, 06/11/19 10:50:00 EST, Height, 108.3, kg, 02/17/19 7:48:00 EDT, Dry Weight Start Date: 08/11/19 Status: Ordered hydrochlorothiazide 25 mg oral tablet 25 mg, 1, tablet, By Mouth, Daily, # 30 tablet, Refills 11, Tot. Refills 11, Maintenance, 08/11/19 8:30:00 EDT, Route to Pharmacy Electronically, [facility]/pharmacy #[id number], 163, cm, 06/11/19 10:50:00 EST, Height, 108.3, kg, 02/17/19 7:48:00 EDT, Dry Weight Start Date: 08/11/19 Status: Ordered ibuprofen 600 mg oral tablet 600 mg, 1, tablet, By Mouth, Every 8 hours, PRN Pain Sri Lankan Do not take with other NSAIDs (including Meloxicam), # 90 tablet, Refills 1, Tot. Refills 1, Maintenance, 08/11/19 8:31:00 EDT, Route to Pharmacy Electronically, [facility]/pharmacy #[id number], 163, c... Start Date: 08/11/19 Stop Date: 10/10/19 Status: Ordered ketoconazole 1% topical shampoo See Instructions, 1 applicator Topically 2 times per week for 4 weeks. Sri Lankan sig, # 200 mL, 0 Refills, Maintenance, 04/09/19 9:23:01 EST, 1 applicator Topically 2 times per week for 4 weeks. Sri Lankan sig, 163, cm, 04/09/19 8:51:21 EST, Height, [...] 9 tablet, 1 Refills, Maintenance, 08/11/19 8:34:00 EDT,[facility]/pharmacy #[id number], 163, cm, 06/11/19 10:50:00 [...] 08/07/19 14:30:00 EDT, Route to Pharmacy Electronically, [id number], [facility]/pharmacy#[id number], 163, cm, 06/11/19 10:50:00 EST, Height, 108.... Start Date: 08/07/19 Stop Date: 03/04/20 Status: Ordered Singulair 10 mg oral tablet 10 mg, 1, tablet, By Mouth, Daily, # 30 tablet, Refills 6, Tot. Refills 6, Maintenance, 08/11/19 8:32:00 EDT, Route to Pharmacy Electronically, [facility]/pharmacy #[id number], 163, cm, 06/11/19 10:50:00 [...] 8:58:21 EST, Aerosol, Route to Pharmacy Electronically, [id number], [facility]/pharmacy #[id number] Start Date: 03/26/19 Status: Ordered Vitamin D3 1000 intl units oral tablet 1 tablet = 1,000 International_Units, By Mouth, Daily, # 30 tablet, 11 Refills, Maintenance, 06/28/18 18:01:13 EST, Tablet Start Date: 06/28/18 Status: Ordered Water-based Physical Therapy at [facility] Water-based Physical Therapy at [facility], See Instructions, # 1 each, Refills [...] (on CPAP)(Confirmed) Active Care Management FELIX Galvez [facility] 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
--- OUTSIDE RECORDS SUMMARY | 2023-10-16 08:00 | XMS_ITS | Continuity of Care Document ---
Author Organization [facility] Address [address] [place] [address]- Care Team Providers Care Trousseau Consultant Name Role Phone Kp JOHNS, Mariza Primary Care Physician [place] [facility] [place](s): 10/14/19 - 11/13/19 [facility] [address] [place] [address]- [facility] Attending Physician: Admtr, [id number] Admitting Physician: AdmtrCara Referring Physician: Admtr, [id number] [...] 06/11/19 11:30:00 EST, Route to Pharmacy Electronically, [facility]/pharmacy #[id number], 163, cm, 06/11/19 10:50:00 EST, Height, 108.3, kg, 02/17/19 7:48:0... Start Date: 06/11/19 Stop Date: 08/10/19 Status: Ordered Albuterol 0.083% inhalation michael PRN, Refills 0, Maintenance, lot#[id number] exp august 2020, 03/10/19 18:53:20 EST Start Date: 03/10/19 Status: Ordered Albuterol 0.083% inhalation michael See Instructions, given at office visit lot # [id number] Exp 09/17, Refills 0, Maintenance, 03/26/19 9:24:59 EST, Instructions Replace Required Details Start Date: 03/26/19 Status: Ordered albuterol 0.083% inhalation solution 3 mL = 2.5 mg, Inhalation, Every 6 hours, # 120 each, 1 Refills, Maintenance, 10/21/19 9:22:00 EDT,Solution, [facility]/pharmacy #[id number], 163, cm, 10/14/19 12:52:00 EDT, Height, 108.3, kg, 02/17/19 7:48:00 EDT, Dry Weight Start Date: 10/21/19 Status: Ordered albuterol CFC free 90 mcg/inh inhalation aerosol 2, puffs, Inhalation, 4 times a day, PRN, # 1 each, Refills 11, Tot. Refills 11, Maintenance, 03/25/18 9:14:15 EST, Aerosol, Route to Pharmacy Electronically, [id number], [facility]/pharmacy #[id number], Compound Start Date: 03/25/18 Status: Ordered ALPRAZolam 0.25 mg oral tablet 0.25 mg, 1, tablet, By Mouth, 2 times a day, Refills 0, Maintenance, 11/04/18 18:19:51 EDT Start Date: 11/04/18 Status: Ordered cetirizine 10 mg oral tablet 1 tablet = 10 mg, By Mouth, Daily, # 30 tablet, 6 Refills, Maintenance, 08/11/19 8:27:00 EDT, Tablet, [facility]/pharmacy #[id number], 163, cm, 06/11/19 10:50:00 EST, Height, [...] 1 each, Maintenance, send compliance data fax [phone] Dx GULSHAN send mask and CPAP supplies for patient patient states that she has been using PAP regularly and feels better sinceusing CPAP To [facility], 02/19/18 16:36:42 EDT, C... Start Date: 02/19/18 Status: Ordered diclofenac 1% topical gel 1 application, Topically, 3 times a day, PRN Knee Pain. Chinese sig, # 100 Gm, 2 Refills, Maintenance, 08/11/19 8:28:00 EDT, Gel, [facility]/pharmacy #[id number], 163, cm, 06/11/19 10:50:00 EST, Height, [...] each, 6 Refills, Maintenance, 04/14/19 10:44:43 EST, [id number], 2 sprays Nares, Both Daily in [...] 60 tablet, 2 Refills, 08/11/19 8:30:00 EDT, [facility]/pharmacy #[id number], 163, cm, 06/11/19 10:50:00 EST, Height, 108.3, kg, 02/17/19 7:48:00 EDT, Dry Weight Start Date: 08/11/19 Status: Ordered hydrochlorothiazide 25 mg oral tablet 25 mg, 1, tablet, By Mouth, Daily, # 30 tablet, Refills 11, Tot. Refills 11, Maintenance, 08/11/19 8:30:00 EDT, Route to Pharmacy Electronically, [facility]/pharmacy #[id number], 163, cm, 06/11/19 10:50:00 EST, Height, 108.3, kg, 02/17/19 7:48:00 EDT, Dry Weight Start Date: 08/11/19 Status: Ordered ibuprofen 600 mg oral tablet 600 mg, 1, tablet, By Mouth, Every 8 hours, PRN Pain Chinese Do not take with other NSAIDs (including Meloxicam), # 90 tablet, Refills 1, Tot. Refills 1, Maintenance, 08/11/19 8:31:00 EDT, Route to Pharmacy Electronically, [facility]/pharmacy #[id number], 163, c... Start Date: 08/11/19 Stop Date: 10/10/19 Status: Ordered ketoconazole 1% topical shampoo See Instructions, 1 applicator Topically 2 times per week for 4 weeks. Chinese sig, # 200 mL, 0 Refills, Maintenance, 04/09/19 9:23:01 EST, 1 applicator Topically 2 times per week for 4 weeks. Chinese sig, 163, cm, 04/09/19 8:51:21 EST, Height, [...] 9 tablet, 1 Refills, Maintenance, 08/11/19 8:34:00 EDT,[facility]/pharmacy #[id number], 163, cm, 06/11/19 10:50:00 EST, Height, 108.3, kg, 02/17/19 7:48:00 EDT, Dry Weight Start Date: 08/11/19 Stop Date: 08/17/19 Status: Ordered PredniSONE = 40 mg, By Mouth, Daily, PRN given at md appt, 0 Refills, Maintenance, 03/10/19 18:54:44 EST Start Date: 03/10/19 Status: Ordered predniSONE 20 mg oral tablet See Instructions, 2 tablets daily for 5 days, Instructions in welsh please, # 10 each, 0 Refills,10/21/19 9:26:00 EDT, [facility]/pharmacy #[id number], 163, cm, 10/14/19 12:52:00 EDT, Height, 108.3, kg, 02/17/19 7:48:00 EDT, Dry Weight Start Date: 10/21/19 Status: Ordered ProAir HFA 90 mcg/inh inhalation aerosol with adapter 2, puffs, Inhalation, 4 times a day, PRN, # 1 each, Refills 6, Tot. Refills 6, Maintenance, 10/21/19 9:21:00 EDT, Route to Pharmacy Electronically, [id number], [facility]/pharmacy #[id number], 163, cm, 10/14/19 12:52:00 EDT, Height, 108.3... Start Date: 10/21/19 Stop Date: 05/18/20 Status: Ordered Singulair 10 mg oral tablet 10 mg, 1, tablet, By Mouth, Daily, # 30 tablet, Refills 6, Tot. Refills 6, Maintenance, 08/11/19 8:32:00 EDT, Route to Pharmacy Electronically, [facility]/pharmacy #[id number], 163, cm, 06/11/19 10:50:00 EST, Height, [...] 9:21:00 EDT, Aerosol, Route to Pharmacy Electronically, [id number], [facility]/pharmacy #[id number], 163, cm, 10/14/19 12:52... Start Date: [...] CPAP)(Confirmed) Active Care Management FELIX Galvez EDDY Export Administrator [phone](Confirmed) Active 1Dx in 2018 Social History Social History Type Response Smoking Status Never smoker entered on: 02/16/14 Sex Female
--- OUTSIDE RECORDS SUMMARY | 2023-10-16 08:00 | XMS_ITS | Continuity of Care Document ---
Author Organization [facility] Address [address] [place] [address]- Care Team Providers Care Station Engineer Main Line Name Role Phone Mariza Goodrich MD Primary Care Physician [phone] Encounter [facility] [place] Date(s): 05/21/20 - 05/21/20 [facility] [address] [place] [address]- Encounter Diagnosis Bursitis of left shoulder(Final) - 05/21/20 Discharge Disposition: A-D/C Home Attending Physician: Haylee Mera MD Admitting Physician: Haylee Mera MD Referring Physician: Not on Staff, Referring MD Allergies, Adverse Reactions, Alerts Substance Reaction Severity Status NKA Active Results Radiology Reports * Exam Date Time Procedure Performing Provider Status 05/21/20 7:48 AM Shoulder Min 2 Views Left Rolando , Latha lata; Auth (Verified) Notes: (Shoulder Min 2 Views Left) Reason For Exam: with Pain;Trauma RESULT: Shoulder Min 2 Views Left Shoulder Min 2 Views Left, 4 views Hx of Present Illness: left shoulder pain; Reason: Trauma; with Pain; Clinical Question(s): Fracture; Special Instructions: This is a protocol film and radiologist should call any findings to the Charge Nurse FINDINGS: Gleno-humeral joint intact. AC joint unremarkable. Soft tissue calcifications lateral to humeral head, differential includes calcific tendinitis, calcific bursitis, and/or loose body in, oradjacent to, joint. IMPRESSION: Soft tissue calcifications lateral to humeral head. WSN: [id number] Ordering Physician: Tomi Gamez Dictated By: Tony Crews MD Dictated Date/Time: 05/21/20 8:19 am Reviewed By: Tony Crews MD Signed By: Tony Crews MD Signed Date/Time: 05/21/20 8:19 am Transcribed By: JONN Transcribed Date/Time: 05/21/20 8:16 am Vital Signs Most recent to oldest [Reference Range]: 1 2 Weight 102.9 kg (05/21/20 8:52 AM) 102.9 kg (05/21/20 7:28 AM) Oxygen Saturation [94-100 %] 100 % (05/21/20 7:28 AM) 100 % (05/21/20 7:18 AM) Pulse Rate [55-90 bpm] 75 bpm (05/21/20 7:28 AM) 84 bpm (05/21/20 7:18 AM) Blood Pressure [90-138/55-84 mm Hg] 141/ 95mm Hg *H* (05/21/20 7:28 AM) Respiratory Rate [16-30 br/min] 18 br/mi n (05/21/20 7:28 AM) Temperature [96.8-100.4 DegF] 98.3 DegF (05/21/20 7:28 AM) Mode of Delivery (Oxygen) Room air (05/21/20 7:28 AM) Room air (05/21/20 7:18 AM) Blood pressure sites Arm, right (05/21/20 7:28 AM) Temperature Route Oral (05/21/20 7:28 AM) Dry Weight 102.9 kg (05/21/20 8:52 AM) 102.9 kg (05/21/20 7:28 AM) Weight Obtained Via Standing scale (05/21/20 7:28 AM) Dry Weight Obtained Via Standing scale (05/21/20 7:28 AM)
--- OUTSIDE RECORDS SUMMARY | 2023-10-16 08:00 | XMS_ITS | Continuity of Care Document ---
Author Organization [facility] Address [address] [place] [address]- Care Team Providers Care Manager Technical Training Name Role Phone Mariza Goodrich MD Primary Care Physician [place] [facility] [place] - 06/12/[address] [address]- Allergies, Adverse Reactions, Alerts No Known Medication [...] 8:52:00 EST, Route to Pharmacy Electronically, [facility]/pharmacy #[id number], 163, cm, 02/16/20 10:15:00 EDT, Height, 105.7, [...] 1 each, Maintenance, send compliance data fax [phone] Dx GULSHAN send mask and CPAP supplies for patient patient states that she has been using PAP regularly and feels better sinceusing CPAP To [facility], 02/19/18 16:36:42 EDT, C... Start Date: 02/19/18 Status: Ordered diclofenac 1% topical gel 1 application, Topically, 3 times a day, PRN Knee Pain. English sig, # 100 Gm, 2 Refills, Maintenance, [...] each, 6 Refills, Maintenance, 04/14/19 10:44:43 EST, [place],[facility]/pharmacy #[id number], 2 sprays Nares, Both Daily in AM, 163, cm, 04/14/19 10:18:38 EST, Height, 108.3, kg, 02/17/19 7:48:07 EDT, Dry Weight Start Date: 04/14/19 Status: Ordered hydrochlorothiazide 25 mg oral tablet 25 mg, 1, tablet, By Mouth, Daily, # 30 tablet, Refills 11, Tot. Refills 11, Maintenance, 08/11/19 8:30:00 EDT, Route to Pharmacy Electronically, [facility]/pharmacy #[id number], 163, cm, 06/11/19 10:50:00 EST, Height, 108.3, kg, 02/17/19 7:48:00 EDT, Dry Weight Start Date: 08/11/19 Status: Ordered ibuprofen 600 mg oral tablet 600 mg, 1, tablet, By Mouth, Every 8 hours, PRN Pain English Do not take with other NSAIDs (including Meloxicam), # 90 tablet, Refills 1, Tot. Refills 1, Maintenance, 06/02/20 8:53:00 EST, Route to Pharmacy Electronically, [facility]/pharmacy #[id number], 163, c... Start Date: 06/02/20 Stop Date: 08/01/20 Status: Ordered ketoconazole 1% topical shampoo See Instructions, 1 applicator Topically 2 times per week for 4 weeks. English sig, # 200 mL, 0 Refills, Maintenance, 04/09/20 8:49:00 EST, [facility]/pharmacy #[id number], 1 applicator Topically 2 times per weekfor 4 weeks. English sig, 163, cm, 02/16/20 10:15:0... Start Date: [...] Refills, Maintenance, 12/01/19 14:53:00 EDT, Tablet, [facility]/pharmacy #[id number], 1 tablet By Mouth Daily, 163, [...] 04/27/20 14:24:00 EST, Route to Pharmacy Electronically, [id number], [facility]/pharmacy#[id number], 163, cm, 02/16/20 10:15:00 EDT, Height, 105.... Start Date: 04/27/20 Stop Date: 10/24/20 Status: Ordered Qvar Redihaler 80 mcg/inh inhalation aerosol 1 puffs, Inhalation, 2 times a day, # 1 each, 0 Refills, Maintenance, 05/14/20 15:22:00 EST, [facility]/pharmacy #[id number], This is in ADDITION to Symbicort. To be used as short course given concern for acute flair. Rx in English, 1 puffs Inhalation 2 times a da... Start Date: 05/14/20 Stop Date: 05/21/20 Status: Ordered Singulair 10 mg oral tablet 10 mg, 1, tablet, By Mouth, Daily, # 30 tablet, Refills 6, Tot. Refills 6, Maintenance, 04/27/20 12:29:00 EST, Route to Pharmacy Electronically, [facility]/pharmacy #[id number], 163, cm, 02/16/20 10:15:00 EDT, Height, 105.7, kg, 09/12/19 20:00:00 EDT, Dry Weight Start Date: 04/27/20 Status: Ordered Spiriva HandiHaler 18 mcg inhalation capsule 1 capsule = 18 mcg, Inhalation, Daily, # 30 capsule, 11 Refills, Maintenance, 06/02/20 8:54:00 EST,[facility]/pharmacy #[id number], 163, cm, 02/16/20 10:15:00 EDT, Height, 105.7, kg, 09/12/19 20:00:00 EDT, Dry Weight Start Date: 06/02/20 Stop Date: 05/28/21 Status: Ordered Symbicort 160mcg/4.5mcg Inhaler 2, puffs, Inhalation, 2 times a day, Discontinue Advair, # 6 Gm, Refills 6, Tot. Refills 6, Maintenance, 10/21/19 9:21:00 EDT, Aerosol, Route to Pharmacy Electronically, [id number], [facility]/pharmacy #[id number], 163, cm, 10/14/19 12:52... Start Date: 10/21/19 Status: Ordered Vitamin D3 oral tablet By Mouth, Daily, 0 Refills, Maintenance, 06/02/19 21:11:00 EST Start Date: 06/02/19 Status: Ordered Water-based Physical Therapy at [facility] Water-based Physical Therapy at [facility], See Instructions, # 1 each, [...] CPAP)(Confirmed) Active Care Management BHN/BHCP Luis Brady Speed Operator. [phone](Confirmed) Active 1Dx in 2018 Social History Social History Type Response Smoking Status Never smoker entered on: 02/16/14 Sex Female
--- OUTSIDE RECORDS SUMMARY | 2023-10-16 08:00 | XMS_ITS | Continuity of Care Document ---
Author Organization [facility] Address [address] [place] [address]- Care Team Providers Care Furniture Finisher Name Role Phone Mariza Goodrich MD Primary Care Physician [place] [facility] [place] 06/11/19 - 07/18/[address] [address]- [facility] Attending Physician: Mariza Goodrich MD Admitting Physician: [...] 06/11/19 11:30:00 EST, Route to Pharmacy Electronically, [facility]/pharmacy #[id number], 163, cm, 06/11/19 10:50:00 EST, Height, 108.3, kg, 02/17/19 7:48:0... Start Date: 06/11/19 Stop Date: 08/10/19 Status: Ordered Albuterol 0.083% inhalation michael PRN, Refills 0, Maintenance, lot#[id number] exp august 2020, 03/10/19 18:53:20 EST Start Date: 03/10/19 Status: Ordered Albuterol 0.083% inhalation michael See Instructions, given at office visit lot # [id number] Exp 09/17, Refills 0, Maintenance, 03/26/19 9:24:59 [...] 9:14:15 EST, Aerosol, Route to Pharmacy Electronically, [id number], [facility]/pharmacy #[id number], Compound Start Date: 03/25/18 Status: [...] 1 each, Maintenance, send compliance data fax [phone] Dx GULSHAN send mask and CPAP supplies for patient patient states that she has been using PAP regularly and feels better sinceusing CPAP To [facility], 02/19/18 16:36:42 EDT, C... Start Date: 02/19/18 Status: Ordered diclofenac 1% topical gel 1 application, Topically, 3 times a day, PRN Knee Pain. Italian sig, # 100 Gm, 2 Refills, Maintenance, 06/12/19 11:31:00 EST, Gel, [facility]/pharmacy #[id number], 163, cm, 06/11/19 10:50:00 EST, [...] 12/10/17 16:59:07 EDT, Route to Pharmacy Electronically, [id number], [facility]/pharmacy #[id number] Start Date: 12/10/17 Status: Ordered Flonase 50 mcg/inh nasal spray 2 sprays, Nares, Both, Daily in AM, # 1 each, 6 Refills, Maintenance, 04/14/19 10:44:43 EST, [id number], 2 sprays Nares, Both Daily in [...] # 60 tablet, 2 Refills, Soft Stop, [facility] STORE [id number], 163, cm, 04/14/19 10:18:00 EST, Height, 108.3, kg, 02/17/19 7:48:00 EDT, Dry Weight Start Date: 05/15/19 Status: Ordered hydrochlorothiazide 25 mg oral tablet 25 mg, 1, tablet, By Mouth, Daily, # 30 tablet, Refills 11, Tot. Refills 11, Maintenance, 11/28/17 15:46:59 EDT, Route to Pharmacy Electronically, [id number], [facility]/pharmacy #[id number] Start Date: 11/28/17 Status: Ordered ketoconazole 1% topical shampoo See Instructions, 1 applicator Topically 2 times per week for 4 weeks. Italian sig, # 200 mL, 0 Refills, Maintenance, 04/09/19 9:23:01 EST, 1 applicator Topically 2 times per week for 4 weeks. Italian sig, 163, cm, 04/09/19 8:51:21 EST, Height, [...] 15 mg, By Mouth, Daily, With food. Ugandan sig. PRN Pain, # 30 tablet, 0 Refills, Maintenance, 02/25/19 17:05:09 EDT, Tablet Start Date: 02/25/19 Status: Ordered ondansetron 2 mg/mL injectable solution = 4 mg, Intramuscular, Once, LOT [id number] EXP 10/2019 Left Deltoid, # 2 mL, [...] 0 Refills, Soft Stop, 04/14/19 10:45:22 EST, Tablet,[facility]/pharmacy #[id number], 163, cm, 04/14/19 10:18:38 EST, Height, 108.3, kg, 02/17/19 7:48:07 EDT, Dry Weight Start Date: 04/14/19 Stop Date: 04/21/19 Status: Ordered ProAir HFA 90 mcg/inh inhalation aerosol with adapter 2, puffs, Inhalation, 4 times a day, PRN, # 1 application, Refills 6, Tot. Refills 6, Maintenance, 02/11/18 19:13:20 EDT, Route to Pharmacy Electronically, [id number], [facility]/pharmacy #[id number] Start Date: 02/11/18 Stop Date: 09/09/18 Status: Ordered Provera 10 mg oral tablet 10 mg, 1, tablet, By Mouth, Daily, # 30 tablet, Refills 2, Tot. Refills 2, Maintenance, 10/30/17 11:33:21 EDT, Route to Pharmacy Electronically, [id number], [id number] Start Date: 10/30/17 Status: Ordered Singulair 10 mg oral tablet 10 mg, 1, tablet, By Mouth, Daily, # 30 tablet, Refills 6, Tot. Refills 6, Maintenance, 03/26/19 8:57:56 EST, Route to Pharmacy Electronically, [id number], [id number] Start Date: 03/26/19 Status: Ordered Spiriva [...] 8:58:21 EST, Aerosol, Route to Pharmacy Electronically, [id number], [facility]/pharmacy #[id number] Start Date: 03/26/19 Status: Ordered Vitamin D3 1000 intl units oral tablet 1 tablet = 1,000 International_Units, By Mouth, Daily, # 30 tablet, 11 Refills, Maintenance, 06/28/18 18:01:13 EST, Tablet Start Date: 06/28/18 Status: Ordered Water-based Physical Therapy at [facility] Water-based Physical Therapy at [facility], See Instructions, # 1 each, Refills 0, Tot. Refills 0, Maintenance, 2 times per week. To improve function, ROM, decrease pain. Diagnosis: Fibromyalgia, Chronic Back Pain. ICD10 M79.7,M54.9, 11/04/18 18:32:11 EDT,... Start Date: 11/04/18 Status: Ordered Zofran ODT 4 mg oral tablet, disintegrating 1 tablet = 4 mg, By Mouth, Every 8 hours, PRN as needed for nausea/vomiting, Italian sig, # 9 tablet, 0 Refills, Maintenance, 06/11/19 11:28:00 EST, DIS Tablet, [facility]/pharmacy #[id number], 163, cm, 06/11/19 10:50:00 EST, [...] CPAP)(Confirmed) Active Care Management FELIX Cui EDDY Hourly Sign Language Interpreter [phone](Confirmed) Active 1Dx in 2018 Social History Social History Type Response Smoking Status Never smoker entered on: 02/16/14 Sex Female
--- OUTSIDE RECORDS SUMMARY | 2023-10-16 08:00 | XMS_ITS | Continuity of Care Document ---
Author Organization [facility] Address [address] [place] [address]- Care Team Providers Care Reactor Fueling Supervisor Name Role Phone Kp JOHNS, Mariza Primary Care Physician Encounter [facility] Date(s): 08/03/21 - 09/02/[address] [address]- Allergies, Adverse Reactions, Alerts No Known Allergies [...] Mouth, Daily, # 30 tablet, 5 Refills, [facility], 163, cm, 01/10/21 8:49:00 EDT, Height, 102.9, [...] 1 each, Maintenance, send compliance data fax [phone] Dx GULSHAN send mask and CPAP supplies [...] mg, By Mouth, 2 times a day, [place] Islander sig. PRN Pain, # 60 tablet, 1 Refills, Maintenance, 05/19/21 17:37:00 EST, Tablet, [facility]/pharmacy #[id number], Partial fill upon patient request if the prescription is for a schedule II opioid drug., 163, cm... Start Date: 05/19/21 Status: Ordered Flonase 50 mcg/inh nasal spray 2 sprays, Nares, Both, Daily in AM, # 1 each, 11 Refills, Maintenance, 07/26/20 9:20:00 EDT, [place],[facility]/pharmacy #[id number], 2 sprays Nares, Both Daily in AM, 163, cm, 07/22/20 8:51:00 EDT, Height, 105.7,kg, 09/12/19 20:00:00 EDT, Dry Weight Start Date: 07/26/20 Status: Ordered hydrochlorothiazide 25 mg oral tablet 1, tablet, By Mouth, Daily, # 30 tablet, Refills 5, Route to Pharmacy Electronically, [id number], 163, cm, 01/10/21 8:49:00 EDT, Height, 102.9, kg, 05/21/20 8:52:00 EST, Dry Weight Start Date: 06/18/21 Status: Ordered lidocaine 5% topical cream 1 application, Topically, 3 times a day, PRN Pain. [place] Islander sig, # 45 Gm, 1 Refills, Maintenance, 01/10/21 9:40:00 EDT, Cream, [facility]/pharmacy #[id number], Partial fill upon [...] 08/29/21 17:19:00 EDT, Route to Pharmacy Electronically, [id number], [facility]/pharmacy#4471, 163, cm, 01/10/21 8:49:00 EDT, Height, 102.9... Start Date: 08/29/21 Stop Date: 10/28/21 Status: Ordered Singulair 10 mg oral tablet 10 mg, 1, tablet, By Mouth, Daily, # 30 tablet, Refills 6, Tot. Refills 6, Maintenance, 08/29/21 17:19:00 EDT, Route to Pharmacy Electronically, [facility]/pharmacy #[id number], 163, cm, 01/10/21 8:49:00 EDT, Height, [...] Replace Required Details, Route to Pharmacy Electronically, [id number], [facility]... Start Date: 11/29/20 Status: Ordered Problem List Condition Effective Dates Status Health Status Inform ant Anemia(Confirmed) Active Asthma, Moderate-Persistent(Confirmed) Active COVID-19(Confirmed) Active Epiploic appendagitis(Confirmed) 1 Active Essential hypertension(Confirmed) Active Morbid obesity with BMI of 4 0.0-44.9, adult(Confirmed) Active Chronic myofascial pain/Fibromyalgia(Confirmed) Active Obstructive sleep apnea (on CPAP)(Confirmed) Active Care Management BHN/BHCP Luis Brady Dividing Machine Operator. [phone](Confirmed) Active 1Dx in 2018 Social History Social History Type Response Smoking Status Never smoker entered on: 02/16/14 Sex Female
--- OUTSIDE RECORDS SUMMARY | 2023-10-16 08:00 | XMS_ITS | Continuity of Care Document ---
Author Organization [facility] Address [address] [place] [address]- Care Team Providers Care Med Surg Rn Name Role Phone Mariza Goodrich MD Primary Care Physician [phone] [facility] Date(s): 06/02/20 - 07/15/[address] [address]- Attending Physician: Kiki Arrington MD Admitting Physician: Kiki Arrington MD Allergies, Adverse Reactions, [...] 06/02/20 8:52:00 EST, Route to Pharmacy Electronically, [facility]/pharmacy #[id number], 163, cm, 02/16/20 10:15:00 EDT, Height, 105.7, [...] 1 each, Maintenance, send compliance data fax [phone] Dx GULSHAN send mask and CPAP supplies for patient patient states that she has been using PAP regularly and feels better sinceusing CPAP To [facility], 02/19/18 16:36:42 EDT, C... Start Date: 02/19/18 Status: Ordered diclofenac 1% topical gel 1 application, Topically, 3 times a day, PRN Knee Pain. Cypriot sig, # 100 Gm, 2 Refills, Maintenance, [...] each, 6 Refills, Maintenance, 04/14/19 10:44:43 EST, [place],[id number], 2 sprays Nares, Both Daily in AM, 163, cm, 04/14/19 10:18:38 EST, Height, 108.3, kg, 02/17/19 7:48:07 EDT, Dry Weight Start Date: 04/14/19 Status: Ordered hydrochlorothiazide 25 mg oral tablet 25 mg, 1, tablet, By Mouth, Daily, # 30 tablet, Refills 11, Tot. Refills 11, Maintenance, 08/11/19 8:30:00 EDT, Route to Pharmacy Electronically, [facility]/pharmacy #[id number], 163, cm, 06/11/19 10:50:00 EST, Height, 108.3, kg, 02/17/19 7:48:00 EDT, Dry Weight Start Date: 08/11/19 Status: Ordered ibuprofen 600 mg oral tablet 600 mg, 1, tablet, By Mouth, Every 8 hours, PRN Pain Cypriot Do not take with other NSAIDs (including Meloxicam), # 90 tablet, Refills 1, Tot. Refills 1, Maintenance, 06/02/20 8:53:00 EST, [id number], c... Start Date: 06/02/20 Stop Date: 08/01/20 Status: Ordered multivitamin Vitamin B Complex oral tablet 1 tablet, By Mouth, Daily, # 100 tablet, 2 Refills, Maintenance, 12/01/19 14:53:00 EDT, Tablet, [facility]/pharmacy #[id number], 1 tablet By [...] 04/27/20 14:24:00 EST, Route to Pharmacy Electronically, [id number], [facility]/pharmacy#[id number], 163, cm, 02/16/20 10:15:00 EDT, Height, 105.... Start Date: 04/27/20 Stop Date: 10/24/20 Status: Ordered Singulair 10 mg oral tablet 10 mg, 1, tablet, By Mouth, Daily, # 30 tablet, Refills 6, Tot. Refills 6, Maintenance, 04/27/20 12:29:00 EST, [id number] 163, cm, 02/16/20 10:15:00 EDT, Height, 105.7, kg, 09/12/19 20:00:00 EDT, Dry Weight Start Date: 04/27/20 Status: Ordered Spiriva HandiHaler 18 mcg inhalation capsule 1 capsule = 18 mcg, Inhalation, Daily, # 30 capsule, 11 Refills, Maintenance, 06/02/20 8:54:00 EST,[facility]/pharm[facility] #[id number], 163, cm, 02/16/20 10:15:00 EDT, Height, 105.7, kg, 09/12/19 20:00:00 EDT, Dry Weight Start Date: 06/02/20 Stop Date: 05/28/21 Status: Ordered Symbicort 160mcg/4.5mcg Inhaler See Instructions, INHALE DANDO DOS SOPLIDOS DOS VECES AL RAMESH, # 10.2 Unknown, Refills 6, Maintenance, Instructions Replace Required Details, Route to Pharmacy Electronically, [id number], [facility] STORE [id number], 163, cm, 06/29/20 10:... Start Date: 07/12/20 [...] CPAP)(Confirmed) Active Care Management BHN/BHCP Luis Brady Manager [place]. [phone](Confirmed) Active 1Dx in 2018 Social History Social History Type Response Smoking Status Never smoker entered on: 02/16/14 Sex Female
--- OUTSIDE RECORDS SUMMARY | 2023-10-16 08:00 | XMS_ITS | Continuity of Care Document ---
Author Organization [facility] Address [address] [place] [address]- Care Team Providers Care Senior Shipping Clerk Name Role Phone Mariza Goodrich MD Primary Care Physician Encounter [facility] Date(s): 08/12/20 - 09/11/[address] [address]- Allergies, Adverse Reactions, Alerts No Known Medication [...] EST, Route to Pharmacy Electronically, [facility]/pharmacy #[id number], 163, cm, 02/16/20 10:15:00 EDT, Height, 105.7, kg, 09/12/19 20:00:0... Start Date: 06/02/20 Stop Date: 08/01/20 Status: Ordered Aygestin 5 mg oral tablet 1 tablet = 5 mg, By Mouth, Daily, # 30 tablet, 2 Refills, Maintenance, 07/19/20 17:13:00 EDT, Tablet, [facility]/pharmacy #[id number], Partial fill upon patient request if the prescription is for a schedule II opioid drug., 163, cm, 07/19/20 16:05:00 EDT, Height,... Start Date: 07/19/20 Status: Ordered betamethasone topical dipropionate 0.05% cream 1 application, Topically, 2 times a day, # 15 Gm, 0 Refills, Maintenance, 07/22/20 11:38:00 EDT, Cream, [facility]/pharmacy #[id number], Partial fill upon patient request if the prescription is for a schedule II opioid drug., 1 application Topically 2 times a day,... Start Date: 07/22/20 Status: Ordered cetirizine 10 mg oral tablet 1 tablet = 10 mg, By Mouth, Daily, # 30 tablet, 6 Refills, Maintenance, 08/11/19 8:27:00 EDT, Tablet, [facility]/pharmacy #[id number], 163, cm, 06/11/19 10:50:00 EST, [...] 1 each, Maintenance, send compliance data fax [phone] Dx GULSHAN send mask and CPAP supplies [...] each, 11 Refills, Maintenance, 07/26/20 9:20:00 EDT, [place],[facility]/pharmacy #[id number], 2 sprays Nares, Both Daily in AM, 163, cm, 07/22/20 8:51:00 EDT, Height, 105.7,kg, 09/12/19 20:00:00 EDT, Dry Weight Start Date: 07/26/20 Status: Ordered hydrochlorothiazide 25 mg oral tablet 25 mg, 1, tablet, By Mouth, Daily, # 30 tablet, Refills 2, Tot. Refills 2, Maintenance, 08/27/20 10:02:00 EDT, Route to Pharmacy Electronically, [facility]/pharmacy #[id number], 163, cm, 08/24/20 16:26:00 EDT, Height, 105.7, kg, 09/12/19 20:00:00 EDT, Dry Weight Start Date: 08/27/20 Status: Ordered ibuprofen 600 mg oral tablet 600 mg, 1, tablet, By Mouth, Every 8 hours, PRN Pain Thai Do not take with other NSAIDs (including Meloxicam), # 90 tablet, Refills 1, Tot. Refills 1, Maintenance, 08/02/20 9:38:00 EDT, Route to Pharmacy Electronically, [facility]/pharmacy #[id number], 163, c... Start Date: 08/02/20 Stop Date: 10/01/20 Status: Ordered multivitamin Vitamin B Complex oral tablet 1 tablet, By Mouth, Daily, # 100 tablet, 2 Refills, Maintenance, 12/01/19 14:53:00 EDT, Tablet, [facility]/pharmacy #[id number], 1 tablet By Mouth Daily, [...] 10/24/20 14:24:00 EDT, Route to Pharmacy Electronically, [id number], [facility]/pharmacy #[id number], 163, cm, 07/22/20 8:51:00 EDT, Height, 105... Start Date: 10/24/20 Stop Date: 10/19/21 Status: Ordered ProAir HFA 90 mcg/inh inhalation aerosol with adapter 2, puffs, Inhalation, 4 times a day, PRN, for 30 days, # 1 each, Refills 5, Tot. Refills 5, Hard Stop 10/24/20 14:24:00 EDT, 04/27/20 14:24:00 EST, Route to Pharmacy Electronically, [id number], [facility]/pharmacy #[id number], 163, cm, 10... Start Date: 04/27/20 Stop Date: 10/24/20 Status: Ordered Singulair 10 mg oral tablet 10 mg, 1, tablet, By Mouth, Daily, # 30 tablet, Refills 6, Tot. Refills 6, Maintenance, 07/26/20 9:19:00 EDT, Route to Pharmacy Electronically, [facility]/pharmacy #[id number], 163, cm, 07/22/20 8:51:00 EDT, [...] Instructions Replace Required Details, Route to Pharmacy Electronically,[id number], [facility]... Start Date: 07/26/20 Status: Ordered Vitamin [...] CPAP)(Confirmed) Active Care Management BHN/BHCP Luis Brady Senior Financial Consultant. [id number](Confirmed) Active 1Dx in 2018 Social History Social History Type Response Smoking Status Never smoker entered on: 02/16/14 Sex Female
--- OUTSIDE RECORDS SUMMARY | 2023-10-16 08:00 | XMS_ITS | Continuity of Care Document ---
Author Organization [facility] Address [address] [place] [address]- Care Team Providers Care Order Builder Name Role Phone Kp JOHNS, Mariza Primary Care Physician Encounter [facility] Date(s): 05/02/21 - 06/01/[address] [address]- Allergies, Adverse Reactions, Alerts No Known Allergies [...] 1 each, Maintenance, send compliance data fax [id number] Dx GULSHAN send mask and CPAP supplies [...] mg, By Mouth, 2 times a day, Djiboutian sig. PRN Pain, # 60 tablet, 1 Refills, Maintenance, 05/19/21 17:37:00 EST, Tablet, [facility]/pharmacy #[id number], Partial fill upon patient request if the prescription is for a schedule II opioid drug., 163, cm... Start Date: 05/19/21 Status: Ordered Flonase 50 mcg/inh nasal spray 2 sprays, Nares, Both, Daily in AM, # 1 each, 11 Refills, Maintenance, 07/26/20 9:20:00 EDT, [place],[facility]/pharmacy #[id number], 2 sprays Nares, Both Daily in AM, 163, cm, 07/22/20 8:51:00 EDT, Height, 105.7,kg, 09/12/19 20:00:00 EDT, Dry Weight Start Date: 07/26/20 Status: Ordered hydrochlorothiazide 25 mg oral tablet 25 mg, 1, tablet, By Mouth, Daily, # 30 tablet, Refills 6, Tot. Refills 6, Maintenance, 11/29/20 10:04:00 EDT, Route to Pharmacy Electronically, [facility]/pharmacy #[id number], 163, cm, 11/29/20 9:31:00 EDT, Height, 102.9, kg, 05/21/20 8:52:00 EST, Dry Weight Start Date: 11/29/20 Status: Ordered lidocaine 5% topical cream 1 application, Topically, 3 times a day, PRN Pain. Djiboutian sig, # 45 Gm, 1 Refills, Maintenance, 01/10/21 9:40:00 EDT, Cream, [facility]/pharmacy #[id number], Partial fill upon patient [...] 10/24/20 14:24:00 EDT, Route to Pharmacy Electronically, [id number], [facility]/pharmacy #[id number], 163, cm, 07/22/20 8:51:00 EDT, Height, 105... Start Date: 10/24/20 Stop Date: 10/19/21 Status: Ordered Singulair 10 mg oral tablet 10 mg, 1, tablet, By Mouth, Daily, # 30 tablet, Refills 6, Tot. Refills 6, Maintenance, 11/29/20 10:04:00 EDT, Route to Pharmacy Electronically, [facility]/pharmacy #[id number], 163, cm, 11/29/20 9:31:00 EDT, Height, 102.9, kg, 05/21/20 8:52:00 EST, Dry Weight Start Date: 11/29/20 Status: Ordered Spiriva HandiHaler 18 mcg inhalation capsule 1 capsule = 18 mcg, Inhalation, Daily, for 30 days, # 30 capsule, 11 Refills, Hard Stop 11/24/21 10:04:00 EDT, 11/29/20 10:04:00 EDT, [facility]/pharmacy #[id number], 163, cm, 11/29/20 9:31:00 EDT, Height, 102.9,kg, 05/21/20 8:52:00 EST, Dry Weight Start Date: 11/29/20 Stop Date: 11/24/21 Status: Ordered Symbicort 160mcg/4.5mcg Inhaler See Instructions, INHALE DANDO DOS SOPLIDOS DOS VECES AL RAMESH, # 10.2 Unknown, Refills 6, Tot. Refills 6, 11/29/20 10:04:00 EDT, Instructions Replace Required Details, Route to Pharmacy Electronically, [id number], [facility] 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 [id number](Confirmed) Active 1Dx in 2018 Social History Social History Type Response Smoking Status Never smoker entered on: 02/16/14 Sex Female
--- OUTSIDE RECORDS SUMMARY | 2023-10-16 08:00 | XMS_ITS | Continuity of Care Document ---
Author Organization [facility] Address [address] [place] [address]- Care Team Providers Care Accounts Payable Administrator Name Role Phone Kp JOHNS, Mariza Primary Care Physician Encounter [facility] Date(s): 07/06/20 - 08/05/20 [facility] [address] [place], [place] [address] Allergies, Adverse Reactions, Alerts No Known Medication [...] 06/02/20 8:52:00 EST, Route to Pharmacy Electronically, [facility]/pharmacy #[id number], 163, cm, 02/16/20 10:15:00 EDT, Height, 105.7, kg, 09/12/19 20:00:0... Start Date: 06/02/20 Stop Date: 08/01/20 Status: Ordered Aygestin 5 mg oral tablet 1 tablet = 5 mg, By Mouth, Daily, # 30 tablet, 2 Refills, Maintenance, 07/19/20 17:13:00 EDT, Tablet, [facility]/pharmacy #[id number], Partial fill upon patient request if the prescription is for a schedule II opioid drug., 163, cm, 07/19/20 16:05:00 EDT, Height,... Start Date: 07/19/20 Status: Ordered betamethasone topical dipropionate 0.05% cream 1 application, Topically, 2 times a day, # 15 Gm, 0 Refills, Maintenance, 07/22/20 11:38:00 EDT, Cream, [facility]/pharmacy #[id number], Partial fill upon patient request if [...] 1 each, Maintenance, send compliance data fax [phone] Dx GULSHAN send mask and CPAP supplies [...] each, 11 Refills, Maintenance, 07/26/20 9:20:00 EDT, [place],[facility]/pharmacy #[id number], 2 [...] 08/02/20 9:38:00 EDT, Route to Pharmacy Electronically, [facility]/pharmacy #[id number], 163, c... Start Date: 08/02/20 Stop [...] 10/24/20 14:24:00 EDT, Route to Pharmacy Electronically, [id number], [facility]/pharmacy #[id number], 163, cm, 07/22/20 8:51:00 EDT, Height, 105... Start Date: 10/24/20 Stop Date: 10/19/21 Status: Ordered ProAir HFA 90 mcg/inh inhalation aerosol with adapter 2, puffs, Inhalation, 4 times a day, PRN, for 30 days, # 1 each, Refills 5, Tot. Refills 5, Hard Stop 10/24/20 14:24:00 EDT, 04/27/20 14:24:00 EST, Route to Pharmacy Electronically, [id number], [facility]/pharmacy #[id number], 163, cm, 10... Start Date: 04/27/20 Stop Date: 10/24/20 Status: Ordered Singulair 10 mg oral tablet 10 mg, 1, tablet, By Mouth, Daily, # 30 tablet, Refills 6, Tot. Refills 6, Maintenance, 07/26/20 9:19:00 EDT, Route to Pharmacy Electronically, [facility]/pharmacy #[id number], 163, cm, 07/22/20 8:51:00 EDT, Height, [...] Instructions Replace Required Details, Route to Pharmacy Electronically,[id number], [facility] 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 [id number](Confirmed) Active 1Dx in 2018 Social History Social History Type Response Smoking Status Never smoker entered on: 02/16/14 Sex Female
--- OUTSIDE RECORDS SUMMARY | 2023-10-16 08:00 | XMS_ITS | Continuity of Care Document ---
Author Organization [facility] Address [address] [place] [address]- Care Team Providers Care Mat Packer Name Role Phone Mariza Goodrich MD Primary Care Physician [phone] Encounter [facility] Date(s): 05/21/20 - 06/20/[address] [address]- Allergies, Adverse Reactions, Alerts No Known Medication [...] 06/02/20 8:52:00 EST, Route to Pharmacy Electronically, [facility]/pharmacy #[id number], 163, cm, 02/16/20 10:15:00 EDT, Height, 105.7, [...] 1 each, Maintenance, send compliance data fax [phone] Dx GULSHAN send mask and CPAP supplies for patient patient states that she has been using PAP regularly and feels better sinceusing CPAP To [facility], 02/19/18 16:36:42 EDT, C... Start Date: 02/19/18 Status: Ordered diclofenac 1% topical gel 1 application, Topically, 3 times a day, PRN Knee Pain. American sig, # 100 Gm, 2 Refills, Maintenance, [...] 6 Refills, Maintenance, 04/14/19 10:44:43 EST, [place],[facility]/pharmacy #[id number], 2 sprays Nares, Both Daily in AM, 163, cm, 04/14/19 10:18:38 EST, Height, 108.3, kg, 02/17/19 7:48:07 EDT, Dry Weight Start Date: 04/14/19 Status: Ordered hydrochlorothiazide 25 mg oral tablet 25 mg, 1, tablet, By Mouth, Daily, # 30 tablet, Refills 11, Tot. Refills 11, Maintenance, 08/11/19 8:30:00 EDT, Route to Pharmacy Electronically, [facility]/pharmacy #[id number], 163, cm, 06/11/19 10:50:00 EST, Height, 108.3, kg, 02/17/19 7:48:00 EDT, Dry Weight Start Date: 08/11/19 Status: Ordered ibuprofen 600 mg oral tablet 600 mg, 1, tablet, By Mouth, Every 8 hours, PRN Pain American Do not take with other NSAIDs (including Meloxicam), # 90 tablet, Refills 1, Tot. Refills 1, Maintenance, 06/02/20 8:53:00 EST, Route to Pharmacy Electronically, [facility]/pharmacy #[id number], 163, c... Start Date: 06/02/20 Stop Date: 08/01/20 Status: Ordered ketoconazole 1% topical shampoo See Instructions, 1 applicator Topically 2 times per week for 4 weeks. American sig, # 200 mL, 0 Refills, Maintenance, 04/09/20 8:49:00 EST, [facility]/pharmacy #[id number], 1 applicator Topically 2 times per weekfor 4 weeks. American sig, 163, cm, 02/16/20 10:15:0... Start Date: [...] 2 Refills, Maintenance, 12/01/19 14:53:00 EDT, Tablet, [facility]/pharmacy #[id number], 1 tablet By [...] 04/27/20 14:24:00 EST, Route to Pharmacy Electronically, [id number], [facility]/pharmacy#[id number], 163, cm, 02/16/20 10:15:00 EDT, Height, 105.... Start Date: 04/27/20 Stop Date: 10/24/20 Status: Ordered Qvar Redihaler 80 mcg/inh inhalation aerosol 1 puffs, Inhalation, 2 times a day, # 1 each, 0 Refills, Maintenance, 05/14/20 15:22:00 EST, [facility]/pharmacy #[id number], This is in ADDITION to Symbicort. To be used as short course given concern for acute flair. Rx in American, 1 puffs Inhalation 2 times a da... Start Date: 05/14/20 Stop Date: 05/21/20 Status: Ordered Singulair 10 mg oral tablet 10 mg, 1, tablet, By Mouth, Daily, # 30 tablet, Refills 6, Tot. Refills 6, Maintenance, 04/27/20 12:29:00 EST, Route to Pharmacy Electronically, [facility]/pharmacy #[id number], 163, cm, 02/16/20 10:15:00 EDT, Height, 105.7, kg, 09/12/19 20:00:00 EDT, Dry Weight Start Date: 04/27/20 Status: Ordered Spiriva HandiHaler 18 mcg inhalation capsule 1 capsule = 18 mcg, Inhalation, Daily, # 30 capsule, 11 Refills, Maintenance, 06/02/20 8:54:00 EST,[facility]/pharmacy #[id number], 163, cm, 02/16/20 10:15:00 EDT, Height, 105.7, kg, 09/12/19 20:00:00 EDT, Dry Weight Start Date: 06/02/20 Stop Date: 05/28/21 Status: Ordered Symbicort 160mcg/4.5mcg Inhaler 2, puffs, Inhalation, 2 times a day, Discontinue Advair, # 6 Gm, Refills 6, Tot. Refills 6, Maintenance, 10/21/19 9:21:00 EDT, Aerosol, Route to Pharmacy Electronically, [id number], [facility]/pharmacy #[id number], 163, cm, 10/14/19 12:52... Start Date: 10/21/19 Status: Ordered Vitamin D3 oral tablet By Mouth, Daily, 0 Refills, Maintenance, 06/02/19 21:11:00 EST Start Date: 06/02/19 Status: Ordered Water-based Physical Therapy at [facility] Water-based Physical Therapy at [facility], See Instructions, # 1 each, [...] CPAP)(Confirmed) Active Care Management BHN/BHCP Luis Brady Neon Glass Blower. [id number](Confirmed) Active 1Dx in 2018 Social History Social History Type Response Smoking Status Never smoker entered on: 02/16/14 Sex Female
--- OUTSIDE RECORDS SUMMARY | 2023-10-16 08:00 | XMS_ITS | Continuity of Care Document ---
Author Organization [facility] Address [address] [place] [address]- Care Team Providers Care Manager Field Sales Name Role Phone Mariza Goodrich MD Primary Care Physician Encounter [facility] Date(s): 06/03/19 - 07/03/19 [facility] [address] [place] [address]- [facility] Attending Physician: Douglas Addison MD Referring Physician: [...] 0.083% inhalation michael PRN, Refills 0, Maintenance, lot#[id number] exp august 2020, 03/10/19 18:53:20 EST Start Date: 03/10/19 Status: Ordered Albuterol 0.083% inhalation michael See Instructions, given at office visit lot # [id number] Exp 09/17, Refills 0, Maintenance, 03/26/19 9:24:59 [...] 9:14:15 EST, Aerosol, Route to Pharmacy Electronically, [id number], [facility]/pharmacy #[id number], Compound Start [...] 1 each, Maintenance, send compliance data fax [phone] Dx [place] send mask and CPAP supplies for patient patient states that she has been using PAP regularly and feels better sinceusing CPAP To [facility] [place], 02/19/18 16:36:42 EDT, C... Start Date: 02/19/18 Status: Ordered diclofenac 1% topical gel 1 application, Topically, 3 times a day, PRN Knee Pain. Monegasque sig, # 100 Gm, 2 Refills, Maintenance, 06/12/19 11:31:00 EST, Gel, [facility]/pharmacy #[id number], 163, [...] 12/10/17 16:59:07 EDT, Route to Pharmacy Electronically, [id number], [facility]/pharmacy #[id number] Start Date: 12/10/17 Status: Ordered Flonase 50 mcg/inh nasal spray 2 sprays, Nares, Both, Daily in AM, # 1 each, 6 Refills, Maintenance, 04/14/19 10:44:43 EST, [place],[facility]/pharmacy #[id number], 2 sprays Nares, Both [...] 10 mg oral tablet See Instructions, MANDA GERMAIN EVELYNA DOS VECES AL RAMESH, # 60 tablet, 2 Refills, Soft Stop, [facility] STORE [id number], 163, cm, 04/14/19 10:18:00 EST, Height, 108.3, kg, 02/17/19 7:48:00 EDT, Dry Weight Start Date: 05/15/19 Status: Ordered hydrochlorothiazide 25 mg oral tablet 25 mg, 1, tablet, By Mouth, Daily, # 30 tablet, Refills 11, Tot. Refills 11, Maintenance, 11/28/17 15:46:59 EDT, Route to Pharmacy Electronically, [id number], [facility]/pharmacy #[id number] Start Date: 11/28/17 Status: Ordered ketoconazole 1% topical shampoo See Instructions, 1 applicator Topically 2 times per week for 4 weeks. Monegasque sig, # 200 mL, 0 Refills, Maintenance, 04/09/19 9:23:01 EST, 1 applicator Topically 2 times per week for 4 weeks. Monegasque sig, 163, cm, 04/09/19 8:51:21 EST, Height, [...] 15 mg, By Mouth, Daily, With food. Greenlandic sig. PRN Pain, # 30 tablet, 0 Refills, Maintenance, 02/25/19 17:05:09 EDT, Tablet Start Date: 02/25/19 Status: Ordered ondansetron 2 mg/mL injectable solution = 4 mg, Intramuscular, Once, LOT [id number] EXP 10/2019 Left Deltoid, # 2 mL, [...] 0 Refills, Soft Stop, 04/14/19 10:45:22 EST, Tablet,[facility]/pharmacy #[id number], 163, cm, 04/14/19 10:18:38 EST, Height, 108.3, kg, 02/17/19 7:48:07 EDT, Dry Weight Start Date: 04/14/19 Stop Date: 04/21/19 Status: Ordered ProAir HFA 90 mcg/inh inhalation aerosol with adapter 2, puffs, Inhalation, 4 times a day, PRN, # 1 application, Refills 6, Tot. Refills 6, Maintenance, 02/11/18 19:13:20 EDT, Route to Pharmacy Electronically, [id number], [facility]/pharmacy #[id number] Start Date: 02/11/18 Stop Date: 09/09/18 Status: Ordered Provera 10 mg oral tablet 10 mg, 1, tablet, By Mouth, Daily, # 30 tablet, Refills 2, Tot. Refills 2, Maintenance, 10/30/17 11:33:21 EDT, Route to Pharmacy Electronically, [id number], [facility]/pharmacy #[id number] Start Date: 10/30/17 Status: Ordered Singulair 10 mg oral tablet 10 mg, 1, tablet, By Mouth, Daily, # 30 tablet, Refills 6, Tot. Refills 6, Maintenance, 03/26/19 8:57:56 EST, Route to Pharmacy Electronically, [id number], [facility]/pharmacy #[id number] Start Date: [...] 8:58:21 EST, Aerosol, Route to Pharmacy Electronically, [id number], [facility]/pharmacy #[id number] Start Date: 03/26/19 Status: Ordered Vitamin D3 1000 intl units oral tablet 1 tablet = 1,000 International_Units, By Mouth, Daily, # 30 tablet, 11 Refills, Maintenance, 06/28/18 18:01:13 EST, Tablet Start Date: 06/28/18 Status: Ordered Water-based Physical Therapy at [facility] Water-based Physical Therapy at [facility], See Instructions, # 1 each, Refills 0, Tot. Refills 0, Maintenance, 2 times per week. To improve function, ROM, decrease pain. Diagnosis: Fibromyalgia, Chronic Back Pain. ICD10 M79.7,M54.9, 11/04/18 18:32:11 EDT,... Start Date: 11/04/18 Status: Ordered Zofran ODT 4 mg oral tablet, disintegrating 1 tablet = 4 mg, By Mouth, Every 8 hours, PRN as needed for nausea/vomiting, Monegasque sig, # 9 tablet, 0 Refills, Maintenance, [...] (on CPAP)(Confirmed) Active Care Management FELIX Cui [facility] Vaccinator [phone](Confirmed) Active 1Dx in 2018 Social History Social History Type Response Smoking Status Never smoker entered on: 02/16/14 Sex Female
--- NOTE | 2023-10-16 15:04 | A.OFFVIS_ITS ---
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[employer]* Allergies No Known Allergies Allergy (Verified 10/16/23 15:05) Medication List - Last Reconciled 10/16/23 by Edgar Johansen MD albuterol sulfate 90 mcg/actuation (Ventolin HFA) inhalation budesonide-formoterol 160-4.5 mcg/actuation (Symbicort) inhalation clonazepam mg PO escitalopram oxalate 10 mg PO DAILY hydrochlorothiazide 25 mg PO DAILY montelukast 10 mg PO DAILY pregabalin 200 mg PO BID tiotropium bromide (Spiriva with HandiHaler) 1 cap inhalation DAILY 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[employer]*: Details: Start time: 2.45pm, End time: 3.45pm I spent 50 minutes speaking with the patient on the phone plus an additional 10 minutes reviewing and updating records for a total of 60minutes HPI Comments Details: Previous weight loss efforts: several efforts including diet and exercise Wakes up: 8am, Sleeps: 9pm Breakfast: 10am (poached eggs or boiled eggs with bread) Lunch: 2pm (rice with chicken) Dinner 6pm (salad, or sandwich) Snacks: 4pm (cheese with crackers) Exercise: goes to the Gym Fluids: Coffee (1 cup/day, tea: none, soda: none, juice: none, ETOH: none PFSH Medical History (Updated 10/16/23 @ 15:12 by Edgar Johansen MD) Anxiety Depression Sleep apnea treated with continuous positive airway pressure (CPAP) Fibromyalgia Hypertension Asthma Morbid obesity Surgical History (Updated 10/16/23 @ 15:12 by Edgar Johansen MD) History of appendectomy History of laparoscopic cholecystectomy History of delivery Social History (Updated 07/06/23 @ 13:17 by Christy Isidro CMA) Alcohol intake: never Patient Tobacco Use Status: Never used Tobacco Telehealth Telehealth Telehealth Platform: Telephone Location of provider rendering services: practice address Location of patient: address on file Patient Identification confirmed using: Name, : Yes Telehealth method: voice only Patient verbally consented to treatment: Yes Patient verbally consented to billing insurance company: Yes Patient informed of any privacy concerns related to visit: Yes Minutes spent on Phone/Video with Pt.: 60 Assessment & Plan Assessment & Plan (1) Morbid obesity: Code(s): E66.01 - Morbid (severe) obesity due to excess calories Category: Medical Plan: 1.? Plan for lap sleeve gastrectomy. If diaphragmatic or ventral hernias are present at time of surgery, these will be repaired laparoscopically as well. Risks and complications include possible conversion to an open procedure, anastomotic leak, bleeding requiring transfusion, small bowel obstruction, , DVT and pulmonary embolism, cardiac, or pulmonary complications, as retirement complications such as anastomotic ulcer, insufficient weight loss and vitamin deficiencies. I emphasized the importance of close follow-up, adherence to instructions and good communication. 2. You will receive a link of our software jennyfer to generate an individualized nutritional and exercise plan specific for you. Please send me a screenshot of the plans you will generate Meal to include lean meat (beef, fish, pork, turkey, chicken), or armenian yogurt, or egg whites, or beans with a salad with olive oil and fruits (berries, pears, apples, kiwi). Avoid salt, breads, potatoes, rice, pasta, desserts. ?3. If you choose shakes, each shake would be drunk slowly, like coffee in a period of 2 hours. ?4. If you choose bars, cut each bar in 4 pieces and eat each piece in 30min ?to make each bar last 2 hours. ?5. I emphasized the importance of measuring accurately the food portion and measure it when serving the food in plate ?6. The meal portions include a specific number of forks of meat and salad. You always eat the meat portion but you can replace up to half of salad/vegetables portion with rice, potatoes or pasta, or a fruit ?if you like. The less you do it the better weight loss will be. ?7. One full-size fork is what it can be scooped on the fork without falling aside and not what can be bit with the fork. Use regular forks like those you find in a typical restaurant. ?8.? Please send me weight measurements as soon as possible and then once a week. Always include your diet and exercise plan. 9. The best choice would be to purchase a stationary bike, elliptical or treadmill at home that can track calories. Let me know if you do so I can give you an exercise plan. ?10.?It is important of avoiding and for at least 18 months postoperatively and has been discussed at the infosession. ?11. Goal is to lose at least 1.5-2lbs per week ?12. Goal to lose 10% of your weight before surgery, which is about 23lbs. Ultimate weight goal: 210lbs before surgery 13. Please follow the diet plan exactly without any change. If you don't like something about the plan or you feel hungry you need to communicate with me so I can help you revise the plan. You should not change the plan yourself. 14. To be scheduled for EGD to assess the anatomy of her stomach. The possibility of biopsies was discussed. Patient needs to avoid use of NSAIDs and aspirin for 1 week prior to EGD. Risks of perforation and? bleeding was discussed with the patient. This will be an outpatient procedure with IV sedation. Orders: Orders Hemoglobin A1c Today E66.01 - Morbid (severe) obesity due to excess calories, G47.30 - Sleep apnea, unspecified, I10 - Essential (primary) hypertension, J45.909 - Unspecified asthma, uncomplicated Vitamin B12 and Folate Today E66.01 - Morbid (severe) obesity due to excess calories, G47.30 - Sleep apnea, unspecified, I10 - Essential (primary) hypertension, J45.909 - Unspecified asthma, uncomplicated Zinc Today E66.01 - Morbid (severe) obesity due to excess calories, G47.30 - Sleep apnea, unspecified, I10 - Essential (primary) hypertension, J45.909 - Unspecified asthma, uncomplicated Vitamin B1 Today E66.01 - Morbid (severe) obesity due to excess calories, G47.30 - Sleep apnea, unspecified, I10 - Essential (primary) hypertension, J45.909 - Unspecified asthma, uncomplicated Vitamin A Today E66.01 - Morbid (severe) obesity due to excess calories, G47.30 - Sleep apnea, unspecified, I10 - Essential (primary) hypertension, J45.909 - Unspecified asthma, uncomplicated TSH reflex Free T4 Today E66.01 - Morbid (severe) obesity due to excess calories, G47.30 - Sleep apnea, unspecified, I10 - Essential (primary) hypertension, J45.909 - Unspecified asthma, uncomplicated US abdomen comp w elastography Today E66.01 - Morbid (severe) obesity due to excess calories, G47.30 - Sleep apnea, unspecified, I10 - Essential (primary) hypertension, J45.909 - Unspecified asthma, uncomplicated ECG 12 lead EKG Today E66.01 - Morbid (severe) obesity due to excess calories, G47.30 - Sleep apnea, unspecified, I10 - Essential (primary) hypertension, J45.909 - Unspecified asthma, uncomplicated Insulin Today E66.01 - Morbid (severe) obesity due to excess calories, G47.30 - Sleep apnea, unspecified, I10 - Essential (primary) hypertension, J45.909 - Unspecified asthma, uncomplicated H Pylori Breath Test Today E66.01 - Morbid (severe) obesity due to excess calories, G47.30 - Sleep apnea, unspecified, I10 - Essential (primary) hypertension, J45.909 - Unspecified asthma, uncomplicated Complete Blood Count Auto Diff Today E66.01 - Morbid (severe) obesity due to excess calories, G47.30 - Sleep apnea, unspecified, I10 - Essential (primary) hypertension, J45.909 - Unspecified asthma, uncomplicated Lipid Panel Today E66.01 - Morbid (severe) obesity due to excess calories, G47.30 - Sleep apnea, unspecified, I10 - Essential (primary) hypertension, J45.909 - Unspecified asthma, uncomplicated IRON PROFILE Today E66.01 - Morbid (severe) obesity due to excess calories, G47.30 - Sleep apnea, unspecified, I10 - Essential (primary) hypertension, J45.909 - Unspecified asthma, uncomplicated Comprehensive Met. Panel Today E66.01 - Morbid (severe) obesity due to excess calories, G47.30 - Sleep apnea, unspecified, I10 - Essential (primary) hypertension, J45.909 - Unspecified asthma, uncomplicated C Reactive Protein Today E66.01 - Morbid (severe) obesity due to excess calories, G47.30 - Sleep apnea, unspecified, I10 - Essential (primary) hypertension, J45.909 - Unspecified asthma, uncomplicated Ferritin Today E66.01 - Morbid (severe) obesity due to excess calories, G47.30 - Sleep apnea, unspecified, I10 - Essential (primary) hypertension, J45.909 - Unspecified asthma, uncomplicated Vitamin D 25-OH Total Today E66.01 - Morbid (severe) obesity due to excess calories, G47.30 - Sleep apnea, unspecified, I10 - Essential (primary) hypertension, J45.909 - Unspecified asthma, uncomplicated XR chest 2V Today E66.01 - Morbid (severe) obesity due to excess calories, G47.30 - Sleep apnea, unspecified, I10 - Essential (primary) hypertension, J45.909 - Unspecified asthma, uncomplicated FL upper GI w air Today E66.01 - Morbid (severe) obesity due to excess calories, G47.30 - Sleep apnea, unspecified, I10 - Essential (primary) hypertension, J45.909 - Unspecified asthma, uncomplicated Referrals Behavioral Health Referral E66.01 - Morbid (severe) obesity due to excess calories, G47.30 - Sleep apnea, unspecified, I10 - Essential (primary) hypertension, J45.909 - Unspecified asthma, uncomplicated Nutrition/Dietitian Referral E66.01 - Morbid (severe) obesity due to excess calories, G47.30 - Sleep apnea, unspecified, I10 - Essential (primary) hypertension, J45.909 - Unspecified asthma, uncomplicated
[2023-10-16 15:13] VITALS: BMI 40.0
== END 2023-10-16 15:45 | disposition home or self-care (01) ==
LOC: HO.HBS 07:55
PROVIDERS: PCP Pediatrics; Visit Provider Surgery
DX: E66.01 Morbid (severe) obesity due to excess calories (principal); Z68.41 Body mass index [BMI] 40.0-44.9, adult
CPT/HCPCS: 99205

== ENCOUNTER → 2023-10-16 07:55 | Outpatient (BNVA) | payer OTHER, SELFPAY | PROVIDERS: PCP Pediatrics; Visit Provider Surgery ==

== ENCOUNTER 2023-10-17 08:16 | Outpatient (REF) | payer OTHER, SELFPAY ==
--- NOTE | ~2023-10-17 | XR_ITS ---
EXAMINATION: XR CHEST CLINICAL INFORMATION: Morbid severe obesity due to excess calories. COMPARISON: None available. TECHNIQUE: 2 views of the chest were obtained. FINDINGS: There is no gross pneumothorax. Lung volumes are low. Heart size is normal. Mild levoscoliosis of the thoracic spine with multilevel degenerative changes. No pleural effusion. No focal consolidation to suggest pneumonia. XR/XR chest 2V IMPRESSION: No evidence of pneumonia.
[2023-10-17 08:39] LABS: MANUAL DIFF FLAG NO
[2023-10-17 09:10] LABS: Basophils Percent Auto 0.2 % (0-2); Eosinophils Percent Auto 0.3 % (0-4); Hematocrit 37.6 % (37.0-47.0); Hemoglobin 12.7 g/dl (12.0-16.0); Imm Gran Abs Auto 0.05 X10*3/uL (0.00-0.03); Imm Gran Pct Auto 0.4 % (0.0-0.4); Lymphocytes Absolute Auto 2.2 X10*3/uL (1.2-4.9); Lymphocytes Percent Auto 19.3 % (20-40); Mean Corpuscular HGB Conc 33.8 g/dl (31.0-35.0); Mean Corpuscular Hemoglobin 29.5 pg (27.0-33.0); Mean Corpuscular Volume 87.4 fL (80.0-98.0); Mean Platelet Volume 10.1 fL (9.4-12.3); Monocytes Absolute Auto 0.7 X10*3/uL (0.1-1.2); Neutrophils Absolute Auto 8.4 x10*3/uL (2.0-8.3); Neutrophils Percent Auto 73.8 % (45-73); Platelet Count 255 X10*3/uL (160-400); Red Cell Distribution Width 13.7 % (11.0-16.0); White Blood Count 11.4 X10*3/uL (4.8-10.8)
[2023-10-17 09:22] LABS: Estimated Average Glucose 108 mg/dL; Hemoglobin A1c % 5.4 % (<6.0)
[2023-10-17 10:01] LABS: Alanine Aminotransferase 12 U/L (0-31); Albumin Level 3.8 g/dL (3.5-5.0); Alkaline Phosphatase 44 U/L (39-117); Anion Gap 12 (12-20); Aspartate Amino Transferase 10 U/L (5-31); Bilirubin Total 0.5 mg/dL (0.0-1.0); Blood Urea Nitrogen 17 mg/dL (9-16); Calcium 8.7 mg/dL (8.4-10.2); Carbon Dioxide 27 mmol/L (22-29); Chloride 105 mmol/L (96-108); Cholesterol 168 mg/dL (<200); Estimated Glomerular Filt Rate > 60; Glucose Random 109 mg/dL (60-115); HDL Cholesterol 48 mg/dL (>40); Iron 62 mcg/dL (30-160); LDL Cholesterol Calculated 105 mg/dL (<100); Percent Iron Saturation 23 % (15-50); Potassium 3.5 mmol/L (3.3-5.1); Sodium 140 mmol/L (135-145); Total Iron Binding Capacity 271 mcg/dL (228-428); Total Protein 6.9 g/dL (6.5-8.0); Triglycerides 75 mg/dL (<150); Unsaturated Iron Binding 209 ug/dL
[2023-10-17 10:33] LABS: Ferritin 91 ng/mL (10-250); TSH reflex Free T4 1.65 uIU/mL (0.32-4.0); Vitamin D 25-OH Total 27.3 ng/mL (>30)
[2023-10-17 11:27] LABS: Insulin 12 uU/mL (2-29)
[2023-10-17 11:31] LABS: Folate 10.3 ng/mL (> or = 4.0); Vitamin B12 286 pg/mL (200-900)
[2023-10-20 06:44] LABS: Zinc 72 mcg/dL (60-130)
[2023-10-22 06:38] LABS: Vitamin B1 11 nmol/L (8-30)
[2023-10-22 16:14] LABS: Vitamin A 52 mcg/dL (38-98)
== END 2023-10-17 08:17 | disposition home or self-care (01) ==
LOC: HO.XRAY 08:16
PROVIDERS: PCP Pediatrics; Visit Provider Surgery
DX: E66.01 Morbid (severe) obesity due to excess calories (principal); I10 Essential (primary) hypertension; J45.909 Unspecified asthma, uncomplicated; G47.30 Sleep apnea, unspecified
CPT/HCPCS: 36415; 71046; 80053; 80061; 82306; 82607; 82728; 82746; 83036; 83525; 83540; 84425; 84443; 84590; 84630; 85025; 86140

== ENCOUNTER 2023-11-07 13:00 | Day surgery (SDC) | payer OTHER, SELFPAY ==
--- NOTE | 2023-11-05 13:29 | HO.ANESPROP2 ---
Documented by User: Priya Melendez NP 11/05/23 13:30 HPI - Anesthesia Eval Consult details Narrative: 48yo F for Upper Endoscopy PMFSH Active Problems Active Problems: All Active Problems Anxiety (Acute) Depression (Acute) Sleep apnea treated with continuous positive airway pressure (CPAP) (Acute) Fibromyalgia (Acute) Hypertension (Acute) Asthma (Acute) Morbid obesity (Acute) Past Medical History Medical History Anxiety Depression Sleep apnea treated with continuous positive airway pressure (CPAP) Fibromyalgia Hypertension Asthma Morbid obesity Surgical History Surgical History History of appendectomy History of laparoscopic cholecystectomy History of delivery Social History Social History Alcohol intake: never Patient Tobacco Use Status: Never used Tobacco Use of substances other than those prescribed or required for medical reasons: No Are you DNR?: No Advance Directives: No Advance Directives Information Provided: Yes Meds Allergies Allergy/AdvReac Type Severity Reaction Status Date / Time No Known Allergies Allergy Verified 10/16/23 15:05 Home Medications ?Medication ?Instructions ?Recorded ?Confirmed ?Last Taken ?Type budesonide-formoterol HFA 160 1 puff inhalation DAILY 07/06/23 11/07/23 Unknown History mcg-4.5 mcg/actuation aerosol inhaler (Symbicort) clonazepam 0.5 mg tablet 0.5 mg PO DAILY 07/06/23 11/07/23 Unknown History escitalopram oxalate 10 mg tablet 10 mg PO DAILY 07/06/23 11/07/23 Unknown History hydrochlorothiazide 25 mg tablet 25 mg PO DAILY 07/06/23 11/07/23 Unknown History montelukast 10 mg tablet 10 mg PO DAILY 07/06/23 11/07/23 Unknown History pregabalin 200 mg capsule 200 mg PO BID 07/06/23 11/07/23 Unknown History tiotropium bromide 18 mcg capsule 1 cap inhalation DAILY 07/06/23 11/07/23 Unknown History with inhalation device (Spiriva with HandiHaler) albuterol 90 mcg/actuation aerosol 90 mcg inhalation Q4H PRN 11/07/23 11/07/23 Unknown History inhaler shortness of breathness or wheeze Assessment and Plan Assessment Anesthesia Assessment: Chart Reviewed Documented by User: Carli Henriquez MD 11/07/23 14:58 PMFSH Active Problems Active Problems: All Active Problems Anxiety (Acute) Depression (Acute) Sleep apnea treated with continuous positive airway pressure (CPAP) (Acute) Fibromyalgia (Acute) Hypertension (Acute) Asthma (Acute). Controlled. Stable Morbid obesity BMI 40 Past Medical History Medical History Anxiety Depression Sleep apnea treated with continuous positive airway pressure (CPAP) Fibromyalgia Hypertension Asthma Morbid obesity Family History Family history of problems with anesthesia: No Surgical History Surgical History History of appendectomy History of laparoscopic cholecystectomy History of delivery History of Problems with Anesthesia: No Social History Social History Alcohol intake: never Patient Tobacco Use Status: Never used Tobacco Use of substances other than those prescribed or required for medical reasons: No Are you DNR?: No Advance Directives: No Advance Directives Information Provided: Yes Meds Allergies Allergy/AdvReac Type Severity Reaction Status Date / Time No Known Allergies Allergy Verified 10/16/23 15:05 Home Medications ?Medication ?Instructions ?Recorded ?Confirmed ?Last Taken ?Type budesonide-formoterol HFA 160 1 puff inhalation DAILY 07/06/23 11/07/23 Unknown History mcg-4.5 mcg/actuation aerosol inhaler (Symbicort) clonazepam 0.5 mg tablet 0.5 mg PO DAILY 07/06/23 11/07/23 Unknown History escitalopram oxalate 10 mg tablet 10 mg PO DAILY 07/06/23 11/07/23 Unknown History hydrochlorothiazide 25 mg tablet 25 mg PO DAILY 07/06/23 11/07/23 Unknown History montelukast 10 mg tablet 10 mg PO DAILY 07/06/23 11/07/23 Unknown History pregabalin 200 mg capsule 200 mg PO BID 07/06/23 11/07/23 Unknown History tiotropium bromide 18 mcg capsule 1 cap inhalation DAILY 07/06/23 11/07/23 Unknown History with inhalation device (Spiriva with HandiHaler) albuterol 90 mcg/actuation aerosol 90 mcg inhalation Q4H PRN 11/07/23 11/07/23 Unknown History inhaler shortness of breathness or wheeze Exam Height,Weight and Vital Signs: Height 5 ft 4 in Weight 105.687 kg Vital Signs Temp Pulse Resp BP Pulse Ox O2 Del Method 11/07/23 14:41 97.0 F 66 18 129/71 95 Room Air Pertinent Lab Results Pertinent Lab Results: Lab Results 11/07/23 Range/Units 13:45 Urine Test NEGATIVE (NEGATIVE) Airway Mallampati Class: II TM Dist: >3cm Neck ROM: Full Loose/Missing/Broken Teeth: Yes (Extracted molars. Denies broken or loose teeth) Heart: RRR Lungs: CTAB Assessment and Plan Assessment Anesthesia Assessment: Anesthesia Plan Discussed and Chart Reviewed Final Anesthetic Review Family History of Problems with Anesthesia: No History of Problems with Anesthesia: No NPO: Yes ASA Class: III Final Preanesthetic Review: No Changes in Pt Med Stat, Meds/Allgs Chart Reviewed, Consent Obtained/Reviewed and Anes Risks/Benef Reviewed Patient Risk: Intermediate Procedure Risk: Low Assessment/Block/Sedation in SS: Assess/Block/Sedation-SS Anesthetic Plan Anesthetic Plan: MAC: Disposition: Standard PACU
[2023-11-06 14:03] VITALS: BMI 40.0
[2023-11-07 14:41] VITALS: BP 129/71; PULSE 66; RESP 18; TEMP 36.1; O2SAT 95
[2023-11-07 14:43] LABS: UPreg QC Valid YES; Urine Pregnancy NEGATIVE (NEGATIVE)
[2023-11-07] MEDS: Lactated Ringers 1,000 ML 100 ML IVCONT (14:54)
--- NOTE | 2023-11-07 15:19 | MHC.SHP ---
Pre-Procedural Eval Section A - 24 Hr Update-Section A only Date of Service: 11/07/23 The patient is an INPATIENT: No The patient has been examined within 24 hours of the surgical procedure. The History & Physical has been completed within 30 days and I have reviewed it.: Yes Section B - Complete if H&P > 30 days Chief Complaint: obesity Relevant Family History (Specify if Yes): No Relevant Social History: None Present Medications: None Medical History: No relevant PMH History of Previous Operations: No relevant previous surgery Allergies: Allergies Allergy/AdvReac Type Severity Reaction Status Date / Time No Known Allergies Allergy Verified 10/16/23 15:05 Review of Systems Sugical H&P ROS: Negative: Constitution, Cardiovascular, Respiratory, Neurological, Psychiatric, Hem-Onc, Allergic/Immunologic, Gastrointestinal, Genitourinary, Musculoskeletal, Integumentary, Endocrine and Eyes/Ears/Nose/Throat Exam Surgical H&P Exam: Normal: HEENT, Normal: Heart, Normal: Lungs, Normal: Extremities, Normal: Abdomen, Normal: Skin and Normal: Neurological Plan Diagnosis/Plan: Unchanged (EGD to assess the stomach's anatomy. Risks of bleeding and perforation were discussed with the patient and she is in agreement with the plan.) I have reviewed the history and physical and performed a pertinent physical examination on my patient. No changes have occurred unless specified. Time Spent With Patient Time: Total time managing care of this patient today ____ minutes.
--- NOTE | 2023-11-07 15:26 | HO.ANESPROP2 ---
[facility] Active Problems Active Problems: All Active Problems Anxiety (Acute) Depression (Acute) Sleep apnea treated with continuous positive airway pressure (CPAP) (Acute) Fibromyalgia (Acute) Hypertension (Acute) Asthma (Acute) Morbid obesity (Acute) Past Medical History Medical History Anxiety Depression Sleep apnea treated with continuous positive airway pressure (CPAP) Fibromyalgia Hypertension Asthma Morbid obesity Family History Family history of problems with anesthesia: No Surgical History Surgical History History of appendectomy History of laparoscopic cholecystectomy History of delivery History of Problems with Anesthesia: No Social History Social History Alcohol intake: never Patient Tobacco Use Status: Never used Tobacco Use of substances other than those prescribed or required for medical reasons: No Are you DNR?: No Advance Directives: No Advance Directives Information Provided: Yes Meds Allergies Allergy/AdvReac Type Severity Reaction Status Date / Time No Known Allergies Allergy Verified 10/16/23 15:05 Active Medications: Current Medications Albuterol Sulfate (Albuterol Sulfate (0.083%) 2.5 Mg/3 Ml Vial.Neb) 2.5 mg INHALE ONCE PRN PRN Reason: Shortness of Breath/Wheezing Lactated Ringer's (Lr) 1,000 mls @ 100 mls/hr IVCONT .Q10H [facility] Last Admin: 11/07/23 14:54 Dose: 100 mls/hr Lactated Ringer's (Lr) 1,000 mls @ 80 mls/hr IVCONT .[id number] [facility] Home Medications ?Medication ?Instructions ?Recorded ?Confirmed ?Last Taken ?Type budesonide-formoterol HFA 160 1 puff inhalation DAILY 07/06/23 11/07/23 Unknown History mcg-4.5 mcg/actuation aerosol inhaler (Symbicort) clonazepam 0.5 mg tablet 0.5 mg PO DAILY 07/06/23 11/07/23 Unknown History escitalopram oxalate 10 mg tablet 10 mg PO DAILY 07/06/23 11/07/23 Unknown History hydrochlorothiazide 25 mg tablet 25 mg PO DAILY 07/06/23 11/07/23 Unknown History montelukast 10 mg tablet 10 mg PO DAILY 07/06/23 11/07/23 Unknown History pregabalin 200 mg capsule 200 mg PO BID 07/06/23 11/07/23 Unknown History tiotropium bromide 18 mcg capsule 1 cap inhalation DAILY 07/06/23 11/07/23 Unknown History with inhalation device (Spiriva with HandiHaler) albuterol 90 mcg/actuation aerosol 90 mcg inhalation Q4H PRN 11/07/23 11/07/23 Unknown History inhaler shortness of breathness or wheeze Exam Height,Weight and Vital Signs: Height 5 ft 4 in Weight 105.687 kg Last Vital Signs Temp 97.0 F 11/07/23 14:41 Pulse 66 11/07/23 14:41 Resp 18 11/07/23 14:41 BP 129/71 11/07/23 14:41 Pulse Ox 95 11/07/23 14:41 O2 Del Method Room Air 11/07/23 14:41 Pertinent Lab Results Pertinent Lab Results: Laboratory Tests 11/07/23 13:45 Urine Test NEGATIVE Airway Mallampati Class: III TM Dist: >3cm Neck ROM: Full Heart: RRR Lungs: CTA Assessment and Plan Assessment Anesthesia Assessment: Anesthesia Plan Discussed Final Anesthetic Review Family History of Problems with Anesthesia: No History of Problems with Anesthesia: No NPO: Yes ASA Class: III Final Preanesthetic Review: Meds/Allgs Chart Reviewed, Consent Obtained/Reviewed and Anes Risks/Benef Reviewed Anesthetic Plan Anesthetic Plan: MAC: Disposition: Standard PACU
[2023-11-07 15:52] VITALS: BP 146/86; PULSE 72; RESP 15; TEMP 36.1; O2SAT 95
--- NOTE | 2023-11-07 15:55 | PM.OP ---
Brief Operative Note Date of Service: 11/07/23 Pre-op diagnosis: Morbid obesity Post-op diagnosis: same (& esophagitis I) Procedure: PROCEDURE DATE: 11/07/2023 PREOPERATIVE DIAGNOSIS: GERD POSTOPERATIVE DIAGNOSIS: ?Same as above. 1) esophagitis I, 2) duodenal polyps PROCEDURE: [id number]-[id number] with biopsies Surgeon: ?Jamie Johansen M.D.. Ph.D. Public Safety Officer: None ? Anesthesia: IV sedation Estimated blood loss: ?Minimal FINDINGS AND PROCEDURE: ? OPERATIVE INDICATIONS: ?The patient is a 48 year old female known to me who is interested in bariatric surgery. The anatomy of the stomach needs to be assessed. Based on this information I recommended an upper endoscopy to evaluate the patient's symptoms. Risks and complications of the surgery were discussed with the patient in advance particularly the possibility of perforation or bleeding that may require surgical intervention. The patient understood the risks and was in agreement with the plan. ? PROCEDURE: After informed consent was obtained by the patient, the patient was ?transferred to the Operating Room and was placed in the supine position.? After successful induction of IV sedation, a mouth block was inserted and the patient was placed in the left lateral decubitus position. An upper endoscopy was performed next, the oropharynx and esophagus appeared within the normal limits. There was no hiatal hernia. The z-line was irregular with tongues of gastric mucosa protruding into the esophagus at 25% circumference. Two biopsies were obtained from the distal esophagus 2-3 cm proximal to the GE junction and two additional biopsies from the GE junction. The stomach was entered and it appeared to be of normal size. There was no gastritis. There was no stricture or ulcer. A biopsy was obtained from the gastric fundus and the antrum. No significant bleeding was noted from any of the biopsy sites. Retroflexion of the scope revealed a normal GE junction. The scope was then advanced into the duodenum. There were several small duodenal polyps. One of them was biopsied. No significant bleeding was noted. At that point the duodenum ?and the stomach were decompressed and the scope was withdrawn from the patient's mouth. The patient extubated and was transferred in stable condition to the Recovery Room for further care. I was present and performed all steps of the procedure. There were no residents to assist with this case. Jamie Johansen M.D., Ph.D. Surgeon: Edgar Johansen MD Anesthesia: MAC Was an Public Safety Officer used for this Procedure?: No Estimated blood loss (mL): 0 IV fluids (mL): 400 Urine output (mL): 0 (No corona to record output) Pathology: other (1) antrum x1, 2) fundus x1, 3) GE junction x2, 4) distal esophagus x2, 5) duodenal polyp x1) Condition: stable Disposition: PACU
--- NOTE | 2023-11-07 15:58 | HO.POSTANES ---
Post Anesthesia Evaluation Post Anesthesia Evaluation Date of Service: 11/07/23 Vital Signs: Vital Signs Temp Pulse Resp BP Pulse Ox O2 Del Method 11/07/23 15:52 97 F 72 15 146/86 H 95 Room Air 11/07/23 14:41 97.0 F 66 18 129/71 95 Room Air Anesthesia: Monitored Mental Status: Awake Pain Control: Satisfactory Nausea/Vomiting: None Hydration: Adequate Anesthesia-Related Issues: No Anes. Related Issues
[2023-11-07 16:07] VITALS: BP 150/92; PULSE 61; RESP 16; TEMP 36.4; O2SAT 95
== END 2023-11-07 16:32 | disposition home or self-care (01) ==
PROVIDERS: Nurse Practitioner; PCP Pediatrics; Visit Provider Surgery
PROC: 0DJ08ZZ Inspection of Upper Intestinal Tract, Via Natural or Artificial Opening Endoscopic (ICD-10-PCS; CPT 43235; principal; 2023-11-07 16:30)
DX: K21.9 Gastro-esophageal reflux disease without esophagitis (principal); E66.01 Morbid (severe) obesity due to excess calories; Z68.41 Body mass index [BMI] 40.0-44.9, adult; K20.80 Other esophagitis without bleeding; K31.7 Polyp of stomach and duodenum; K22.89 Other specified disease of esophagus; M79.7 Fibromyalgia; I10 Essential (primary) hypertension; J45.909 Unspecified asthma, uncomplicated; F32.A Depression, unspecified; F41.9 Anxiety disorder, unspecified; G47.30 Sleep apnea, unspecified; Z79.899 Other long term (current) drug therapy; Z99.89 Dependence on other enabling machines and devices; Z79.51 Long term (current) use of inhaled steroids; Z90.49 Acquired absence of other specified parts of digestive tract
CPT/HCPCS: 43239; 81025; 88305; 88313; 88342; J2704

== ENCOUNTER → 2023-11-07 13:00 | Outpatient (BNV) | payer OTHER, SELFPAY | PROVIDERS: PCP Pediatrics; Visit Provider Surgery | DX: K21.00 Gastro-esophageal reflux disease with esophagitis, without bleeding (principal); K31.7 Polyp of stomach and duodenum | CPT/HCPCS: 43239 ==

== ENCOUNTER 2023-11-08 07:38 | Outpatient (REF) | payer OTHER, SELFPAY ==
--- NOTE | ~2023-11-08 | US_ITS ---
EXAMINATION: US COMPLETE ABDOMEN WITH LIVER ELASTOGRAPHY CLINICAL INFORMATION: Obesity. COMPARISON: None available. TECHNIQUE: Real-time imaging of the abdominal viscera. Noninvasive ultrasound liver fibrosis assessment is performed using Chris ElastPQ point quantification shear wave elastography (2D-SWE) with a C5-2 MHz transducer. Multiple elastography samples are obtained. FINDINGS: PANCREAS: . The visualized pancreatic head and body are normal in appearance. The remainder of the pancreas is obscured from visualization by the overlying bowel gas. ABDOMINAL AORTA: The proximal, middle, and distal aortic segments are normal in caliber. INFERIOR VENA CAVA: Visualized portions are normal. LIVER: . The liver is enlarged, with normal shape and increased echogenicity consistent with hepatic steatosis. No biliary duct dilatation. There is a 1.8 cm echogenic mass in the right lobe of the liver with ultrasound characteristics consistent with a cavernous hemangioma. The right lobe measures 18.0 cm in length. The left lobe measures 9.2 cm in length. Portal flow is towards the liver (hepatopetal). Shear wave liver elastography median stiffness is 1.32 m/s (reference: normal median stiffness is 1.3 m/s or less). IQR/median stiffness to assess sampling precision is 0.14 (reference: good quality data set is IQR/median stiffness of 0.15 or less). GALLBLADDER: Normal. The gallbladder is physiologically distended without evidence of stones, sludge, polyps, wall thickening or pericholecystic fluid. COMMON BILE DUCT: Normal in caliber measuring 0.4 cm in diameter. RIGHT KIDNEY: . No hydronephrosis. No renal calculi or focal parenchymal lesions. The kidney measures 11.0 cm in maximum dimension. LEFT KIDNEY: . No hydronephrosis. Extrarenal pelvis is present. There is an echogenic mass measuring 11 mm in size, which has characteristics of a benign AML although this diagnosis cannot be made with certainty. No renal calculi or other focal parenchymal lesions. The kidney measures 11.5 cm in maximum dimension. SPLEEN: Normal. The spleen measures 10.5 cm in maximum dimension. FREE FLUID: None. US/US abdomen comp w elastography IMPRESSION: 1. Echogenic liver consistent with hepatic steatosis 2. Echogenic liver mass with ultrasound features of a cavernous hemangioma. If certainty is required, hepatic MRI would be the exam of choice. 3. A 1.1 cm echogenic left renal mass. This could be an angiomyolipoma. If immediate certainty of diagnosis is desired, MRI could be performed. Otherwise, given the small size, a follow up ultrasound in one year could be performed. Liver elastography: In the absence of other known clinical signs, measurements rule out compensated advanced chronic liver disease. If there are known clinical signs, further testing may be needed for confirmation. REFERENCE: Society of Radiologists in Ultrasound Liver Stiffness Thresholds (2020): LIVER STIFFNESS THRESHOLDS: *Liver Stiffness equal or less than 1.3 m/s: High probability of being normal. *Liver Stiffness less than 1.7 m/s: In the absence of other known clinical signs, rules out compensated advanced chronic liver disease. *Liver Stiffness 1.7-2.1 m/s: Suggestive of compensated advanced chronic liver disease but need further test for confirmation. *Liver Stiffness over 2.1 m/s: Rules in compensated advanced chronic liver disease. *Liver Stiffness over 2.4 m/s: Suggestive of clinically significant portal hypertension. QUALITY OF DATA SET: *IQR/Median value equal or less than 0.15 implies a quality data set. *IQR/Median value over 0.15 implies a poor quality data set. SIGNIFICANT CHANGE FROM PRIOR EXAM: Significant change if liver stiffness measurement is 10% or greater from prior exam. OTHER CONSIDERATIONS: The stage of liver fibrosis may be overestimated in the setting of acute hepatitis, liver inflammation, elevated liver function tests, hepatic vascular congestion, obstructive cholestasis, non-fasting state, and infiltrative diseases such as amyloidosis and lymphoma. In some patients with NAFLD, the liver stiffness thresholds for compensated advanced chronic liver disease may be lower. In causes other than viral hepatitis and NAFLD, liver stiffness thresholds are not well established.
== END 2023-11-08 07:39 | disposition home or self-care (01) ==
LOC: HO.US 07:38
PROVIDERS: PCP Pediatrics; Visit Provider Surgery
DX: E66.01 Morbid (severe) obesity due to excess calories (principal); I10 Essential (primary) hypertension; J45.909 Unspecified asthma, uncomplicated; G47.30 Sleep apnea, unspecified
CPT/HCPCS: 76700; 76981

== ENCOUNTER → 2023-11-09 09:26 | Outpatient (BNVA) | payer OTHER, SELFPAY | PROVIDERS: PCP Pediatrics; Visit Provider Physician Assistant Surgical ==

== ENCOUNTER 2023-11-16 13:55 | Outpatient (AMB) | payer OTHER, SELFPAY ==
--- NOTE | 2023-11-16 13:59 | A.OFFVIS_ITS ---
VS Expanded 11/16/23 14:06 BP 146/83 H Blood Pressure Location Rt brachial Blood Pressure Position Sitting Pulse 79 Pulse Source Pulse Oximeter Temp 98.0 F Temperature Source Tympanic Pulse Oximetry 97 Oxygen Delivery Method Room Air Height 5 ft 4 in Weight 219 lb 3.2 oz BMI 37.6 Body Fat % 46.3 Body Fat Mass 117.8 Fat Free Mass 117.8 Visceral Fat Rating 13.0 Body Water % 38.2 Body Water Mass 83.8 Muscle Mass/Score 111.8 Basal Metabolic Rate/Score 1,660 Intake Visit Reasons: (OV) FU SWL Level Vial Sealer Required: Yes Level Vial Sealer Language: Arm Rest Builder Name: Felicia Allergies No Known Allergies Allergy (Verified 11/16/23 14:06) HPI Comments Details: Patient is a pleasant 48-year-old female who returns to the office today in follow-up for surgical weight loss pathway planning. She was initially seen on 10/16/2023 with a weight of 233.2 lb and a BMI of 40. Weight today is 219.2 lb with a BMI of 37.6. She has lost 14 lb or 6% total body weight loss. She has been using the new jennyfer, the [employer]. Meal plan: Orgain 1 scoop in 8 oz almond milk yogurt meal 8 forks protein and 8 forks veg think protein bar drinking 96 oz water Exercise walking outside daily, 300 louie PFSH Medical History Anxiety Depression Sleep apnea treated with continuous positive airway pressure (CPAP) Fibromyalgia Hypertension Asthma Morbid obesity Surgical History History of appendectomy History of laparoscopic cholecystectomy History of delivery Social History Alcohol intake: never Patient Tobacco Use Status: Never used Tobacco Physical Exam Vital Signs: Last Vital Signs Temp 98.0 F 11/16/23 14:06 Pulse 79 11/16/23 14:06 BP 146/83 H 11/16/23 14:06 Pulse Ox 97 11/16/23 14:06 Oxygen Delivery Method Room Air 11/16/23 14:06 BMI result Body Mass Index 37.6 Const General: healthy appearing and no acute distress Resp Effort & Inspection: normal respiratory effort Auscultation: clear to auscultation bilaterally Cardio Rate: regular rate Rhythm: regular rhythm GI Auscultation: normal bowel sounds Extrem General: Yes normal to inspection Assessment & Plan Assessment & Plan (1) Obesity (BMI 30-39.9): Code(s): E66.9 - Obesity, unspecified Category: Medical Plan: Patient is doing well overall. She has lost 14 lb. I have encouraged her to create a new meal plan with her new weight. I have encouraged her to rejoin the gym which was canceled as she had not been going in the past. Continue to track calories. Continue to communicate weekly. We will have her follow-up in the of [place] in approximately 1 month. Given her low vitamin-D, prescription has been sent. Medications: New cholecalciferol (vitamin D3) 125 mcg PO DAILY 90 days 90 caps 0RF
[2023-11-16 14:06] VITALS: BP 146/83; PULSE 79; TEMP 36.7; O2SAT 97; BMI 37.6
== END 2023-11-16 14:25 | disposition home or self-care (01) ==
PROVIDERS: PCP Pediatrics; Visit Provider Physician Assistant Surgical
DX: E66.9 Obesity, unspecified (principal); Z68.37 Body mass index [BMI] 37.0-37.9, adult
CPT/HCPCS: 99213

== ENCOUNTER → 2023-11-16 13:55 | Outpatient (BNVA) | payer OTHER, SELFPAY | PROVIDERS: PCP Pediatrics; Visit Provider Physician Assistant Surgical | DX: E66.9 Obesity, unspecified (principal); Z71.3 Dietary counseling and surveillance; Z68.41 Body mass index [BMI] 40.0-44.9, adult | CPT/HCPCS: 99212 ==

== ENCOUNTER 2023-11-21 11:15 | Outpatient (AMB) | payer OTHER, SELFPAY ==
--- NOTE | 2023-11-21 11:25 | A.OFFWM_ITS ---
Intake Intake Visit Reasons: VIDEO Intake Allergies No Known Allergies Allergy (Verified 11/16/23 14:06) [facility] Medical History Anxiety Depression Sleep apnea treated with continuous positive airway pressure (CPAP) Fibromyalgia Hypertension Asthma Morbid obesity Surgical History History of appendectomy History of laparoscopic cholecystectomy History of delivery Social History Alcohol intake: never Patient Tobacco Use Status: Never used Tobacco Behavioral Health Assessment Weight Management Therapy Therapy Notes Details PT is a 48 y/o female who presents for assessment as part of surgical weight-loss. Presenting Concerns Referral Source [facility] Provider, Pt started with Dr. Marie and most recent jennyfer was with Yung Good. Reason for referral Completion of behavioral health assessment as part of process for weight-loss surgery. Precipitating Event Medical issues are getting wore due to her weight. PT stated her knee condition is worse. Living Situation Current Living Situation Rent At risk of losing current housing? No Satisfied with current living situation? Yes Comments Pt lives alone. Food/Weight/Diet Expectations of change Initial goal to lose 10% of her weight before surgery, which is about 23lbs. Ultimate weight goal: 210lbs before surgery. According to last note from provider, the patient has lost 14 Lbs since started the program. Today's weight is 218Lbs reported by client. History/Relationship with food Example of meals before starting program Breakfast: eggs or sandwich (egg, ham and cheese with butter or franklin) and coffee with milk and cinnamon. Lunch: Rice, any type of meat and would add salad or plantains sometimes. Dinner: Same as lunch or something light like burritos. 1-2 snacks during the day like cheese st ring ore bread/crackers and meted cheese. . She is currently doing 3 shakes and 1 meal at day. Her meal is 7 forks of protein and 7 forks of veggies. . PT denies any history of using food as reward or to cope with emotions. When anxious she has no appetite. Pt believes she has gained weight due to eating a lot and not being active. History/Relationship with weight Pt reports she has been over the 200Lbs after having children. In the last 10 years her lowest weight was 206Lbs, and highest 232Lbs. PT reports she has been less active in the past years due to knee problem. History/Relationship with dieting Ketto diet, Herbalife. other self-diets. Sticks to diets about 3 months but gains all the weight back after returning to regular life style. Binge Eating Do you frequently eat large amounts of food in short periods of time, not feeling physically hungry? No Do you feel out of control when you eat a large amount of food in a short period of time? No Do you eat large amounts of food rapidly and typically alone? Yes Night Eating Do you wake up at least once during the night to eat? No If you wake up in the night, do you find that it is necessary to eat something in order to fall back asleep? No Do you have little or no appetite in the morning and feel very hungry in the evening, often overeating between dinner and when you go to bed? No Social History Family history and relationship PT is in a long-term relationship for about 20 years but they live since 2014. she has 3 adult children, 2 boys and 1 daughter (They are 33, 31 and 29) and 4 grandchildren. Sons live near and daughter lives in [place]. Mother is alive and lives in [place], father is . PT has 5 siblings. PT reports she has very good family relationships . Parental/Familial permastone mechanic obligations None. Developmental history and status None reported. Currently reports she's forgetful but nothing out of the ordinary. Social support Partner, children, mother. Oldest son goes to walk with her daily. Community support Therapist. Buddhism/Spirituality Christian. Doesn't attend restoration. Cultural/Ethnic information PT was born in [place]. Moved to [place] 19 years ago. Romanian speaking only. Legal Involvement and History Current or historical involvement with the legal system? None reported. Education Highest grade completed 9th grade. Preferred learning style Visual Currently enrolled in educational program? No Interested in further educational program? No Educational Interests/Skills None reported or identified by client. Employment Employment Status Other (In process for disability due to health conditions, worked the last time in 2022.) Financial Situation Describe current financial situation Comfortable Financial assistance? Food [place] and Other ([place] assistance from [employer]. ) Questionnaires PHQ-9 Over the last 2 weeks, how often have you been bothered by any of the following problems? 1. Little interest or pleasure in doing things: several days 2. Feeling down, depressed, or hopeless: several days 3. Trouble falling or staying asleep, or sleeping too much: more than half the days 4. Feeling tired or having little energy: several days 5. Poor appetite or overeating: several days 6. Feeling bad about yourself - or that you are a failure or have let yourself or your family down: several days 7. Trouble concentrating on things, such as reading the newspaper or watching television: more than half the days 8. Moving or speaking so slowly that other people could have noticed. Or the opposite - being so fidgety or restless that you have been moving around a lot more than usual: several days 9. Thoughts that you would be better off or of hurting yourself in some way: not at all Total score: 10 Depression Screening Interpretation: Positive (Scores from form completed on 07/06/2023. PHQ-9 will be repeated next appointment.) Depression Screening Done: Yes Source: Developed by Drs. Tony Berrios, Lesly Pfeiffer, Dusty Hdz and colleagues, with an educational milla from [employer]. Binge Eating Scale Group 1 A. I don't feel self-conscious about my wt. or body size when I'm with others. B. I feel concerned about how I look to others, but it normally does not make me fell disappointed with myself C. I do get self-conscious about my appearance and wt. which makes me feel disappointed in myself. D. I feel very self-conscious about my wt. and frequently I feel intense shame and disgust for myself. I try to avoid social contacts because of my self- consciousness. Response Group 1: B Group 2 A. I don't have any difficulty eating slowly in the proper manner. B. Although I seem to gobble down foods, I don't end up feeling stuffed because of eating to much. C. At times, I tend to eat quickly and then, I feel uncomfortably full afterwards. D. I have the habit of bolting down my food, without really chewing it. When this happens I usually feel uncomfortably stuffed because I've eaten to much. Response Group 2: D Group 3 A. I feel capable to control my eating urges when I want to. B. I feel like I have failed to control my eating more than the average person. C. I feel utterly helpless when it comes to feeling in control of my eating urges. D. Because I feel so helpless about controlling my eating I have become very padmini perate about trying to get control. Response Group 3: A Group 4 A. I don't have the habit of eating when I'm bored. B. I sometimes eat when I'm bored, but often I'm able to get busy and get my mind off food. C. I have a regular habit of eating when I'm bored, but occasionally, I can use some other activity to get my mind off eating. D. I have a strong habit of eating when I'm bored. Nothing seems to help me breath the habit. Response Group 4: C Group 5 A. I'm usually physically hungry when I eat something. B. Occasionally, I eat something on impulse even though I really am not hungry. C. I have the regular habit of eating foods, that I might not really enjoy, to satisfy a hungry feeling even though physically, I don't need the food. D. Although I'm not physically hungry, I get a hungry feeling in my mouth that only seems to be satisfied when I eat a food, like sandwich, that fills my mouth . Sometimes, when I eat the food to satisfy my mouth hunger, I then spit the food out so I won't gain weight. Response Group 5: A Group 6 A. I don't feel any guilt or self-hate after I overeat. B. After I overeat, occasionally I feel guilt or self-hate. C. Almost all the time I experience strong guilt or self-hate after I overeat. Response Group 6: B Group 7 A. I don't lose total control of my eating when dieting even after periods when I overeat. B. Sometimes when I eat a forbidden food on a diet, I feel like I blew it and eat even more. C. Frequently, I have the habit of saying to myself, I've blown it now, why not go all the way, when I overeat on a diet. When that happens I eat more. D. I have a regular habit of starting a strict diets for myself but I break the diets by going on an eating binge. My life seems to be either a feast or famine. Response Group 7: A Group 8 A. I rarely eat so much food that I feel uncomfortably stuffed afterwards. B. Usually about once a month, I each such a quantity of food, I end up feeling very stuffed. C. I have regular periods during the month when I eat large amounts of food, either at mealtime or at snacks. D. I eat so much food that I regularly feel quite uncomfortable after eating and sometimes a bit nauseous. Response Group 8: B Group 9 A. My level of calorie intake does not go up very high or go down very low on a regular basis. B. Sometimes after I overeat, I will try to reduce my caloric intake to almost nothing to compensate for the excess calories I've eaten. C. I have a regular habit of overeating during the night. It seems that my routine is not to be hungry in the morning but overeat in the evening. D. In my adult years, I have had week-long periods where I practically starve myself. This follows periods when I overeat. It seems I live a life of either feast or famine. Response Group 9: A Group 10 A. I usually am able to stop eating when I want to. I know when enough is enough. B. Every so often, I experience a compulsion to eat which I can't seem to control. C. Frequently, I experience strong urges to eat which I seem unable to control, but at other times I can control my eating urges. D. I feel incapable of controlling urges to eat. I have a fear of not being able to stop eating voluntarily. Response Group 10: A Group 11 A. I don't have any problem stopping eating when I feel full. B. I usually can stop eating when I feel full but occasionally overeat leaving me feeling uncomfortably stuffed. C. I have a problem stopping eating once I start and usually I feel uncomfortably stuffed after I eat a meal. D. Because I have a problem not being able to stop eating when I want, I sometimes have to induce vomiting to relieve my stuffed feeling. Response Group 11: B Group 12 A. I seem to eat just as much when I'm with others, Family social gatherings as when I'm by myself. B. Sometimes, when I'm with other persons, I don't eat as much as I want to eat because I'm self-conscious about my eating. C. Frequently, I eat only a small amount of food when others are present, because I'm very embarrassed about my eating. D. I feel so ashamed about overeating that I pick times to overeat when I know no one will see me. I feel like a closet eater. Response Group 12: A Group 13 A. I eat three meals a day with only an occasional between meal snack. B. I eat 3 meals a day, but I also normally snack between meals. C. When I am snacking heavily, I get in the habit of skipping regular meals. D. There are regular periods when I seem to be continually eating, with no planned meals. Response Group 13: A Group 14 A. I don't think much about trying to control unwanted eating urges. B. At least some of the time, I feel my thoughts are pre-occupied with trying to control my eating urges. C. I feel that frequently I spend much time thinking about how much I ate or about trying not to eat anymore. D. It seems to me that most of my waking hours are pre-occupied by thoughts about eating or not eating. I feel like I'm constantly struggling not to eat. Response Group 14: B Group 15 A. I don't think about food a great deal. B. I have strong craving for food but they last only for brief periods of time. C. I have days when I can't seem to think about anything else but food. D. Most of my days seem to be pre-occupied with thoughts about food. I feel like I live to eat. Response Group 15: B Group 16 A. I usually know whether or not I'm physically hungry. I take the right portion of food to satisfy me. B. Occasionally, I feel uncertain about knowing whether or not I'm physically hungry. A these times it's hard to know how much food I should take to satisfy me. C. Even though I might know how many calories I should eat, I don't have any idea what is a normal amount of food for me. Response Group 16: A Binge Eating Score: 11 Score less than 17 Minimal Risk Score between 18-26 Moderate Risk Score between 27-46 High Risk Assessment & Plan Assessment & Plan (1) Adjustment disorder: Code(s): F43.20 - Adjustment disorder, unspecified Qualifiers: Adjustment disorder type: with mixed anxiety and depressed mood Qualified Code(s): F43.23 - Adjustment disorder with mixed anxiety and depressed mood Plan We will meet again to finish assessment. Next jennyfer: 12/17/2023 at 9am - video Next jennyfer PHQ-9 will be administered again. Telehealth Telehealth Telehealth Platform: [employer] Location of provider rendering services: other (Home office, [place], [place].) Location of patient: address on file Patient Identification confirmed using: Name, : Yes Telehealth method: video Patient verbally consented to treatment: Yes Patient verbally consented to billing insurance company: Yes Patient informed of any privacy concerns related to visit: No Minutes spent on Phone/Video with Pt.: 55 (11:15-12:10) Coding Level of Care Code New Pt Tele Psy Diag Yessy ([id number]) Patient Type New Diagnoses Adjustment disorder with mixed anxiety and depressed mood F43.23 Adjustment disorder type: with mixed anxiety and depressed mood Time Spent (min) 55 Comment 11:15am-12:10pm
--- NOTE | 2023-12-17 09:11 | MHC.WMTHER ---
Intake Intake Visit Reasons: VIDEO Intake Allergies No Known Allergies Allergy (Verified 11/16/23 14:06) [facility] Medical History Anxiety Depression Sleep apnea treated with continuous positive airway pressure (CPAP) Fibromyalgia Hypertension Asthma Morbid obesity Surgical History History of appendectomy History of laparoscopic cholecystectomy History of delivery Social History Alcohol intake: never Patient Tobacco Use Status: Never used Tobacco Behavioral Health Assessment Weight Management Therapy Therapy Notes Details Pt presents for a follow up visit con continue BH assessment. Teri reports she has been doing well and is losing weight as expected. Stated her current weight is 212Lbs, reported she is doing well with current meal plan. (Current meal plan: 9am Australian Yogurt- 12pm Shake -3pm meal - 6pm shake) and continues excercising by attending the gym Sunday - Sunday and tries to burn at least 300 calories . Today we were able to finish the BH assessment, and patient has been requested to provide a letter from her counselor to continue her clearance. She will be seen again on 01/13 to monitor functioning and continue providing support but so far the PT appears to be a great candidate for surgery; her mental status is not impaired, apparent functioning is normal and mental health concerns reported are under control. Presenting Concerns Referral Source [facility] Provider, Pt started with Dr. Marie and most recent jennyfer was with Yung Good. Reason for referral Completion of behavioral health assessment as part of process for weight-loss surgery. Precipitating Event Medical issues are getting wore due to her weight. PT stated her knee condition is worse. Living Situation Current Living Situation Rent At risk of losing current housing? No Satisfied with current living situation? Yes Comments Pt lives alone. Food/Weight/Diet Expectations of change Initial goal to lose 10% of her weight before surgery, which is about 23lbs. Ultimate weight goal: 210lbs before surgery. According to last note from provider, the patient has lost 14 Lbs. since started the program. Today's weight is 218Lbs reported by client. Update 12/17/2023 Current weight 212Lbs. PT reports she is doing well with current meal plan. Current meal plan: 9am Australian Yogurt- 12pm Shake -3pm meal - 6pm shake. Exercise: attending the gym Sunday - Sunday, tries to burn at least 300 calories History/Relationship with food Example of meals before starting program Breakfast: eggs or sandwich (egg, ham and cheese with butter or franklin) and coffee with milk and cinnamon. Lunch: Rice, any type of meat and would add salad or plantains sometimes. Dinner: Same as lunch or something light like burritos. 1-2 snacks during the day like cheese string ore bread/crackers and meted cheese. . She is currently doing 3 shakes and 1 meal at day. Her meal is 7 forks of protein and 7 forks of veggies. . PT denies any history of using food as reward or to cope with emotions. When anxious she has no appetite. Pt believes she has gained weight due to eating a lot and not being active. History/Relationship with weight Pt reports she has been over the 200Lbs after having children. In the last 10 years her lowest weight was 206Lbs, and highest 232Lbs. PT reports she has been less active in the past years due to knee problem. History/Relationship with dieting Ketto diet, Herbalife. other self-diets. Sticks to diets about 3 months but gains all the weight back after returning to regular life style. Binge Eating Do you frequently eat large amounts of food in short periods of time, not feeling physically hungry? No Do you feel out of control when you eat a large amount of food in a short period of time? No Do you eat large amounts of food rapidly and typically alone? Yes Night Eating Do you wake up at least once during the night to eat? No If you wake up in the night, do you find that it is necessary to eat something in order to fall back asleep? No Do you have little or no appetite in the morning and feel very hungry in the evening, often overeating between dinner and when you go to bed? No Social History Family history and relationship PT is in a long-term relationship for about 20 years but they live since 2014. she has 3 adult children, 2 boys and 1 daughter (They are 33, 31 and 29) and 4 grandchildren. Sons live near and daughter lives in [place]. Mother is alive and lives in [place], father is . PT has 5 siblings. PT reports she has very good family relationships . Parental/Familial clinical laboratory manager obligations None. Developmental history and status None reported. Currently reports she's forgetful but nothing out of the ordinary. Social support Partner, children, mother. Oldest son goes to walk with her daily. Community support Therapist. Christian/Spirituality Hinduism. Doesn't attend catholic. Cultural/Ethnic information PT was born in [place]. Moved to [place] 19 years ago. Korean speaking only. Legal Involvement and History Current or historical involvement with the legal system? None reported. Education Highest grade completed 9th grade. Preferred learning style Visual Currently enrolled in educational program? No Interested in further educational program? No Educational Interests/Skills None reported or identified by client. Employment Employment Status Other (In process for disability due to health conditions, worked the last time in 2022.) Wants help to find employment? No Meaningful activities Cleaning, listen to music, watch TV, family time, every weekend her family comes over and she cooks for them. Financial Situation Describe current financial situation Comfortable Financial assistance? Food [place] and Other ([place] assistance from [employer]. ) Service Service? No Mental Health and Addiction Treatment Current/Past substance abuse? No Comments Alcohol: Social. Cigarettes: None. Edibles: Denies. Current/Past addictive behavior concerns? No Psychiatric history PT currently attends counseling at [facility] ([address] [place] [address]), sees Sania Menchaca for therapy on a weekly basis. Sees Bello Stevens NP for medication management, on a monthly basis. Current meds are: clonazepam 0.5mg, escitalopram 10mg, pregabalin 200mg. Currently diagnoses with: Panic attacks, MARQUEZ, depression. PT reports that she hasn't had panic attacks for about a year, she has been stable and feels that with the current meal plan and exercise routine she has more energy and in a better mood. Medical and Physical Health Summary Additional Medical History not covered in history None. Sexual History concerns None reported. Physical exam in the last year? Yes Pain Screening Current pain? No Pain in the last few months? Yes Comments -Patient reports she has 1-2 flare-ups at month with fibromyalgya symptoms. -Knee pain, as she had a surgery on that knee and also has arthritis in that site. However, knee pain is getting better as she has lost weight. Medications Is the patient compliant with medications? Yes (Uses medication for anxiety only as needed, has not used escitalopram for about a month ago. Also uses Lyrica as needed.- Asthma meds are as needed - Takes other meds as prescribed. ) Does the patient have [place] Guardian in place? Not applicable Does the patient use complimentary health approaches? No Trauma/Abuse History History of trauma? Yes Other Past (Lost of her father 24 years ago. ) Questionnaires PHQ-9 Over the last 2 weeks, how often have you been bothered by any of the following problems? 1. Little interest or pleasure in doing things: not at all 2. Feeling down, depressed, or hopeless: not at all 3. Trouble falling or staying asleep, or sleeping too much: not at all 4. Feeling tired or having little energy: not at all 5. Poor appetite or overeating: not at all 6. Feeling bad about yourself - or that you are a failure or have let yourself or your family down: several days (Last week when sick and unable to keep up the diet. ) 7. Trouble concentrating on things, such as reading the newspaper or watching television: not at all 8. Moving or speaking so slowly that other people could have noticed. Or the opposite - being so fidgety or restless that you have been moving around a lot more than usual: not at all 9. Thoughts that you would be better off or of hurting yourself in some way: not at all Total score: 1 Depression Screening Interpretation: Positive (Scores from form completed on 07/06/2023. PHQ-9 will be repeated next appointment.) Depression Screening Done: Yes 42635 - PHQ-9 Billing: Yes Source: Developed by Drs. Tony Berrios, Lesly Pfeiffer, Dusty Hdz and colleagues, with an educational milla from [employer]. Assessment & Plan Assessment & Plan (1) Depression: Comment: Haven't had a depressive episode since July. 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 This provider emailed client what the letter should include, and where to fax it. Next jennyfer 01/14/2024 at 9am, via Telehealth. Telehealth Telehealth Telehealth Platform: [employer] Location of provider rendering services: other (Home office, [place], [place].) Location of patient: address on file Patient Identification confirmed using: Name, : Yes Telehealth method: video Patient verbally consented to treatment: Yes Patient verbally consented to billing insurance company: Yes Patient informed of any privacy concerns related to visit: No Minutes spent on Phone/Video with Pt.: 55 Coding Level of Care Code Established Pt Tele Psytx >53 mins (58326) Patient Type Established Diagnoses Depression F32.A Depression Type: major depressive disorder Major depression recurrence: recurrent Major depression episode severity: mild Panic attack F41.0 Complicated grief F43.21 Time Spent (min) 55 Comment 9:00am - 9:55am
== END 2023-11-21 12:10 | disposition home or self-care (01) ==
LOC: HO.HBST 11:30
PROVIDERS: PCP Pediatrics; Visit Provider Counselor Mental Health
DX: F43.23 Adjustment disorder with mixed anxiety and depressed mood (principal)
CPT/HCPCS: 90837

== ENCOUNTER → 2023-11-21 11:15 | Outpatient (BNVA) | payer OTHER, SELFPAY | PROVIDERS: PCP Pediatrics; Visit Provider Counselor Mental Health ==

== ENCOUNTER → 2023-12-17 09:00 | Outpatient (REF) | payer OTHER, SELFPAY ==
--- NOTE | 2023-12-17 14:30 | ECG_ITS ---
Test Reason : E66.01 Blood Pressure : / mmHG Vent. Rate : 068 BPM Atrial Rate : 068 BPM P-R Int : 164 ms QRS Dur : 094 ms QT Int : 404 ms P-R-T Axes : 061 -03 022 degrees QTc Int : 429 ms Normal sinus rhythm Normal ECG No previous ECGs available Referred By: Edgar Johansen Electronically Signed By:MELIDA LUCIO
== END ==
LOC: HO.CARD 09:00
PROVIDERS: Absent Provider Surgery; PCP Nurse Practitioner Family; Visit Provider Counselor Mental Health
DX: E66.01 Morbid (severe) obesity due to excess calories (principal); I10 Essential (primary) hypertension; J45.909 Unspecified asthma, uncomplicated; G47.30 Sleep apnea, unspecified
CPT/HCPCS: 93005; 99212

== ENCOUNTER 2023-12-17 13:49 | Outpatient (AMB) | payer OTHER, SELFPAY ==
--- NOTE | 2023-12-17 13:55 | A.OFFVIS_ITS ---
VS Expanded 12/17/23 14:06 BP 140/90 H Blood Pressure Location Rt brachial Blood Pressure Position Sitting Pulse 74 Pulse Source Pulse Oximeter Temp 98.2 F Temperature Source Temporal Artery Scan Pulse Oximetry 96 Oxygen Delivery Method Room Air Height 5 ft 4 in Weight 213 lb 3.2 oz BMI 36.6 Body Fat % 36.6 Body Fat Mass 94.2 Fat Free Mass 119.0 Visceral Fat Rating 12.0 Body Water % 39.8 Body Water Mass 84.8 Muscle Mass/Score 113.0 Basal Metabolic Rate/Score 1,664 Intake Visit Reasons: (OV) F/U SWL see note Custom Feed Corn Operator Required: Yes Custom Feed Corn Operator Name: office cmi Allergies No Known Allergies Allergy (Verified 12/17/23 13:55) Medication List - Last Reconciled 12/17/23 by LOKI Humphrey albuterol 90 mcg/actuation 90 mcg inhalation Q4H PRN budesonide-formoterol 160-4.5 mcg/actuation (Symbicort) 1 puff inhalation DAILY cholecalciferol (vitamin D3) 125 mcg PO DAILY 90 days clonazepam 0.5 mg PO DAILY escitalopram oxalate 10 mg PO DAILY hydrochlorothiazide 25 mg PO DAILY montelukast 10 mg PO DAILY pregabalin 200 mg PO BID tiotropium bromide (Spiriva with HandiHaler) 1 cap inhalation DAILY HPI Comments Details: Patient is a pleasant 48-year-old female who returns to the office today in follow-up for surgical weight loss pathway planning. She was initially seen on 10/16/2023 with a weight of 233.2 lb and a BMI of 40. Weight today is 213.2 lb with a BMI of 36.6. She has lost 20 lb or 8.5% total body weight loss. She has been using the new jennyfer, the [email or web address]. Meal plan: yogurt Orgain 1.5 scoop in 8 oz almond milk meal 8 forks protein and 8 forks veg another shake drinking 64 oz water Exercise gym treadmill 300-600 calories 5 days per week PFSH Medical History Anxiety Depression Sleep apnea treated with continuous positive airway pressure (CPAP) Fibromyalgia Hypertension Asthma Morbid obesity Surgical History History of appendectomy History of laparoscopic cholecystectomy History of delivery Social History Alcohol intake: never Patient Tobacco Use Status: Never used Tobacco Physical Exam Vital Signs: Last Vital Signs Temp 98.2 F 12/17/23 14:06 Pulse 74 12/17/23 14:06 BP 140/90 H 12/17/23 14:06 Pulse Ox 96 12/17/23 14:06 Oxygen Delivery Method Room Air 12/17/23 14:06 BMI result Body Mass Index 36.6 Const General: healthy appearing and no acute distress Resp Effort & Inspection: normal respiratory effort Auscultation: clear to auscultation bilaterally Cardio Rate: regular rate Rhythm: regular rhythm GI Auscultation: normal bowel sounds Extrem General: Yes normal to inspection Assessment & Plan Assessment & Plan (1) Obesity (BMI 30-39.9): Code(s): E66.9 - Obesity, unspecified Category: Medical Plan: Making progress. Communicating appropriately. Following the plans from the right BMI jennyfer. has lost 20 lb or 8.5% total body weight loss. We will refer back to Dr. Johansen for continued preoperative care.
[2023-12-17 14:06] VITALS: BP 140/90; PULSE 74; TEMP 36.8; O2SAT 96; BMI 36.6
== END 2023-12-17 14:23 | disposition home or self-care (01) ==
PROVIDERS: PCP Pediatrics; Visit Provider Physician Assistant Surgical
DX: E66.9 Obesity, unspecified (principal); Z68.36 Body mass index [BMI] 36.0-36.9, adult
CPT/HCPCS: 99213

== ENCOUNTER 2024-01-04 09:10 | Outpatient (REF) | payer OTHER, SELFPAY ==
--- NOTE | ~2024-01-04 | FL_ITS ---
EXAMINATION: XR FLUOROSCOPY UPPER GI WITH AIR CLINICAL INFORMATION: Preoperative evaluation prior to bariatric surgery COMPARISON: None TECHNIQUE: Fluoroscopic air contrast upper GI examination was performed utilizing standard techniques with thin and thick barium and effervescent granules. Numerous spot images were obtained. FINDINGS: Dual and single contrast images of the esophagus demonstrate normal caliber, contour, and mucosal pattern. No evidence of stricture, mass, or ulcerations identified. Esophageal peristalsis was normal. A small type I hiatal hernia is present. No significant gastroesophageal reflux was seen during the course of the examination and on reflux views. Surgical clips are present in the right upper quadrant. Dual contrast and single contrast images of the stomach demonstrated normal contour and mucosal pattern without evidence of mass, ulceration, or other abnormality. Contrast freely passed into the gastric antrum and duodenal bulb without delay. Single and air-contrast images of the duodenal bulb demonstrate no abnormality. The duodenal sweep has a normal appearance, course, and mucosal fold appearance. The imaged jejunum has a normal fold pattern and caliber. The ileum has an abnormal appearance/fold pattern that may represent jejunalization of the ileum. There is a rapid transit of the barium column, with the right colon opacified after 10 minutes. FLUOROSCOPY TIME: 2 minutes 39 seconds Number of Spot Images: 9 Number of Cine: 10 DOSE AREA PRODUCT: 1703 uGy-m2 (microgray-meter squared) FL/FL upper GI w air IMPRESSION: 1. Small type I hiatal hernia. 2. Status post cholecystectomy 3. Abnormal appearance/flold pattern of the ileum that may represent jejunalization of the ileum. This may represent a malabsorptive disorder such as celiac disease. In addition there is rapid transit of the barium column with the right colon opacified after 10 minutes. This procedure was performed by Ra Lyons PA-C, and supervised by Dr. Brown Electronically signed by: Steven Brown MD 01/04/2024 04:00 PM EDT
== END 2024-01-04 09:11 | disposition home or self-care (01) ==
LOC: HO.XRAY 09:10
PROVIDERS: PCP Nurse Practitioner Family; Visit Provider Surgery
DX: E66.01 Morbid (severe) obesity due to excess calories (principal); I10 Essential (primary) hypertension; J45.909 Unspecified asthma, uncomplicated; G47.30 Sleep apnea, unspecified
CPT/HCPCS: 74246

== ENCOUNTER → 2024-01-04 09:12 | Outpatient (BNV) | payer OTHER, SELFPAY | PROVIDERS: PCP Nurse Practitioner Family; Visit Provider Radiology Diagnostic Radiology | DX: Z01.818 Encounter for other preprocedural examination (principal) | CPT/HCPCS: 74246 ==

== ENCOUNTER 2024-01-07 13:03 | Outpatient (AMB) | payer OTHER, SELFPAY ==
--- NOTE | 2024-01-07 12:47 | MHC.OFFVISWM ---
VS Expanded 01/07/24 12:53 Height 5 ft 4 in Weight 206 lb 2 oz BMI 35.4 Body Fat % 44.5 Body Fat Mass 91.7 Fat Free Mass 114.4 Visceral Fat Rating 13.2 Body Water % 39.6 Body Water Mass 81.6 Basal Metabolic Rate/Score 1,607 Intake Visit Reasons: TV Follow Up SWL *AIX ARCHITECT* Allergies No Known Allergies Allergy (Verified 12/17/23 13:55) HPI HPI TV Follow Up SWL *AIX ARCHITECT*: Details: Start time: 12.38pm, End time: 12.58pm ?I spent 15 minutes speaking with the patient on the phone plus an additional 5 minutes reviewing and updating records for a total of 20 minutes HPI Comments Details: Overall weight loss: 26.9lbs, 11.5% TBWL Is doing 2 Celebrate Rebuild protein shakes (1.5 scoops in almond milk), one yogurt and one meal (7 forks of protein and 7 forks of salad or vegetables) Exercise: is doing treadmill daily for 350-400 calories PFSH Medical History Anxiety Depression Sleep apnea treated with continuous positive airway pressure (CPAP) Fibromyalgia Hypertension Asthma Morbid obesity Surgical History History of appendectomy History of laparoscopic cholecystectomy History of delivery Social History Alcohol intake: never Patient Tobacco Use Status: Never used Tobacco Physical Exam Vital Signs: BMI result Body Mass Index 35.4 Telehealth Telehealth Telehealth Platform: Telephone Location of provider rendering services: practice address Location of patient: address on file Patient Identification confirmed using: Name, : Yes Telehealth method: voice only Patient verbally consented to treatment: Yes Patient verbally consented to billing insurance company: Yes Patient informed of any privacy concerns related to visit: Yes Minutes spent on Phone/Video with Pt.: 20 Assessment & Plan Assessment & Plan (1) Obesity (BMI 30-39.9): Code(s): E66.9 - Obesity, unspecified Category: Medical Plan: 1. Plan for lap sleeve gastrectomy including upper GI endoscopy. All tests has been completed and reviewed and the patient is cleared for the surgery. ?If diaphragmatic or ventral hernias are present at time of surgery, these will be repaired laparoscopically as well. Risks and complications were discussed in detail including possible conversion to an open procedure, anastomotic leak, bleeding requiring transfusion, small bowel obstruction, , DVT and pulmonary embolism, cardiac, or pulmonary complications, as business intelligence consultant complications such as anastomotic ulcer, insufficient weight loss and vitamin deficiencies. I emphasized the importance of close follow-up, adherence to instructions and good communication. So far she has proven to be an excellent communicator and very compliant with all our directions accomplishing a great weight loss. I believe that she is an excellent candidate and she is ready. 2. Continue same nutritional plan of 2 Celebrate Rebuild protein shakes (1.5 scoops in almond milk), one yogurt and one meal (7 forks of protein and 7 forks of salad or vegetables) 3. Exercise: continue treadmill daily for 350-400 calories 4. Continue to send me weight measurements weekly on Wednesdays
[2024-01-07 12:53] VITALS: BMI 35.4
== END 2024-01-07 13:19 | disposition home or self-care (01) ==
LOC: HO.HBS 13:03
PROVIDERS: PCP Nurse Practitioner Family; Visit Provider Surgery
DX: E66.9 Obesity, unspecified (principal)
CPT/HCPCS: 99213

== ENCOUNTER → 2024-01-07 13:03 | Outpatient (BNVA) | payer OTHER, SELFPAY | PROVIDERS: PCP Nurse Practitioner Family; Visit Provider Surgery ==

== ENCOUNTER → 2024-01-14 09:30 | Outpatient (AMB) | payer OTHER, SELFPAY ==
--- NOTE | 2024-01-14 09:06 | A.OFFWM_ITS ---
Intake Intake Visit Reasons: Video F/U Allergies No Known Allergies Allergy (Verified 12/17/23 13:55) [facility] Medical History Anxiety Depression Sleep apnea treated with continuous positive airway pressure (CPAP) Fibromyalgia Hypertension Asthma Morbid obesity Surgical History History of appendectomy History of laparoscopic cholecystectomy History of delivery Social History Alcohol intake: never Patient Tobacco Use Status: Never used Tobacco Behavioral Health Assessment Weight Management Therapy Therapy Notes Details PT presents for a follow up visit via telehealth. PT reports she continues following meal plan and exercise routine with no issues. She is attending the gym with her son on a daily basis and has reached initial weightloss goal prior to surgery. PT has obtained letter from provider with her diagnosis and about current treatment. This document has been uploaded to her file and her clearance from standpoint is complete. Today we reinforced success and provided with techniques for Sx management. She will be seen by this provider post-op for support. She was very open, active and engaged, she was also very proud of her commitment and progress and responded well to feedback an dinterventions. Her diagnosis has been updated according to information provided by her provider. MSE witin normal limits, no risk reported or identified. This patient is cleared. Next jennyfer: 2-4 weeks post-op. Presenting Concerns Referral Source [facility] Provider, Pt started with Dr. Marie and most recent jennyfer was with Yung Good. Reason for referral Completion of behavioral health assessment as part of process for weight-loss surgery. Precipitating Event Medical issues are getting wore due to her weight. PT stated her knee condition is worse. Living Situation Current Living Situation Rent At risk of losing current housing? No Satisfied with current living situation? Yes Comments Pt lives alone. Food/Weight/Diet Expectations of change Initial goal to lose 10% of her weight before surgery, which is about 23lbs. Ultimate weight goal: 210lbs before surgery. According to last note from provider, the patient has lost 14 Lbs since started the program. Today's weight is 218Lbs reported by client. History/Relationship with food Example of meals before starting program Breakfast: eggs or sandwich (egg, ham and cheese with butter or franklin) and coffee with milk and cinnamon. Lunch: Rice, any type of meat and would add salad or plantains sometimes. Dinner: Same as lunch or something light like burritos. 1-2 snacks during the day like cheese st ring ore bread/crackers and meted cheese. . She is currently doing 3 shakes and 1 meal at day. Her meal is 7 forks of protein and 7 forks of veggies. . PT denies any history of using food as reward or to cope with emotions. When anxious she has no appetite. Pt believes she has gained weight due to eating a lot and not being active. History/Relationship with weight Pt reports she has been over the 200Lbs after having children. In the last 10 years her lowest weight was 206Lbs, and highest 232Lbs. PT reports she has been less active in the past years due to knee problem. History/Relationship with dieting Ketto diet, Herbalife. other self-diets. Sticks to diets about 3 months but gains all the weight back after returning to regular life style. Binge Eating Do you frequently eat large amounts of food in short periods of time, not feeling physically hungry? No Do you feel out of control when you eat a large amount of food in a short period of time? No Do you eat large amounts of food rapidly and typically alone? No Night Eating Do you wake up at least once during the night to eat? No If you wake up in the night, do you find that it is necessary to eat something in order to fall back asleep? No Do you have little or no appetite in the morning and feel very hungry in the evening, often overeating between dinner and when you go to bed? No Social History Family history and relationship PT is in a long-term relationship for about 20 years but they live since 2014. she has 3 adult children, 2 boys and 1 daughter (They are 33, 31 and 29) and 4 grandchildren. Sons live near and daughter lives in [place]. Mother is alive and lives in [place], father is . PT has 5 siblings. PT reports she has very good family relationships . Parental/Familial loan service officer obligations None. Developmental history and status None reported. Currently reports she's forgetful but nothing out of the ordinary. Social support Partner, children, mother. Oldest son goes to walk with her daily. Community support Therapist. Anabaptist/Spirituality Mormon. Doesn't attend [employer]. Cultural/Ethnic information PT was born in [place]. Moved to [place] 19 years ago. Malagasy speaking only. Legal Involvement and History Current or historical involvement with the legal system? None reported. Education Highest grade completed 9th grade. Preferred learning style Visual Currently enrolled in educational program? No Interested in further educational program? No Educational Interests/Skills None reported or identified by client. Employment Employment Status Other (In process for disability due to health conditions, worked the last time in 2022.) Wants help to find employment? No Meaningful activities Cleaning, listen to music, watch TV, family time, every weekend her family comes over and she cooks for them. Financial Situation Describe current financial situation Comfortable Financial assistance? [employer] and Other ([place] assistance from [facility]. ) Service Service? No Mental Health and Addiction Treatment Current/Past substance abuse? No Comments Alcohol: Social. Cigarettes: None. Edibles: Denies. Current/Past addictive behavior concerns? No Psychiatric history PT currently attends counseling at [facility] ([address] [place] [address]), sees Sania Menchaca for therapy on a weekly basis. Sees Bello Stevens NP for medication management, on a monthly basis. Current meds are: clonazepam 0.5mg, escitalopram 10mg, pregabalin 200mg. Currently diagnoses with: Panic attacks, MARQUEZ, depression. PT reports that she hasn't had panic attacks for about a year, she has been s table and feels that with the current meal plan and exercise routine she has more energy and in a better mood. Medical and Physical Health Summary Additional Medical History not covered in history None. Sexual History concerns None reported. Physical exam in the last year? Yes Pain Screening Current pain? No Pain in the last few months? Yes Comments -Patient reports she has 1-2 flare-ups a t month with fibromyalgya symptoms. -Knee pain, as she had a surgery on that knee and also has arthritis in that site. However, knee pain is getting better as she has lost weight. Medications Is the patient compliant with medications? Yes (Uses medication for anxiety only as needed, has not used escitalopram for about a month ago. Also uses Lyrica as needed.- Asthma meds are as needed - Takes other meds as prescribed. ) Does the patient have [place] Guardian in place? Not applicable Does the patient use complimentary health approaches? No Trauma/Abuse History History of trauma? Yes Other Past (Lost of her father 24 years ago. ) Questionnaires PHQ-9 Over the last 2 weeks, how often have you been bothered by any of the following problems? 1. Little interest or pleasure in doing things: not at all 2. Feeling down, depressed, or hopeless: several days 3. Trouble falling or staying asleep, or sleeping too much: not at all 4. Feeling tired or having little energy: not at all 5. Poor appetite or overeating: not at all 6. Feeling bad about yourself - or that you are a failure or have let yourself or your family down: not at all 7. Trouble concentrating on things, such as reading the newspaper or watching television: not at all 8. Moving or speaking so slowly that other people could have noticed. Or the opposite - being so fidgety or restless that you have been moving around a lot more than usual: not at all 9. Thoughts that you would be better off or of hurting yourself in some way: not at all Total score: 1 Depression Screening Interpretation: Negative Depression Screening Done: Yes 45497 - PHQ-9 Billing: Yes Source: Developed by Drs. Tony Berrios, Lesly Pfeiffer, Dusty Hdz and colleagues, with an educational milla from [facility]. Assessment & Plan Assessment & Plan (1) Generalized anxiety disorder: Code(s): F41.1 - Generalized anxiety disorder (2) Other specified depressive episodes: Code(s): F32.89 - Other specified depressive episodes (3) Obesity (BMI 30-39.9): Code(s): E66.9 - Obesity, unspecified Plan PT has been cleared. Telehealth Telehealth Telehealth Platform: [facility] Location of provider rendering services: other (Home office, [place], [place].) Location of patient: address on file Patient Identification confirmed using: Name, : Yes Telehealth method: video Patient verbally consented to treatment: Yes Patient verbally consented to billing insurance company: Yes Patient informed of any privacy concerns related to visit: No Minutes spent on Phone/Video with Pt.: 45 Coding Level of Care Code Established Pt Tele Psytx 45 mins (45958) Patient Type Established Diagnoses Generalized anxiety disorder F41.1 Other specified depressive episodes F32.89 Obesity (BMI 30-39.9) E66.9 Time Spent (min) 45
== END ==
PROVIDERS: PCP Nurse Practitioner Family; Visit Provider Counselor Mental Health
DX: F41.1 Generalized anxiety disorder (principal); F32.89 Other specified depressive episodes; E66.9 Obesity, unspecified
CPT/HCPCS: 90834

== ENCOUNTER → 2024-01-14 09:30 | Outpatient (BNVA) | payer OTHER, SELFPAY | PROVIDERS: PCP Nurse Practitioner Family; Visit Provider Counselor Mental Health ==

== ENCOUNTER 2024-02-04 07:59 | Outpatient (AMB) | payer OTHER, SELFPAY ==
[2024-02-04 11:16] VITALS: BMI 34.5
--- NOTE | 2024-02-04 11:16 | A.OFFVIS_ITS ---
VS Expanded 02/04/24 11:16 Height 5 ft 4 in Weight 201 lb 2 oz BMI 34.5 Body Fat % 43.7 Body Fat Mass 87.9 Fat Free Mass 113.2 Visceral Fat Rating 12.7 Body Water % 40 Body Water Mass 80.4 Basal Metabolic Rate/Score 1,584 Intake Visit Reasons: TV Pre Op LSG 02/12/24 *BEHAVIORAL HEALTH DIRECTOR* Allergies No Known Allergies Allergy (Verified 02/04/24 11:23) Medication List - Last Reconciled 02/04/24 by Edgar Johansen MD albuterol 90 mcg/actuation 90 mcg inhalation Q4H PRN budesonide-formoterol 160-4.5 mcg/actuation (Symbicort) 1 puff inhalation DAILY cholecalciferol (vitamin D3) 125 mcg PO DAILY 90 days clonazepam 0.5 mg PO DAILY escitalopram oxalate 10 mg PO DAILY hydrochlorothiazide 25 mg PO DAILY ondansetron 4 mg PO Q12H pantoprazole 40 mg PO DAILY polyethylene glycol 3350 17 grams PO DAILY pregabalin 200 mg PO BID sucralfate 10 mL PO BID tiotropium bromide (Spiriva with HandiHaler) 1 cap inhalation DAILY HPI HPI TV Pre Op LSG 02/12/24 *BEHAVIORAL HEALTH DIRECTOR*: Details: Start time: 11.10am, End time: 11.40am ?I spent 25 minutes speaking with the patient on the phone plus an additional 5 minutes reviewing and updating records for a total of 30 minutes HPI Comments Details: Overall weight loss: 31.9lbs, or 13.7% TBWL Is doing one yogurt, 3-4 Orgain protein shakes exercise: treadmill for 300-350 calories per work out [facility] Medical History Anxiety Depression Sleep apnea treated with continuous positive airway pressure (CPAP) Fibromyalgia Hypertension Asthma Morbid obesity Surgical History History of appendectomy History of laparoscopic cholecystectomy History of delivery Social History (Updated 02/01/24 @ 15:58 by Autumn Osorio RN) Household Members: None Housing: Apartment Are you a primary inpatient care manager rn to a significant other at home: No Do you presently have visiting nurse or other home services: No Alcohol intake: never Patient Tobacco Use Status: Former Tobacco user Tobacco use type: Cigarette Telehealth Telehealth Telehealth Platform: Telephone Location of provider rendering services: practice address Location of patient: address on file Patient Identification confirmed using: Name, : Yes Telehealth method: voice only Patient verbally consented to treatment: Yes Patient verbally consented to billing insurance company: Yes Patient informed of any privacy concerns related to visit: Yes Minutes spent on Phone/Video with Pt.: 30 Assessment & Plan Assessment & Plan (1) Obesity: Code(s): E66.9 - Obesity, unspecified Category: Medical Qualifiers: Obesity type: due to excess calories Obesity classification: adult class 1 (BMI 30 - 34.9) Serious obesity comorbidity presence: with serious comorbidity Body mass index: BMI 34.0-34.9 Qualified Code(s): E66.811 - Obesity, class 1; E66.09 - Other obesity due to excess calories; Z68.34 - Body mass index [BMI] 34.0-34.9, adult Plan: 1. Plan for lap sleeve gastrectomy including upper GI endoscopy. All tests has been completed and reviewed and the patient is cleared for the surgery. ?If diaphragmatic or ventral hernias are present at time of surgery, these will be repaired laparoscopically as well. Risks and complications were discussed in detail including possible conversion to an open procedure, anastomotic leak, bleeding requiring transfusion, small bowel obstruction, , DVT and pulmona ry embolism, cardiac, or pulmonary complications, as mcfp complications such as anastomotic ulcer, insufficient weight loss and vitamin deficiencies. I emphasized the importance of close follow-up, adherence to instructions and good communication. So far she has proven to be an excellent communicator and very compliant with all our directions accomplishing a great weight loss. I believe that she is an excellent candidate and she is ready. 2. Preop prescriptions were provided and explained the purpose of each one. Need to be purchased preop. Start Pantoprazole now as you get it from the pharmacy, 1 pill per day. Sucralfate and Zofran are for after surgery as needed. 3. Bowel prep: please do 7 packets ?of Miralax mixing each one with a an 8oz glass of water, crystal light, gatorade zero, or propel ?on 02/10/24 and the same amount on 02/11/24. The Miralax you begin with one packet at a time in 8oz water or crystal light, gatorade zero, or propel ?as early in the day as you can and you do them back to back until you finish them. Continue the protein shakes during ?the bowel prep. 4. Needs to purchase 1oz medicine cups . 5. Needs to purchase Children's liquid Tylenol for postop pain control. 6. She needs to stop the Pregabalin (Lyrica) today 02/04/24. Avoid aspirin, motrin, Advil, Aleve, Ibuprofen, Naproxyn. Tylenol is OK. 7. She needs to purchase the Celebrate 4:1 protein shakes from the hospital's gift shop. 8. Will do basic preop blood work-up any day between Sunday04/03/22 and Sunday04/07/22 fasting for 12 hours and is scheduled to see the Anesthesiologist prior to the day of surgery. 9. Importance of adherence to postop folllow-up and recommendations was underscored and she understands that. 10. Stop food and bars as of tomorrow 02/05/24 and continue with 4 Orgain protein shakes (ONE scoop EACH in 8oz almond milk) at 8am-10am, 11am-1pm, 2pm-4pm, 5pm- 7pm and one more Orgain protein shake with ONE scoop in 8oz of almond milk at 7pm-9pm 11. No soups, broths or V8 12. The patient's?medical?history has been reviewed and they are considered low risk for post op DVT and therefore DVT prophylaxis is not considered necessary. Travel after surgery was reviewed. The patient has not disclosed any travel plans during the first 30 days after surgery and they have been advised that within the first 30 days after surgery any bus, plane, train or car travel over 2 hours in duration is contraindicated due to the possibility of developing blood clots from immobility. Any travel, needs to include periods of ambulation of 10 minutes in duration every 2 hours.? Patient was instructed to discuss any plans for travel during this period with their bariatric surgeon.? 13. Use your CPAP daily and bring it to the hospital with your mask 14. As of tomorrow, please check your blood pressure daily in the morning. If your blood pressure is: Below 120/70: do not take the Hydrochlorothiazide 121/71 to 135/85: take HALF Hydrochlorothiazide Over 136/86: take the whole Hydrochlorothiazide 15. Please take at the day of surgery the following medications: 16. Stop any control pills and don't use them for one month after surgery 17. Absolutely no smoking or vaping, or marijuana until the surgery and for at least the first 4 weeks. Only nicotine patches are allowed. 18. Send me weight measurements on Sunday02/06/24 and then on Sunday on 02/12/24, the day of surgery before you go to the hospital. 19. Avoid any steroids by mouth for any reason. Let me know if someone prescribes them to you 20. These instructions supersede anything else you read in the handbook, anything you watched in videos or classes or you were told by any other provider. If there is any conflict, you follow the above instructions and nothi ng else. Orders: Orders Prothrombin Time INR Today E66.9 - Obesity, unspecified, I10 - Essential (primary) hypertension, Z68.34 - Body mass index [BMI] 34.0-34.9, adult Type and Screen Today E66.9 - Obesity, unspecified, I10 - Essential (primary) hypertension, Z68.34 - Body mass index [BMI] 34.0-34.9, adult Partial Thromboplastin Time Today E66.9 - Obesity, unspecified, I10 - Essential (primary) hypertension, Z68.34 - Body mass index [BMI] 34.0-34.9, adult Complete Blood Count Auto Diff Today E66.9 - Obesity, unspecified, I10 - Essential (primary) hypertension, Z68.34 - Body mass index [BMI] 34.0-34.9, adult Insulin Today E66.9 - Obesity, unspecified, I10 - Essential (primary) hypertension, Z68.34 - Body mass index [BMI] 34.0-34.9, adult Comprehensive Met. Panel Today E66.9 - Obesity, unspecified, I10 - Essential (primary) hypertension, Z68.34 - Body mass index [BMI] 34.0-34.9, adult TSH reflex Free T4 Today E66.9 - Obesity, unspecified, I10 - Essential (primary) hypertension, Z68.34 - Body mass index [BMI] 34.0-34.9, adult C Reactive Protein Today E66.9 - Obesity, unspecified, I10 - Essential (primary) hypertension, Z68.34 - Body mass index [BMI] 34.0-34.9, adult Lipid Panel Today E66.9 - Obesity, unspecified, I10 - Essential (primary) hypertension, Z68.34 - Body mass index [BMI] 34.0-34.9, adult Hemoglobin A1c Today E66.9 - Obesity, unspecified, I10 - Essential (primary) hypertension, Z68.34 - Body mass index [BMI] 34.0-34.9, adult Medications: New pantoprazole 40 mg PO DAILY 90 tabs 0RF K21.9 - Gastro-esophageal reflux disease without esophagitis ondansetron Only take one every 12 hours as needed if you have nausea 4 mg PO Q12H 20 tabs 0RF nausea and vomiting R11.0 - Nausea polyethylene glycol 3350 Mix each measuring cup with 8oz of water, Crystal light, or Gatorade zero, or Propel and do 7 measuring cups on 02/10/24 and another 7 measuring cups on 02/11/24 17 grams PO DAILY 238 grams 0RF Z01.818 - Encounter for other preprocedural examination sucralfate 10 mL PO BID 600 mL 2RF K21.9 - Gastro-esophageal reflux disease without esophagitis
== END 2024-02-04 11:40 | disposition home or self-care (01) ==
LOC: HO.HBS 07:59
PROVIDERS: PCP Nurse Practitioner Family; Visit Provider Surgery
DX: E66.811 Obesity, class 1 (principal); E66.09 Other obesity due to excess calories; Z68.34 Body mass index [BMI] 34.0-34.9, adult
CPT/HCPCS: 99214; G2211

== ENCOUNTER → 2024-02-04 07:59 | Outpatient (BNVA) | payer OTHER, SELFPAY | PROVIDERS: PCP Nurse Practitioner Family; Visit Provider Surgery ==

== ENCOUNTER → 2024-02-05 12:58 | Outpatient (BNVA) | payer OTHER, SELFPAY | PROVIDERS: PCP Nurse Practitioner Family; Visit Provider Physician Assistant Surgical ==

== ENCOUNTER 2024-02-12 06:11 | Inpatient (IN) | payer OTHER, SELFPAY ==
[2024-02-01 15:54] VITALS: BMI 34.7
[2024-02-05 08:09] LABS: MANUAL DIFF FLAG NO
[2024-02-05 08:28] LABS: Basophils Percent Auto 0.3 % (0-2); Eosinophils Absolute Auto 0.1 X10*3/uL (0.0-0.4); Eosinophils Percent Auto 1.2 % (0-4); Hemoglobin 13.4 g/dl (12.0-16.0); Imm Gran Abs Auto 0.02 X10*3/uL (0.00-0.03); Imm Gran Pct Auto 0.2 % (0.0-0.4); Lymphocytes Absolute Auto 2.3 X10*3/uL (1.2-4.9); Lymphocytes Percent Auto 24.6 % (20-40); Mean Corpuscular HGB Conc 33.5 g/dl (31.0-35.0); Mean Corpuscular Hemoglobin 29.7 pg (27.0-33.0); Mean Corpuscular Volume 88.7 fL (80.0-98.0); Mean Platelet Volume 10.7 fL (9.4-12.3); Monocytes Absolute Auto 0.7 X10*3/uL (0.1-1.2); Monocytes Percent Auto 7.2 % (2-11); Neutrophils Absolute Auto 6.1 x10*3/uL (2.0-8.3); Neutrophils Percent Auto 66.5 % (45-73); Platelet Count 230 X10*3/uL (160-400); Red Blood Count 4.51 X10*6/uL (4.20-5.50); Red Cell Distribution Width 12.8 % (11.0-16.0); White Blood Count 9.2 X10*3/uL (4.8-10.8)
[2024-02-05 08:37] LABS: Prothrombin Time 11.7 SEC (10.9-12.4)
[2024-02-05 08:40] LABS: Partial Thromboplastin Time 34.3 SEC (26.0-36.8)
[2024-02-05 09:11] LABS: Alanine Aminotransferase 14 U/L (0-31); Albumin Level 4.4 g/dL (3.5-5.0); Alkaline Phosphatase 47 U/L (39-117); Anion Gap 12 (12-20); Aspartate Amino Transferase 14 U/L (5-31); Bilirubin Total 0.6 mg/dL (0.0-1.0); Blood Urea Nitrogen 16 mg/dL (9-16); C Reactive Protein 1.79 mg/dL (< or = 0.50); Calcium 9.7 mg/dL (8.4-10.2); Carbon Dioxide 31 mmol/L (22-29); Chloride 102 mmol/L (96-108); Cholesterol 167 mg/dL (<200); Creatinine Clr Calc Pharmacy 99.5; Estimated Glomerular Filt Rate > 60; Glucose Random 103 mg/dL (60-115); HDL Cholesterol 38 mg/dL (>40); LDL Cholesterol Calculated 112 mg/dL (<100); Potassium 3.2 mmol/L (3.3-5.1); Sodium 142 mmol/L (135-145); Total Protein 7.5 g/dL (6.5-8.0); Triglycerides 88 mg/dL (<150)
[2024-02-05 09:26] LABS: Estimated Average Glucose 94 mg/dL; Hemoglobin A1C 101.8815 umol/L; Hemoglobin A1c % 4.9 % (<6.0); Total Hemoglobin (HGBA1C) 3373.4994 umol/L
[2024-02-05 09:28] LABS: Insulin 8 uU/mL (2-29); TSH reflex Free T4 2.34 uIU/mL (0.32-4.0)
--- NOTE | 2024-02-07 14:06 | HO.ANESPROP2 ---
Documented by User: Priya Melendez NP 02/07/24 14:07 HPI - Anesthesia Eval Consult details Narrative: 48yo F for Gastrectomy Sleeve- EGD, possible diaphramgatic hernia, possible ventral hernia, possible open PMFSH Active Problems Active Problems: All Active Problems BMI 34.0-34.9,adult (Acute) Obesity (Acute) Other specified depressive episodes (Acute) Generalized anxiety disorder (Acute) Obesity (BMI 30-39.9) (Acute) Anxiety (Acute) Depression (Acute) Sleep apnea treated with continuous positive airway pressure (CPAP) (Acute) Fibromyalgia (Acute) Hypertension (Acute) Asthma (Acute) Morbid obesity (Acute) Past Medical History Medical History Hypokalemia Anxiety Depression Sleep apnea treated with continuous positive airway pressure (CPAP) Fibromyalgia Hypertension Asthma Morbid obesity Family History Family history of problems with anesthesia: No Surgical History Surgical History History of appendectomy History of laparoscopic cholecystectomy History of delivery History of Problems with Anesthesia: No Social History Social History Household Members: None Housing: Apartment Are you a primary director of healthcare systems to a significant other at home: No Do you presently have visiting nurse or other home services: No Alcohol intake: never Patient Tobacco Use Status: Former Tobacco user Tobacco use type: Cigarette Smoked in Last 30 Days: No Use of substances other than those prescribed or required for medical reasons: No Have you been hit, kicked, punched, or otherwise hurt by someone within the past year? If so, by whom?: No Are you DNR?: No Advance Directives: No Advance Directives Information Provided: Yes Advance Directives on File: No Recently lost weight without trying: No Nutrition Risks: No Nutritional Risk Patient : No FDLMP: 01/25/2024 : No Poor oral hygiene: No Meds Allergies Allergy/AdvReac Type Severity Reaction Status Date / Time No Known Allergies Allergy Verified 02/12/24 06:36 Home Medications ?Medication ?Instructions ?Recorded ?Confirmed ?Last Taken ?Type budesonide-formoterol HFA 160 1 puff inhalation DAILY 07/06/23 02/04/24 02/12/24 History mcg-4.5 mcg/actuation aerosol inhaler (Symbicort) clonazepam 0.5 mg tablet 0.5 mg PO DAILY 07/06/23 02/04/24 Unknown History escitalopram oxalate 10 mg tablet 10 mg PO DAILY 07/06/23 02/04/24 Unknown History hydrochlorothiazide 25 mg tablet 25 mg PO DAILY 07/06/23 02/04/24 Unknown History pregabalin 200 mg capsule 200 mg PO BID 07/06/23 02/04/24 Unknown History tiotropium bromide 18 mcg capsule 1 cap inhalation DAILY 07/06/23 02/04/24 02/12/24 History with inhalation device (Spiriva with HandiHaler) albuterol 90 mcg/actuation aerosol 90 mcg inhalation Q4H PRN 11/07/23 02/04/24 Unknown History inhaler shortness of breathness or wheeze Exam Height,Weight and Vital Signs: Height 5 ft 4 in Weight 91.626 kg Pertinent Lab Results Pertinent Lab Results: Laboratory Tests 02/05/24 02/05/24 07:56 08:07 WBC 9.2 RBC 4.51 Hgb 13.4 Hct 40.0 MCV 88.7 MCH 29.7 MCHC 33.5 RDW 12.8 Plt Count 230 MPV 10.7 Immature Gran % (Auto) 0.2 Neut % (Auto) 66.5 Lymph % (Auto) 24.6 [place] % (Auto) 7.2 Eos % (Auto) 1.2 Baso % (Auto) 0.3 Lymph # (Auto) 2.3 [place] # (Auto) 0.7 Eos # (Auto) 0.1 Baso # (Auto) 0.0 Abs Immat Gran (auto) 0.02 Absolute Neuts (auto) 6.1 Absolute Nucleated RBC 0.000 Nucleated RBC % (auto) 0.0 PT 11.7 INR 1.0 APTT 34.3 Sodium 142 Potassium 3.2 L Chloride 102 Carbon Dioxide 31 H Anion Gap 12 BUN 16 Creatinine 0.75 Estim Creat Clear Calc 99.5 Estimated GFR > 60 Random Glucose 103 Estimat Average Glucose 94 Hemoglobin A1c % 4.9 Insulin Level 8 Calcium 9.7 D Total Bilirubin 0.6 AST 14 ALT 14 Alkaline Phosphatase 47 C-Reactive Protein 1.79 H Total Protein 7.5 Albumin 4.4 Triglycerides 88 Cholesterol 167 LDL Cholesterol, Calc 112 H HDL Cholesterol 38 L TSH 2.34 Blood Type A Positive Antibody Screen NEGATIVE Narrative Narrative: EKG 11/2023 Vent. Rate : 068 BPM Atrial Rate : 068 BPM P-R Int : 164 ms QRS Dur : 094 ms QT Int : 404 ms P-R-T Axes : 061 -03 022 degrees QTc Int : 429 ms Normal sinus rhythm Normal ECG No previous ECGs available Assessment and Plan Assessment Anesthesia Assessment: Chart Reviewed Final Anesthetic Review Family History of Problems with Anesthesia: No History of Problems with Anesthesia: No Documented by User: Melissa Macdonald MD 02/12/24 08:32 [facility] Past Medical History Medical History Hypokalemia Anxiety Depression Sleep apnea treated with continuous positive airway pressure (CPAP) Fibromyalgia Hypertension Asthma Morbid obesity Surgical History Surgical History History of appendectomy History of laparoscopic cholecystectomy History of delivery Social History Social History Household Members: None Housing: Apartment Are you a primary director of healthcare systems to a significant other at home: No Do you presently have visiting nurse or other home services: No Alcohol intake: never Patient Tobacco Use Status: Former Tobacco user Tobacco use type: Cigarette Smoked in Last 30 Days: No Use of substances other than those prescribed or required for medical reasons: No Have you been hit, kicked, punched, or otherwise hurt by someone within the past year? If so, by whom?: No Are you DNR?: No Advance Directives: No Advance Directives Information Provided: Yes Advance Directives on File: No Recently lost weight without trying: No Nutrition Risks: No Nutritional Risk Patient : No FDLMP: 01/25/2024 : No Poor oral hygiene: No Meds Allergies Allergy/AdvReac Type Severity Reaction Status Date / Time No Known Allergies Allergy Verified 02/12/24 06:36 Home Medications ?Medication ?Instructions ?Recorded ?Confirmed ?Last Taken ?Type budesonide-formoterol HFA 160 1 puff inhalation DAILY 07/06/23 02/04/24 02/12/24 History mcg-4.5 mcg/actuation aerosol inhaler (Symbicort) clonazepam 0.5 mg tablet 0.5 mg PO DAILY 07/06/23 02/04/24 Unknown History escitalopram oxalate 10 mg tablet 10 mg PO DAILY 07/06/23 02/04/24 Unknown History hydrochlorothiazide 25 mg tablet 25 mg PO DAILY 07/06/23 02/04/24 Unknown History pregabalin 200 mg capsule 200 mg PO BID 07/06/23 02/04/24 Unknown History tiotropium bromide 18 mcg capsule 1 cap inhalation DAILY 07/06/23 02/04/24 02/12/24 History with inhalation device (Spiriva with HandiHaler) albuterol 90 mcg/actuation aerosol 90 mcg inhalation Q4H PRN 11/07/23 02/04/24 Unknown History inhaler shortness of breathness or wheeze Exam Airway Mallampati Class: II TM Dist: >3cm Neck ROM: Full Loose/Missing/Broken Teeth: No Heart: RRR Lungs: CTA Assessment and Plan Assessment Anesthesia Assessment: Anesthesia Plan Discussed Final Anesthetic Review NPO: Yes ASA Class: III Final Preanesthetic Review: Meds/Allgs Chart Reviewed, Consent Obtained/Reviewed and Anes Risks/Benef Reviewed Patient Risk: Intermediate Procedure Risk: Intermediate Anesthetic Plan Anesthetic Plan: GA Disposition: Standard PACU
[2024-02-12] VITALS (16 sets, daily range): BP systolic 122–180; BP diastolic 69–100; PULSE 62–79; RESP 10–20; TEMP 36.1–37.1; O2SAT 93–100; BMI 33.8
--- OUTSIDE RECORDS SUMMARY | 2024-02-12 06:18 | XMS_ITS | Continuity of Care Document ---
Author Organization [facility] ter Address [address] [place] [address]- Care Team Providers Care Sales Representative Metals Name Role Phone Mariza Goodrich MD Primary Care Physician [place] [facility] [place]): [place] - 02/07/[address] [address]- Discharge Disposition: A-D/C Home Attending Physician: Jorje Mitchell MD Admitting Physician: Jorje Mitchell MD Referring Physician: Jorje Mitchell MD Allergies, Adverse Reactions, Alerts No Known [...] 01/25/23 8:49:00 EDT, Route to Pharmacy Electronically, [id number], [facility]/pharmacy #[id number], 163, cm, 01/25/23 8:30:00 EDT, Height Start Date: 01/25/23 Status: Ordered cetirizine 10 mg oral tablet 1 tablet, By Mouth, Daily, # 30 tablet, 5 Refills, [facility] STORE [id number], 163, cm, 01/10/21 8:49:00 EDT, Height, 102.9, kg, 05/21/20 8:52:00 EST, Dry Weight Start Date: 06/18/21 Status: Ordered cholestyramine 4 g/5.7 g oral powder for reconstitution = 2 Gm, By Mouth, Daily, dissolve in water or juice. [place] Sig., # 180 Gm, 1 Refills, Maintenance, 04/16/23 15:55:00 EST, REC Powder, [facility]/pharmacy #[id number], Partial fill upon patient request if the prescription is for a schedule II opioid drug., 163, c... Start Date: 04/16/23 Stop Date: 10/13/23 Status: Ordered clonazePAM 0.5 mg oral tablet 1 tablet = 0.5 mg, By Mouth, Daily at bedtime, PRN Anxiety, # 30 tablet, 1 Refills, Maintenance, 01/25/23 9:00:00 EDT, Tablet, [facility]/pharmacy #[id number], Partial fill upon patient request if [...] Length of need 99 Fax to [facility],... Start Date: 06/20/23 Status: Ordered donut pillow donut pillow, See Instructions, # 1 each, Refills 0, Tot. Refills 0, Maintenance, use for sitting for 2-4 weeks for coccyx bruise M53.3, 03/07/23 16:09:00 EST, Supply Start Date: 03/07/23 Status: Ordered escitalopram 10 mg oral tablet 1 tablet = 10 mg, By Mouth, Daily, # 90 tablet, 0 Refills, Maintenance, 01/25/23 8:52:00 EDT, Tablet, [facility]/pharmacy #[id number], Partial fill upon patient request if the prescription is for a schedule II opioid drug., 163, cm, 01/25/23 8:30:00 EDT, Height Start Date: 01/25/23 Stop Date: 04/25/23 Status: Ordered Flonase 50 mcg/inh nasal spray 2 sprays, Nares, Both, Daily in AM, # 1 each, 11 Refills, Maintenance, 07/26/20 9:20:00 EDT, [place],[facility]/pharmacy #[id number], 2 sprays Nares, Both Daily in AM, 163, cm, 07/22/20 8:51:00 EDT, Height, 105.7,kg, 09/12/19 20:00:00 EDT, Dry Weight Start Date: 07/26/20 Status: Ordered ibuprofen 600 mg oral tablet 600 mg, 1, tablet, By Mouth, Every 6 hours, PRN, # 40 tablet, Refills 1, Tot. Refills 1, Maintenance, Headache, 06/19/23 10:54:00 EST, Route to Pharmacy Electronically, [facility]/pharmacy #[id number], Partial fill upon patient request if the prescription is for a... Start Date: 06/19/23 Status: Ordered ketoconazole 2% topical shampoo See Instructions, 1 application Topically three times a week, # 120 mL, 3 Refills, Soft Stop, 07/06/23 16:38:00 EST, Shampoo, [facility]/pharmacy #[id number], Partial fill upon patient request if the prescriptionis for a schedule II opioid drug., 1 application To... Start Date: 07/06/23 Status: Ordered lidocaine 5% topical cream 1 application, Topically, 3 times a day, PRN Pain. Canadian sig, # 45 Gm, 1 Refills, Maintenance, 01/10/21 9:40:00 EDT, Cream, [facility]/pharmacy #[id number], Partial fill upon patient request if the prescriptionis for a schedule II opioid drug., 1 application To... Start Date: 01/10/21 Status: Ordered Lidoderm 5% film 1 patch, Topically, Daily, remove patches after 12 hours, # 30 patch, 5 Refills, Maintenance, 07/06/23 16:39:00 EST, [facility]/pharmacy #[id number], Partial fill upon patient request if the prescription is for aschedule II opioid drug., 1 patch Topically Daily,I... Start Date: 07/06/23 Status: Ordered PEG-3350 with Electrolytes (Eqv-GoLYTELY) oral powder for reconstitution 240 mL, By Mouth, Every 15 minutes, Split prep method. 1/2 gallon evening prior to colonscopy and 1/2 gallon 6h prior to start of colonoscopy, # 4,000 mL, 0 Refills, Maintenance, 01/14/24 14:54:00 EDT, [facility]/pharmacy #[id number], Colonosopy Date: 02/07/24,... Start Date: 01/14/24 Status: Ordered pregabalin 200 mg oral capsule 1 capsule = 200 mg, By Mouth, Daily, # 30 capsule, 1 Refills, Maintenance, 01/25/23 9:00:00 EDT, Capsule, [facility]/pharmacy #[id number], Partial fill upon patient request if the prescription is for a schedule II opioid drug., 163, cm, 01/25/23 8:30:00 EDT, Height Start Date: 01/25/23 Stop Date: 03/26/23 Status: Ordered Singulair 10 mg oral tablet 10 mg, 1, tablet, By Mouth, Daily, # 90 tablet, Refills 3, Tot. Refills 3, Maintenance, 01/25/23 8:49:00 EDT, Route to Pharmacy Electronically, [facility]/pharmacy #[id number], 163, cm, 01/25/23 8:30:00 EDT, Height Start Date: 01/25/23 Stop Date: 01/20/24 Status: Ordered Spiriva Respimat 10 ACT 2.5 mcg/inh inhalation aerosol 2 puffs = 5 mcg, Inhalation, Daily, citizen [place] sig, # 4 Gm, 5 Refills, Maintenance, 03/14/23 10:57:00 EST, Aerosol, [facility]pharmacy #[id number], Partial fill upon patient request if the prescription is for a schedule II opioid drug., 163, cm, 03/14/23 9:01:00 EST... Start Date: 03/14/23 Status: Ordered Tylenol Extra Strength 500 mg oral tablet 2 tablet = 1,000 mg, By Mouth, 3 times a day, PRN for fever, # 60 tablet, 0 Refills, Maintenance, 02/24/23 20:18:00 EDT, Tablet, [facility]/pharmacy #[id number], Partial fill upon patient request, 163, cm, 02/24/23 17:24:00 EDT, Height, 102, kg, 02/24/23 17:24:00... Start Date: 02/24/23 Stop Date: 03/06/23 Status: Ordered Vitamin D3 1000 intl units oral tablet 1 tablet = 25 mcg, By Mouth, Daily, # 30 tablet, 3 Refills, Maintenance, 11/29/23 14:14:00 EDT, Tablet, [facility]/pharmacy #[id number], Partial fill upon patient request if the prescription is for a schedule II opioid drug., 163, cm, 07/06/23 16:22:00 EST, Height... Start Date: 11/29/23 Status: Ordered Voltaren Arthritis Pain 1% topical [...] Confirmed Active Chronic myofascial pain/Fibromyalgia Confirmed Active Obese class I Confirmed Active Obstructive sleep apnea (on CPAP) Confirmed Active Osteoarthritis of left knee Confirmed Active 1Dx in 2018 Vital Signs Most recent to oldest [Reference Range]: 1 2 3 Height 162.6 cm (02/07/24 10:26 AM) Weight 89.8 kg (02/07/24 10:26 AM) Oxygen Saturation [94-100 %] 100 % (02/07/24 12:58 PM) 98 % (02/07/24 12:46 PM) 100 % (02/07/24 12:36 PM) Pulse Rate [55-90 bpm] 71 bpm (02/07/24 10: AM) Body Mass Index [18.5-24.99 kg/m2] 33.97 kg/m2 *>HHI* (02/07/24 10:26 AM) Blood Pressure [90-138/55-84 mm Hg] 134/86mm Hg (02/07/24 12:58 PM) 118/78mm Hg (02/07/24 12:46 PM) 114/72mm Hg (02/07/24 12:36 PM) Respiratory Rate [16-30 br/min] 12 br/min *L* (02/07/24 12:58 PM) 14 br/min *L* (02/07/24 12:46 PM) 13 br/min *L* (02/07/24 12:36 PM) Temperature [96.8-100.4 DegF] 97.5 DegF (02/07/24 12:25 PM) 97.4 DegF (02/07/24 10: AM) Mode of Delivery (Oxygen) Room air (02/07/24 12:58 PM) Room air (02/07/24 12:46 PM) Room air (02/07/24 12:36 PM) Blood pressure sites Arm, left (02/07/24 12:58 PM) Arm, left (02/07/24 12:46 PM) Arm, left (02/07/24 12:36 PM) Temperature Route Temporal (02/07/24 12:25 PM) Temporal (02/07/24 10:26 AM) Weight Obtained Via Patient/family state d (02/07/24 10:26 AM) Social History Social History Type Response Smoking Status Never smoker entered on: 02/16/14 Sex Note * Clovis Ventura RN: PERFORM Event Display: Discharge/Transfer Note Hospital Authored Date: Nursing Discharge Note Entered On: 02/07/2024 12:45 EDT Performed On: 02/07/2024 12:45 EDT by Clovis Ventura RN Nursing Discharge Note 2 Discharge Time : 02/07/2024 13:02 EDT Clovis Ventura RN - 02/07/2024 13:03 EDT Discharge Level of Care at Discharge : Home/Jail/Foster Care Patient Left Unit Via : Wheelchair Patient Accompanied Off Unit with : Responsible adult DC Instructions Provided & Signed by Pt : Yes Patient Understands D/C Instructions : Yes Patient Instructions Discharge Signed : Yes Did Pt have Specialty Bed or Wound Vac : No Clovis Ventura RN - 02/07/2024 12:45 EDT * Clovis Ventura RN: PERFORM Event Display: Patient Education/Instruction Authored Date: [id number] Surgery Adult Discharge Instructions [place] [id number] Name: CASSIUS EVANS : 1975?? Visit: 02/07/2024 09:19?? Current Date: 02/07/2024 12:45 ?? Account: [id number]?? Surgery Discharge Instructions We would like to thank you for allowing us to assist you with your healthcare needs. The following includes patient education materials and information regarding your injury/illness. Our entire staffstrives to provide an excellent experience for our patients and their families. PLEASE ENSURE YOU FOLLOW-UP PER THE INSTRUCTIONS BELOW! ?? YOUR OPINION IS IMPORTANT TO US! Please complete the survey you may receive by mail or email. Your feedback will be used to make improvements to the healthcare experiences of our patients and their families. Surveys are administered by [employer] ?? If further treatment with your primary care physician or another doctor is recommended, it is important for you to keep the appointment. Call your primary care physician or return to the Emergency Department immediately if your condition worsens, fails to improve, or new symptoms develop. If you need to find a doctor, you can call [facility] for a referral at [phone] or toll free at [phone]) or log in to [email or web address] ?? [facility], in keeping with [facility] guidance, no longer requires face masks for staff, patientsor visitors in most situations. Similiar to time spent indoors at other locations, there is the chance that you were exposed to repiratory viruses during your time with us (such as flu or COVID-19). If you develop symptoms concerning for a viral respiratory infection, please seek testing (and treatment if indicated) from your medical provider or home test kit. ?? You can view and manage your care through the patient portal or by using a health care jennyfer of your choosing. [employer] is a website that allows you to securely view your medical information including your hospital discharge summary, office visit summaries, medications and follow-up visits. You can also request appointments, renew medications, and request access to your medical information using a health care jennyfer of your choosing, or just ask a question. You are entitled to know the individuals who participated in your treatment. This information is available within your medical record and will be provided upon your request. You can enroll at [email or web address] or register d uring your next office visit. You have been discharged from [facility], Patient Care Unit: ENDO??. If you have any questions regarding these instructions after you leave, please call us and we will be happy to assist you. [facility] Your Care Team Attending Physician Jorje Mitchell MD?? Discharging Providers Jorje Mitchell MD Reason for Admission COLON SCREEN DIARRHEA S P CHOLECYSTECTOMY Primary Care Provider Mariza Goodrich MD? Advance Directive Health Care Proxy on File No Patient is <18 years old What to do next Instructions From Your Doctor ?? Orders? /02/20 10:19:00 EDT, ??Per Daystay Protocol?? Scheduled Follow-Up Appointments Sunday 9:00 AM EDT ?? Where: [facility] Radiology [facility] [address], [address] [place] [address]- Status: Pending You Need to Schedule the Following Appointments Follow Up with??follow up with your pcp Follow Up with??Mariza Goodrich When:??In 0 days Discharge Medications CASSIUS EVANS :1975 Visit Date:02/07/2024 Medications: Please continue your medications until treatment is completed or stopped by your provider. You may resume your daily prescription medications. Discuss any questions related to medications with your provider. What How Much When Why Instructions Next Dose Unchanged Acetaminophen (Tylenol Extra Strength 500 mg oral tablet) 2 tab(s) Oral 3 times a day as needed for for fever Duration: 10 Days Unchanged Albuterol (albuterol CFC free 90 mcg/ inh inhalation aerosol) 2 puff(s) Inhalation Every 4 hours as needed for Wheezing/Shortness of Breath Unchanged Cetirizine (cetirizine 10 mg oral tablet) 1 tab(s) Oral Daily Unchanged Cholecalciferol (Vitamin D3 1000 intl units oral tablet) 1 tab(s) Oral Daily Unchanged Cholestyramine (cholestyramine 4 g/ 5.7 g oral powder for reconstitution) 2 gram Oral Daily Duration: 90 Days dissolve in water or juice. Canadian Sig. ?? Unchanged Clonazepam (clonazePAM 0.5 mg oral tablet) 1 tab(s) Oral Daily at Bedtime as needed for Anxiety Unchanged Diclofenac Topical (Voltaren Arthritis Pain 1% topical gel) 2 gram Topically 4 times a day Duration: 10 Days Unchanged Durable Medical Equipment (CPAP and CPAP equipment) See instructions CPAP of 11 cm of H2O with a heated humidifier. ??Recommend ordering a machine with compliance data capabilities and following residual AHI. ?? Dx: ??GULSHAN 327.23 ?? Unchanged Durable Medical Equipment (CPAP Equipment) See instructions Obstructive sleep apnea (on CPAP) Dispense: mask, tubing, filters, head gear, chin strap, water chamber, heating tubing. Dx GULSHAN G47.33. To be used for at least 4 hours every night. Length of need 99 Fax to [facility] ?? Unchanged Durable Medical Equipment (donut pillow) See instructions Coccyx pain use for sitting for 2-4 weeks for coccyx bruise M53.3 ?? Unchanged Escitalopram (escitalopram 10 mg oral tablet) 1 tab(s) Oral Daily Duration: 90 Days Unchanged Fluticasone Nasal (Flonase 50 mcg/ inh nasal spray) 2 spray(s) Nares, Both Daily in the morning Unchanged Ibuprofen (ibuprofen 600 mg oral tablet) 1 tab(s) Oral Every 6 hours as needed for Headache Headache Unchanged Ketoconazole (ketoconazole 2% topical shampoo) See instructions 1 application Topically three times a week ?? Unchanged Lidocaine Topical (lidocaine 5% topical cream) 1 jennyfer Topically 3 times a day PRN Pain. Canadian sig ?? Unchanged Lidocaine Topical (Lidoderm 5% film) 1 patch(es) Topically Daily remove patches after 12 hours ?? Unchanged Montelukast (Singulair 10 mg oral tablet) 1 tab(s) Oral Daily Duration: 90 Days Unchanged PEG Electrolyte Solution (PEG-3350 with Electrolytes (Eqv-GoLYTELY) oral powder for reconstitution) 240 Milliliter Oral Every 15 minutes Split prep method. 1/ 2 gallon evening prior to colonscopy and 1/ 2 gallon 6h prior to start of colonoscopy ?? Unchanged Pregabalin (pregabalin 200 mg oral capsule) 1 capsule Oral Daily Duration: 30 Days Unchanged Tiotropium (Spiriva Respimat 10 ACT 2.5 mcg/ inh inhalation aerosol) 2 puff(s) Inhalation Daily citizen of [place] sig ?? Allergies (NKA means No Known Allergies) NKA No Known Medication Allergies Education Materials Below is the list of Educational Leaflet Providered with your Discharge Instructions. Valuables and Belongings I fully understand and agree that [facility] accepts no responsibility for all my personal property including clothing, toilet articles, radios, jewelry, dentures, hearing aids, rings, money, or any other property that is in my possession or is brought to me after admission. I understand certain valuables may be placed in a hospital safe for a short period of time. I understand that the hospital is not liable for loss or damage due to accident, fire, or other natural occurrence while said property is in the safe. I accept full responsibility for any personal property that I keep with me, and will not hold the hospital responsible in case of loss or disappearance. I acknowledge that i have been encouraged to send valuables and belongings home. ?? Review of Valuable and Belonging List: With patient Date for Pt to Sign Valuables/Belongings: 02/07/24 10:26:00 ?? Valuables & Belongings ?? Clothes Electronic devices Jewelry Monetary Items Personal devices Miscellaneous Medications (Valuables) Valuables at Bedside Pants, Shirt, Shoes, Undergarments Cell phone ?? Wallet ? Valuables Sent Home ? Valuables Sent to Security ? Valuables Sent to Locker ? Other Discharge Information ? Case Management Discharge Plan?? Discharge Plan?? Discharge Level of Care at Discharge: Home/Jail/Foster Care ?? Pulmonary Rehab Status?? Pulmonary Rehab Discharge Status?? Respiratory Rate:??13 br/min??Low ? Common Emergency Awareness Tips IS IT A STROKE? Act FAST and Check for these signs: FACE Does the face look uneven? ARM Does one arm drift down? SPEECH Does their speech sound strange? TIME Call at any sign of stroke ?? Heart Attack Signs Chest discomfort: Most heart attacks involve discomfort in the center of the chest and lasts more than a few minutes, or goes away and comes back. It can feel like uncomfortable pressure, squeezing, fullness or pain. Discomfort in upper body: Symptoms can include pain or discomfort in one or both arms, back, neck, jaw or stomach. Shortness of breath: With or without discomfort. Other signs: Breaking out in a cold sweat, nausea, or lightheaded. Remember, MINUTES DO MATTER. If you experience any of these heart attack warning signs, call to get immediate medical attention! ?? Smoking can increase your chances of developing chronic health problems and can cause harmful effects to other family members in your house. If you smoke, you are strongly encouraged to quit. Please call [facility] [employer] at [phone] or [phone] ([phone]) or log in to [email or web address] for referrals to smoking cessation programs. ?? The National Suicide Prevention Hotline is available 20/11 if you or someone you know needs to find a reason to keep living. By calling 7-771-397-[employer] (2187) you'll be connected to a skilled, trained counselor at a crisis center in your area. SURGERY DISCHARGE INSTRUCTIONS SIGNATURE PAGE CRISTINA CASSIUS Location:[facility] Registration Date and Time:02/07/2024 09:19 EDT Primary Care Physician: Mariza Goodrich MD, Attending Physician: Jorje Mitchell MD, CASSIUS WALLS, have received the above patient education materials/instructions and have verbalized understanding. If ambulance or transport services are being used I further acknowledge being given a choice of service. ?? If you need to contact me, please call me at this number: . Patient/Carry All Driver Name: Patient/Carry All Driver Signature: Relationship to Patient: Witness Name/Signature: Date: * Lorenzo STOCK, Clovis: PERFORM, SIGN, VERIFY Event Display: Patient Education Handout Authored Date: [id number] Patient Care team information Care Team Personnel Name: Belle Stevens NP [facility] Associate Professional Member Role: [employer] Consulting Provider Address: Address: [address] [place] [address]- Name: Mariza Goodrich MD Position: S Physician - Primary Care Member Role: PCP Address: Address: [address] [place] [address]- Name: Pati Apodaca RN [facility] RN Member Role: Primary Care Nurse Name: Hollie Pfeiffer RN Position: [facility] Special Education Teaching Assistant Member Role: Primary Care Nurse Care Team Related Persons Name: ESTEPHANIA WYNN Address: [address] [place] [address] Name: EUNICE WYNN Address: home [address] [facility] [address] [place] [address] Name: NELLI RENO Name: MATTHEW RENO Address: home [address] [place] [address]
[2024-02-12] MEDS: Lactated Ringers 1,000 ML 100 ML IVCONT ×3 (06:26→21:55)
[2024-02-12] MEDS: Lactated Ringers 1,000 ML 999 ML IV (06:27)
[2024-02-12] MEDS: Aprepitant 32 MG/4.4 ML VIAL IVPUSH (06:41)
[2024-02-12 06:48] LABS: UPreg QC Valid YES; Urine Pregnancy NEGATIVE (NEGATIVE)
--- NOTE | 2024-02-12 07:36 | MHC.SHP ---
Pre-Procedural Eval Section A - 24 Hr Update-Section A only Date of Service: 02/12/24 The patient is an INPATIENT: Yes The patient has been examined within 24 hours of the surgical procedure. The History & Physical has been completed within 30 days and I have reviewed it.: Yes Section B - Complete if H&P > 30 days Chief Complaint: Obesity Relevant Family History (Specify if Yes): No Relevant Social History: None Present Medications: None Medical History: No relevant PMH History of Previous Operations: No relevant previous surgery Allergies: Allergies Allergy/AdvReac Type Severity Reaction Status Date / Time No Known Allergies Allergy Verified 02/12/24 06:36 Review of Systems Sugical H&P ROS: Negative: Constitution, Cardiovascular, Respiratory, Neurological, Psychiatric, Hem-Onc, Allergic/Immunologic, Gastrointestinal, Genitourinary, Musculoskeletal, Integumentary, Endocrine and Eyes/Ears/Nose/Throat Exam Surgical H&P Exam: Normal: HEENT, Normal: Heart, Normal: Lungs, Normal: Extremities, Normal: Abdomen, Normal: Skin and Normal: Neurological Plan Diagnosis/Plan: Unchanged I have reviewed the history and physical and performed a pertinent physical examination on my patient. No changes have occurred unless specified. Time Spent With Patient Time: Total time managing care of this patient today ____ minutes.
--- NOTE | 2024-02-12 07:53 | PM.OP ---
Brief Operative Note Date of Service: 02/12/24 Pre-op diagnosis: Severe obesity with comorbidities (see below) Post-op diagnosis: same (& congenital retrogastric adhesions) Procedure: INITIAL PATIENT BMI ON PRESENTATION AT OUR OFFICE: 40 kg/m2 LAST BMI BEFORE SURGERY: 34 kg/m2 COMORBIDITIES: asthma, sleep apnea on CPAP, hypertension, depression, anxiety, fibromyalgia, liver steatosis, liver hemangioma, renal angiolipoma ?The patient presented to the Weight Management Program with significant obesity that was negatively impacting the patient's comorbidities as listed above.? The program is a phased program with a special focus on preoperative medical weight management to promote substantial weight loss and prepare the patients for the second phase of the program: bariatric surgery. The patient participated in an intensive weekly lifestyle ?intervention and exercise program during which the patient ?has lost between the initial office visit and the last preoperative visit 39.9lbs, or 14.5% of initial actual body weight. It was deemed appropriate for the patient to now have bariatric surgery. In light of the current Covid-19 pandemic and the well documented strong association of obesity and increased risk of worse outcomes if infected with Covid-19 (REFERENCES:https://pubmed.ncbi.nlm.nih.gov/04282002/,?https://pubmed.ncbi.nlm.nih.gov/72384087/), any delay in undergoing bariatric surgery may lead to the patient's worsening health condition and increased?risk of more severe Covid-19 disease if infected. In addition a recent?study from [facility] published in [facility] on 04/25/2021 ([email or web address]) found that, among patients with obesity, substantial weight loss achieved with surgery was associated with improved outcomes of COVID-19 infection. The findings suggest that obesity can be a modifiable risk factor for the severity of COVID-19 infection. In addition, the patient met the BMI-criteria for bariatric surgery based on the BMI on initial presentation. The patient should not be penalized for achieving such weight loss because ?it is not sustainable long-term without surgical intervention and it was achieved in preparation for bariatric surgery ?under my direction and based on my published research ([email or web address] and?[email or web address].soard.org/article/[email or web address])[email or web address]-X/pdf) ?that a 10% preoperative weight loss improves long-term weight loss after surgery and reduces perioperative complications.? Insurance carriers such as [facility] have endorsed my recommendations ?and have included in their policies criteria to include a 10% preoperative weight loss requirement. PROCEDURE: Esophago-gastroscopy, laparoscopic lysis of adhesions, laparoscopic sleeve gastrectomy and laparoscopic gastropexy INDICATIONS: This is a 48 year-old female who was electively scheduled for laparoscopic, possibly open sleeve gastrectomy. The risks and complications of the procedure were discussed with the patient in advance, particularly the possibility of ; pulmonary embolism; staple line leak; bleeding; GERD; cardiac, pulmonary, or renal complications; as well as long-term problems such as insufficient weight loss, vitamin deficiency, strictures, or ulcers. The patient understood all the risks, and was in agreement to proceed with surgery. DESCRIPTION OF PROCEDURE: After informed consent was obtained from the patient, the patient was given preoperative antibiotics, and was transferred to the operating room. After successful induction of general anesthesia, pneumatic compression devices were placed on both lower extremities. An upper endoscopy was performed next. The oropharynx and esophagus appeared to be within normal limits. There was no diaphragmatic hernia present. The stomach was entered. Then after all fluid and air were suctioned and the stomach was fully decompressed, the scope was withdrawn and secured in the mid esophagus. The patient was then prepped and draped in the usual sterile manner, and abdominal access was established at the right upper quadrant with the Benji technique. A 12 mm blunt port was inserted, and the abdomen was insufflated with CO2 to a pressure of 15 mmHg. Under direct visualization, additional ports were placed, specifically two 5 mm Versi-step ports to the left upper quadrant, and a 5 mm Versi-Step port to the right upper quadrant. 1% lidocaine plain was used to infiltrate all port sites as well as all fascia defects. Following that, the patient was placed in a steep reverse Trendelenburg position. An additional 5 mm port was placed to the right flank for the Mediflex retractor that was used to retract the left lobe of the liver. The gastro-esophageal fat pad was opened with the ultrasonic device (Thunderbeat, Olympus) and the anterior esophagus and hiatus were exposed. The angle of His was opened with the ultrasonic device the fundus of the stomach from any diaphragmatic and splenic attachments. I then opened the gastrocolic ligament between the transverse colon and the greater curvature of the stomach with the ultrasonic device to enter the lesser sac and facilitate the ligation of the short gastric vessels. I started at a mid-point along the greater curvature and using the Thunderbeat, all short gastric vessels were divided all the way to the angle of His until the left rosmery was completely dissected at its entirety. I then divided the gastro-colic ligament distally to a distance of about 3-4 cm proximal to the pylorus. There were extensive congenital adhesions between the pancreas and posterior gastric wall. Those were lysed completely with the ultrasonic device. Adhesiolysis took approximately 45 min to complete. The stomach was then divided transversely with one Endo ANA-45 purple, one ANA-45 orange load and three ANA-60 articulating orange loads using the AEON stapler and loads. Every effort was made that the gastric sleeve had a tubular shape and an even caliber throughout. Once the sleeve resection was completed, the staple line of the gastric sleeve was reinforced with Hemoclips. The resected stomach was retrieved without difficulty from the Benji port. A gastropexy was then performed in order to prevent postoperative GERD and partial gastric volvulus. Several interrupted 2.0 Surgidac sutures were placed between the sleeve's staple line and the previously divided greater omentum and gastro-colic ligament using the Endo-Stitch device. ?An upper endoscopy was performed. There was no narrowing at the GE junction. The scope was easily advanced all the way to the pylorus which was clearly visualized. There was no narrowing anywhere and the sleeve's caliber was even throughout. The sleeve's staple line was inspected and there was no evidence of ischemia, bleeding or dehiscence. At that point the gastroscope was withdrawn from the patient?s mouth while we were decompressing the bowel and the stomach from any remaining air. I looked into the lesser sac to see how the sleeve was situating and it was situating well. There was no bleeding from the staple line, spleen, or short gastric vessels. The Mediflex retractor was removed, and the undersurface of the liver was inspected and there was no bleeding. The patient was placed in supine position. I closed the fascial defect of the 12 mm port site with a figure of eight #1 Polysorb suture. Then 30cc Ropivacaine plain with 10 mg of Dexamethasone were used to infiltrate the fascial closure as well as all skin incisions. At this point, the abdomen was deflated, all ports were removed under direct vision, and no bleeding was noted from any of the port sites. The skin incisions were irrigated with saline and were closed with 4-0 absorbable monofilament sutures. Steri-Strips and OpSites were used to cover all incisions. The patient was extubated and was transferred in stable condition to the recovery room for further care. I was present and performed all hernandez parts of the procedure. Mr. Good was the nurse first aid. There were no residents to assist with this case. Jamie Johansen MD, PhD, FACS Surgeon: Edgar Johansen MD Anesthesia: GETA, local and other (TAP block ) Was an Commercial Cleaner used for this Procedure?: No Commercial Cleaner: Negrito Good Estimated blood loss (mL): 10 IV fluids (mL): 2,100 Urine output (mL): 0 (No Roberts to record output) Pathology: other (Stomach) Condition: stable Disposition: PACU
--- NOTE | 2024-02-12 07:57 | P.PNGS_ITS ---
Subjective Subjective Date of Service: 02/13/24 Interval history: Feels well. Mild incisional pain. She is tolerating phase 1 bariatric diet Physical Exam 2 Vital Signs: Vital Signs: Last Vital Signs Temp 98.0 F 02/12/24 06:33 Pulse 69 02/12/24 06:33 Resp 18 02/12/24 06:33 BP 142/69 H 02/12/24 06:33 Pulse Ox 99 02/12/24 06:33 O2 Del Method Room Air 02/12/24 06:33 BMI result Body Mass Index 33.8 GI: Inspection: Yes normal to inspection, Yes incision (clean, dry and intact) and Yes obesity Palpation (GI): Soft to palpation Extrem: Right lower extremity: normal to inspection (no calf tenderness) L eft lower extremity: normal to inspection (no calf tenderness) Objective Data Active Medications Albuterol Sulfate (Albuterol Sulfate (0.083%) 2.5 Mg/3 Ml Vial.Neb) 2.5 mg INHALE ONCE PRN PRN Reason: Shortness of Breath/Wheezing Lactated Ringer's (Lr) 1,000 mls @ 100 mls/hr IVCONT .Q10H [facility] Last Admin: 02/12/24 06:26 Dose: 100 mls/hr Documented By: KANDACE Lactated Ringer's (Lr) 1,000 mls @ 999 mls/hr IV .Q1H1M [facility] Stop: 02/12/24 08:15 Last Admin: 02/12/24 06:27 Dose: 999 mls/hr Documented By: KANDACE Labs 02/13/24 06:00 02/13/24 06:00 Labs: Laboratory Results - last 24 hr 02/12/24 06:00 Urine Test NEGATIVE Procedures Date of Service Date of Service: 02/13/24 Progress Note: A&P Assessment and plan (1) Obesity: Status: Acute Assessment and Plan: s/p laparoscopic sleeve gastrectomy, lysis of adhesions and gastropexy Doing well Will check am labs and if OK the patient will be discharged home (2) BMI 34.0-34.9,adult: Status: Inactive (3) Hypertension: Status: Acute (4) Asthma: Status: Acute (5) Fibromyalgia: Status: Acute (6) Sleep apnea treated with continuous positive airway pressure (CPAP): Status: Acute (7) Depression: Status: Acute (8) Anxiety: Status: Acute (9) Liver hemangioma: Status: Acute (10) Renal angiolipoma: Status: Acute (11) Congenital intra-abdominal adhesions: Status: Acute (12) S/P laparoscopic sleeve gastrectomy: Status: Acute Time Spent With Patient Time: Total time managing care of this patient today ____ minutes. Quality Stroke Does the patient have a stroke diagnosis?: No VTE Prior VTE?: No VTE Risk Level:: Surgical - moderate VTE Device Contraindication: N/A - Device Ordered VTE Drug Contraindication: Treatment Not Indicated
[2024-02-12] MEDS: ceFAZolin Sodium/Dextrose,Iso 2 GM/50 ML PIGGYBACK IV ×2 (08:10→13:15)
[2024-02-12] MEDS: Acetaminophen 1,000 MG/100 ML PIGGYBACK 400 MG IV (09:20)
--- NOTE | 2024-02-12 10:13 | P.DS_ITS ---
DS: Providers Provider Date of Service: 02/13/24 Date of admission: 02/12/24 06:11 Primary care physician: JUAN Vela DS: Diagnosis Discharge Diagnosis (1) Obesity: Status: Acute (2) BMI 34.0-34.9,adult: Status: Inactive (3) Hypertension: Status: Acute (4) Asthma: Status: Acute (5) Fibromyalgia: Status: Acute (6) Sleep apnea treated with continuous positive airway pressure (CPAP): Status: Acute (7) Depression: Status: Acute (8) Anxiety: Status: Acute (9) Liver hemangioma: Status: Acute (10) Renal angiolipoma: Status: Acute (11) Congenital intra-abdominal adhesions: Status: Acute (12) S/P laparoscopic sleeve gastrectomy: Status: Acute DS: Summary Hospital Course Hospital Course: ADMITTING DIAGNOSIS: obesity, htn, danika ? DISCHARGE DIAGNOSIS: same, s/p laparoscopic sleeve gastrectomy ? PAST SURGICAL HISTORY: appendectomy, cholecystectomy, cesarian section ? PROCEDURE: upper endoscopy, laparoscopic sleeve gastrectomy ? DISCHARGE SUMMARY: ? History of Present Illness: ? The patient is a?48 year-old woman with a BMI of?40 kg/m2 and associated co- morbidities as described above. The patient had extensive work-up,lost?31.7 lbs preoperatively and was electively scheduled for laparoscopic, possible open sleeve gastrectomy and gastropexy. Risks and complications of the surgery were discussed with the patient in advance, particularly the possibility of , pulmonary embolism, anastomotic leak, bleeding, bowel injury, GERD, cardiac, renal or pulmonary complications. The patient understood all the risks and was in agreement with the surgical plan. ? Hospital Course: ? The patient underwent an uneventful laparoscopic sleeve gastrectomy with gastropexy on the day of admission. Postoperatively, the patient was transferred to the surgical floor. The patient received IV Acetaminophen and IV dilaudid for pain control. Patient was started on bariatric phase 1 diet POD #0. On postoperative day one, the patient was feeling well without nausea, vomiting, fe vers, or tachycardia. The patient had some mild incisional pain and the abdomen was soft. ? On the morning of postoperative day one, the patient was continued on 1 ounce of water or ice every half hour. During the day, the patient did fairly well, having some incisional pain, but able to ambulate adequately and to tolerate liquids well. ? Since the patient is doing well, we decided that the patient was ready to be discharged. The patient was given instructions to follow-up with me next week and to call my office for any fever over 101, persistent abdominal pain, nausea, vomiting, GERD, symptoms of DVT such as calf tenderness, or leg swelling, or pulmonary embolism such as chest pain or shortness of breath. The patient was also instructed to drink 40-60 ounces of liquids per day using the 1-ounce cups. The patient had been given prescriptions for Tylenol for pain, Zofran prn for nausea, and pantoprazole and carafate previously. The patient was encouraged to ambulate and use the incentive spirometer. The patient was allowed to shower, but no baths, and encouraged to stay active at home. All of these instructions were given to the patient personally. All questions were answered and the patient understood all instructions, the instructions were also given to the patient in print. Time Attestation Total time managing care of this patient today: 25 mintues. Discharge Coordination Time (in mins): 25 Quality: Safe Use of Opioids Does Pt have an Active Cancer Diagnosis on the Problem List?: No Quality: Stroke Does the patient have a stroke diagnosis?: No Physical Exam Vital Signs: Vital Signs: Last Vital Signs Temp 98.4 F 02/12/24 10:00 Pulse 71 02/12/24 10:10 Resp 18 02/12/24 10:10 BP 172/93 H 02/12/24 10:10 Pulse Ox 100 02/12/24 10:10 O2 Del Method Simple Mask 02/12/24 10:10 O2 Flow Rate 3 02/12/24 10:10 BMI result Body Mass Index 33.8 DS: Data Data Completed and Pending Pending studies at discharge: Pending at discharge 02/12/24 09:15 Surgical [PTH] Routine Labs on day of discharge: Laboratory Results - last 24 hr 02/12/24 06:00 Urine Test NEGATIVE Discharge Plan Discharge Anticipated Discharge Date/Time: 02/13/24 10:00 Patient Disposition: Home, Self-Care Discharge Diagnosis: s/p laparoscopic sleeve gastrectomy Referrals: [facility]MINISTR[facility] [Primary Care Provider] - 1 Week Discharge Medications: Continued albuterol 90 mcg/actuation Aerosol 90 mcg INHALATION Q4H PRN (Reason: shortness of breathness or wheeze) escitalopram oxalate 10 mg tablet 10 mg PO DAILY pregabalin 200 mg capsule 200 mg PO BID clonazepam 0.5 mg tablet 0.5 mg PO DAILY tiotropium bromide [Spiriva with HandiHaler] 18 mcg capsule, w/inhalation device 1 cap inhalation DAILY budesonide-formoterol [Symbicort] 160-4.5 mcg/actuation HFA aerosol inhaler 1 puff inhalation DAILY Held hydrochlorothiazide 25 mg tablet 25 mg PO DAILY Hold Instructions: Resume on 02/14/24. Check your blood pressure every morning as soon as you wake up and send it to Dr. oJhansen. Do no take the blood pressure medication if the blood pressure is below 120/70. Wait every day to hear back from Dr. Johansen before you take the medication. Discontinued cholecalciferol (vitamin D3) 125 mcg (5,000 unit) capsule 125 mcg PO DAILY 90 Days Qty: 90 0RF Discharge Orders: Discharge Order (Routine); Ordered 02/13/24 Ordered By: Edgar Johansen Activity on Discharge: No heavy lifting Stand Alone Forms: Patient Portal Discharge page Print Language: Cuban Care Plan Goals: weight loss Health Concerns: obesity Plan of Treatment: No tub baths, sex or returning to work until discussed at first post op appointment. No exercise, alcohol, tobacco or illegal drug use. Continue to use incentive spirometer hourly while awake. Walk in home for 5- 10 minutes every 2 hours during the first week. Follow all instructions in the bariatric handbook and call with any questions.Discharge Instructions 1. Please call your doctor or come back to the emergency room should any new symptoms arise. 2. You will receive a courtesy call from [facility] 24-48 hours after discharge. 3. Activity: abstain from alcohol, practice limited stair climbing, no bending, no driving, no exercise, no illicit substances, no lifting, no sex, no tub bath, no work. 4. Diet: continue as discussed with Dr. Johansen. 5. Dressing Change/Wound Care: Your incision is covered by clear bandages and guaze underneath. If the area is tender, you may apply an ice pack for short intervals (no more than 20 minutes on, followed by at least 20 minutes off). Do not apply heat. Do not use creams, lotions, or topical antibiotics unless instructed to do so by your surgeon. These can cause infection or allergic reaction. 6. Call your doctor if: - Your temperature exceeds 101.5 F - You experience excessive pain or swelling - You have an unexpected reaction to medication - You have excessive bleeding - You experience continued vomiting/nausea - Your incision begins to separate - Your incision shows signs of infection such as increased redness, swelling, excessive pain, heat, or drainage (light blood or clear fluid is normal) 7. General instructions: No lifting greater than 5 lbs for 1 week and not more than 20lbs the next 3?weeks. No driving until seen at the office in 5-7 days after surgery. If you do not move your bowels in the next 2 days, please tell?Dr. Johansen. Please walk around your home every hour or two to prevent blood clots from forming in your legs. You do not need to wake from sleeping to walk. Please sleep in a bed or couch to prevent kinking at the hips and knees. Please take your incentive spirometer (your lung flare stitcher) home with you and use it for the next few days to prevent pneumonia. You may shower, no hot tubs, baths or swimming pools.?Please follow the post op diet instructions you are?given by Dr Johansen? and text me daily at 5-6pm for an update.?If you have any issues or concerns or questions please communicate this to him via text.? The Celebrate shakes have all of the bariatric vitamins you need if you consume these shakes. If you are drinking other protein shakes, you will need to purchase the Celebrate multivitamins and calcium that are available in the hospital gift shop on the first floor of the main hospital.??Do not take anything without first discussing with Dr Johansen. Please make sure you are consuming at least 40 ounces of fluids per day starting the?day AFTER your discharge from the hospital. Always drink 1-2 ml per minute using the 5ml?syringe. If you drink faster you may experience?bloating,?gas pain, burping, nausea or heartburn. In that case please slow down your pace and use the syringe to?understand better the?proper?pace and volume of drinking. Do not hesitate to contact the office with any questions at . The patient's medical history has been reviewed and they are considered low risk for post op DVT and therefore DVT prophylaxis is not considered necessary. Travel after surgery was reviewed. The patient has not disclosed any travel plans during the first 30 days after surgery and they have been advised that within the first 30 days after surgery any bus, plane, train or car travel over 2 hours in duration is contraindicated due to the possibility of developing blood clots from immobility. Any travel, needs to include periods of ambulation of 10 minutes in duration every 2 hours.? The patient was instructed to discuss any plans for travel during this period with their bariatric surgeon. Assessment: stable s/p laparoscopic sleeve gastrectomy Discharge Date/Time: 02/13/24 08:42
[2024-02-12] MEDS: HYDROmorphone HCl 0.5 MG/0.5 ML SYRINGE 0.25 MG IVPUSH ×2 (10:35→10:40)
[2024-02-12 10:36] LABS: Hematocrit 38.1 % (37.0-47.0); Hemoglobin 12.5 g/dl (12.0-16.0)
[2024-02-12 10:50] LABS: Anion Gap 14 (12-20); Blood Urea Nitrogen 11 mg/dL (9-16); Calcium 9.4 mg/dL (8.4-10.2); Carbon Dioxide 24 mmol/L (22-29); Chloride 108 mmol/L (96-108); Creatinine Clr Calc Pharmacy 95.6; Estimated Glomerular Filt Rate > 60; Glucose Random 108 mg/dL (60-115); Potassium 3.7 mmol/L (3.3-5.1); Sodium 142 mmol/L (135-145)
--- NOTE | 2024-02-12 12:15 | PHA.MEDREC ---
Pharmacy Consult ? Medication Reconciliation Pharmacy has completed the medication reconciliation. Reviewed med rec done by nursing, matches claims.
[2024-02-12] MEDS: Acetaminophen 1,000 MG/100 ML PIGGYBACK 16.7 MG IV ×2 (13:59→19:50)
[2024-02-13 00:13] VITALS: RESP 18
[2024-02-13] MEDS: Acetaminophen 1,000 MG/100 ML PIGGYBACK 16.7 MG IV (01:41)
[2024-02-13 03:32] VITALS: BP 130/78; PULSE 68; RESP 18; TEMP 36.1; O2SAT 97
[2024-02-13 06:28] LABS: MANUAL DIFF FLAG NO
[2024-02-13 06:40] LABS: Basophils Percent Auto 0.1 % (0-2); Hematocrit 36.8 % (37.0-47.0); Hemoglobin 12.3 g/dl (12.0-16.0); Imm Gran Abs Auto 0.05 X10*3/uL (0.00-0.03); Imm Gran Pct Auto 0.5 % (0.0-0.4); Lymphocytes Absolute Auto 0.9 X10*3/uL (1.2-4.9); Lymphocytes Percent Auto 8.6 % (20-40); Mean Corpuscular HGB Conc 33.4 g/dl (31.0-35.0); Mean Corpuscular Hemoglobin 29.8 pg (27.0-33.0); Mean Corpuscular Volume 89.1 fL (80.0-98.0); Mean Platelet Volume 10.5 fL (9.4-12.3); Monocytes Absolute Auto 0.3 X10*3/uL (0.1-1.2); Monocytes Percent Auto 2.8 % (2-11); Platelet Count 228 X10*3/uL (160-400); Red Blood Count 4.13 X10*6/uL (4.20-5.50); Red Cell Distribution Width 12.6 % (11.0-16.0); White Blood Count 10.3 X10*3/uL (4.8-10.8)
[2024-02-13 06:54] LABS: Anion Gap 14 (12-20); Blood Urea Nitrogen 11 mg/dL (9-16); Carbon Dioxide 25 mmol/L (22-29); Chloride 105 mmol/L (96-108); Creatinine Clr Calc Pharmacy 111.5; Estimated Glomerular Filt Rate > 60; Glucose Random 114 mg/dL (60-115); Potassium 4.2 mmol/L (3.3-5.1); Sodium 140 mmol/L (135-145)
[2024-02-13 07:01] VITALS: BP 134/86; PULSE 63; RESP 16; TEMP 36.7; O2SAT 98
[2024-02-13] MEDS: Pregabalin 200 MG CAPSULE PO (07:29)
[2024-02-13] MEDS: Escitalopram Oxalate 10 MG TABLET PO (07:30)
[2024-02-13] MEDS: clonazePAM 0.5 MG TABLET PO (07:30)
[2024-02-13] MEDS: Fluticasone/Vilanterol 200/25 BLST.W.DEV 1 PUFF INHALE (08:08)
[2024-02-13] MEDS: Tiotropium Bromide 2.5 mcg 1 PUFF/2.5 MCG MIST.INHAL INHALE (08:08)
[2024-02-13 08:11] VITALS: PULSE 70; RESP 16; O2SAT 98
[2024-02-13 08:12] VITALS: PULSE 70; RESP 15; O2SAT 98
--- NOTE | 2024-02-13 08:33 | MHC.CM.PN ---
pt dcd home self care
--- NOTE | 2024-02-13 13:47 | HO.POSTANES ---
Post Anesthesia Evaluation Post Anesthesia Evaluation Date of Service: 02/12/24 Vital Signs: Vital Signs Temp Pulse Resp BP Pulse Ox O2 Del Method 02/13/24 08:12 70 15 02/13/24 08:11 16 02/13/24 07:01 98.0 F 63 16 134/86 98 Room Air 02/13/24 06:58 Room Air 02/13/24 03:32 97 F 68 18 130/78 97 CPAP Anesthesia: General Mental Status: Awake Pain Control: Satisfactory Nausea/Vomiting: None Hydration: Adequate Anesthesia-Related Issues: No Anes. Related Issues
== END 2024-02-13 08:42 | disposition home or self-care (01) | DRG 403 ==
LOC: HO.SSSA 10:15 → HO.S3 10:43
PROVIDERS: Nurse Practitioner; Physician Assistant Surgical; Admitting Provider Surgery; PCP Nurse Practitioner Family; Visit Provider Surgery
PROC: 0DB64Z3 Excision of Stomach, Percutaneous Endoscopic Approach, Vertical (ICD-10-PCS; CPT 43845; principal; 2024-02-12 07:30)
DX: E66.9 Obesity, unspecified (principal); K76.0 Fatty (change of) liver, not elsewhere classified; Q43.3 Congenital malformations of intestinal fixation; D18.09 Hemangioma of other sites; F32.A Depression, unspecified; F41.9 Anxiety disorder, unspecified; M79.7 Fibromyalgia; G47.33 Obstructive sleep apnea (adult) (pediatric); J45.909 Unspecified asthma, uncomplicated; Z68.34 Body mass index [BMI] 34.0-34.9, adult; Z79.899 Other long term (current) drug therapy
CPT/HCPCS: 36415; 80048; 80053; 80061; 81025; 83036; 83525; 84443; 85014; 85018; 85025; 85610; 85730; 86140; 86850; 86900; 86901; 88304; 88305; 88307; 88342; 94660; A4649; C9145; J0131; J0690; J1100; J1171; J2003; J2250; J2405; J2704; J2795; J3010; J7120

== ENCOUNTER → 2024-02-12 06:11 | Outpatient (BNV) | payer OTHER, SELFPAY | PROVIDERS: Admitting Provider Surgery; PCP Nurse Practitioner Family; Visit Provider Surgery | DX: E66.811 Obesity, class 1 (principal); Z68.34 Body mass index [BMI] 34.0-34.9, adult; Z98.84 Bariatric surgery status | CPT/HCPCS: 43659; 43775; 99024; 99499 ==

== ENCOUNTER 2024-02-19 10:47 | Outpatient (AMB) | payer OTHER, SELFPAY ==
--- NOTE | 2024-02-19 10:54 | MHC.OFFVISWM ---
VS Expanded 02/19/24 11:00 BP 151/70 H Blood Pressure Location Rt brachial Blood Pressure Position Sitting Pulse 90 Pulse Source Pulse Oximeter Temp 97.9 F Temperature Source Temporal Artery Scan Pulse Oximetry 97 Oxygen Delivery Method Room Air Height 5 ft 4 in Weight 185 lb 6.4 oz BMI 31.8 Body Fat % 43.9 Body Fat Mass 81.4 Fat Free Mass 103.8 Visceral Fat Rating 10.0 Body Water % 40.0 Body Water Mass 74.0 Muscle Mass/Score 98.6 Basal Metabolic Rate/Score 1,458 Intake Visit Reasons: (OV) PO LSG 02/12/24 Allergies No Known Allergies Allergy (Verified 02/19/24 11:02) HPI Comments Details: Patient is a pleasant 48-year-old female who returns to the office today in follow-up. She is 7 days post sleeve gastrectomy performed on 02/12/2024. Tolerating 3 celebrate 4 in 1 shakes with 1 scoop each and proximally 32 oz of water. She has moved her bowels. Offers no complaints of pain. [facility] Medical History (Updated 02/13/24 @ 00:03 by Ramiro Del Rosario) BMI 34.0-34.9,adult Hypokalemia Anxiety Depression Sleep apnea treated with continuous positive airway pressure (CPAP) Fibromyalgia Hypertension Asthma Morbid obesity Surgical History (Updated 02/19/24 @ 10:57 by Christy Isidro CMA) S/P laparoscopic sleeve gastrectomy History of appendectomy History of laparoscopic cholecystectomy History of delivery Social History Household Members: Family Housing: Apartment Are you a primary patient care assistant to a significant other at home: No Do you presently have visiting nurse or other home services: No Alcohol intake: never Patient Tobacco Use Status: Former Tobacco user Tobacco use type: Cigarette Physical Exam GI Inspection: Yes incision (Clean, dry, intact.) Assessment & Plan Assessment & Plan (1) S/P laparoscopic sleeve gastrectomy: Code(s): Z98.84 - Bariatric surgery status Category: Surgical Plan: POD 7 s/p LSG on 02/12/[address] Johansen Weight loss prior to surgery was 31.7 pounds or 13.5 % TBWL. Original weight on 10/16/2023 was 233.2 pounds and op weight was 201.5 pounds. Be sure to text Dr Johansen exactly 1 week after surgery your weight from your home scale so he can adjust your meal plan. Continue meal plan until f/u w Negrito in 2 weeks May shower, no submersion in bath for another week Continue abdominal binder with activity and exercise for the next 2 weeks. Exercise prior to surgery was treadmill and may resume No abdominal exercises for 6 weeks post operatively Will be emailed link to post op video for review Reminded of the pace of drinking, 2 mL per minute, 1 oz/15 min. She has been using 1/2 of her HCTZ medication as her blood pressure has been well controlled at home
[2024-02-19 11:00] VITALS: BP 151/70; PULSE 90; TEMP 36.6; O2SAT 97; BMI 31.8
== END 2024-02-19 11:21 | disposition home or self-care (01) ==
PROVIDERS: PCP Nurse Practitioner Family; Visit Provider Physician Assistant Surgical
DX: Z98.84 Bariatric surgery status (principal)
CPT/HCPCS: 99024

== ENCOUNTER → 2024-02-19 10:47 | Outpatient (BNVA) | payer OTHER, SELFPAY | PROVIDERS: PCP Nurse Practitioner Family; Visit Provider Physician Assistant Surgical | DX: E66.9 Obesity, unspecified (principal); Z71.3 Dietary counseling and surveillance; Z98.84 Bariatric surgery status; Z68.31 Body mass index [BMI] 31.0-31.9, adult | CPT/HCPCS: 99212 ==

== ENCOUNTER 2024-02-27 11:30 | Emergency (ER) | payer OTHER, SELFPAY ==
--- NOTE | ~2024-02-27 | XR_ITS ---
EXAMINATION: XR HIP, RIGHT CLINICAL INFORMATION: Right hip pain COMPARISON: None available. TECHNIQUE: Three views of the right hip. FINDINGS: No acetabular or pubic disruption. An IUD is in position. Mild narrowing of the superior hip joint spaces bilaterally. No acute fracture or dislocation seen. There is a calcification projecting near the right greater trochanter, consistent with gluteus medius calcific tendinitis. XR/XR hip RT min 2V IMPRESSION: No acute fracture or dislocation. Degenerative change. Right gluteus medius calcific tendinitis. Electronically signed by: Denilson Park MD 02/27/2024 01:50 PM EDT
[2024-02-27 12:25] VITALS: BP 116/71; PULSE 75; RESP 16; TEMP 37; O2SAT 99; BMI 31.4
--- OUTSIDE RECORDS SUMMARY | 2024-02-27 12:44 | XMS_ITS | Continuity of Care Document ---
Author Organization [facility] Address [address] [place] [id number]- Care Team Providers Care Remote Coders Name Role Phone Mariza Goodrich MD Primary Care Physician [phone] Encounter [facility] [place] Date(s): 01/14/24 - 02/13/24 [facility] [address] [place] [phone]- [place] Allergies, Adverse Reactions, Alerts No Known Allergies [...] 01/25/23 8:49:00 EDT, Route to Pharmacy Electronically, [id number], [id number], 163, cm, 01/25/23 8:30:00 EDT, Height Start Date: 01/25/23 Status: Ordered cetirizine 10 mg oral tablet 1 tablet, By Mouth, Daily, # 30 tablet, 5 Refills, [id number], 163, cm, 01/10/21 8:49:00 EDT, Height, 102.9, kg, 05/21/20 8:52:00 EST, Dry Weight Start Date: 06/18/21 Status: Ordered cholestyramine 4 g/5.7 g oral powder for reconstitution = 2 Gm, By Mouth, Daily, dissolve in water or juice. Belarusian Sig., # 180 Gm, 1 Refills, Maintenance, 04/16/23 15:55:00 EST, REC Powder, [facility][id number], Partial fill [...] night. Length of need 99 Fax to [facility],... Start Date: 06/20/23 Status: Ordered donut pillow [...] each, 11 Refills, Maintenance, 07/26/20 9:20:00 EDT, [place],[facility][id number], 2 sprays Nares, Both Daily in AM, 163, cm, 07/22/20 8:51:00 EDT, Height, 105.7,kg, 09/12/19 20:00:00 EDT, Dry Weight Start Date: 07/26/20 Status: Ordered hydrochlorothiazide 25 mg oral tablet 1, tablet, By Mouth, Daily, for 90 days, # 90 tablet, Refills 3, Tot. Refills 3, Physician Stop 02/05/25 16:15:00 EDT, 02/11/24 16:15:00 EDT, Route to Pharmacy Electronically, [facility][id number], 162.6, cm, 02/07/24 10:26:00 EDT, Height, 102, kg, 01/29... Start Date: 02/11/24 Stop Date: 02/05/25 Status: Ordered ibuprofen 600 mg oral tablet 600 mg, 1, tablet, By Mouth, Every 6 hours, PRN, # 40 tablet, Refills 1, Tot. Refills 1, Maintenance, Headache, 06/19/23 10:54:00 EST, Route to Pharmacy Electronically, [id number], Partial fill upon patient request if the prescription is for a... Start Date: 06/19/23 Status: Ordered ketoconazole 2% topical shampoo See Instructions, 1 application Topically three times a week, # 120 mL, 3 Refills, Soft Stop, 07/06/23 16:38:00 EST, Shampoo, [facility] #[id number], Partial fill upon patient request if the prescriptionis for a schedule II opioid drug., 1 application To... Start Date: 07/06/23 Status: Ordered lidocaine 5% topical cream 1 application, Topically, 3 times a day, PRN Pain. Belarusian sig, # 45 Gm, 1 Refills, Maintenance, 01/10/21 9:40:00 EDT, Cream, [facility] #[id number], Partial fill upon patient request if the prescriptionis for a schedule II opioid drug., 1 application To... Start Date: 01/10/21 Status: Ordered Lidoderm 5% film 1 patch, Topically, Daily, remove patches after 12 hours, # 30 patch, 5 Refills, Maintenance, 07/06/23 16:39:00 EST, [facility] #[id number], Partial fill [...] mL, 0 Refills, Maintenance, 01/14/24 14:54:00 EDT, [facility] #[id number], Colonosopy Date: 02/07/24,... Start Date: 01/14/24 [...] 2 puffs = 5 mcg, Inhalation, Daily, tajik sig, # 4 Gm, 5 Refills, Maintenance, 03/14/23 10:57:00 EST, Aerosol, [id number], Partial fill upon patient request if the prescription is for a schedule II opioid drug., 163, cm, 03/14/23 9:01:00 EST... Start Date: 03/14/23 Status: Ordered Symbicort 160mcg/4.5mcg Inhaler 2, puffs, Inhalation, 2 times a day, for 90 days, # 3 each, Refills 3, Tot. Refills 3, Physician Stop 02/05/25 16:15:00 EDT, 02/11/24 16:15:00 EDT, Route to Pharmacy Electronically, [id number], [facility] #[id number], 162.6, cm,... Start Date: 02/11/24 Stop Date: 02/05/25 Status: Ordered Tylenol Extra Strength 500 mg oral tablet 2 tablet = 1,000 mg, By Mouth, 3 times a day, PRN for fever, # 60 tablet, 0 Refills, Maintenance, 02/24/23 20:18:00 EDT, Tablet, [id number], Partial fill upon patient request, 163, cm, 02/24/23 17:24:00 EDT, Height, 102, kg, 02/24/23 17:24:00... Start Date: 02/24/23 Stop Date: 03/06/23 Status: Ordered Vitamin D3 1000 intl units oral tablet 1 tablet = 25 mcg, By Mouth, Daily, # 30 tablet, 3 Refills, Maintenance, 11/29/23 14:14:00 EDT, Tablet, [id number], Partial fill upon [...] Active Osteoarthritis of left knee Confirmed Active Colon polyp (Colonoscopy next due 2026) Confirmed Active 1Dx in 2018 Social History Social History Type Response Smoking Status Never smoker entered on: 02/16/14 Sex Patient Care team information Care Team Personnel Name: Hilda STEPHENS, Belle Barba Position: [facility] PCO Associate Professional Member Role: [employer] Consulting Provider Address: Address: [address] [place] [phone]- Name: Mariza Goodrich MD Position: [facility] Physician - Primary Care Member Role: PCP Address: Address: [address] [place] [id number] Name: Pati Apodaca RN Position: [facility] RN Member Role: Primary Care Nurse Name: Hollie Pfeiffer RN Position: [facility] Hospital Locomotive Driver Member Role: Primary Care Nurse Care Team Related Persons Name: ESTEPHANIA WYNN Address: [address] [place] [address] Name: EUNICE WYNN Address: home [address] [facility] [address] [place] [address] Name: NELLI RENO Name: MATTHEW RENO Address: home [address] [place] [address]
[2024-02-27] MEDS: Cyclobenzaprine HCl 10 MG TABLET PO (13:21)
[2024-02-27] MEDS: Acetaminophen 325 MG TABLET 650 MG PO (13:22)
--- NOTE | 2024-02-27 14:19 | ED_ITS ---
HPI - Extremity Problem General Chief complaint: Extremity Problem Stated complaint: r thigh pain Time Seen by Provider: 02/27/24 12:36 Source: patient, RN notes reviewed and old records reviewed Mode of arrival: ambulatory History of Present Illness ED Provider: Tona Saldivar PA-C HPI Narrative: 48-year-old female with a past medical history of anxiety, depression, fibromyalgia, HTN, asthma, obesity s/p sleeve gastrectomy on 02/12/2024 presenting to the ED complaining of acute on chronic right-sided hip pain radiating to right side x 2-3 days. Admits to similar symptoms in the past. Denies recent injury, trauma, fall. Denies taking any medication for pain at home. Denies numbness, tingling, weakness, incontinence, retention, hematuria, dysuria, abdominal pain. Related Data Home Medications ?Medication ?Instructions ?Recorded ?Confirmed budesonide-formoterol HFA 160 1 puff inhalation DAILY 07/06/23 02/04/24 mcg-4.5 mcg/actuation aerosol inhaler (Symbicort) clonazepam 0.5 mg tablet 0.5 mg PO DAILY 07/06/23 02/04/24 escitalopram oxalate 10 mg tablet 10 mg PO DAILY 07/06/23 02/04/24 hydrochlorothiazide 25 mg tablet 25 mg PO DAILY 07/06/23 02/04/24 pregabalin 200 mg capsule 200 mg PO BID 07/06/23 02/04/24 tiotropium bromide 18 mcg capsule 1 cap inhalation DAILY 07/06/23 02/04/24 with inhalation device (Spiriva with HandiHaler) albuterol 90 mcg/actuation aerosol 90 mcg inhalation Q4H PRN 11/07/23 02/04/24 inhaler shortness of breathness or wheeze Previous Rx's ?Medication ?Instructions ?Recorded cyclobenzaprine 5 mg tablet 5 mg PO Q8H PRN pain (scale score 02/27/24 7-10) 5 days #14 tabs docusate sodium 100 mg capsule 100 mg PO DAILY #90 caps 02/27/24 (Colace) lidocaine 5 % topical patch 1 patch topical DAILY PRN pain #30 02/27/24 (Lidoderm) ea Allergies Allergy/AdvReac Type Severity Reaction Status Date / Time No Known Allergies Allergy Verified 02/27/24 12:26 Review of Systems Review of Systems: Yes all other systems are reviewed and are negative Constitutional: Constitutional: Reports as per [facility] Past Medical History Attestation statement: The following information was validated with the patient. Source: old records reviewed Medical History BMI 34.0-34.9,adult Hypokalemia Anxiety Depression Sleep apnea treated with continuous positive airway pressure (CPAP) Fibromyalgia Hypertension Asthma Morbid obesity Surgical History S/P laparoscopic sleeve gastrectomy History of appendectomy History of laparoscopic cholecystectomy History of delivery Social History Social History Household Members: Family Housing: Apartment Are you a primary team primary care physician to a significant other at home: No Do you presently have visiting nurse or other home services: No Unable to assess alcohol history related to: Unknown Alcohol intake: never Patient Tobacco Use Status: Former Tobacco user Tobacco use type: Cigarette Smoked in Last 30 Days: No Use of substances other than those prescribed or required for medical reasons: Unknown Advance Directives: No Advance Directives Information Provided: Yes Physical Exam Vital Signs: Vital Signs: Last Vital Signs Temp 97.8 F 02/27/24 14:54 Pulse 55 02/27/24 14:54 Resp 18 02/27/24 14:54 BP 103/58 L 02/27/24 14:54 Pulse Ox 97 02/27/24 14:54 O2 Del Method Room Air 02/27/24 14:54 BMI result Body Mass Index 31.4 Const: General: cooperative, healthy appearing and no acute distress Orientation/consciousness: patient oriented x3 Limitations: no limitations HEENT: Head: Yes normal to inspection and Yes atraumatic Ears: hearing grossly normal bilaterally General nose exam: Normal external nose present Face and sinus: Yes normal facial exam Eyes: General: appearance normal, both eyes and all related structures EOM: EOMs intact bilaterally Neck: Neck: Yes normal visual inspection and Yes no meningeal signs Resp: Effort & Inspection: normal respiratory effort and no respiratory distress Auscultation: clear to auscultation bilaterally Cardio: Rate: regular rate Heart sounds: S1 normal heart sound present and S2 normal heart sound present GI: Other: Abdomen soft and nontender. Surgical sites healing appropriately Inspection: Yes normal to inspection Palpation (GI): Soft to palpation, nontender, no guarding and not rigid : General: Yes no CVA tenderness Back/Spine/Pelvis: Other: No midline cervical/thoracic/lumbar spinous tenderness/step-off or deformity Back: no CVA tenderness Skin: Rashes: no rashes Wounds: no wounds Neuro: Other: Strength intact throughout. No saddle anesthesia. Sensation intact to light touch. Neurovascular intact distally General: patient oriented x3, gait normal, tone normal, moves all extremities and no meningeal signs Cranial nerves: Yes CN's II-XII intact bilaterally Gait exam (Neuro): Normal gait present Extrem: Other: Pelvis stable. Mild right hip reproducible tenderness, worse with movement. ROM to hip intact. Neurovascular intact distally. No erythema/warmth or crepitus General: Yes normal to inspection Course Course Course Narrative: 1423-- XR hip RT min 2V IMPRESSION: No acute fracture or dislocation. Degenerative change. Right gluteus medius calcific tendinitis. >Results discussed with patient including worrisome signs and symptoms and strict return precautions, and when to return to the emergency department. They verbalized understanding and feel safe for discharge at this time. Medications Administered Discontinued Medications Generic Name Dose Route Start Last Admin Trade Name Freq PRN Reason Stop Dose Admin Acetaminophen 650 mg 02/27/24 12:57 02/27/24 13:22 Acetaminophen 325 Mg Tablet PO 02/27/24 12:58 650 mg ONCE ONE Administration Cyclobenzaprine HCl 10 mg 02/27/24 12:57 02/27/24 13:21 Cyclobenzaprine Hcl 10 Mg Tablet PO 02/27/24 12:58 10 mg ONCE ONE Administration Medical Decision Making Medical Decision Making [facility] Narrative: 48-year-old female with a past medical history of anxiety, depression, fibromyalgia, HTN, asthma, obesity s/p sleeve gastrectomy on 02/12/2024 presenting to the ED complaining of acute on chronic right-sided hip pain radiating to right side x 2-3 days. On exam vital signs stable, NAD, nontoxic appearing, physical exam as noted above. No midline spinous throughout or red flag symptoms. No saddle anesthesia. Ambulating with steady gait. Concern for MSK pain/strain vs sciatica vs tendinopathy. Lower suspicion for herniated disc, cauda equina, cord compression, intra-abdominal pathology, fracture Plan: X-ray ordered in triage, pain control Please refer to course for remaining clinical decision making, interpretation of labs/imaging results, and discussions with consultants and/or family members. Differential Diagnosis Differential Diagnoses: The differential diagnosis associated with the presentation includes As above Admission/Observation Consideration of admission/observation: Escalation of care including admission/observation considered Lab Data MDM Lab Attestation statement: I reviewed the patient's lab results. Independent Interpretation I performed an independent interpretation of an: Plain X-Ray Radiology Impression Discussion of test interpretation with radiology: I have reviewed the radiologist's reading. External Record Review External record reviewed: Inpatient record, Office record, Outpatient record, Prior outpatient labs, Prior outpatient radiology, Primary care record and Outside ED record Tests considered The following testing was considered but not selected: As above Prescription Management I considered prescription management with: Pain Medication Chronic Conditions Patient?s care impacted by: Hypertension and Other (Asthma, obesity s/p laparoscopic sleeve gastrectomy) Discharge Plan Discharge Clinical Impression: Calcific tendonitis Patient Disposition: Home, Self-Care Instructions: Tendinitis (ED) Additional Instructions: Your x-ray does not show any fractures or dislocations. You do have some arthritis changes as well as some calcific tendinitis Your pain is likely musculoskeletal Flexeril is a muscle relaxer, take at night as it makes you drowsy, do not drive, drink alcohol, or operate machinery while taking it Lidoderm patches are numbing patches, apply to painful area In addition take Tylenol at home If symptoms persist or worsen, pain becomes unbearable, you developed urinary retention or incontinence, or weakness return to the ED Continue to follow your instructions from bariatric surgery Prescriptions: New lidocaine [Lidoderm] 5 % adhesive patch,medicated 1 patch topical DAILY MDD remove after 12 hours PRN (Reason: pain) Qty: 30 0RF Rx Instructions: leave on most painful area for up to 12 hrs cyclobenzaprine 5 mg tablet 5 mg PO Q8H PRN (Reason: pain (scale score 7-10)) 5 Days Qty: 14 0RF No Action docusate sodium [Colace] 100 mg capsule 100 mg PO DAILY Qty: 90 0RF albuterol 90 mcg/actuation Aerosol 90 mcg INHALATION Q4H PRN (Reason: shortness of breathness or wheeze) escitalopram oxalate 10 mg tablet 10 mg PO DAILY pregabalin 200 mg capsule 200 mg PO BID clonazepam 0.5 mg tablet 0.5 mg PO DAILY hydrochlorothiazide 25 mg tablet 25 mg PO DAILY tiotropium bromide [Spiriva with HandiHaler] 18 mcg capsule, w/inhalation device 1 cap inhalation DAILY budesonide-formoterol [Symbicort] 160-4.5 mcg/actuation HFA aerosol inhaler 1 puff inhalation DAILY Referrals: Mariza Goodrich MD [Primary Care Provider] - 3 days Interventions: ED Discharge Assessment Last Done: 02/27/24 14:54 Discharge Date/Time: 02/27/24 14:54 Print Language: Irish
[2024-02-27 14:53] VITALS: BP 103/58; PULSE 55; RESP 18; TEMP 36.6; O2SAT 97
[2024-02-27 14:54] VITALS: BP 103/58; PULSE 55; RESP 18; TEMP 36.6; O2SAT 97
== END 2024-02-27 14:54 | disposition home or self-care (01) ==
PROVIDERS: Emergency Provider Emergency Medicine; PCP Pediatrics
DX: M65.28 Calcific tendinitis, other site (principal); M25.551 Pain in right hip; I10 Essential (primary) hypertension; J45.909 Unspecified asthma, uncomplicated; Z79.899 Other long term (current) drug therapy
CPT/HCPCS: 73502; 99283; 99284

== ENCOUNTER 2024-03-03 09:16 | Outpatient (AMB) | payer OTHER, SELFPAY ==
--- NOTE | 2024-03-03 09:05 | A.OFFWM_ITS ---
Intake Intake Visit Reasons: VIDEO PO LSG 02/12/24 Allergies No Known Allergies Allergy (Verified 04/16/24 12:57) [facility] Medical History BMI 34.0-34.9,adult Hypokalemia Anxiety Depression Sleep apnea treated with continuous positive airway pressure (CPAP) Fibromyalgia Hypertension Asthma Morbid obesity Surgical History S/P laparoscopic sleeve gastrectomy History of appendectomy History of laparoscopic cholecystectomy History of delivery Social History Household Members: Family Housing: Apartment Are you a primary customer care agent to a significant other at home: No Do you presently have visiting nurse or other home services: No Unable to assess alcohol history related to: Unknown Alcohol intake: never Patient Tobacco Use Status: Former Tobacco user Tobacco use type: Cigarette Behavioral Health Assessment Weight Management Therapy Therapy Notes Details Subjective: Reports having a great recovery, feeling well overall. Denies any mental health concerns, pain, or physical challenges. Describes family as very supportive and encouraging throughout the recovery process. Objective: Patient presents for a behavioral health consultation post-bariatric surgery via Telehealth. Supportive and reflective listening was utilized during the consultation. Discussed the patient?s functioning and response to the surgery, providing emoti onal support and strategies for symptom management. PHQ-9 administered. Emphasized the importance of communication with healthcare providers and following post-surgery instructions. Assessment/Response: * Mental status: WNL * Risk reported/identified:None Patient appears well, engaged, and in no apparent distress during the session. No physical or psychological signs of concern observed. Communication is clear and coherent. Food/Weight/Diet Expectations of change Initial weight 233Lbs Pre-surgery weight: 197Lbs Current weight: 178Lbs (Today) Client's Target weight: 150Lbs Questionnaires PHQ-9 Over the last 2 weeks, how often have you been bothered by any of the following problems? 1. Little interest or pleasure in doing things: not at all 2. Feeling down, depressed, or hopeless: not at all 3. Trouble falling or staying asleep, or sleeping too much: not at all 4. Feeling tired or having little energy: not at all 5. Poor appetite or overeating: several days (less appetite, normal due to Post- op status) 6. Feeling bad about yourself - or that you are a failure or have let yourself or your family down: not at all 7. Trouble concentrating on things, such as reading the newspaper or watching television: not at all 8. Moving or speaking so slowly that other people could have noticed. Or the opposite - being so fidgety or restless that you have been moving around a lot more than usual: not at all 9. Thoughts that you would be better off or of hurting yourself in some way: not at all Total score: 1 Depression Screening Interpretation: Negative Depression Screening Done: Yes 39131 - PHQ-9 Billing: Yes Source: Developed by Drs. Tony Berrios, Lesly Pfeiffer, Dusty Hdz and colleagues, with an educational milla from [employer]. Assessment & Plan Assessment & Plan (1) Generalized anxiety disorder: Code(s): F41.1 - Generalized anxiety disorder (2) Other specified depressive episodes: Code(s): F32.89 - Other specified depressive episodes (3) Obesity (BMI 30-39.9): Code(s): E66.9 - Obesity, unspecified Plan Patient will continue follow-up care with her current behavioral health provider. Patient has been informed about available resources within the program and will reach out for additional support if needed. No further appointments scheduled at this time. Telehealth Telehealth [facility] Location of provider rendering services: other Location of patient: address on file Patient Identification confirmed using: Name, : Yes Telehealth method: video Patient verbally consented to treatment: Yes Patient verbally consented to billing insurance company: Yes Patient informed of any privacy concerns related to visit: Yes Minutes spent on Phone/Video with Pt.: 55 Coding Level of Care Code Established Pt Tele Psytx >53 mins (40093) Patient Type Established Diagnoses Generalized anxiety disorder F41.1 Other specified depressive episodes F32.89 Obesity (BMI 30-39.9) E66.9 Time Spent (min) 55
--- OUTSIDE RECORDS SUMMARY | 2024-03-03 09:20 | XMS_ITS | Continuity of Care Document ---
Author Organization [facility] Address [address] [place] [id number]- Care Team Providers Care Asp Net Mvc Developer Name Role Phone Kp JOHNS, Mariza Primary Care Physician Encounter [facility] Date(s): 01/31/24 - 03/01/[address] [address]- Allergies, Adverse Reactions, Alerts No Known Allergies [...] 01/25/23 8:49:00 EDT, Route to Pharmacy Electronically, [id number], [facility]/pharmacy #[id number], 163, cm, 01/25/23 8:30:00 EDT, Height Start Date: 01/25/23 Status: Ordered cetirizine 10 mg oral tablet 1 tablet, By Mouth, Daily, # 30 tablet, 5 Refills, [facility] STORE [id number], 163, cm, 01/10/21 8:49:00 EDT, Height, 102.9, kg, 05/21/20 8:52:00 EST, Dry Weight Start Date: 06/18/21 Status: Ordered cholestyramine 4 g/5.7 g oral powder for reconstitution = 2 Gm, By Mouth, Daily, dissolve in water or juice. Cambodian Sig., # 180 Gm, 1 Refills, Maintenance, 04/16/23 15:55:00 EST, REC Powder, [facility]/pharmacy #[id number], Partial fill upon patient request if the prescription is for a schedule II opioid drug., 163, c... Start Date: 04/16/23 Stop Date: 10/13/23 Status: Ordered clonazePAM 0.5 mg oral tablet 1 tablet = 0.5 mg, By Mouth, Daily at bedtime, PRN Anxiety, # 30 tablet, 1 Refills, Maintenance, 01/25/23 9:00:00 EDT, Tablet, [facility]/pharmacy #[id number], Partial [...] night. Length of need 99 Fax to [facility],... Start Date: 06/20/23 Status: Ordered donut pillow donut pillow, See Instructions, # 1 each, Refills 0, Tot. Refills 0, Maintenance, use for sitting for 2-4 weeks for coccyx bruise M53.3, 03/07/23 16:09:00 EST, Supply Start Date: 03/07/23 Status: Ordered escitalopram 10 mg oral tablet 1 tablet = 10 mg, By Mouth, Daily, # 90 tablet, 0 Refills, Maintenance, 01/25/23 8:52:00 EDT, Tablet, [facility]/pharmacy #[id number], Partial fill upon patient request if the prescription is for a schedule II opioid drug., 163, cm, 01/25/23 8:30:00 EDT, Height Start Date: 01/25/23 Stop Date: 04/25/23 Status: Ordered Flonase 50 mcg/inh nasal spray 2 sprays, Nares, Both, Daily in AM, # 1 each, 11 Refills, Maintenance, 07/26/20 9:20:00 EDT, [place],[facility]/pharmacy #[id number], 2 sprays Nares, Both Daily in AM, 163, cm, 07/22/20 8:51:00 EDT, Height, 105.7,kg, 09/12/19 20:00:00 EDT, Dry Weight Start Date: 07/26/20 Status: Ordered hydrochlorothiazide 25 mg oral tablet 1, tablet, By Mouth, Daily, for 90 days, # 90 tablet, Refills 3, Tot. Refills 3, Physician Stop 02/05/25 16:15:00 EDT, 02/11/24 16:15:00 EDT, Route to Pharmacy Electronically, [facility]/pharmacy #[id number], 162.6, cm, 02/07/24 10:26:00 EDT, Height, 102, kg, 01/29... Start Date: 02/11/24 Stop Date: 02/05/25 Status: Ordered ibuprofen 600 mg oral tablet 600 mg, 1, tablet, By Mouth, Every 6 hours, PRN, # 40 tablet, Refills 1, Tot. Refills 1, Maintenance, Headache, 06/19/23 10:54:00 EST, Route to Pharmacy Electronically, [facility]/pharmacy #[id number], Partial fill upon patient request if the prescription is for a... Start Date: 06/19/23 Status: Ordered ketoconazole 2% topical shampoo See Instructions, 1 application Topically three times a week, # 120 mL, 3 Refills, Soft Stop, 07/06/23 16:38:00 EST, Shampoo, [facility]/pharmacy #[id number], Partial fill upon patient request if the prescriptionis for a schedule II opioid drug., 1 application To... Start Date: 07/06/23 Status: Ordered lidocaine 5% topical cream 1 application, Topically, 3 times a day, PRN Pain. Cambodian sig, # 45 Gm, 1 Refills, Maintenance, 01/10/21 9:40:00 EDT, Cream, [facility]/pharmacy #[id number], Partial fill upon [...] mL, 0 Refills, Maintenance, 01/14/24 14:54:00 EDT, [facility]/pharmacy #[id number], Colonosopy Date: 02/07/24,... Start Date: 01/14/24 Status: Ordered pregabalin 200 mg oral capsule 1 capsule = 200 mg, By Mouth, Daily, # 30 capsule, 1 Refills, Maintenance, 01/25/23 9:00:00 EDT, Capsule, [facility]/pharmacy #[id number], Partial fill upon patient request if the prescription is for a schedule II opioid drug., 163, cm, 01/25/23 8:30:00 EDT, Height Start Date: 01/25/23 Stop Date: 03/26/23 Status: Ordered Singulair 10 mg oral tablet 10 mg, 1, tablet, By Mouth, Daily, # 90 tablet, Refills 3, Tot. Refills 3, Maintenance, 01/25/23 8:49:00 EDT, Route to Pharmacy Electronically, [facility]/pharmacy #[id number], 163, cm, 01/25/23 8:30:00 EDT, Height Start Date: 01/25/23 Stop Date: 01/20/24 Status: Ordered Spiriva Respimat 10 ACT 2.5 mcg/inh inhalation aerosol 2 puffs = 5 mcg, Inhalation, Daily, danish sig, # 4 Gm, 5 Refills, Maintenance, 03/14/23 10:57:00 EST, Aerosol, [facility]/pharmacy #[id number], Partial [...] 02/11/24 16:15:00 EDT, Route to Pharmacy Electronically, [id number], [facility]/pharmacy #[id number], 162.6, cm,... Start Date: 02/11/24 Stop Date: 02/05/25 Status: Ordered Tylenol Extra Strength 500 mg oral tablet 2 tablet = 1,000 mg, By Mouth, 3 times a day, PRN for fever, # 60 tablet, 0 Refills, Maintenance, 02/24/23 20:18:00 EDT, Tablet, [facility]/pharmacy #[id number], Partial fill upon patient request, 163, cm, 02/24/23 17:24:00 EDT, Height, 102, kg, 02/24/23 17:24:00... Start Date: 02/24/23 Stop Date: 03/06/23 Status: Ordered Vitamin D3 1000 intl units oral tablet 1 tablet = 25 mcg, By Mouth, Daily, # 30 tablet, 3 Refills, Maintenance, 11/29/23 14:14:00 EDT, Tablet, [facility]/pharmacy #[id number], Partial [...] team information Care Team Personnel Name: Hilda CEO & CO FOUNDER, Belle Barba Position: [facility] PCO Associate Professional Member Role: Lifetime Consulting Provider Address: Address: [address] [place] [address]- Name: Mariza Goodrich MD Position: [facility] Physician - Primary Care Member Role: PCP Address: Address: [address] [place] [id number]- Name: Pati Apodaca RN Position: [facility] RN Member Role: Primary Care Nurse Name: Hollie Pfeiffer RN Position: [facility] Hospital Beater Out Leveling Machine Member Role: Primary Care Nurse Care Team Related Persons Name: ESTEPHANIA WYNN Address: [address] [place] [address] Name: EUNICE WYNN Address: home [address] [facility] [address] [place] [id number] Name: NELLI RENO Name: MATTHEW RENO Address: home [address] [place] [address]
== END 2024-03-03 10:00 | disposition home or self-care (01) ==
LOC: HO.HBST 09:16
PROVIDERS: PCP Pediatrics; Visit Provider Counselor Mental Health
DX: F41.1 Generalized anxiety disorder (principal); F32.89 Other specified depressive episodes; E66.9 Obesity, unspecified
CPT/HCPCS: 90837

== ENCOUNTER → 2024-03-03 09:16 | Outpatient (BNVA) | payer OTHER, SELFPAY | PROVIDERS: PCP Pediatrics; Visit Provider Counselor Mental Health ==

== ENCOUNTER 2024-03-20 11:22 | Outpatient (AMB) | payer OTHER, SELFPAY ==
--- NOTE | 2024-03-20 11:28 | MHC.OFFVISWM ---
VS Expanded 03/20/24 11:52 BP 138/72 Blood Pressure Location Rt brachial Blood Pressure Position Sitting Pulse 77 Pulse Source Pulse Oximeter Temp 97.7 F Temperature Source Temporal Artery Scan Pulse Oximetry 98 Oxygen Delivery Method Room Air Height 5 ft 5 in Weight 176 lb 3.2 oz BMI 29.3 Body Fat % 37.9 Body Fat Mass 66.8 Fat Free Mass 119.2 Visceral Fat Rating 8.0 Body Water % 44.2 Body Water Mass 77.8 Muscle Mass/Score 103.8 Basal Metabolic Rate/Score 1,499 Intake Visit Reasons: (OV) PO LSG 02/12/24 Public Health Administrator Required: Yes Public Health Administrator Services: Public Health Administrator Present Public Health Administrator Name: hospital cmi Allergies No Known Allergies Allergy (Verified 03/20/24 11:29) Medication List - Last Reconciled 03/20/24 by LOKI Humphrey albuterol 90 mcg/actuation 90 mcg inhalation Q4H PRN bisacodyl (Dulcolax (bisacodyl)) 10 mg [place] DAILY PRN budesonide-formoterol 160-4.5 mcg/actuation (Symbicort) 1 puff inhalation DAILY clonazepam 0.5 mg PO DAILY cyclobenzaprine 5 mg PO Q8H PRN 5 days docusate sodium (Colace) 100 mg PO DAILY escitalopram oxalate 10 mg PO DAILY hydrochlorothiazide 25 mg PO DAILY lidocaine 5% (Lidoderm) 1 patch topical DAILY PRN MDD remove after 12 hours pregabalin 200 mg PO BID tiotropium bromide (Spiriva with HandiHaler) 1 cap inhalation DAILY HPI Comments Details: This?a?48?yo female who is s/p LSG without hiatal hernia repair on?02/12/2024. Presents for 1 month post op visit. Weight today is 176.2 pounds, with a BMI of 30.3. There has been a [] pound weight loss,(initial weight 233.2 pounds) since starting the program on 10/16/2023 reflecting a []% total body weight loss and a weight loss of [] pounds since surgery (operative weight 201.5 pounds) reflecting a []% TBWL since surgery. No complaints of nausea, emesis, abdominal pain or reflux. Reports infrequent but normal bowel movements every [] days and uses stool softeners regularly. She has not been following the meal plan for the last 2 weeks. She has not communicated with the office. She generally feels weak. She has been drinking water although has only been having 2-3 oz of the protein shake. States she has nausea with the shakes. She has been having 1 once at a time every 15 minutes. Original weight on 10/16/2023 was 233.2 pounds and op weight was 201.5 pounds. Wants to use [employer] shake Present recommended meal plan includes: Orgain 2 scoops Orgain 1 scoop Exercise routine includes: walking PFSH Medical History BMI 34.0-34.9,adult Hypokalemia Anxiety Depression Sleep apnea treated with continuous positive airway pressure (CPAP) Fibromyalgia Hypertension Asthma Morbid obesity Surgical History S/P laparoscopic sleeve gastrectomy History of appendectomy History of laparoscopic cholecystectomy History of delivery Social History Household Members: Family Housing: Apartment Are you a primary home health care respiratory therapist to a significant other at home: No Do you presently have visiting nurse or other home services: No Unable to assess alcohol history related to: Unknown Alcohol intake: never Patient Tobacco Use Status: Former Tobacco user Tobacco use type: Cigarette Physical Exam Const General: healthy appearing and no acute distress Resp Effort & Inspection: normal respiratory effort Auscultation: clear to auscultation bilaterally Cardio Rate: regular rate Rhythm: regular rhythm GI Auscultation: normal bowel sounds Extrem General: Yes normal to inspection Assessment & Plan Assessment & Plan (1) S/P laparoscopic sleeve gastrectomy: Code(s): Z98.84 - Bariatric surgery status Category: Surgical Plan: Patient had not been drinking appropriately. It was explained to her that she must drink at the pace of 1 oz every 15 minutes, 2 mL/minute. This will resolve all of her nausea. Additionally, she has not been taking in her protein shakes. She wishes to use Sjapper shake 1 shake from 10-1 6 oz of shake with 2 oz of unsweetened almond milk at 2-4 Another 6 oz of shake with 2 oz of unsweetened almond milk at 6-8 Additionally, once she tolerates this we will incorporate a multivitamin. Discussed the importance of communicating if there are any problems including texting weekly. We will have her follow-up in the office in 1 month Medications: New sucralfate 10 mL PO BID 420 mL 2RF pantoprazole 40 mg PO DAILY 60 tabs 0RF
[2024-03-20 11:52] VITALS: BP 138/72; PULSE 77; TEMP 36.5; O2SAT 98; BMI 29.3
== END 2024-03-20 12:59 | disposition home or self-care (01) ==
PROVIDERS: PCP Nurse Practitioner Family; Visit Provider Physician Assistant Surgical
DX: Z98.84 Bariatric surgery status (principal)
CPT/HCPCS: 99024

== ENCOUNTER → 2024-03-20 11:22 | Outpatient (BNVA) | payer OTHER, SELFPAY | PROVIDERS: PCP Nurse Practitioner Family; Visit Provider Physician Assistant Surgical | DX: Z71.3 Dietary counseling and surveillance (principal); Z98.84 Bariatric surgery status | CPT/HCPCS: 99212 ==

== ENCOUNTER 2024-04-16 12:33 | Outpatient (AMB) | payer OTHER, SELFPAY ==
--- NOTE | 2024-04-16 12:45 | MHC.OFFVISWM ---
VS Expanded 04/16/24 13:01 BP 144/70 H Blood Pressure Location Rt brachial Blood Pressure Position Sitting Pulse 68 Pulse Source Pulse Oximeter Temp 99.3 F Temperature Source Temporal Artery Scan Pulse Oximetry 98 Oxygen Delivery Method Room Air Height 5 ft 4 in Weight 166 lb 9.6 oz BMI 28.6 Body Fat % 35.1 Body Fat Mass 58.4 Fat Free Mass 108.0 Visceral Fat Rating 7.0 Body Water % 46.2 Body Water Mass 77.0 Muscle Mass/Score 102.6 Basal Metabolic Rate/Score 1,469 Intake Visit Reasons: (OV) PO LSG 02/12/24 Non Morse Intercept Technician Required: Yes Non Morse Intercept Technician Services: Non Morse Intercept Technician Present Non Morse Intercept Technician Name: hospital food editor Allergies No Known Allergies Allergy (Verified 04/16/24 12:57) Medication List - Last Reconciled 04/16/24 by LOKI Humphrey albuterol 90 mcg/actuation 90 mcg inhalation Q4H PRN bisacodyl (Dulcolax (bisacodyl)) 10 mg [place] DAILY PRN budesonide-formoterol 160-4.5 mcg/actuation (Symbicort) 1 puff inhalation DAILY clonazepam 0.5 mg PO DAILY cyclobenzaprine 5 mg PO Q8H PRN 5 days docusate sodium (Colace) 100 mg PO DAILY escitalopram oxalate 10 mg PO DAILY hydrochlorothiazide 25 mg PO DAILY lidocaine 5% (Lidoderm) 1 patch topical DAILY PRN MDD remove after 12 hours pantoprazole 40 mg PO DAILY pregabalin 200 mg PO BID sucralfate 10 mL PO BID tiotropium bromide (Spiriva with HandiHaler) 1 cap inhalation DAILY HPI Comments Details: This?a?48?yo female who is s/p LSG without hiatal hernia repair on?02/12/2024. Presents for 2 month post op visit. Weight today is 166.6 pounds, with a BMI of 27.7. There has been a 66.6 pound weight loss,(initial weight 233.2 pounds) since starting the program on 10/16/2023 reflecting a 28.5 % total body weight loss and a weight loss of 34.9 pounds since surgery (operative weight 201.5 pounds) reflecting a 17.3 % TBWL since surgery. No complaints of nausea, emesis, abdominal pain or reflux. Reports infrequent but normal bowel movements every 2-3 days and uses stool softeners regularly. Reports that she is feeling great. Satisfied with her meal plan but would like to add some food. Taking celebrate MVI Present meal plan includes: using fair life shake rtd 30 gm 1 shake from 10-1 6 oz of shake with 2 oz of unsweetened almond milk at 2-4 Another 6 oz of shake with 2 oz of unsweetened almond milk at 6-8 Drinking 33 oz water daily ? Exercise routine includes: 5 days per week 400 calories treadmill, [facility] Medical History BMI 34.0-34.9,adult Hypokalemia Anxiety Depression Sleep apnea treated with continuous positive airway pressure (CPAP) Fibromyalgia Hypertension Asthma Morbid obesity Surgical History S/P laparoscopic sleeve gastrectomy History of appendectomy History of laparoscopic cholecystectomy History of delivery Social History Household Members: Family Housing: Apartment Are you a primary residential caregiver to a significant other at home: No Do you presently have visiting nurse or other home services: No Unable to assess alcohol history related to: Unknown Alcohol intake: never Patient Tobacco Use Status: Former Tobacco user Tobacco use type: Cigarette Assessment & Plan Assessment & Plan (1) S/P laparoscopic sleeve gastrectomy: Code(s): Z98.84 - Bariatric surgery status Category: Surgical Plan: change meal plan slightly: using fair life shake rtd 30 gm 1 shake from 10-1 6 oz of shake with 2 oz of unsweetened almond milk at 2-4 Another 6 oz of shake with 2 oz of unsweetened almond milk at 6-8 or divehi yogurt or 2 eggs rtc 1 month
[2024-04-16 13:01] VITALS: BP 144/70; PULSE 68; TEMP 37.4; O2SAT 98; BMI 28.6
== END 2024-04-16 13:31 | disposition home or self-care (01) ==
PROVIDERS: PCP Nurse Practitioner Family; Visit Provider Physician Assistant Surgical
DX: Z98.84 Bariatric surgery status (principal)
CPT/HCPCS: 99024

== ENCOUNTER → 2024-04-16 12:33 | Outpatient (BNVA) | payer OTHER, SELFPAY | PROVIDERS: PCP Nurse Practitioner Family; Visit Provider Physician Assistant Surgical | DX: Z48.815 Encounter for surgical aftercare following surgery on the digestive system (principal); Z98.84 Bariatric surgery status | CPT/HCPCS: 99212 ==

== ENCOUNTER 2024-05-21 10:47 | Outpatient (AMB) | payer OTHER, SELFPAY ==
--- NOTE | 2024-05-21 11:12 | MHC.OFFVISWM ---
VS Expanded 05/21/24 11:16 BP 133/60 Blood Pressure Location Rt brachial Blood Pressure Position Sitting Pulse 56 Pulse Source Pulse Oximeter Temp 98.4 F Temperature Source Temporal Artery Scan Pulse Oximetry 100 Oxygen Delivery Method Room Air Height 5 ft 4 in Weight 161 lb 12.8 oz BMI 27.8 Body Fat % 35.1 Body Fat Mass 6.6 Fat Free Mass 105.0 Visceral Fat Rating 7.0 Body Water % 46.2 Body Water Mass 74.8 Muscle Mass/Score 99.6 Basal Metabolic Rate/Score 1,429 Intake Visit Reasons: (OV) PO LSG 02/12/24 Slurry Tank Tender Required: Yes Slurry Tank Tender Services: Slurry Tank Tender Present Slurry Tank Tender Name: hospital cmi Allergies No Known Allergies Allergy (Verified 05/21/24 11:21) Medication List - Last Reconciled 05/21/24 by LOKI Humphrey albuterol 90 mcg/actuation 90 mcg inhalation Q4H PRN bisacodyl (Dulcolax (bisacodyl)) 10 mg [place] DAILY PRN budesonide-formoterol 160-4.5 mcg/actuation (Symbicort) 1 puff inhalation DAILY clonazepam 0.5 mg PO DAILY cyclobenzaprine 5 mg PO Q8H PRN 5 days docusate sodium (Colace) 100 mg PO DAILY escitalopram oxalate 10 mg PO DAILY hydrochlorothiazide 25 mg PO DAILY lidocaine 5% (Lidoderm) 1 patch topical DAILY PRN MDD remove after 12 hours pregabalin 200 mg PO BID tiotropium bromide (Spiriva with HandiHaler) 1 cap inhalation DAILY HPI Comments Details: This?a?48?yo female who is s/p LSG without hiatal hernia repair on?02/12/2024. Presents for 3 month post op visit. Weight today is 166.6 pounds, with a BMI of 27.8. There has been a 71.4 pound weight loss,(initial weight 233.2 pounds) since starting the program on 10/16/2023 reflecting a 30.6 % total body weight loss and a weight loss of 39.7 pounds since surgery (operative weight 201.5 pounds) reflecting a 19.7 % TBWL since surgery. No complaints of nausea, emesis, abdominal pain or reflux. Reports infrequent but normal bowel movements every 2-3 days and uses stool softeners regularly. Reports that she is feeling great. Taking celebrate MVI. Tolerating meal plan and does not want to chnage it. Present meal plan includes: using fair life shake rtd 30 gm 1 shake from 10-1 6 oz of shake with 2 oz of unsweetened almond milk at 2-4 Another 6 oz of shake with 2 oz of unsweetened almond milk at 6-8 or wolof yogurt or 1 eggs Drinking 40 oz water daily ? Exercise routine includes: only twice this week due to being cold. 5 days per week 400 calories treadmill, [facility] Medical History BMI 34.0-34.9,adult Hypokalemia Anxiety Depression Sleep apnea treated with continuous positive airway pressure (CPAP) Fibromyalgia Hypertension Asthma Morbid obesity Surgical History S/P laparoscopic sleeve gastrectomy History of appendectomy History of laparoscopic cholecystectomy History of delivery Social History Household Members: Family Housing: Apartment Are you a primary home health care physician to a significant other at home: No Do you presently have visiting nurse or other home services: No Unable to assess alcohol history related to: Unknown Alcohol intake: never Patient Tobacco Use Status: Former Tobacco user Tobacco use type: Cigarette Physical Exam Const General: healthy appearing and no acute distress Resp Effort & Inspection: normal respiratory effort Auscultation: clear to auscultation bilaterally Cardio Rate: regular rate Rhythm: regular rhythm GI Auscultation: normal bowel sounds Extrem General: Yes normal to inspection Assessment & Plan Assessment & Plan (1) S/P laparoscopic sleeve gastrectomy: Code(s): Z98.84 - Bariatric surgery status Category: Surgical Plan: Patient continues to make progress. She is satisfied with the plans. She does wish to incorporate weightlifting which I encouraged her to do with the use of a physical fitness trainer or guidance from the coffee shop manager at the gym. She was encouraged to do weightlifting 1st for approximately 20 minutes and then 40 minutes of cardio. She will continue to text with any questions or concerns. Return to the office as scheduled.
[2024-05-21 11:16] VITALS: BP 133/60; PULSE 56; TEMP 36.9; O2SAT 100; BMI 27.8
--- OUTSIDE RECORDS SUMMARY | 2024-05-21 12:06 | XMS_ITS | Encounter Summary ---
Author Organization [employer] Address [address] [facility] [address] [place] [address] Care Team Providers Care [employer]o [place] Name Role Phone Unavailable Primary Care Provider Unavailabl e Reason for Visit * Reason Comments Filling Encounter Details Date Type Department Care Team (Late st Contact Info) Description 05/21/2024 8:00 AM EST Office Visit [facility] ADULT DENTAL [address] [place] [address] Camelia Jimenez DDS [address] [place] [address] Generalized gingival recession, moderate (Primary Dx) Social History Tobacco Use Types Packs/Day Years Used Date Smoking Tobacco: Never Smokeless Tobacco: Never Alcohol Use Standard Drinks/Week Comments Never 0 (1 standard drink = 0.6 oz pur e alcohol) Comments Unknown Sex and Gender Information Value Date Recorded Sex Assigned at Female 06/19/2023 2:16 PM EST Legal Sex Female 2:15 PM EST Gender Identity Female 06/19/2023 2:16 PM EST Sexual Orientation Straight 06/19/2023 2: 16 PM EST documented as of this encounter Last Filed Vital Signs Vital Sign Reading Time Taken Comments Blood Pressure 100/78 05/21/2024 8:05 AM EST Pulse - - Temperature - - Respiratory Rate - - Oxygen Saturation - - Inhaled Oxygen Concentration - - Weight - - Height - - Body Mass Index - - documented in this encounter Progress Notes * Camelia Jimenez DDS - 05/21/2024 8:00 AM EST Patient ID: Teri Gomes is a 48 y.o. female. Time Out: Timeout Date: 05/21/24, Timeout Time: 0805 (Time out for filling on teeth #20,21,28,29 and 30) Location: [facility] Tooth: #20, #21, #28, #29, and #30 Procedure: Amish Verified the above with patient, front end assistant, and provider. Confirmed via patient's chart, intraorally and by radiographs. Heel Sorter: not applicable Chief Complaint Patient presents with Filling Medical Hx: Vitals: Blood pressure 100/78. Medications, Med Hx reviewed with patient and updated in chart. Consent Obtained: The risks, benefits, indications, potential complications, and alternatives were explained to the patient and informed consent was obtained with good understanding. Treatment Provided: Dental procedures in this visit D2391 - RESTORATIVE - RESIN-BASED COMPOSITE RESTORATIONS - DIRECT - RESIN-BASED COMPOSITE - ONE SURFACE, POSTERIOR 30 B(V) (Completed) Service provider: Camelia Jimenez DDS Billing provider: Camelia Jimenez DDS D2391 - RESTORATIVE - RESIN-BASED COMPOSITE RESTORATIONS - DIRECT - RESIN-BASED COMPOSITE - ONE SURFACE, POSTERIOR 29 B(V) (Completed) Service provider: Camelia Jimenez DDS Billing provider: Camelia Jimenez DDS [id number] - RESTORATIVE - RESIN-BASED COMPOSITE RESTORATIONS - DIRECT - RESIN-BASED COMPOSITE - ONE SURFACE, POSTERIOR 28 B(V) (Completed) Service provider: Camelia Jimenez DDS Billing provider: Camelia Jimenez DDS D2391 - RESTORATIVE - RESIN-BASED COMPOSITE RESTORATIONS - DIRECT - RESIN-BASED COMPOSITE - ONE SURFACE, POSTERIOR 20 B(V) (Completed) Service provider: Camelia Jimenez DDS Billing provider: Camelia Jimenez DDS [id number] - RESTORATIVE - RESIN-BASED COMPOSITE RESTORATIONS - DIRECT - RESIN-BASED COMPOSITE - ONE SURFACE, POSTERIOR 21 B(V) (Completed) Service provider: Camelia Jimenez DDS Billing provider: Camelia Jimenez DDS [id number] - ADJUNCTIVE GENERAL SERVICES - PROFESSIONAL VISITS - CASE PRESENTATION, SUBSEQUENT TO DETAILED AND EXTENSIVE TREATMENT PLANNING (Completed) Service provider: Camelia Jimenez DDS Billing provider: Camelia Jimenez DDS Diagnosis: Gingival recession Topical: 20% Benzocaine - only Isolation: high speed suction and cotton rolls Prep: Preparation finalized Matrix: None Etch: None Desensitizer: Gluma Liner/Base: None Lyons: I-Lyons Amish Material: Filtek Antonito Flowable Composite Shade: A3.5 Polished. Occlusion & contacts verified. Patient satisfied with comfort and esthetics. Patient tolerated procedure well. Post-operative instructions were given. Patient departed alert, oriented, and in stable condition. NV: SRPs 6 mo periodic exam Broom Builder: Lissette Sanchez Dentist: Camelia Jimenez DDS documented in this encounter Plan of Treatment Upcoming Encounters Date Type Department Care Team (Late st Contact Info) Description 05/23/2024 2:00 PM EST Office Visit [facility] ADULT DENTAL [address] [place], [place] [phone] Jeffy Venturaaris [address] [place] [address] documented as of this encounter Procedures Procedure Name Priority Date/Time Associated Diagnosis Comments 21 B(V) RESTORATIVE - RESIN-BASED COMPOSITE RESTORATIONS - DIRECT - RESIN-BASED COMPOSITE - ONE SURFACE, POSTERIOR Routine 05/21/2024 8:00 AM EST Generalized gingival recession, moderate 20 B(V) RESTORATIVE - RESIN-BASED COMPOSITE RESTORATIONS - DIRECT - RESIN-BASED COMPOSITE - ONE SURFACE, POSTERIOR Routine 05/21/2024 8:00 AM EST Generalized gingival recession, moderate 28 B(V) RESTORATIVE - RESIN-BASED COMPOSITE RESTORATIONS - DIRECT - RESIN-BASED COMPOSITE - ONE SURFACE, POSTERIOR Routine 05/21/2024 8:00 AM EST Generalized gingival recession, moderate 29 B(V) RESTORATIVE - RESIN-BASED COMPOSITE RESTORATIONS - DIRECT - RESIN-BASED COMPOSITE - ONE SURFACE, POSTERIOR Routine 05/21/2024 8:00 AM EST Generalized gingival recession, moderate 30 B(V) RESTORATIVE - RESIN-BASED COMPOSITE RESTORATIONS - DIRECT - RESIN-BASED COMPOSITE - ONE SURFACE, POSTERIOR Routine 05/21/2024 8:00 AM EST Generalized gingival recession, moderate ADJUNCTIVE GENERAL SERVICES - PROFESSIONAL VISITS - CASE PRESENTATION, SUBSEQUENT TO DETAILED AND EXTENSIVE TREATMENT PLANNING Routine 05/21/2024 8:00 AM EST Generalized gingival recession, moderate documented in this encounter Visit Diagnoses Diagnosis Generalized gingival recession, moderate- Primary documented in this encounter
--- OUTSIDE RECORDS SUMMARY | 2024-05-21 12:06 | XMS_ITS | Clinical Summary ---
Author Organization [employer] Address [address] [facility] [address] [place] [address] Care Team Providers Care Choir Singer Name Role Phone Unavailable Primary Care Provider Unavailabl e Allergies No known active allergies Medications Symbicort 160-4.5 MCG/ACT inhaler Inhale 2 puffs 2 times daily. Active albuterol 108 (90 Base) MCG/ACT inhaler Inhale 2 puffs every 4 (four) hours if needed. Active Spiriva Respimat 2.5 MCG/ACT inhaler Inhale 5 mcg. 03/14/2023 Active hydroCHLOROthia zide (HYDRODiuril) 25 MG tablet Take 25 mg by mouth Once per day. Active escitalopram (Lexapro) 10 MG tablet TOME 1 TABLETA POR V A ORAL TODOS LOS D EN LA MA ESTER Active clonazePAM (KlonoPIN) 0.5 MG tablet Take 0.5 mg by mouth if needed in the morning, at noon, and at bedtime. Active pregabalin (Lyrica) 200 MG capsule TOME 1 C PSULA POR V A ORAL DOS VECES AL D A Active Active Problems Problem Noted Date Diagnosed Date Abnormal mammogram 05/21/2024 Anemia 05/21/2024 Asthma 05/21/2024 Bariatric surgery status 05/21/2024 COVID-19 05/21/2024 Epiploic appendagitis 05/21/2024 Overview (05/21/2024): Dx in 2018 Essential hypertension 05/21/2024 Myofascial pain 05/21/2024 Morbid obesity with BMI of 40.0-44.9, adult 05/01 Class 1 obesity 05/21/2024 Obesity (BMI 30-39.9) 05/21/2024 Obstructive sleep apnea syndrome 05/21/2024 Osteoarthritis of left knee 05/21/2024 Polyp of colon 05/21/2024 Encounters Date Type Department Care Team Description 05/21/2024 8:00 AM EST Office Visit [facility] ADULT DENTAL [address] [place] [address] Triana-Juarez, Camelia, DDS Generalized gingival recession, moderate (Primary Dx) 05/14/2024 2:00 PM EST Office Visit [facility] ADULT [facility] [address] [place] [address] Arias Paytonsa Dental calculus (Primary Dx); Dental plaque; Periodontal disease; Tartar deposits on teeth 04/16/2024 8:00 AM EST Office Visit [facility] ADULT [facility] [address] [place] [address] Triana-Juarez, Camelia, DDS Generalized gingival recession, moderate (Primary Dx) 03/05/2024 8:00 AM EST Office Visit [facility] ADULT [facility] [address] [place] [address] Tata Bibiana Encounter for dental examination (Primary Dx); History of periodontal disease; Generalized gingival recession, moderate; Dental calculus; Dental plaque from Last 3 Months Social History Tobacco Use Types Packs/Day Years Used Date Smoking Tobacco: Never Smokeless Tobacco: Never Tobacco Cessation:Counseling Given: Not Answered Alcohol Use Standard Drinks/Week Comments Never 0 (1 standard drink = 0.6 oz pur e alcohol) Comments Unknown Sex and Gender Information Value Date Recorded Sex Assigned at Female 06/19/2023 2:16 PM EST Legal Sex Female 2:15 PM EST Gender Identity Female 06/19/2023 2:16 PM EST Sexual Orientation Straight 06/19/2023 2: 16 PM EST Last Filed Vital Signs Vital Sign Reading Time Taken Comments Blood Pressure 100/78 05/21/2024 8:05 AM EST Pulse - - Temperature - - Respiratory Rate - - Oxygen Saturation - - Inhaled Oxygen Concentration - - Weight - - Height - - Body Mass Index - - Plan of Treatment Upcoming Encounters Date Type Department Care Team (Late st Contact Info) Description 05/23/2024 2:00 PM EST Office Visit [facility] ADULT DENT[facility] [address] [place] [address] [place] [address] Health Maintenance Due Date Last Done Comments CT Colonography 1974 Colonoscopy 1974 Colorectal Cancer Screening 1974 Depression Screening 1974 FIT DNA/Cologuard 1974 FIT 1974 FOBT 1974 HIV Screening 1974 Lipid Panel 1974 SDOH Screening 1974 Sigmoidoscopy 1974 Alcohol/Substance Use Screening 1986 Family Planning (PISQ) 1989 Hepatitis C Screening 1992 Hepatitis B Vaccines (1 of 3 - 19+ 3-dose series) 1993 Pap Smear 1995 Cervical Cancer Screening 2004 HPV/Cotest 2004 Mammogram 2014 Pneumococcal Vaccine: Pediatrics (0 to 5 Years) and At-Risk Patients (6 to 64 Years) (2 of 2 - PCV) 02/17/2015 02/17/2014 COVID-19 Vaccine (3 - 2023- season) 2023 09/08/2020, 08/11/2020 Zoster Vaccines (1 of 2) 2024 Dental Oral Exam 09/03/2024 03/05/2024 Dental Prophylaxis 09/03/2024 03/05/2024 Dental X-Ray: Bitewings 03/06/2025 03/05/2024 Tobacco Screening 05/21/2025 05/21/2024 Dental X-Ray: Full Mouth 03/06/2027 03/05/2024 DTaP/Tdap/Td Vaccines (2 - Td or Tdap) 09/15/2032 09/15/2022, 10/08/2012 RSV Patients and Patients Aged 60 years or older (1 - 1-dose 75+ series) 2049 Influenza Vaccine Completed 03/21/2024, , 01/25/2023, Additional history exists HIB Vaccines Aged Out No longer eligi ble based on patient's age to complete this topic HPV Vaccines Aged Out No longer eligi ble based on patient's age to complete this topic Hepatitis A Vaccines Aged Out No long er eligible based on patient's age to complete this topic IPV Vaccines Aged Out No longer eligi ble based on patient's age to complete this topic Meningococcal Vaccine Aged Out No rebeka rena eligible based on patient's age to complete this topic RSV under 20 months Aged Out No longe r eligible based on patient's age to complete this topic Rotavirus Vaccines Aged Out No longer eligible based on patient's age to complete this topic Procedures Procedure Name Priority Date/Time Associated Diagnosis Comments ADJUNCTIVE GENERAL SERVICES - PROFESSIONAL VISITS - CASE PRESENTATION, SUBSEQUENT TO DETAILED AND EXTENSIVE TREATMENT PLANNING Routine 05/21/2024 8:00 AM EST Generalized gingival recession, moderate 21 B(V) RESTORATIVE - RESIN-BASED COMPOSITE RESTORATIONS [...] TO DETAILED AND EXTENSIVE TREATMENT PLANNING Routine 05/14/2024 2:00 PM EST ORAL HYGIENE INSTRUCTIONS Routine 2024 2:00 PM EST Dental calculus Dental plaque Periodontal disease Tartar deposits on teeth LL PERIODONTAL SCALING AND ROOT PLANING - 1 TO 3 TEETH PER QUADRANT Routine 05/14/2024 2:00 PM EST Dental calculus Dental plaque Periodontal disease Tartar deposits on teeth UL PERIODONTAL SCALING AND ROOT PLANING - 1 TO 3 TEETH PER QUADRANT Routine 05/14/2024 2:00 PM EST Dental calculus Dental plaque Periodontal disease Tartar deposits on teeth ADJUNCTIVE GENERAL SERVICES - PROFESSIONAL VISITS - CASE PRESENTATION, SUBSEQUENT TO DETAILED AND EXTENSIVE TREATMENT PLANNING Routine 04/16/2024 8:00 AM EST Generalized gingival recession, moderate 5 B(V) RESTORATIVE - RESIN-BASED COMPOSITE RESTORATIONS - DIRECT - RESIN-BASED COMPOSITE - ONE SURFACE, POSTERIOR Routine 04/16/2024 8:00 AM EST Generalized gingival recession, moderate 3 B(V) RESTORATIVE - RESIN-BASED COMPOSITE RESTORATIONS - DIRECT - RESIN-BASED COMPOSITE - ONE SURFACE, POSTERIOR Routine 04/16/2024 8:00 AM EST Generalized gingival recession, moderate 11 F(V) RESTORATIVE - RESIN-BASED COMPOSITE RESTORATIONS - DIRECT - RESIN-BASED COMPOSITE - ONE SURFACE, ANTERIOR Routine 04/16/2024 8:00 AM EST Generalized gingival recession, moderate 14 B(V) RESTORATIVE - RESIN-BASED COMPOSITE RESTORATIONS - DIRECT - RESIN-BASED COMPOSITE - ONE SURFACE, POSTERIOR Routine 04/16/2024 8:00 AM EST Generalized gingival recession, moderate PERIODIC ORAL EVALUATION - ESTABLISHED PATIENT Routine 03/05/2024 8:00 AM EST History of periodontal disease Encounter for dental examination Generalized gingival recession, moderate Dental calculus Dental plaque COMPREHENSIVE PERIODONTAL EVALUATION - NEW OR ESTABLISHED PATIENT Routine 03/05/2024 8:00 AM EST History of periodontal disease Encounter for dental examination Generalized gingival recession, moderate Dental calculus Dental plaque ORAL HYGIENE INSTRUCTIONS Routine 2023 8:00 AM EST History of periodontal disease Generalized gingival recession, moderate Dental calculus Dental plaque DIAGNOSTIC - DIAGNOSTIC IMAGING - INTRAORAL - COMPREHENSIVE SERIES OF RADIOGRAPHIC IMAGES Routine 03/05/2024 8:00 AM EST History of periodontal disease Generalized gingival recession, moderate Dental calculus Dental plaque PROPHYLAXIS - ADULT Routine 03/05/2024 8 :00 AM EST History of periodontal disease Generalized gingival recession, moderate Dental calculus Dental plaque ADJUNCTIVE GENERAL SERVICES - PROFESSIONAL VISITS - CASE PRESENTATION, SUBSEQUENT TO DETAILED AND EXTENSIVE TREATMENT PLANNING Routine 03/05/2024 8:00 AM EST from Last 3 Months Insurance [facility] MEDICA[facility] STAND ADULT
--- OUTSIDE RECORDS SUMMARY | 2024-05-21 12:06 | XMS_ITS | Encounter Summary ---
Author Organization [employer] [facility] Address [address] [facility] [address] [place] [address] Care Team Providers Care Rn Clinical Research Name Role Phone Unavailable Primary Care Provider Unavailabl e Reason for Visit * Reason Comments Scaling And Root Planing UL, LL Encounter Details Date Type Department Care Team (Late st Contact Info) Description 05/14/2024 2:00 PM EST Office Visit [facility] ADULT DENTAL [address] [place], [place] [phone] Bibiana Payton Dental calculus (Primary Dx); Dental plaque; Periodontal disease; Tartar deposits on teeth Social History Tobacco Use Types Packs/Day Years [...] Sign Reading Time Taken Comments Blood Pressure 140/82 05/14/2024 1:54 PM EST Pulse - - Temperature - - Respiratory Rate - - Oxygen Saturation - - Inhaled Oxygen Concentration - - Weight - - Height - - Body Mass Index - - documented in this encounter Progress Notes * Bibiana Payton - 05/14/2024 2:00 PM EST Patient ID: Teri Gomes is a 48 y.o. female. Time Out: Timeout Date: 05/14/24, Timeout Time: 1351 (Dental SRP Adult) Location: [facility] Tooth: UL and LL Procedure: Scaling and Root Planing Verified the above with patient, assistant scientist, and provider. Confirmed via patient's chart, intraorally and by radiographs. Armature Winder Repair: not applicable Medical Hx: Vitals: Blood pressure 140/82. Medications, Med Hx reviewed with patient and updated in chart. Treatment Provided Dental procedures in this visit D4342 - PERIODONTAL SCALING AND ROOT PLANING - 1 TO 3 TEETH PER QUADRANT UL (Completed) Service provider: Bibiana Payton Billing provider: Camelia Jimenez DDS D4342 - PERIODONTAL SCALING AND ROOT PLANING - 1 TO 3 TEETH PER QUADRANT LL (Completed) Service provider: Bibiana Payton Billing provider: Camelia Jimenez DDS D1330 - ORAL HYGIENE INSTRUCTIONS (Completed) Service provider: Bibiana Payton Billing provider: Camelia Jimenez DDS D9450 - ADJUNCTIVE GENERAL SERVICES - PROFESSIONAL VISITS - CASE PRESENTATION, SUBSEQUENT TO DETAILED AND EXTENSIVE TREATMENT PLANNING (Completed) Service provider: Bibiana Payton [place] provider: Camelia Jimenez DDS Topical: 20% Benzocaine Anesthesia: 0 Number of Cartridges: 0 Injection Type: N/A Confirmed profound anesthesia. Oral Cancer Screening: No lesions Head/Neck Exam: No Lesions Instruments Used: Ultrasonic Scalers, Hand Scalers, and floss Fluoride: N/A Calculus: Moderate, Generalized, and Subgingival Plaque: Light and Generalized Stain: None Bleeding: Heavy and Generalized Gingiva: Recession- generalized, Erythematous, and Inflamed OH: Fair Oral hygiene instructions provided to patient including brushing technique and flossing. Recommendations: Anderson two times daily, modified villasenor technique, Floss daily, Electric toothbrush, Soft bristle toothbrush, Anderson Tongue, Anti-sensitivity toothpaste Recall Frequency: 6 mo NV: 6mrc Hygienist: Bibiana Payton RDH * Camelia Jimenez DDS - 05/14/2024 2:00 PM EST I have reviewed the documentation and dental procedures made by the rendering provider, Bibiana Payton RDH , and approve their chart entries for this visit. Camelia Jimenez DDS documented in this encounter Plan of Treatment Upcoming Encounters Date Type Department Care Team (Late st Contact Info) Description 05/23/2024 2:00 PM EST Office Visit [facility] ADULT DENTAL [address] [place] [address] Yvette Ventura [address] [place] [address] documented as of this encounter Procedures Procedure Name Priority Date/Time Associated Diagnosis Comments LL PERIODONTAL SCALING AND ROOT PLANING - 1 TO 3 TEETH PER QUADRANT Routine 05/14/2024 2:00 PM EST Dental calculus Dental plaque Periodontal disease Tartar deposits on teeth UL PERIODONTAL SCALING AND ROOT PLANING - 1 TO 3 TEETH PER QUADRANT Routine 05/14/2024 2:00 PM EST Dental calculus Dental plaque Periodontal disease Tartar deposits on teeth ORAL HYGIENE INSTRUCTIONS Routine 05/14/2024 2:00 PM EST Dental calculus Dental plaque Periodontal disease Tartar deposits on teeth ADJUNCTIVE GENERAL SERVICES - PROFESSIONAL VISITS - CASE PRESENTATION, SUBSEQUENT TO DETAILED AND EXTENSIVE TREATMENT PLANNING Routine 05/14/2024 2:00 PM EST documented in this encounter Visit Diagnoses Diagnosis Dental calculus- Primary Accretions on teeth Dental plaque Accretions on teeth Periodontal disease Unspecified gingival and periodontal disease Tartar deposits on teeth Accretions on teeth documented in this encounter
--- OUTSIDE RECORDS SUMMARY | 2024-05-21 12:06 | XMS_ITS | Clinical Summary ---
Author Organization [employer] [facility] ity Address [address] [place] [address] Care Team Providers Care Tax Preparer Name Role Phone Unavailable Primary Care Provider Unavailabl e Social History Tobacco Use Types Packs/Day Years Used Date Smoking Tobacco: Never Assessed Sex and Gender Information Value Date Recorded Sex Assigned at Not on file Gender Identity Not on file Sexual Orientation Not on file Plan of Treatment Health Maintenance Due Date Last Done Comments Breast Cancer Screening 1974 DTaP,Tdap,and Td Vaccines (1 - Tdap) 1993 Hepatitis B Vaccines (1 of 3 - 19+ 3-dose series) 1993 Cervical Cancer Screening: P ap Smear 1995 COVID-19 Vaccine (2023-2 5 season) 2023 Influenza Vaccine (#1) 2023 HIB Vaccines Aged Out No longer eligi [...] on patient's age to complete this topic MMR Vaccines Aged Out No longer eligi ble based on patient's age to complete this topic Meningococcal ACWY Vaccine Aged Out N o longer eligible based on patient's age to complete this topic Pneumococcal Vaccine: Pediat rics (0 to 5 Years) and At-Risk Patients (6 to 64 Years) Aged Out No longer eligible b ased on patient's age to complete this topic RSV Immunization Patients Un amol 20 months Aged Out No longer eligible b ased on patient's age to complete this topic Varicella Vaccines Aged Out No longer eligible based on patient's age to complete this topic
== END 2024-05-21 11:36 | disposition home or self-care (01) ==
PROVIDERS: PCP Nurse Practitioner Family; Visit Provider Physician Assistant Surgical
DX: E66.3 Overweight (principal); Z68.27 Body mass index [BMI] 27.0-27.9, adult; Z90.3 Acquired absence of stomach [part of]; Z98.84 Bariatric surgery status
CPT/HCPCS: 99213; G2211

== ENCOUNTER → 2024-05-21 10:47 | Outpatient (BNVA) | payer OTHER, SELFPAY | PROVIDERS: PCP Nurse Practitioner Family; Visit Provider Physician Assistant Surgical | DX: Z71.3 Dietary counseling and surveillance (principal); Z98.84 Bariatric surgery status | CPT/HCPCS: 99212 ==

== ENCOUNTER 2024-06-16 11:31 | Emergency (ER) | payer OTHER, SELFPAY ==
--- NOTE | ~2024-06-16 | CT_ITS ---
CLINICAL HISTORY: Right flank pain CT abdomen and pelvis without contrast Comparison: US - US ABDOMEN LIMITED - 06/16/24 16:10 EST US/CA/SR - US ABDOMEN COMP W ELASTOGRAPHY - 11/08/23 07:52 EDT Findings: No consolidation or effusion. There are peripelvic cysts within the bilateral kidneys, left much more pronounced than right. 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 There is a 3 mm nonobstructive calculus within the upper pole of the left kidney. No ureteral calculus or hydronephrosis. Prior cholecystectomy. Status post gastric sleeve. No bowel edema or dilatation. Trace pelvic free fluid. Intrauterine device within the endometrial canal. Unremarkable urinary bladder and bilateral adnexa. Appendix not definitively seen. No secondary findings to suggest appendicitis. The bones are intact. IMPRESSION: 1. Tiny nonobstructive calculus within the left kidney. No ureteral calculus or hydronephrosis. 2. Trace pelvic free fluid. 3. Intrauterine device within the endometrial canal. This document has been electronically signed by: Rachael Harrington MD on 06/16/2024 19:14:17
--- NOTE | ~2024-06-16 | US_ITS ---
CLINICAL HISTORY: Right flank pain, left flank pain Ultrasound abdomen limited Comparison: 11/08/2023 Findings: Prior cholecystectomy. Common bile duct diameter 4 mm. Right kidney length 11.7 cm. Left kidney length 11.5 cm. Mild pelviectasis of the right kidney. 1.7 x 1.3 x 1.1 cm echogenic nodule within the left kidney, compatible with an angiomyolipoma. Multiple peripelvic cysts within the left kidney. Coexistent hydronephrosis not excluded. Impression: 1. Mild pelviectasis of the right kidney. 2. Multiple peripelvic cysts within the left kidney. Coexistent hydronephrosis not excluded. This document has been electronically signed by: Rachael Harrington MD on 06/16/2024 17:33:08
[2024-06-16 11:53] VITALS: BP 152/64; PULSE 69; RESP 19; TEMP 36.6; O2SAT 98; BMI 27.5
--- NOTE | 2024-06-16 11:54 | ED_ITS ---
HPI - General Adult General Chief complaint: Back Pain/Injury Stated complaint: back pain Time Seen by Provider: 06/16/24 15:42 Source: patient and business leader Mode of arrival: ambulatory Limitations: no limitations History of Present Illness ED Provider: DR. Carlton HPI narrative: 49-year-old female came in for evaluation of bilateral flank/back pain x2 days. Pain is associated with bloating of the abdomen, otherwise no nausea, no vomiting, no fever, no chills, no trauma to the back, no history of heavy lifting, no dysuria, no frequency urination, no blood in the urine, normal bowel movement this morning, normal passing flatus. Surgical abdominal history of appendectomy, cholecystectomy, laparoscopic sleeve gastrectomy. Related Data Home Medications ?Medication ?Instructions ?Recorded ?Confirmed budesonide-formoterol HFA 160 1 puff inhalation DAILY 07/06/23 05/21/24 mcg-4.5 mcg/actuation aerosol inhaler (Symbicort) clonazepam 0.5 mg tablet 0.5 mg PO DAILY 07/06/23 05/21/24 escitalopram oxalate 10 mg tablet 10 mg PO DAILY 07/06/23 05/21/24 hydrochlorothiazide 25 mg tablet 25 mg PO DAILY 07/06/23 05/21/24 pregabalin 200 mg capsule 200 mg PO BID 07/06/23 05/21/24 tiotropium bromide 18 mcg capsule 1 cap inhalation DAILY 07/06/23 05/21/24 with inhalation device (Spiriva with HandiHaler) albuterol 90 mcg/actuation aerosol 90 mcg inhalation Q4H PRN 11/07/23 05/21/24 inhaler shortness of breathness or wheeze Previous Rx's ?Medication ?Instructions ?Recorded cyclobenzaprine 5 mg tablet 5 mg PO Q8H PRN pain (scale score 02/27/24 7-10) 5 days #14 tabs docusate sodium 100 mg capsule 100 mg PO DAILY #90 caps 02/27/24 (Colace) lidocaine 5 % topical patch 1 patch topical DAILY PRN pain #30 02/27/24 (Lidoderm) ea bisacodyl 10 mg rectal suppository 10 mg GA DAILY PRN constipation 03/10/24 (Dulcolax (bisacodyl)) #12 ea Allergies Allergy/AdvReac Type Severity Reaction Status Date / Time No Known Allergies Allergy Verified 06/16/24 11:55 Review of Systems 2 Review of Systems: All other systems are reviewed and are negative Constitutional: Reports as per HPI and Reports no additional constitutional complaints Eyes: Reports as per HPI and Reports no additional eye complaints Reports system reviewed and no additional complaints, except as documented Cardiovascular: Reports as per HPI and Reports no additional cardiovascular complaints Respiratory: Reports as per HPI and Reports no additional respiratory complaints Gastrointestinal: Reports as per HPI and Reports no additional gastrointestinal complaints Genitourinary: Reports no additional female genitourinary complaints Musculoskeletal: Reports no additional musculoskeletal complaints Skin/Breast: Reports system reviewed and no additional complaints, except as docu Psychiatric: Reports no additional psychiatric complaints Endocrine: Reports no additional endocrine complaints Hematologic/Lymphatic: Reports no additional hematologic/lymphatic complaints Allergic/Immunologic: Reports no additional allergic/immunologic complaints Reports system reviewed and no additional complaints, except as documented and Reports Abnormal speech present [facility] Past Medical History Medical History BMI 34.0-34.9,adult Hypokalemia Anxiety Depression Sleep apnea treated with continuous positive airway pressure (CPAP) Fibromyalgia Hypertension Asthma Morbid obesity Surgical History S/P laparoscopic sleeve gastrectomy History of appendectomy History of laparoscopic cholecystectomy History of delivery Social History Social History Household Members: Family Housing: Apartment Are you a primary child care teacher to a significant other at home: No Do you presently have visiting nurse or other home services: No Unable to assess alcohol history related to: Unknown Alcohol intake: never Patient Tobacco Use Status: Former Tobacco user Tobacco use type: Cigarette Smoked in Last 30 Days: No Use of substances other than those prescribed or required for medical reasons: No Advance Directives: No Advance Directives Information Provided: Yes Do you have a plan to hurt others: No Plan Physical Exam ED Vital Signs: Vital Signs - 24 hr 06/16/24 11:53 06/16/24 15:54 06/16/24 17:55 Temperature 98 F 97.8 F 98.2 F Pulse Rate 69 53 55 Respiratory Rate 19 16 16 Blood Pressure 152/64 H 135/61 128/64 Pulse Oximetry 98 100 100 Oxygen Delivery Method Room Air Room Air Room Air BMI result Body Mass Index 27.5 Vital signs have been reviewed and appear to be correct. Blood pressure elevated. Heart rate normal. Respiratory rate normal. Temperature normal. Oxygen saturation normal. Appearance: Alert. Oriented X3. No acute distress. Head: Normal external exam. Normocephalic. Atraumatic. No Espinoza signs noted. No raccoon eyes noted Eyes: PERRLA. EOMI. Conjunctiva and sclera normal. Eyelids normal. ENT: TM's Normal. Pharynx normal. Uvula midline. Moist mucous membranes. No trismus noted. No drooling noted. No muffled voice noted. Neck: Normal inspection. Neck supple. FROM. No adenopathy. Thyroid Normal. No meningeal signs. No neck mass noted. CVS: Normal heart rate and rhythm. Heart sound normal. No murmurs noted. Pulses normal throughout. Respiratory: No respiratory distress. Painless inspiration. Breath sounds normal. No wheezes/rales/rhonchi noted. Chest nontender. No accessory muscle usage noted or decreased air movement noted. Abdomen: Soft and nontender. Bowel sounds normal in all 4 quadrants. No distention noted. No organomegaly noted. No visible injury noted. Back: Bilateral CVA tenderness right> left. Full range of motion noted. Skin: Skin warm and dry. Normal skin color. Normal skin turgor. No rashes/lesions/lacerations noted. Extremities: No lower extremity edema. Extremities exhibit normal range of motion. Extremities nontender. Neuro: Oriented X 3. Cranial nerve exam: II-XII are grossly intact No motor deficit. No sensory deficit. Reflexes normal. Course Course Course Narrative: This is an RME: Additional HPI, ROS, PE not included below will be deferred to primary provider. RME assessment and note performed by: Kacie Tapia PA-C This is a [id number]-female, with a past medical history of who presents to the ER with a complaints of back pain x 3 days. Patient reports that she felt bloated have some abdominal distention several days ago. No urinary or bowel complaints. No fevers, chills, chest pain, shortness for breath, current abdominal pain, nausea, vomiting or diarrhea. Pain worsens with movement. Plan: Basic labs, UA, further ER eval needed Reevaluation(s) Reevaluation #1: Right flank pain, UA revealed micro hematuria, ultrasound shows no obstructive kidney stone. Patient pain is better with ibuprofen in the ED, patient was instructed to drink plenty of fluids and take Tylenol versus NSAIDs for pain. Time: 19:36 Medications Administered Discontinued Medications Generic Name Dose Route Start Last Admin Trade Name Sakshi PRN Reason Stop Dose Admin Ibuprofen 600 mg 06/16/24 16:01 06/16/24 16:38 Ibuprofen 600 Mg Tablet PO 06/16/24 16:02 600 mg ONCE ONE Administration Medical Decision Making Differential Diagnosis Differential Diagnoses: The differential diagnosis associated with the presentation includes (UTI, pyelonephritis, kidney stone, muscular flank pain, electrolyte derangement, severe anemia.) Admission/Observation Consideration of admission/observation: Escalation of care including admission/observation considered Lab Data MDM Lab Attestation statement: I reviewed the patient's lab results. 06/16/24 14:08 06/16/24 14:08 Labs: Lab Results 06/16/24 06/16/24 Range/Units 14:08 16:02 WBC 7.8 (4.8-10.8) X10*3/uL RBC 4.25 (4.20-5.50) X10*6/uL Hgb 12.9 (12.0-16.0) g/dl Hct 39.0 (37.0-47.0) % MCV 91.8 (80.0-98.0) fL MCH 30.4 (27.0-33.0) pg MCHC 33.1 (31.0-35.0) g/dl RDW 12.9 (11.0-16.0) % Plt Count 213 (160-400) X10*3/uL MPV 10.5 (9.4-12.3) fL Immature Gran % (Auto) 0.1 (0.0-0.4) % Neut % (Auto) 61.8 (45-73) % Lymph % (Auto) 30.0 (20-40) % Boundary % (Auto) 6.5 (2-11) % Eos % (Auto) 1.3 (0-4) % Baso % (Auto) 0.3 (0-2) % Lymph # (Auto) 2.3 (1.2-4.9) X10*3/uL Boundary # (Auto) 0.5 (0.1-1.2) X10*3/uL Eos # (Auto) 0.1 (0.0-0.4) X10*3/uL Baso # (Auto) 0.0 (0.0-0.2) X10*3/uL Abs Immat Gran (auto) 0.01 (0.00-0.03) X10*3/uL Absolute Neuts (auto) 4.8 (2.0-8.3) x10*3/uL Absolute Nucleated RBC 0.000 (0.0-0.012) X10*3/uL Nucleated RBC % (auto) 0.0 (0.0-0.2) /100WBC Sodium 140 (135-145) mmol/L Potassium 4.2 (3.3-5.1) mmol/L Chloride 108 (96-108) mmol/L Carbon Dioxide 26 (22-29) mmol/L Anion Gap 10 L (12-20) BUN 15 (9-16) mg/dL Creatinine 0.64 (0.5-1.4) mg/dL Estim Creat Clear Calc 102.7 Estimated GFR > 60 Random Glucose 111 (60-115) mg/dL Calcium 9.2 (8.4-10.2) mg/dL Magnesium 1.7 (1.6-2.6) mg/dL Total Bilirubin 0.6 (0.0-1.0) mg/dL AST 16 (5-31) U/L ALT 12 (0-31) U/L Alkaline Phosphatase 45 (39-117) U/L Total Protein 7.1 (6.5-8.0) g/dL Albumin 4.0 (3.5-5.0) g/dL Lipase 25 (8-78) U/L Urine Color Yellow Urine Appearance Clear Urine pH 6.5 (5.0-9.0) Ur Specific [place] 1.020 (1.005-1.025) Urine Protein Negative (Neg-Trace) mg/dL Urine Glucose (UA) Negative (Negative) mg/dL Urine Ketones Negative (Negative) mg/dL Urine Blood Small (1+) H (Negative) Urine Nitrite Negative (Negative) Ur Leukocyte Esterase Negative (Negative) Urine RBC 3-5 H (0-2) /HPF Urine WBC 0-5 (0-5) /HPF Ur Squamous Epith Cells 0-2 (0-2) /HPF Urine Bacteria None Seen (None Seen) Hyaline Casts 0-2 (0-2) /LPF Independent Interpretation I performed an independent interpretation of an: Ultrasound (Renal ultrasound:1. Mild pelviectasis of the right kidney. 2. Multiple peripelvic cysts within the left kidney. Coexistent hydronephrosis not excluded.) and CT Scan (Abdomen pelvis:1. Tiny nonobstructive calculus within the left kidney. No ureteral calculus or hydronephrosis. 2. Trace pelvic free fluid. 3. Intrauterine device within the endometrial canal.) Radiology Impression Discussion of test interpretation with radiology: I have reviewed the radiologist's reading. Discharge Plan Discharge Clinical Impression: Right flank pain Patient Disposition: Still a Patient Instructions: Flank Pain (ED) Additional Instructions: Take [id number] Tylenol or ibuprofen every 6 hours if needed for pain. Prescriptions: No Action docusate sodium [Colace] 100 mg capsule 100 mg PO DAILY Qty: 90 0RF bisacodyl [Dulcolax (bisacodyl)] 10 mg suppository 10 mg GA DAILY PRN (Reason: constipation) Qty: 12 0RF albuterol 90 mcg/actuation Aerosol 90 mcg INHALATION Q4H PRN (Reason: shortness of breathness or wheeze) lidocaine [Lidoderm] 5 % adhesive patch,medicated 1 patch topical DAILY MDD remove after 12 hours PRN (Reason: pain) Qty: 30 0RF Rx Instructions: leave on most painful area for up to 12 hrs cyclobenzaprine 5 mg tablet 5 mg PO Q8H PRN (Reason: pain (scale score 7-10)) 5 Days Qty: 14 0RF escitalopram oxalate 10 mg tablet 10 mg PO DAILY pregabalin 200 mg capsule 200 mg PO BID clonazepam 0.5 mg tablet 0.5 mg PO DAILY hydrochlorothiazide 25 mg tablet 25 mg PO DAILY tiotropium bromide [Spiriva with HandiHaler] 18 mcg capsule, w/inhalation device 1 cap inhalation DAILY budesonide-formoterol [Symbicort] 160-4.5 mcg/actuation HFA aerosol inhaler 1 puff inhalation DAILY Referrals: [facility], ANIMAL GENETICIST [Primary Care Provider] - Print Language: Citizen Of [place]
--- OUTSIDE RECORDS SUMMARY | 2024-06-16 14:13 | XMS_ITS | Clinical Summary ---
Author Organization [employer] Address [address] [place] [address] Care Team Providers Care Television Inspector Name Role Phone Unavailable Primary Care Provider [...] Encounters Date Type Department Care Team Description 05/23/2024 2:00 PM EST Office Visit [facility] [address] [place] [address] AudreyJeffyYvetet Dental calculus (Primary Dx); Generalized gingival recession, moderate; Periodontal disease 05/21/2024 8:00 AM EST Office Visit [facility] [address] [place] [address] Triana-Juarez, Camelia, DDS Generalized gingival recession, moderate (Primary Dx) 05/14/2024 2:00 PM EST Office Visit [facility] [address] [place] [address] Payton, Bibiana Dental calculus (Primary Dx); Dental plaque; Periodontal disease; Tartar deposits on teeth 04/16/2024 8:00 AM EST Office Visit [facility] [address] [place] [address] Triana-Juarez, Camelia, DDS Generalized gingival recession, moderate (Primary Dx) from Last 3 Months Social History Tobacco [...] Sign Reading Time Taken Comments Blood Pressure 116/68 05/23/2024 2:02 PM EST Pulse - - Temperature - - Respiratory Rate - - Oxygen Saturation - - Inhaled Oxygen Concentration - - Weight - - Height - - Body Mass Index - - Plan of Treatment Upcoming Encounters Date Type Department Care Team (Late st Contact Info) Description 08/20/2024 11:00 AM EDT Office Visit [facility] [address] [place] [address] AudreyYvette [address] [place] [address] Health Maintenance Due Date Last Done Comments [...] 2004 HPV/Cotest 2004 Mammogram 2014 Pneumococcal Vaccine: 50+ Years (2 of 2 - PCV) 02/17/2015 02/17/2014 COVID-19 Vaccine (3 - season) 2023 09/08/2020, 08/11/2020 Zoster Vaccines (1 of 2) 2024 Dental Oral Exam 09/03/2024 03/05/2024 Dental Prophylaxis 09/03/2024 03/05/2024 Dental X-Ray: Bitewings 03/06/2025 03/05/2024 Tobacco Screening 05/23/2025 05/23/2024 Dental X-Ray: Full Mouth 03/06/2027 03/05/2024 DTaP/Tdap/Td [...] Procedure Name Priority Date/Time Associated Diagnosis Comments CASE PRESENTATION, DETAILED AND EXTENSIVE TREATMENT PLANNING Routine 05/23/2024 2:00 PM EST Dental calculus Generalized gingival recession, moderate Periodontal disease ORAL HYGIENE INSTRUCTIONS Routine 05/23/2024 2:00 PM EST Dental calculus Generalized gingival recession, moderate Periodontal disease LR PERIODONTAL SCALING AND ROOT PLANING - 1 TO 3 TEETH PER QUADRANT Routine 05/23/2024 2:00 PM EST Dental calculus Generalized gingival recession, moderate Periodontal disease UR PERIODONTAL SCALING AND ROOT PLANING - 1 TO 3 TEETH PER QUADRANT Routine 05/23/2024 2:00 PM EST Dental calculus Generalized gingival recession, moderate Periodontal disease CASE PRESENTATION, DETAILED AND EXTENSIVE TREATMENT PLANNING Routine 05/21/2024 8:00 AM EST Generalized gingival recession, moderate 21 B(V) RESIN-BASED COMPOSITE - 1 SURF, POSTERIOR Routine 05/21/2024 8:00 AM EST Generalized gingival recession, moderate 20 B(V) RESIN-BASED COMPOSITE - 1 SURF, POSTERIOR Routine 05/21/2024 8:00 AM EST Generalized gingival recession, moderate 28 B(V) RESIN-BASED COMPOSITE - 1 SURF, POSTERIOR Routine 05/21/2024 8:00 AM EST Generalized gingival recession, moderate 29 B(V) RESIN-BASED COMPOSITE - 1 SURF, POSTERIOR Routine 05/21/2024 8:00 AM EST Generalized gingival recession, moderate 30 B(V) RESIN-BASED COMPOSITE - 1 SURF, POSTERIOR Routine 05/21/2024 8:00 AM EST Generalized gingival recession, moderate CASE PRESENTATION, DETAILED AND EXTENSIVE TREATMENT PLANNING Routine 05/14/2024 2:00 PM EST ORAL HYGIENE INSTRUCTIONS Routine 05/14/2024 2:00 PM [...] plaque Periodontal disease Tartar deposits on teeth CASE PRESENTATION, DETAILED AND EXTENSIVE TREATMENT PLANNING Routine 04/16/2024 8:00 AM EST Generalized gingival recession, moderate 5 B(V) RESIN-BASED COMPOSITE - 1 SURF, POSTERIOR Routine 04/16/2024 8:00 AM EST Generalized gingival recession, moderate 3 B(V) RESIN-BASED COMPOSITE - 1 SURF, POSTERIOR Routine 04/16/2024 8:00 AM EST Generalized gingival recession, moderate 11 F(V) RESIN-BASED COMPOSITE - 1 SURF, ANTERIOR Routine 04/16/2024 8:00 AM EST Generalized gingival recession, moderate 14 B(V) RESIN-BASED COMPOSITE - 1 SURF, POSTERIOR Routine 04/16/2024 8:00 AM EST Generalized gingival recession, moderate PROPHYLAXIS - ADULT Routine 03/05/2024 8 :00 AM EST History of periodontal disease Generalized gingival recession, moderate Dental calculus Dental plaque INTRAORAL - COMPLETE SERIES OF RADIOGRAPHIC IMAGES Routine 03/05/2024 8:00 AM EST History of periodontal disease Generalized gingival recession, moderate Dental calculus Dental plaque PERIODIC ORAL EVALUATION - ESTABLISHED PATIENT Routine 03/05/2024 8:00 AM EST History of periodontal disease Encounter for dental examination Generalized gingival recession, moderate Dental calculus Dental plaque from Last 3 Months or Most Recently Relevant to Health Maintenance [facility]
--- OUTSIDE RECORDS SUMMARY | 2024-06-16 14:13 | XMS_ITS | Clinical Summary ---
Author Organization [employer] [facility] Address [address] [place] [address] Care Team Providers Care Logging Crew Foreman Name Role Phone Unavailable Primary Care Provider Unavailabl e Social History Tobacco Use Types Packs/Day Years Used Date Smoking Tobacco: Never Assessed Comments Unknown Sex and Gender Information Value Date Recorded Sex Assigned at Not on file Legal Sex Female 5:07 PM EST Gender Identity Not on file Sexual Orientation Not on file Plan of Treatment Health Maintenance Due Date Last Done Comments Breast Cancer Screening 1974 DTaP,Tdap,and Td Vaccines (1 - Tdap) 1993 Hepatitis B Vaccines (1 of 3 - 19+ 3-dose series) 1993 Cervical Cancer Screening: P ap Smear 1995 COVID-19 Vaccine ( - 2023-2 5 season) 2023 Influenza Vaccine (#1) 2023 Pneumococcal Vaccine: 50+ Ye ars (1 of 1 - PCV) 2024 Zoster Vaccines (1 of 2) 2024 HIB Vaccines Aged Out No longer eligi [...] patient's age to complete this topic Meningococcal B Vacine Aged Out No lo nger eligible based on patient's age to complete [...]
--- OUTSIDE RECORDS SUMMARY | 2024-06-16 14:13 | XMS_ITS | Encounter Summary ---
Author Organization [employer] [facility] Address [address] [place] [address] Care Team Providers Care Instrument Maintenance Supervisor Name Role Phone Unavailable Primary Care Provider Unavailabl e Reason for Visit * Reason Comments Scaling And Root Planing SRP UR, LR quad s Encounter Details Date Type Department Care Team (Late st Contact Info) Description 05/23/2024 2:00 PM EST Office Visit [facility] [address] [place] [address] Yvette Ventura [address] [place] [address] Dental calculus (Primary Dx); Generalized gingival recession, moderate; Periodontal disease Social History Tobacco Use Types Packs/Day Years [...] documented in this encounter Progress Notes * Yvette Ventura - 05/23/2024 2:00 PM EST Patient ID: Teri Gomes is a 48 y.o. female. Time Out: Timeout Date: 05/23/24, Timeout Time: 1407 (SRP UR, LR quads) Location: [facility] Tooth: Maxilla and Mandible SRP for UR, LR quads Procedure: Scaling and Root Planing, polished all teeth Verified the above with patient, computer assistant, and provider. Confirmed via patient's chart, intraorally and by radiographs. Circuit Breaker Mechanic: not applicable Medical Hx: Vitals: Blood pressure 116/68. Medications, Med Hx reviewed with patient and updated in chart. Treatment Provided Dental procedures in this visit D4342 - PERIODONTAL SCALING AND ROOT PLANING - 1 TO 3 TEETH PER QUADRANT UR (Completed) Service provider: Yvette Ventura [place] provider: Camelia Jimenez DDS D4342 - PERIODONTAL SCALING AND ROOT PLANING - 1 TO 3 TEETH PER QUADRANT LR (Completed) Service provider: Yvette Ventura [place] provider: Camelia Jimenez DDS D1330 - ORAL HYGIENE INSTRUCTIONS (Completed) Service provider: Yvette Forbes provider: Camelia Jimenez DDS D9450 - ADJUNCTIVE GENERAL SERVICES - PROFESSIONAL VISITS - CASE PRESENTATION, SUBSEQUENT TO DETAILED AND EXTENSIVE TREATMENT PLANNING (Completed) Service provider: Yvette Forbes provider: Camelia Jimenez DDS Topical: 20% Benzocaine Anesthesia: 2% Lidocaine (Xylocaine) w/ 1:100,000 epinephrine Number of Cartridges: 1 Injection Type: Buccal infiltration, Palatal infiltration, Long buccal nerve block, Mental nerve block, Anterior superior alveolar nerve block, and mandibular incisal. Confirmed profound anesthesia. Oral Cancer Screening: No lesions Head/Neck Exam: No Lesions Instruments Used: Ultrasonic Scalers, Hand Scalers, and Prophy angle Fluoride: N/A Calculus: Moderate and Subgingival Plaque: Light, Moderate, and Generalized Stain: trace, discolored exposed roots. Bleeding: Light and Generalized, Post-op rinsed chlorhexidine. Gingiva: pink OH: Good Oral hygiene instructions provided to patient including brushing technique and flossing. Recommendations: Brewer two times daily, modified villasenor technique, Floss daily, Electric toothbrush, Soft bristle toothbrush, Brewer Tongue, Anti-sensitivity toothpaste, Listerine if needed Recall Frequency: 3 months Yue Haney RDH did SRP UL, LL quads NV: 3 months for prophy and perio chart Post- SRP Hygienist: Yvette Ventura RDH * Camelia Jimenez DDS - 05/23/2024 2:00 PM EST I have reviewed the documentation and dental procedures made by the rendering provider, Yvette Ventura RDH , and approve their chart entries for this visit. Camelia Jimenez DDS documented in this encounter Plan of Treatment Upcoming Encounters Date Type Department Care Team (Late st Contact Info) Description 08/20/2024 11:00 AM EDT Office Visit [facility] [address] [place] [address] Yvette Ventura [address] [place] [address] Scheduled Orders Name Type Priority Associated Diagnoses Orde r Schedule ORAL HYGIENE INSTRUCTIONS Dental Routine 1 Occurrences starting 05/23/2024 ADJUNCTIVE GENERAL SERVICES - PROFESSIONAL VISITS - CASE PRESENTATION, SUBSEQUENT TO DETAILED AND EXTENSIVE TREATMENT PLANNING Dental Routine 1 Occurrence s starting 05/23/2024 documented as of this encounter Procedures Procedure Name Priority Date/Time Associated Diagnosis Comments LR PERIODONTAL SCALING AND ROOT PLANING - [...] calculus Generalized gingival recession, moderate Periodontal disease documented in this encounter Visit Diagnoses Diagnosis Dental calculus- Primary Accretions on teeth Generalized gingival recession, moderate Periodontal disease Unspecified gingival and periodontal disease documented in this encounter
--- OUTSIDE RECORDS SUMMARY | 2024-06-16 14:13 | XMS_ITS | Encounter Summary ---
Author Organization [employer] Address [address] [place] [address] Care Team Providers Care Strip Deburrer Name Role Phone Unavailable Primary Care Provider Unavailabl e Reason for Visit * Reason Comments Filling Encounter Details Date Type Department Care Team (Late st Contact Info) Description 05/21/2024 8:00 AM EST Office Visit [facility] [address] [place] [address] Camelia Jimenez DDS [address] [place] [address] Generalized gingival recession, moderate (Primary Dx) Social [...] filling on teeth #20,21,28,29 and 30) Location: [facility] Tooth: #20, #21, #28, #29, and #30 Procedure: Amish Verified the above with patient, engineering assistant, and provider. Confirmed via patient's chart, intraorally and by radiographs. Rehab/Pre Vocational Counselor: not applicable Chief Complaint Patient presents with [...] Liner/Base: None Lyons: I-Lyons Amish Material: Filtek [place] Flowable Composite Shade: A3.5 Polished. Occlusion & contacts verified. Patient satisfied with comfort and esthetics. Patient tolerated procedure well. Post-operative instructions were given. Patient departed alert, oriented, and in stable condition. NV: SRPs 6 mo periodic exam Rubber Grinder: Lissette Sanchez Dentist: Camelia Jimenez DDS documented in this encounter Plan of Treatment Upcoming Encounters Date Type Department Care Team (Late st Contact Info) Description 08/20/2024 11:00 AM EDT Office Visit [facility] [address] [place], [place] [id number] Audrey Yvette [address] [place] [address] documented as of this encounter Procedures Procedure Name Priority Date/Time Associated Diagnosis Comments 21 B(V) RESIN-BASED COMPOSITE - 1 SURF, [...]
[2024-06-16 14:18] LABS: MANUAL DIFF FLAG NO
[2024-06-16 14:19] LABS: Basophils Percent Auto 0.3 % (0-2); Eosinophils Absolute Auto 0.1 X10*3/uL (0.0-0.4); Eosinophils Percent Auto 1.3 % (0-4); Hemoglobin 12.9 g/dl (12.0-16.0); Imm Gran Abs Auto 0.01 X10*3/uL (0.00-0.03); Imm Gran Pct Auto 0.1 % (0.0-0.4); Lymphocytes Absolute Auto 2.3 X10*3/uL (1.2-4.9); Mean Corpuscular HGB Conc 33.1 g/dl (31.0-35.0); Mean Corpuscular Hemoglobin 30.4 pg (27.0-33.0); Mean Corpuscular Volume 91.8 fL (80.0-98.0); Mean Platelet Volume 10.5 fL (9.4-12.3); Monocytes Absolute Auto 0.5 X10*3/uL (0.1-1.2); Monocytes Percent Auto 6.5 % (2-11); Neutrophils Absolute Auto 4.8 x10*3/uL (2.0-8.3); Neutrophils Percent Auto 61.8 % (45-73); Platelet Count 213 X10*3/uL (160-400); Red Blood Count 4.25 X10*6/uL (4.20-5.50); Red Cell Distribution Width 12.9 % (11.0-16.0); White Blood Count 7.8 X10*3/uL (4.8-10.8)
[2024-06-16 14:33] LABS: Alanine Aminotransferase 12 U/L (0-31); Alkaline Phosphatase 45 U/L (39-117); Anion Gap 10 (12-20); Aspartate Amino Transferase 16 U/L (5-31); Bilirubin Total 0.6 mg/dL (0.0-1.0); Blood Urea Nitrogen 15 mg/dL (9-16); Calcium 9.2 mg/dL (8.4-10.2); Carbon Dioxide 26 mmol/L (22-29); Chloride 108 mmol/L (96-108); Creatinine Clr Calc Pharmacy 102.7; Estimated Glomerular Filt Rate > 60; Glucose Random 111 mg/dL (60-115); Lipase 25 U/L (8-78); Magnesium 1.7 mg/dL (1.6-2.6); Potassium 4.2 mmol/L (3.3-5.1); Sodium 140 mmol/L (135-145); Total Protein 7.1 g/dL (6.5-8.0)
[2024-06-16 15:54] VITALS: BP 135/61; PULSE 53; RESP 16; TEMP 36.6; O2SAT 100
[2024-06-16 16:08] LABS: Appearance Urine Clear; Color Urine Yellow; Glucose Urine UA Negative (Negative); Leukocyte Esterase Urine Negative (Negative); Nitrite Urine Negative (Negative); PH 6.5 (5.0-9.0); UMIC TRIGGER UACC YES; Urine Blood Small (1+) (Negative); Urine Ketones Negative (Negative); Urine Protein Negative (Neg-Trace)
[2024-06-16 16:21] LABS: Bacteria Urine None Seen (None Seen); Hyaline Casts Urine 0-2 /LPF (0-2); Squamous Epithelial Cell Urine 0-2 /HPF (0-2); WBC Urine 0-5 /HPF (0-5)
[2024-06-16] MEDS: Ibuprofen 600 MG TABLET PO (16:38)
[2024-06-16 17:55] VITALS: BP 128/64; PULSE 55; RESP 16; TEMP 36.8; O2SAT 100
[2024-06-16 19:52] VITALS: BP 135/60; PULSE 55; RESP 17; TEMP 36.6; O2SAT 99
[2024-06-16 20:16] VITALS: BP 138/60; PULSE 55; RESP 17; TEMP 36.6; O2SAT 99
== END 2024-06-16 20:17 | disposition home or self-care (01) ==
PROVIDERS: Physician Assistant Medical; Emergency Provider Emergency Medicine; PCP Nurse Practitioner Family
DX: M54.50 Low back pain, unspecified (principal); R10.2 Pelvic and perineal pain; R14.0 Abdominal distension (gaseous); Z87.891 Personal history of nicotine dependence; Z79.899 Other long term (current) drug therapy
CPT/HCPCS: 36415; 74176; 76705; 80053; 81001; 83690; 83735; 85025; 99284

== ENCOUNTER → 2024-06-16 15:58 | Outpatient (BNV) | payer OTHER, SELFPAY | PROVIDERS: Emergency Provider Emergency Medicine; PCP Nurse Practitioner Family; Visit Provider Radiology Diagnostic Radiology | DX: R10.9 Unspecified abdominal pain (principal) | CPT/HCPCS: 74176; 76705 ==

== ENCOUNTER 2024-06-26 09:22 | Outpatient (AMB) | payer OTHER, SELFPAY ==
--- NOTE | 2024-06-26 09:24 | MHC.OFFVISWM ---
VS Expanded 06/26/24 09:29 BP 120/66 Blood Pressure Location Lt brachial Blood Pressure Position Sitting Pulse 66 Pulse Oximetry 99 Height 5 ft 4 in Weight 158 lb 3.2 oz BMI 27.2 Body Fat % 33.5 Body Fat Mass 53.0 Fat Free Mass 105.2 Visceral Fat Rating 7.0 Body Water % 47.3 Body Water Mass 74.8 Muscle Mass/Score 99.8 Basal Metabolic Rate/Score 1,424 Intake Visit Reasons: (OV) PO LSG 02/12/24 Gps Navigation Installer Required: Yes Gps Navigation Installer Services: Gps Navigation Installer Present Gps Navigation Installer Name: [id number] Allergies No Known Allergies Allergy (Verified 06/16/24 11:55) Medication List - Last Reconciled 06/26/24 by LOKI Humphrey albuterol 90 mcg/actuation 90 mcg inhalation Q4H PRN bisacodyl (Dulcolax (bisacodyl)) 10 mg MT DAILY PRN budesonide-formoterol 160-4.5 mcg/actuation (Symbicort) 1 puff inhalation DAILY clonazepam 0.5 mg PO DAILY cyclobenzaprine 5 mg PO Q8H PRN 5 days docusate sodium (Colace) 100 mg PO DAILY escitalopram oxalate 10 mg PO DAILY hydrochlorothiazide 25 mg PO DAILY lidocaine 5% (Lidoderm) 1 patch topical DAILY PRN MDD remove after 12 hours pregabalin 200 mg PO BID tiotropium bromide (Spiriva with HandiHaler) 1 cap inhalation DAILY HPI Comments Details: This?a?49?yo female who is s/p LSG without hiatal hernia repair on?02/12/2024. Presents for 4 month post op visit. Weight today is 158.2 pounds, with a BMI of 27.2. There has been a 75 pound weight loss,(initial weight 233.2 pounds) since starting the program on 10/16/2023 reflecting a 32.1 % total body weight loss and a weight loss of 43.3 pounds since surgery (operative weight 201.5 pounds) reflecting a 21.4 % TBWL since surgery. No complaints of nausea, emesis, abdominal pain or reflux. Reports infrequent but normal bowel movements every 2-3 days and uses stool softeners regularly. Reports that she is feeling great. Taking celebrate MVI. She states that she is doing well with the meal plan and was able to state exactly what it is. She would like to very her meal at night. Present meal plan includes: using fair life shake rtd 30 gm 1 shake from 10-1 6 oz of shake with 2 oz of unsweetened almond milk at 2-4 Another 6 oz of shake with 2 oz of unsweetened almond milk at 6-8 or macedonian yogurt or 2 eggs Drinking 40 oz water daily ? Exercise routine includes: started weight training at the gym 5 days per week 400-500 calories treadmill, FORMERLY [facility], [facility] Medical History BMI 34.0-34.9,adult Hypokalemia Anxiety Depression Sleep apnea treated with continuous positive airway pressure (CPAP) Fibromyalgia Hypertension Asthma Morbid obesity Surgical History S/P laparoscopic sleeve gastrectomy History of appendectomy History of laparoscopic cholecystectomy History of delivery Social History Household Members: Family Housing: Apartment Are you a primary day care assistant to a significant other at home: No Do you presently have visiting nurse or other home services: No Unable to assess alcohol history related to: Unknown Alcohol intake: never Patient Tobacco Use Status: Former Tobacco user Tobacco use type: Cigarette Physical Exam Vital Signs: Last Vital Signs Pulse 66 06/26/24 09:29 BP 120/66 06/26/24 09:29 Pulse Ox 99 06/26/24 09:29 BMI result Body Mass Index 27.2 Const General: healthy appearing and no acute distress Resp Effort & Inspection: normal respiratory effort Auscultation: clear to auscultation bilaterally Cardio Rate: regular rate Rhythm: regular rhythm GI Auscultation: normal bowel sounds Extrem General: Yes normal to inspection Assessment & Plan Assessment & Plan (1) S/P laparoscopic sleeve gastrectomy: Code(s): Z98.84 - Bariatric surgery status Category: Surgical Plan: using fair life shake rtd 30 gm 1 shake from 10-1 6 oz of shake with 2 oz of unsweetened almond milk at 2-4 Meal at 6 pm with 4 forks of protein and 4 forks of vegetables Encouraged to continue her exercise routine at the gym. Encouraged to send weight weekly and text with any questions or concerns. Return to clinic as scheduled.
[2024-06-26 09:29] VITALS: BP 120/66; PULSE 66; O2SAT 99; BMI 27.2
--- OUTSIDE RECORDS SUMMARY | 2024-06-26 10:21 | XMS_ITS | Clinical Summary ---
Author Organization [employer] Address [address] [place] [address] Care Team Providers Care Propeller Mechanic Name Role Phone Unavailable Primary Care Provider [...] Description 05/23/2024 2:00 PM EST Office Visit [facility] [address] [place] [address] AudreyJeffyYvette Dental calculus (Primary Dx); Generalized gingival recession, moderate; Periodontal disease 05/21/2024 8:00 AM EST Office Visit [facility] [address] [place] [address] Triana-Juarez, Camelia, DDS Generalized gingival recession, moderate (Primary Dx) 05/14/2024 2:00 PM EST Office Visit [facility] [address] [place] [address] Payton, Bibiana Dental calculus (Primary Dx); Dental plaque; Periodontal disease; Tartar deposits on teeth 04/16/2024 8:00 AM EST Office Visit [facility] [address] [place] [address] Triana-Juarez, Camelia, DDS Generalized gingival recession, moderate [...] Description 08/20/2024 11:00 AM EDT Office Visit [facility] [address] [place] [address] AudreyYvette [address] [place] [address] Health Maintenance Due Date Last Done Comments [...] Most Recently Relevant to Health Maintenance [facility] ADULT
--- OUTSIDE RECORDS SUMMARY | 2024-06-26 10:21 | XMS_ITS | Clinical Summary ---
Author Organization [employer] [facility] Address [address] [place] [address] Care Team Providers Care Machinist Mate Name Role Phone Unavailable Primary Care Provider [...]
== END 2024-06-26 09:51 | disposition home or self-care (01) ==
PROVIDERS: PCP Nurse Practitioner Family; Visit Provider Physician Assistant Surgical
DX: E66.3 Overweight (principal); Z68.27 Body mass index [BMI] 27.0-27.9, adult; Z90.3 Acquired absence of stomach [part of]; Z98.84 Bariatric surgery status
CPT/HCPCS: 99213

== ENCOUNTER → 2024-06-26 09:22 | Outpatient (BNVA) | payer OTHER, SELFPAY | PROVIDERS: PCP Nurse Practitioner Family; Visit Provider Physician Assistant Surgical | DX: Z98.84 Bariatric surgery status (principal) | CPT/HCPCS: 99212 ==

== ENCOUNTER 2024-07-20 10:46 | Emergency (ER) | payer OTHER, SELFPAY ==
--- NOTE | ~2024-07-20 | XR_ITS ---
CLINICAL HISTORY: pain, limited romm Exam: AP and lateral views of the right humerus. Comparison: None. Findings: No acute fracture identified. Alignment at the AC joint, glenohumeral joint, and elbow joint is anatomic. Calcification in the expected location of the distal rotator cuff. Moderate AC joint DJD. Impression: Chronic changes as above. No acute fracture of the humerus. This document has been electronically signed by: Huseyin Hazel MD on 07/20/2024 11:56:29
[2024-07-20 10:49] VITALS: BP 136/64; PULSE 65; RESP 18; TEMP 36.1; O2SAT 98; BMI 26.8
--- NOTE | 2024-07-20 12:17 | ED_ITS ---
HPI - Extremity Problem General Chief complaint: Extremity Injury, Upper Stated complaint: R arm pain Time Seen by Provider: 07/20/24 12:16 Source: patient Mode of arrival: ambulatory Limitations: no limitations History of Present Illness ED Provider: Amanda Bennett PA-C HPI Narrative: Patient is a 49 year old assigned female at with a history of anxiety, depression, fibromyalgia, HTN, asthma, and renal angiolipoma presenting to the emergency department today with right upper arm pain. Patient states that she was working out and now her right upper arm hurts. Patient states that she cannot lift her right arm up without pain. Patient denies any dizziness, lightheadedness, abdominal pain, nausea, vomiting, fever, chills, blurry vision, double vision, loss of vision, chest pain, difficulty breathing, shortness of breath, back pain, night sweats, pain with urination, increased urinary frequency, increased urinary urgency, blood in her urine or stool, syncope or a near syncopal episode, bowel incontinence, bladder incontinence, or any other complaints at this time. Exacerbating factors: range of motion Associated symptoms: denies other symptoms Related Data Home Medications ?Medication ?Instructions ?Recorded ?Confirmed budesonide-formoterol HFA 160 1 puff inhalation DAILY 07/06/23 06/26/24 mcg-4.5 mcg/actuation aerosol inhaler (Symbicort) clonazepam 0.5 mg tablet 0.5 mg PO DAILY 07/06/23 06/26/24 escitalopram oxalate 10 mg tablet 10 mg PO DAILY 07/06/23 06/26/24 hydrochlorothiazide 25 mg tablet 25 mg PO DAILY 07/06/23 06/26/24 pregabalin 200 mg capsule 200 mg PO BID 07/06/23 06/26/24 tiotropium bromide 18 mcg capsule 1 cap inhalation DAILY 07/06/23 06/26/24 with inhalation device (Spiriva with HandiHaler) albuterol 90 mcg/actuation aerosol 90 mcg inhalation Q4H PRN 11/07/23 06/26/24 inhaler shortness of breathness or wheeze Previous Rx's ?Medication ?Instructions ?Recorded cyclobenzaprine 5 mg tablet 5 mg PO Q8H PRN pain (scale score 02/27/24 7-10) 5 days #14 tabs docusate sodium 100 mg capsule 100 mg PO DAILY #90 caps 02/27/24 (Colace) lidocaine 5 % topical patch 1 patch topical DAILY PRN pain #30 02/27/24 (Lidoderm) ea bisacodyl 10 mg rectal suppository 10 mg MI DAILY PRN constipation 03/10/24 (Dulcolax (bisacodyl)) #12 ea omeprazole 20 mg capsule,delayed 20 mg PO DAILY #7 caps 07/20/24 release prednisone 20 mg tablet 20 mg PO DAILY 7 days #7 tabs 07/20/24 Allergies Allergy/AdvReac Type Severity Reaction Status Date / Time No Known Allergies Allergy Verified 07/20/24 10:50 Review of Systems Constitutional: Constitutional: Reports no additional constitutional complaints, Denies chills, Denies fever(s) and Denies night sweats Eyes: Eyes: Reports no additional eye complaints, Denies blurry vision, Denies change in vision, Denies diplopia, Denies eye discharge, Denies loss of vision and Denies eye pain ENT: Denies dizziness Cardiovascular: Cardiovascular: Reports no additional cardiovascular complaints, Denies chest pain, Denies lightheadedness, Denies Loss of Consciousness and Denies dyspnea Respiratory: Respiratory: Reports no additional respiratory complaints and Denies dyspnea Gastrointestinal: Gastrointestinal: Reports no additional gastrointestinal complaints, Denies abdominal pain, Denies melena, Denies hematochezia, Denies change in bowel habits and Denies change in stool character Genitourinary: Genitourinary: Denies hematuria, Denies urinary frequency, Denies dysuria, Denies urinary incontinence, Denies urinary hesitancy and Denies urinary urgency Musculoskeletal: Musculoskeletal: Reports no additional musculoskeletal complaints, Denies numbness and Denies tingling Comments: right upper arm pain Neurologic: Denies dizziness, Denies loss of vision, Denies numbness and Denies tingling Psychiatric: Psychiatric: Reports no additional psychiatric complaints Endocrine: Endocrine: Reports no additional endocrine complaints Hematologic/Lymphatic: Hematologic/Lymphatic: Reports no additional hematologic/lymphatic complaints Allergic/Immunologic: Allergic/Immunologic: Reports no additional allergic/immunologic complaints PMFSH Past Medical History Attestation statement: The following information was validated with the patient. Source: old records reviewed and nursing notes reviewed Medical History BMI 34.0-34.9,adult Hypokalemia Anxiety Depression Sleep apnea treated with continuous positive airway pressure (CPAP) Fibromyalgia Hypertension Asthma Morbid obesity Surgical History S/P laparoscopic sleeve gastrectomy History of appendectomy History of laparoscopic cholecystectomy History of delivery Social History Social History Household Members: Family Housing: Apartment Are you a primary home health care worker to a significant other at home: No Do you presently have visiting nurse or other home services: No Unable to assess alcohol history related to: Unknown Alcohol intake: never Patient Tobacco Use Status: Former Tobacco user Tobacco use type: Cigarette Advance Directives: No Advance Directives Information Provided: Yes Physical Exam Vital Signs: Vital Signs: Last Vital Signs Temp 97.0 F 07/20/24 10:49 Pulse 65 07/20/24 10:49 Resp 18 07/20/24 10:49 BP 136/64 07/20/24 10:49 Pulse Ox 98 07/20/24 10:49 O2 Del Method Room Air 07/20/24 10:49 BMI result Body Mass Index 26.8 Const: General: cooperative, no acute distress, alert and awake Nutritional Appearance: well nourished Orientation/consciousness: patient oriented x3 Limitations: no limitations HEENT: Head: Yes normal to inspection and Yes atraumatic Ears: hearing grossly normal bilaterally and external ears normal General nose exam: Normal external nose present, no nasal discharge noted and no epistaxis Face and sinus: Yes normal facial exam, No abrasion and No laceration Mouth: Normal oral and palatal mucosa present, no drooling and no muffled voice Eyes: General: appearance normal, both eyes and all related structures Periorbital: periorbital findings normal Eyelids: Yes eyelids normal Conjunctivae: conjunctivae normal Pupils: Equal, round and reactive pupils present EOM: EOMs intact bilaterally Neck: Neck: Yes normal visual inspection, Yes full ROM and Yes no lymphadenopathy Chest: Chest palpation & inspection: normal inspection of the chest Resp: Effort & Inspection: normal respiratory effort and able to speak in complete sentences GI: Inspection: Yes normal to inspection Neuro: General: patient oriented x3, moves all extremities and CN's II-XI intact bilaterally Cranial nerves: Yes Equal, round and reactive pupils present Cognition (Neuro): normal cognition Extrem: Other: pain with right shoulder ROM decreased right shoulder ROM secondary to pain General: Yes normal to inspection and Yes capillary refill normal Psych: Appearance: grossly normal Mental Status: mental status grossly normal Affect: normal affect Attitude: cooperative Thought process: Normal thought process present Thought content: Normal thought content present Insight: Good insight present (Psych) Medications Administered Discontinued Medications Generic Name Dose Route Start Last Admin Trade Name Sakshi PRN Reason Stop Dose Admin Methylprednisolone Sodium Succinate 60 mg 07/20/24 12:41 07/20/24 12:59 Methylprednisolone Sod Succ 125 Mg/2 Ml Vial IM 07/20/24 12:42 60 mg ONCE ONE Administration Oxycodone HCl 5 mg 07/20/24 12:41 07/20/24 12:59 Oxycodone Hcl Immed Release 5 Mg Tablet PO 07/20/24 12:42 5 mg ONCE ONE Administration Medical Decision Making Medical Decision Making [facility] Narrative: Patient is a 49 year old assigned female at with a history of anxiety, depression, fibromyalgia, HTN, asthma, and renal angiolipoma presenting to the emergency department today with right upper arm pain. Patient's physical exam was as noted in the physical exam portion of this note. Patient's right humerus x-ray showed calcification in the expected location of the distal rotator cuff. Patient's clinical presentation is most consistent with rotator cuff injury. I explained my physical exam findings as well as all test results to the patient. I answered all questions asked by the patient. I stressed the importance of the patient taking her medication as directed (either prescribed or as the over the counter packaging recommends). I stressed the importance of the patient following up with her primary care provider and the orthopedic team. I stressed the importance of the patient returning to the emergency department immediately if her symptoms were to worsen or if she were to develop any dizziness, shortness of breath, difficulty breathing, chest pain, blurry vision, loss of vision, nausea, vomiting, abdominal pain, fever, chills, back pain, or any other complaints. Patient verbalized agreement and understanding with this treatment plan and discharge. Differential Diagnosis Differential Diagnoses: The differential diagnosis associated with the presentation includes Rotator cuff injury Upper arm pain Bicep tendon injury Tendonitis Admission/Observation Consideration of admission/observation: Escalation of care including admission/observation considered Patient would have been admitted to the hospital had her work up had any findings where hospital admission was appropriate and her clinical presentation warranted hospital admission. Independent Interpretation I performed an independent interpretation of an: Plain X-Ray Interpretation: My interpretation is in agreement with the radiologist's impression of this imaging study. CLINICAL HISTORY: pain, limited romm Exam: AP and lateral views of the right humerus. Comparison: None. Findings: No acute fracture identified. Alignment at the AC joint, glenohumeral joint, and elbow joint is anatomic. Calcification in the expected location of the distal rotator cuff. Moderate AC joint DJD. Impression: Chronic changes as above. No acute fracture of the humerus. This document has been electronically signed by: Huseyin Hazel MD on 07/20/2024 11:56:29 Dictated By: Huseyin Hazel MD Signed By: Electronically signed by Huseyin Hazel MD 07/20/24 1158 Radiology Impression Discussion of test interpretation with radiology: I have reviewed the radiologist's reading. Discharge Plan Discharge Clinical Impression: Rotator cuff injury Patient Disposition: Home, Self-Care Instructions: Rotator Cuff Injury (ED), Rotator Cuff Injury Exercises (DC) Additional Instructions: Your work up today showed a right rotator cuff injury. You must follow up with the orthopedic team about this. Brownlee trabajo de hoy mostr? ganesh lesi?n del manguito rotador derecho. Debe consultar con el equipo ortop?dico. Follow up with your primary care provider. Return to the emergency department immediately if your symptoms worsen or if you develop any dizziness, shortness of breath, difficulty breathing, chest pain, blurry vision, loss of vision, nausea, vomiting, abdominal pain, fever, chills, back pain, or any other complaints. Merle?seguimiento?con brownlee m?dico de atenci?n primaria. Acuda inmediatamente al servicio de urgencias si kai s?ntomas empeoran o si presenta falta de aliento, dificultad para respirar, dolor tor?cico, mareos, aturdimiento, dolor de espalda, dolor abdominal, fiebre, escalofr?os o cualquier otro s?ntoma. Please see the information below about our Patient Portal. If you are not yet enrolled in the [facility] Patient Portal, you will receive an enrollment email invitation following your visit to any [facility] care setting. You may also self-enroll in the Patient Portal by visiting our website: [email or web address] The following information is required to access the Patient Portal: - Your [facility] Medical Record Number - Your personal home email address (must match what is in your electronic medical record, Registration staff can assist with this) - Name - Date of Capabilities of the Patient Portal: - Message some providers - View upcoming appointments - Access your health summary, medical history, and visit history - View current conditions and allergies - View procedure and lab results - View your medications, including guidelines, side effects, and precautions - Complete pre-appointment questionnaires requested by your provider - Ready summary reports of your office visits and procedures To access the Patient Portal Mobile Micaela, follow these directions: - Search [employer] in the Micaela Store or [employer] - Download the Micaela - Search for [facility] - Enter your login/password Portal del paciente Si usted no esta inscrito en el portal de pacientes de [facility], recibira ganesh invitacion de inscripcion despues de brownlee visita al [facility] o al [facility] via correo electronico. Tambien puede inscribirse voluntariamente en el portal de pacientes visitando nuestra pagina web: [email or web address] La siguiente informacion sera requerida para acceder al portal: - Brownlee henry de historia medica de [facility] - Brownlee direccion de correo electronico personal - Nombre - Fecha de nacimiento Capacidades: Las siguientes capacidades estan disponibles en el portal de pacientes: - Enviar mensajes a algunos doctores - Verificar proximas citas - Acceso a borwnlee historial de luz marina, registro medico e historial de visitas - Purnima las condiciones actuales y alergias purnima procedimientos y resultados del laboratorio - Purnima kai medicamentos, incluyendo las pautas - Efectos secundarios y precauciones - Completar o llenar formularios / cuestionarios de - Citas solicitadas por brownlee doctor - Leer los resumenes de reportes medicos de kai visitas y procedimientos Lookout acceder a la aplicacion movil: - [employer] en la [employer] Store o [employer] - Descargue la aplicacion - [facility] - Ingrese brownlee nombre de usuario / Contrasena Prescriptions: New prednisone 20 mg tablet 20 mg PO DAILY 7 Days Qty: 7 0RF omeprazole 20 mg capsule,delayed release(DR/EC) 20 mg PO DAILY Qty: 7 0RF Rx Instructions: Take this medication 1 hour before taking the rest of your medications. No Action docusate sodium [Colace] 100 mg capsule 100 mg PO DAILY Qty: 90 0RF bisacodyl [Dulcolax (bisacodyl)] 10 mg suppository 10 mg MI DAILY PRN (Reason: constipation) Qty: 12 0RF albuterol 90 mcg/actuation Aerosol 90 mcg INHALATION Q4H PRN (Reason: shortness of breathness or wheeze) lidocaine [Lidoderm] 5 % adhesive patch,medicated 1 patch topical DAILY MDD remove after 12 hours PRN (Reason: pain) Qty: 30 0RF Rx Instructions: leave on most painful area for up to 12 hrs cyclobenzaprine 5 mg tablet 5 mg PO Q8H PRN (Reason: pain (scale score 7-10)) 5 Days Qty: 14 0RF escitalopram oxalate 10 mg tablet 10 mg PO DAILY pregabalin 200 mg capsule 200 mg PO BID clonazepam 0.5 mg tablet 0.5 mg PO DAILY hydrochlorothiazide 25 mg tablet 25 mg PO DAILY tiotropium bromide [Spiriva with HandiHaler] 18 mcg capsule, w/inhalation device 1 cap inhalation DAILY budesonide-formoterol [Symbicort] 160-4.5 mcg/actuation HFA aerosol inhaler 1 puff inhalation DAILY Referrals: [facility] Orthopedic Surgeons [Provider Group] (Call to establish and follow up with the orthopedic team. Llamada para establecer y seguir con el equipo ortop?dico. ) [facility], SOFTWARE IMPLEMENTATION SPECIALIST [Primary Care Provider] - Print Language: German
[2024-07-20] MEDS: methylPREDNISolone Sod Succ 125 MG/2 ML VIAL 60 MG IM (12:59)
[2024-07-20] MEDS: oxyCODONE HCl Immed Release 5 MG TABLET PO (12:59)
[2024-07-20 14:20] VITALS: BP 136/64; PULSE 65; RESP 18; TEMP 36.1; O2SAT 98
== END 2024-07-20 14:21 | disposition home or self-care (01) ==
PROVIDERS: Emergency Provider Emergency Medicine; PCP Nurse Practitioner Family
DX: S46.001A Unspecified injury of muscle(s) and tendon(s) of the rotator cuff of right shoulder, initial encounter (principal); X58.XXXA Exposure to other specified factors, initial encounter; Y93.9 Activity, unspecified; Y92.9 Unspecified place or not applicable; Y99.9 Unspecified external cause status; M79.621 Pain in right upper arm; I10 Essential (primary) hypertension; Z79.899 Other long term (current) drug therapy
CPT/HCPCS: 73060; 96372; 99283; 99284; J2919

== ENCOUNTER → 2024-07-20 10:55 | Outpatient (BNV) | payer OTHER, SELFPAY | PROVIDERS: PCP Nurse Practitioner Family; Visit Provider Radiology Diagnostic Radiology | DX: M79.601 Pain in right arm (principal) | CPT/HCPCS: 73060 ==

== ENCOUNTER 2024-07-22 08:12 | Outpatient (AMB) | payer OTHER, SELFPAY ==
--- NOTE | 2024-07-22 08:31 | A.OFFVIS_ITS ---
VS Expanded 07/22/24 08:36 BP 132/74 Blood Pressure Location Lt brachial Blood Pressure Position Sitting Pulse 58 Pulse Oximetry 100 Height 5 ft 4 in Weight 155 lb 9.6 oz BMI 26.7 Body Fat % 31.9 Body Fat Mass 49.6 Fat Free Mass 05.8 Visceral Fat Rating 6.0 Body Water % 48.5 Body Water Mass 75.4 Muscle Mass/Score 100.6 Basal Metabolic Rate/Score 1,427 Intake Visit Reasons: (OV) PO LSG 02/12/24 Making Department Preparer Required: Yes Making Department Preparer Name: hospital cmi Allergies No Known Allergies Allergy (Verified 07/22/24 08:34) Medication List - Last Reconciled 07/22/24 by LOKI Humphrey albuterol 90 mcg/actuation 90 mcg inhalation Q4H PRN albuterol sulfate 90 mcg/actuation (Ventolin HFA) inhalation albuterol sulfate mg continuous nebulization bisacodyl (Dulcolax (bisacodyl)) 10 mg MD DAILY PRN budesonide-formoterol 160-4.5 mcg/actuation (Symbicort) 1 puff inhalation DAILY cetirizine 10 mg PO DAILY clonazepam 0.5 mg PO DAILY cyclobenzaprine 5 mg PO Q8H PRN 5 days diclofenac sodium 1% topical docusate sodium (Colace) 100 mg PO DAILY escitalopram oxalate 10 mg PO DAILY fluticasone propionate 50 mcg/actuation intranasal lidocaine 5% (Lidoderm) 1 patch topical DAILY PRN MDD remove after 12 hours montelukast 10 mg PO DAILY omeprazole 20 mg PO DAILY pregabalin 200 mg PO BID tiotropium bromide 2.5 mcg/actuation (Spiriva Respimat) 2 puffs inhalation DAILY HPI Comments Details: This?a?49?yo female who is s/p LSG without hiatal hernia repair on?02/12/2024. Presents for 5 month post op visit. Weight today is 155.6 pounds, with a BMI of 26.7. There has been a 77.6 pound weight loss,(initial weight 233.2 pounds) since starting the program on 10/16/2023 reflecting a 33.2 % total body weight loss and a weight loss of 45.9 pounds since surgery (operative weight 201.5 pounds) reflecting a 22.7 % TBWL since surgery. No complaints of nausea, emesis, abdominal pain or reflux. Reports infrequent but normal bowel movements every 2-3 days and uses stool softeners regularly. Reports that she is feeling great. Taking celebrate MVI. She states that she has recently been sick with URI symptoms. These have improved. Present meal plan includes: using [employer] life shake rtd 30 gm 1 shake from 10-1 6 oz of shake with 2 oz of unsweetened almond milk at 2-4 Meal at 6 pm with 4 forks of protein and 4 forks of vegetables Drinking 40 oz water daily ? Exercise routine includes: started weight training at the gym 5 days per week 400-500 calories treadmill, FORMERLY [facility], [facility] Medical History BMI 34.0-34.9,adult Hypokalemia Anxiety Depression Sleep apnea treated with continuous positive airway pressure (CPAP) Fibromyalgia Hypertension Asthma Morbid obesity Surgical History S/P laparoscopic sleeve gastrectomy History of appendectomy History of laparoscopic cholecystectomy History of delivery Social History Household Members: Family Housing: Apartment Are you a primary child care aide to a significant other at home: No Do you presently have visiting nurse or other home services: No Unable to assess alcohol history related to: Unknown Alcohol intake: never Patient Tobacco Use Status: Former Tobacco user Tobacco use type: Cigarette Physical Exam Vital Signs: Last Vital Signs Pulse 58 07/22/24 08:36 BP 132/74 07/22/24 08:36 Pulse Ox 100 07/22/24 08:36 BMI result Body Mass Index 26.7 Const General: healthy appearing and no acute distress Resp Effort & Inspection: normal respiratory effort Auscultation: clear to auscultation bilaterally Cardio Rate: regular rate Rhythm: regular rhythm GI Auscultation: normal bowel sounds Extrem General: Yes normal to inspection Assessment & Plan Assessment & Plan (1) S/P laparoscopic sleeve gastrectomy: Code(s): Z98.84 - Bariatric surgery status Category: Surgical Plan: Patient is doing well. Continues to lose weight. She is satisfied with her meal plan. She continues to exercise although this was limited over the past couple of weeks as she had been dealing with URI symptoms. This has now resolved and she has returned to the gym. Encouraged to continue to send weight is weekly and text with any questions or concerns. Return to clinic 1 month for six-month postop follow-up visit. Check labs at that time.
[2024-07-22 08:36] VITALS: BP 132/74; PULSE 58; O2SAT 100; BMI 26.7
--- OUTSIDE RECORDS SUMMARY | 2024-07-22 08:36 | XMS_ITS | Clinical Summary ---
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 Name Role Phone Unavailable Primary Care Provider [...] Description 05/23/2024 2:00 PM EST Office Visit [facility] [address] [place] [address] Yvette Ventura Dental calculus (Primary Dx); Generalized gingival recession, moderate; Periodontal disease 05/21/2024 8:00 AM EST Office Visit [facility] [address] [place] [address] Triana-Juarez, Camelia, DDS Generalized gingival recession, moderate (Primary Dx) 05/14/2024 2:00 PM EST Office Visit [facility] [address] [place] [address] Arias Paytonsa Dental calculus (Primary Dx); Dental plaque; Periodontal disease; Tartar deposits on teeth from Last 3 Months Social History Tobacco [...] Description 08/20/2024 11:00 AM EDT Office Visit [facility] [address] [place] [address] Yvette Ventura [address] [place], [place] [id number] Health Maintenance Due Date Last Done Comments [...] plaque Periodontal disease Tartar deposits on teeth PROPHYLAXIS - ADULT Routine 03/05/2024 8 :00 [...] Most Recently Relevant to Health Maintenance Insurance [facility] [place] [id number]
--- OUTSIDE RECORDS SUMMARY | 2024-07-22 08:36 | XMS_ITS | Clinical Summary ---
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
== END 2024-07-22 09:12 | disposition home or self-care (01) ==
LOC: HO.HBS 08:12
PROVIDERS: PCP Nurse Practitioner Family; Visit Provider Physician Assistant Surgical
DX: E66.3 Overweight (principal); Z68.26 Body mass index [BMI] 26.0-26.9, adult; Z90.3 Acquired absence of stomach [part of]; Z98.84 Bariatric surgery status
CPT/HCPCS: 99213

== ENCOUNTER → 2024-07-22 08:12 | Outpatient (BNVA) | payer OTHER, SELFPAY | PROVIDERS: PCP Nurse Practitioner Family; Visit Provider Physician Assistant Surgical | DX: Z98.84 Bariatric surgery status (principal) | CPT/HCPCS: 99212 ==

== ENCOUNTER 2024-08-14 08:16 | Outpatient (REF) | payer OTHER, SELFPAY ==
--- NOTE | ~2024-08-14 | XR_ITS ---
EXAMINATION: XR SHOULDER 2 OR MORE VIEWS RIGHT HISTORY: M25.519 - Pain in unspecified shoulder COMPARISON: Correlation is made with plain films of the right humerus dated 07/20/2024. FINDINGS: Three views of the right shoulder are submitted. Osseous mineralization is normal. There is no fracture or dislocation. The glenohumeral and acromioclavicular joint spaces are preserved. A soft tissue calcification adjacent to the greater tuberosity of the humerus, best seen on the axillary view, may be related to the rotator cuff. XR/XR shoulder RT min 2V IMPRESSION: Possible rotator cuff calcification. Otherwise unremarkable examination of the right shoulder. Electronically signed by: Tony Navarro MD 08/14/2024 01:47 PM EDT
--- OUTSIDE RECORDS SUMMARY | 2024-08-15 08:34 | XMS_ITS | Data Portability ---
Author Organization TAMAR Zaki [facility], [facility] Address [address] [place] [address] Assessment No assessment recorded. Plan of Treatment Reminders Order Date Submit Date Provider Last Modified By Organization Details Last Modified Time Details Appointments None record ed. Lab None record ed. Referral None record ed. Procedures None record ed. Surgeries None record ed. Imaging None record ed. Medication Orders None record ed. Patient TargetsNo targets recorded. Patient Instructions Encounter Date Encounter Id Patient Instructions Last Modified By Organization Details Last Modified Time 10/09/2023 [id number] You have been provided with a cortisone injection in order to reduce the pain and inflammation that you are experiencing. The injection consists of two medications. Cortisone (an anti-inflammatory that will take 48-72 hours to take effect) and Lidocaine (a numbing agent that will last 2-3 hours). Please note that not everyone will have a lasting response following the injection. PATIENT INSTRUCTIONS Once the Lidocaine wears off, you may have an increase in your pain. I recommend icing the affected area for 20 minutes 3-4 times per day. It is recommended that you refrain from any high level activities using the joint or limb that was injected for approximately 24-48 hours. Normal day-to-day activities are generally not a problem. POSSIBLE SIDE EFFECTS Individuals with dark complexions may experience some skin discoloration locally at the site of the injection. There is the possibility of an increase in discomfort within 48 hours following the injection. This is called a ? f lare? . To help minimize the chances of this, please see the post-injection instructions above. There is a less than 1% chance of an infection. If you notice any signs of infection (redness, warmth, drainage, fever greater than 100 degrees) please call our office or contact us through the portal JAIRON. krevord Not available 10/08/2023 13:08:58 10/12/2023 [id number] You have been provided with a viscosupplementation injection in order to reduce the pain that you are experiencing from your arthritis. The injection consists of a lubricating injection called hyaluronic acid. Please note that not everyone will have a lasting response following the injection. PATIENT INSTRUCTIONS I recommend icing the affected area for 20 minutes 3-4 times per day. It is recommended that you refrain from any high level activities using the joint or limb that was injected for approximately 24-48 hours. Normal day-to-day activities are generally not a problem. POSSIBLE SIDE EFFECTS Individuals with dark complexions may experience some skin discoloration locally at the site of the injection. There is the possibility of an increase in discomfort within 48 hours following the injection. This is called a ? f lare? . To help minimize the chances of this, please see the post-injection instructions above. There is a less than 1% chance of an infection. If you notice any signs of infection (redness, warmth, drainage, fever greater than 100 degrees) please call our office or contact us through the portal JAIRON. krevord Not available 10/10/2023 09:43:03 Reason for Referral None Reported. Results Created Date Observation Date Name Description Value Unit Range Abnormal Flag Note LastModifiedBy Organization Detail LastModifiedTime 12/28/19 24 05/21/2020 imagi ng/di angieos tic resul t No observ ation record ed. [email or web address] Not Available 11/30 20:13:07 Result Notes None recorded. Problems Name Problem SNOMED Code Status Onset Date Resolution Date Notes Provider Name and Address Organization Details Recorded Time No complaints [id number] Active Status : 'A'; Not Available [facility] 4 09:12:34 Osteoarthr itis of left knee joint 8120681649577 09 Active 2024 Meg Agosto PA-C [address], [place], [address] , [facility] 5 10:40:43 Patellofem oral syndrome of left knee [id number] 107 Active 2023 KATHRIN NDIAYE [facility] 09:41:21 Problem Notes None recorded. Procedures Surgical History Date Name Laterality Status Provider Name and Address Organization Details Recorded Time 5 Gel-One Knee Injection completed LOKI López-C [address], [place], [address], [facility] 05/22/2024 10:40:34 4 Gel-One Knee Injection completed Meg Agosto PA-C [address], [place], [address], [facility] 10/10/2023 09:42:46 4 Sports Knee 4&1 completed LOKI López-C [address], [place], [address], [facility] 10/08/2023 13:08:40 Imaging Results Imaging Date Name Status LastModified by Organiz ation Details LastModified Time 05/21/2020 imaging/diag nostic result completed [email or web address] Information not available 12/28/2023 20:13:07 Procedure Notes None recorded. Medical Equipment None Reported. Allergies No known drug allergies Medications Name Sig Start Date Stop Date Status Note LastModified by Organization Details LastModified Time vitamin d3 125 mcg (5000 ut) caps active Not Available Not Available Not Available d-1000 extra strength 25 mcg (1000 ut) tabs active Not Available Not Available Not Available ketoconazol e 2 % shampoo APPLY TOPICALLY THREE TIMES A WEEK active Not Available Not Available No t Available trazodone 50 mg tablet TOME 1 TABLETA POR V A ORAL TODOS LOS D CUANDO SEA NECESARIO active Not Available Not Available No t Available cetirizine 10 mg tablet TOME 1 TABLETA POR V A ORAL TODOS LOS D active Not Available Not Available No t Available sucralfate 100 mg/mL oral suspension TAKE 10ML BY MOUTH TWICE A DAY active Not Available Not Available No t Available meloxicam 15 mg tablet TAKE 1 TABLET BY MOUTH EVERY DAY active Not Available Not Available No t Available clonazepam 0.5 mg tablet TOME 1 TABLETA POR V A ORAL PEDRO PABLO VECES AL D A CUANDO SEA NECESARIO active Not Available Not Available No t Available acetaminoph en 500 mg tablet TOME DOS TABLETAS POR V A ORAL PEDRO PABLO VECES AL D A CUANDO SEA NECESARIO PARA LA FIEBRE active Not Available Not Available No t Available potassium chloride 20 mEq oral packet TOME GERMAIN TABLETA POR V A ORAL DOS VECES AL D A active Not Available Not Available No t Available methocarbam ol 750 mg tablet TAKE 1 TABLET BY MOUTH 3 TIMES A DAY FOR 7 DAYS active Not Available Not Available No t Available bisacodyl 10 mg rectal suppository 10 MG RECTALLY DAILY NEEDED FOR CONSTIPAT ION active Not Available Not Available No t Available pantoprazol e 40 mg tablet,hussein yed release TOME GERMAIN TABLETA POR V A ORAL TODOS LOS D active Not Available Not Available No t Available lidocaine 5 % topical patch APPLY 1 PATCH TOPICALLY ONCE DAILY NEEDED FOR PAIN, 12 HOURS ON 12 HOURS OFF active Not Available Not Available No t Available docusate sodium 100 mg capsule TOME 1 C PSULA POR V A ORAL TODOS LOS D active Not Available Not Available No t Available montelukast 10 mg tablet TAKE 1 TABLET BY MOUTH EVERY DAY active Not Available Not Available No t Available hydrochloro thiazide 25 mg tablet TAKE 1 TABLET BY MOUTH EVERY DAY 05/22 completed Not Available Not Available Not Available ibuprofen 600 mg tablet TAKE 1 TABLET BY MOUTH EVERY 6 HOURS NEEDED FOR HEADACHES active Not Available Not Available No t Available polyethylen e glycol 3350 17 gram/dose oral powder active Not Available Not Available Not Available ondansetron 4 mg disintegrat ing tablet active Not Available Not Available N ot Available cholecalcif linwood (vitamin D3) 125 mcg (5,000 unit) capsule TAKE 1 CAPSULE BY MOUTH DAILY active Not Available Not Available No t Available naproxen 500 mg tablet TAKE 1 TABLET BY MOUTH TWICE A DAY NEEDED FOR PAIN active Not Available Not Available No t Available Ventolin HFA 90 mcg/actuati on aerosol inhaler INHALE 2 PUFFS EVERY 4 HOURS NEEDED FOR WHEEZING/ SHORTNESS OF BREATH active Not Available Not Available No t Available escitalopra m 10 mg tablet TOME 1 TABLETA POR V A ORAL TODOS LOS D EN LA MA ESTER active Not Available Not Available No t Available Vitamin D3 25 mcg (1,000 unit) tablet TAKE 1 TABLET BY MOUTH EVERY DAY active Not Available Not Available No t Available cyclobenzap rine 5 mg tablet TOME GERMAIN TABLETA POR V A ORAL CADA OCHO HORAS CUANDO SEA NECESARIO PARA EL DOLOR POR 5 D active Not Available Not Available No t Available Spiriva with HandiHaler 18 mcg and inhalation capsules INHALE 1 CAPSULE EVERY DAY active Not Available Not Available No t Available pregabalin 200 mg capsule TOME 1 C PSULA POR V A ORAL DOS VECES AL D A active Not Available Not Available No t Available Symbicort 160 mcg-4.5 mcg/actuati on HFA aerosol inhaler INHALE 2 PUFFS BY MOUTH TWICE DAILY active Not Available Not Available No t Available Cholestyram ine Light 4 gram oral powder DISSOLVE 2 GM BY MOUTH DAILY,X90 DAYSDIS SOLVE IN WATER OR JUICE. ESTONIAN SIG. active Not Available Not Available No t Available diclofenac 1 % topical gel 2 GM TOPICALLY 4 TIMES A DAY,X30 DAYS active Not Available Not Available No t Available GaviLyte-G 236 gram-22.74 gram-6.74 gram-5.86 gram oral solution PLEASE SEE ATTACHED FOR DETAILED DIRECTION S 05/22 completed Not Available Not Available Not Available Spiriva Respimat 2.5 mcg/actuati on solution for inhalation INHALE 2 PUFFS BY MOUTH ONCE DAILY active Not Available Not Available No t Available Vitals Date Recorded Body height Body mass index (BMI) Body weight Provider Name and Address Organization Details Last Updated DateTime 10/09/2023 162.56 cm 39.5 kg/m2 923373.25 g KATHRIN NDIAYE [facility] 10/09/2023 09:15:34 Date Recorded Body height Provider Name an d Address Organization Details Last Updated DateTime 10/12/2023 162.56 cm CRISTELA RUCKER [facility] 10/12/2023 09:50:34 Date Recorded Body height Body mass index (BMI) Body weight Provider Name and Address Organization Details Last Updated DateTime 05/22/2024 162.56 cm 39.5 kg/m2 755649.25 g KAYLIA L'HEUREUX [facility] 05/22/2024 15:36:14 Social History None recorded. Functional Status None recorded. Mental Status None recorded. Family History Nothing Reported. Medical History Condition Response Allergies/Hayfever N Coronary Artery Disease N Anxiety/Depression Y Breathing or lung disorders N Emphysema N Nerve Disorders N Thyroid Problems N COPD N Pacemaker N Anemia N Kidney/Bladder Problems N Vascular Disease N Heart Trouble N Heart Attack ([place]) N Gastrointestinal Disease N Cholesterol N Diabetes N Autoimmune disease N Bleeding Disorder N Orthotics N Arthritis Y Seizures/Epilepsy N Blood Clot N AIDS/HIV N Congestive Heart Failure (CHF) N Acid Reflux (GERD) N Cancer N Stroke N Asthma Y Circulation Problems N Peripheral Vascular Disease N Sleep Apnea Y Hepatitis N Heart Disease N Rheumatoid Arthritis N Arrhythmia N Pulmonary Embolism N Headaches N Fibromyalgia N Hypertension Y Osteoporosis N Gynecological HistoryNo gynecological history recorded. Obstetrics History GPAL:G 0 P 0 0 0 0 Past Encounters Encounter ID Performer Location Encounter Start Date Encounter Closed Date Diagnosis/Indication Diagnosis SNOMED-CT Code Diagnosis ICD10 Code Diagnosis Note [id number] Meg Agosto PA-C [place] [address] [place] [address] 10/09/2023 08:58:55 10/31/2023 13:47:22 Osteoarthritis of left knee joint [id number] 46194 M17.12 Nature of the diagnosis discussed with the patient today. Both surgical and nonsurgica l options were reviewed. At this point I have recommende d a repeat cortisone injection. Patient agrees with this plan. Patient tolerated the procedure well. Post injection precaution s reviewed. They will continue with conservati ve modalities including icing and elevating. Follow-up with us in 3 months for discussion of continued conservati ve management versus total joint arthroplas ty. Given that pain is not adequately controlled with cortisone injections alone we will also initiate formal physical therapy course, anti-infla mmatories and we will also submit for prior authorizat ion for gel injections for added symptomati c relief. She will be contacted by our office once this is approved through her insurance. All questions and concerns were addressed and answered. Jamaican interprete r through [employer] interprete r service was used throughout the visit today. [id number] JACKIE López [address] [place] [address] 10/12/2023 09:35:24 11/07/2023 14:25:39 Osteoarthritis of left knee joint [id number] 12179 M17.12 [id number] JACKIE López [address] [place] [address] 05/22/2024 15:13:58 06/03/2024 11:43:21 Osteoarthritis of left knee joint [id number] 16927 M17.12 Health Concerns Section Related Observation LastModified by Organization Detai ls LastModified Time None Recorded Concern Status LastModified by Organization Details LastModified Time None Recorded Advance Directives Directive None Recorded Payers Encounter Date Sequence Insurance Name Policy Number Policy [place] Covered Member ID [place] Member ID Guarantor Name 10/09/2023 1 [facility] [id number] Teri Gomes [id number] Teri Gomes 10/12/2023 1 [facility] H[facility] [id number] Teri Gomes [id number] Teri Gomes 05/22/2024 1 [facility]ICA[facility] H[facility] [id number] Teri Gomes [id number] Teri Gomes Notes Date Note Type Note Provider Name and Address Organization Details Recorded Time 10/09/2023 text/html I am seeing the patient under the general supervision of {{Dr. Magno Bradford* Dr. Carranza}} who was available but who did not see the patient. HPI: Patient presents today for recheck of {{left* right bilate ral}} knee patellofemoral osteoarthritis. Is known to have arthritis treated conservatively with intermittent cortisone injections every 3 months as needed. No new injury or modalaties. Last injection(s) were {{ 2.2.24#}}reports injections only last 3 to 4 days and then wear off. Continues to localize pain to the lateral and anterior aspects of the knee. No new fall or injury. It is difficult for her to participate in her ADLs. She did have previous arthroscopic surgery in [place] for partial meniscectomy several years ago.. Meg Agosto PA-C [address], [place], [address], [facility] 10/09/2023 09:42:24 10/12/2023 text/html I am seeing the patient under the general supervision of Dr. Bradford who was available but who did not see the patient. HPI: Patient presents today for their {{Gel-One* Euflexxa # 1 Euflexxa #2 Euflexxa #3}} injection(s) for treatment of their {{right left* bilate ral}} knee osteoarthritis. Patient continues to complain of knee pain. We will move forward with injection today. She is leaving for [place] in a week. Physical exam: Gen.: Well-appearing, in no acute distress, alert and oriented x 3 Extremity: Examination of patient's {{left* right bilate ral}} knee(s) demonstrates no overlying erythema, ecchymosis or edema. Crepitations appreciated throughout range of motion. Joint line tenderness noted throughout. Injection site(s) benign. Assessment: {{Right Left* Bilate ral}} knee osteoarthritis. Plan: Move forward with {{Gel-One* Euflexxa # 1 Euflexxa #2 Euflexxa #3}} injection(s). See procedure note for details. Follow up {{as needed* 1 week}} Meg Agosto PA-C [address] [facility] [address], [place], [address], [facility] 10/12/2023 10:15:53 05/22/2024 text/html I am seeing the patient under the general supervision of Dr. Bradford who was available but who did not see the patient. HPI: Patient presents today for their {{Gel-One* Euflexxa # 1 Euflexxa #2 Euflexxa #3}} injection(s) for treatment of their {{right left* bilate ral}} knee osteoarthritis. Patient continues to complain of knee pain. We will move forward with injection today. Physical exam: Gen.: Well-appearing, in no acute distress, alert and oriented x 3 Extremity: Examination of patient's {{left* right bilate ral}} knee(s) demonstrates no overlying erythema, ecchymosis or edema. Crepitations appreciated throughout range of motion. Joint line tenderness noted throughout. Injection site(s) benign. Assessment: {{Right Left* Bilate ral}} knee osteoarthritis. Plan: Move forward with {{Gel-One* Euflexxa # 1 Euflexxa #2 Euflexxa #3}} injection(s). See procedure note for details. Follow up {{as needed* 1 week}} Meg Agosto PA-C [address] [facility] [address], [place], [address], [facility] [place] 05/22/2024 15:41:58 OBGyn Episode No OBEpisode recorded.
--- OUTSIDE RECORDS SUMMARY | 2024-08-15 08:34 | XMS_ITS | Clinical Summary ---
Author Organization [facility] Address [address] [place] [address] Care Team Providers Care Inbound Telemarketer Name Role Phone Unavailable Primary Care Provider [...]
--- OUTSIDE RECORDS SUMMARY | 2024-08-15 08:34 | XMS_ITS | Clinical Summary ---
Author Organization [employer] Address [address] [facility] [address] [place] [address] Care Team Providers Care Faculty Head Name Role Phone Unavailable Primary Care Provider [...] Description 05/23/2024 2:00 PM EST Office Visit [facility] [address] [place] [address] Yvette Ventura Dental calculus (Primary Dx); Generalized gingival recession, moderate; Periodontal disease 05/21/2024 8:00 AM EST Office Visit [facility] [address] [place] [address] Triana-Juarez, Camelia, DDS Generalized gingival recession, moderate [...] Description 08/20/2024 11:00 AM EDT Office Visit [facility] [address] [place] [address] Yvette Ventura [address] [place] [address] Health Maintenance Due Date Last Done Comments [...] Most Recently Relevant to Health Maintenance [facility] [place] [id number]
== END 2024-08-14 08:17 | disposition home or self-care (01) ==
LOC: HO.HOSX 08:16
PROVIDERS: Visit Provider Physician Assistant
DX: S46.011A Strain of muscle(s) and tendon(s) of the rotator cuff of right shoulder, initial encounter (principal)
CPT/HCPCS: 73030; 99202

== ENCOUNTER 2024-08-14 12:10 | Outpatient (AMB) | payer OTHER, SELFPAY ==
--- NOTE | 2024-08-14 12:39 | MHC.OFFVIS ---
Vital Signs 08/14/24 12:45 Height 5 ft 4 in Weight 155 lb BMI 26.6 Intake Visit Reasons: ED - right shoulder pain Intake Note: Teri is a 49 year old left hand dominant female who presents today as a new patient for a evaluation of her right shoulder pain. Patient states that she was working out and now her right upper arm hurts. She states that her pain started on the 19 of July. Patient mentions that her pain is better today but she is having mild discomfort. Impression: Chronic changes as above. No acute fracture of the humerus Crusher Screen Repairer Services: Crusher Screen Repairer Present (Roe([id number])) Allergies No Known Allergies Allergy (Verified 08/14/24 12:45) HPI HPI ED - right shoulder pain: Details: Patient is a 49-year-old right-hand dominant female who presents to the office today for evaluation of right shoulder pain. She reports that she was working out and she was encouraged to increase weightlifting. Her pain began after this activity on July 19. She presented to the emergency department on July 20 for further evaluation and treatment. Since this date of injury she has had improvement of her discomfort. She reports mild pain. COUNTS INCLUDE 234 BEDS AT THE [facility] Medical History BMI 34.0-34.9,adult Hypokalemia Anxiety Depression Sleep apnea treated with continuous positive airway pressure (CPAP) Fibromyalgia Hypertension Asthma Morbid obesity Surgical History S/P laparoscopic sleeve gastrectomy History of appendectomy History of laparoscopic cholecystectomy History of delivery Social History (Updated 08/14/24 @ 12:49 by Vijay Turner) Household Members: Family Housing: Apartment Are you a primary school childcare attendant to a significant other at home: No Do you presently have visiting nurse or other home services: No Unable to assess alcohol history related to: Unknown Alcohol intake: never Patient Tobacco Use Status: Former Tobacco user Tobacco use type: Cigarette Current occupational status: unemployed 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 No ecchymosis, erythema, or edema. Full shoulder ROM in all planes. Negative cross-body reach. Negative empty can. Negative drop arm. NVI. Assessment & Plan Assessment & Plan (1) Strain of rotator cuff of right shoulder: Code(s): S46.011A - Strain of muscle(s) and tendon(s) of the rotator cuff of right shoulder, initial encounter Category: Medical Plan Patient is a 49-year-old right-hand dominant female who presents to the office today for evaluation of right shoulder pain. She reports that she was working out and she was encouraged to increase weightlifting. Her pain began after this activity on July 19. She presented to the emergency department on July 20 for further evaluation and treatment. Since this date of injury she has had improvement of her discomfort. She reports mild pain. On the office today, we discussed the role of cortisone injection and physical therapy. As her symptoms are improving we declined on cortisone injection at this time. An order for physical therapy has been placed in which she will attend. I will follow up with her in 6 weeks, sooner if needed. X-rays of the right shoulder which were obtained while in the office today and were reviewed by me, Maylin Marroquin PA-C, revealed likely impingement syndrome as well as small calcifications within the rotator cuff tendon. Orders: Orders XR shoulder RT min 2V Today M25.519 - Pain in unspecified shoulder PT Evaluation and Treatment Today M25.811 - Other specified joint disorders, right shoulder, S46.011A - Strain of muscle(s) and tendon(s) of the rotator cuff of right shoulder, initial encounter Coding Level of Care Code New Pt Level 3 (75476) Diagnoses Strain of rotator cuff of right shoulder S46.011A
[2024-08-14 12:45] VITALS: BMI 26.6
--- OUTSIDE RECORDS SUMMARY | 2024-08-14 15:02 | XMS_ITS | Clinical Summary ---
Author Organization [email or web address] [facility] Address [address] [place] [address] Care Team Providers Care Central Sterilization Technician Name Role Phone Unavailable Primary Care Provider [...] Vaccine ( - 2023-2 5 season) 2023 Pneumococcal Vaccine: 50+ Ye ars (1 of 1 - PCV) 2024 Zoster Vaccines (1 of 2) 2024 Colorectal Cancer Screening: Colonoscopy 07/10/2024 Depression Screening 07/10/2024 HIV Screening 07/10/2024 Hepatitis C Screening 07/10/2024 Social Influencers of Health Screening 07/10/2024 Influenza Vaccine (Season Ended) 2024 HIB Vaccines Aged Out No longer [...] age to complete this topic Meningococcal B Vaccine Aged Out No l onger eligible based on patient's age to complete [...]
== END 2024-08-14 13:26 | disposition home or self-care (01) ==
LOC: HO.HOS 12:10
PROVIDERS: PCP Nurse Practitioner Family; Visit Provider Physician Assistant
DX: S46.011A Strain of muscle(s) and tendon(s) of the rotator cuff of right shoulder, initial encounter (principal)
CPT/HCPCS: 99203

== ENCOUNTER → 2024-08-14 12:12 | Outpatient (BNV) | payer OTHER, SELFPAY | PROVIDERS: Visit Provider Radiology Diagnostic Radiology | DX: M25.511 Pain in right shoulder (principal) | CPT/HCPCS: 73030 ==

== ENCOUNTER 2024-08-26 09:12 | Outpatient (AMB) | payer OTHER, SELFPAY ==
--- NOTE | 2024-08-26 09:19 | A.OFFVIS_ITS ---
VS Expanded 08/26/24 09:26 BP 122/68 Blood Pressure Location Rt brachial Blood Pressure Position Sitting Pulse 63 Pulse Source Pulse Oximeter Temp 97.9 F Temperature Source Temporal Artery Scan Pulse Oximetry 96 Oxygen Delivery Method Room Air Height 5 ft 4 in Weight 154 lb 12.8 oz BMI 26.6 Body Fat % 31.1 Body Fat Mass 48.0 Fat Free Mass 106.8 Visceral Fat Rating 6.0 Body Water % 49.0 Body Water Mass 75.8 Muscle Mass/Score 101.2 Basal Metabolic Rate/Score 1,435 Intake Visit Reasons: (OV) PO LSG 02/12/24 Hoop Punch And Coiler Operator Required: Yes Hoop Punch And Coiler Operator Services: Hoop Punch And Coiler Operator Present Hoop Punch And Coiler Operator Name: office cmi Allergies No Known Allergies Allergy (Verified 08/26/24 09:23) Medication List - Last Reconciled 08/26/24 by LOKI Humphrey albuterol 90 mcg/actuation 90 mcg inhalation Q4H PRN albuterol sulfate 90 mcg/actuation (Ventolin HFA) inhalation albuterol sulfate mg continuous nebulization bisacodyl (Dulcolax (bisacodyl)) 10 mg [place] DAILY PRN budesonide-formoterol 160-4.5 mcg/actuation (Symbicort) 1 puff inhalation DAILY cetirizine 10 mg PO DAILY clonazepam 0.5 mg PO DAILY cyclobenzaprine 5 mg PO Q8H PRN 5 days diclofenac sodium 1% topical docusate sodium (Colace) 100 mg PO DAILY escitalopram oxalate 10 mg PO DAILY fluticasone propionate 50 mcg/actuation intranasal lidocaine 5% (Lidoderm) 1 patch topical DAILY PRN MDD remove after 12 hours montelukast 10 mg PO DAILY pregabalin 200 mg PO BID tiotropium bromide 2.5 mcg/actuation (Spiriva Respimat) 2 puffs inhalation DAILY HPI Comments Details: This?a?49?yo female who is s/p LSG without hiatal hernia repair on?02/12/2024. Presents for 6 month post op visit. Weight today is 154.8 pounds, with a BMI of 26.6. There has been a 77.6 pound weight loss,(initial weight 233.2 pounds) since starting the program on 10/16/2023 reflecting a 33.2 % total body weight loss and a weight loss of 45.9 pounds since surgery (operative weight 201.5 pounds) reflecting a 22.7 % TBWL since surgery. No complaints of nausea, emesis, abdominal pain or reflux. Reports infrequent but normal bowel movements every 2-3 days and uses stool softeners regularly. Reports that she is feeling great. Taking celebrate MVI. She states that she has had right hip pain for the last month. She has not sought medical attention. No radiation of the pain. Described as a dull ache. Worse with walking up stairs or increased walking. She was following the meal plan but her gym partner left to go to [place] and he has now returned. She was also taking care of her sick mom. Now also improved Present meal plan includes: using [employer] life shake rtd 30 gm 1 shake from 10-1 6 oz of shake with 2 oz of unsweetened almond milk at 2-4 Meal at 6 pm with 4 forks of protein and 4 forks of vegetables Drinking 40 oz water daily ?Exercise routine includes: started weight training at the gym 5 days per week 400-500 calories treadmill, Any post op complications: none GULSHAN: resolved DM: never HTN: resolved Hyperlipidemia: never GERD:?0-5 scale ??0 = no symptoms ??1 = symptoms noticeable but not bothersome 2 =symptoms bothersome but not daily ? 3 = symptoms bothersome and daily 4 = symptoms affect daily activities 5 = symptoms are incapacitating, unable to do daily activities ? How bad is the heartburn: 0 ? Heartburn while lying down: 0 ? Heartburn when standing up: 0 ? Heartburn after meals: 0 ? Does heartburn change your diet: 0 ? Does heartburn wake you up from sleep: 0 ? Do you have difficulty swallowin ? Do you have pain with swallowin ? If you take medicine for your reflux, does this affect your daily life: 0 Satisfaction with present condition - satisfied or not satisfied: satisfied [facility] Medical History BMI 34.0-34.9,adult Hypokalemia Anxiety Depression Sleep apnea treated with continuous positive airway pressure (CPAP) Fibromyalgia Hypertension Asthma Morbid obesity Surgical History S/P laparoscopic sleeve gastrectomy History of appendectomy History of laparoscopic cholecystectomy History of delivery Social History Household Members: Family Housing: Apartment Are you a primary care specialist to a significant other at home: No Do you presently have visiting nurse or other home services: No Unable to assess alcohol history related to: Unknown Alcohol intake: never Patient Tobacco Use Status: Former Tobacco user Tobacco use type: Cigarette Current occupational status: unemployed 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 Physical Exam Vital Signs: Last Vital Signs Temp 97.9 F 08/26/24 09:26 Pulse 63 08/26/24 09:26 BP 122/68 08/26/24 09:26 Pulse Ox 96 08/26/24 09:26 Oxygen Delivery Method Room Air 08/26/24 09:26 BMI result Body Mass Index 26.6 Const General: cooperative and no acute distress Orientation/consciousness: patient oriented x3 Resp Effort & Inspection: normal respiratory effort Auscultation: clear to auscultation bilaterally Cardio Rate: regular rate Rhythm: regular rhythm GI Inspection: Yes normal to inspection and Yes incision (well healed) Palpation (GI): Soft to palpation and no masses Neuro General: patient oriented x3 Assessment & Plan Assessment & Plan (1) S/P laparoscopic sleeve gastrectomy: Code(s): Z98.84 - Bariatric surgery status Category: Surgical Plan: Check six-month postop labs. Encouraged to continue exercise. Overall doing very well. She states she will follow up with her primary care physician regarding her right hip pain. She will additionally consider starting yoga. She does report stretching before exercise. Plan to return to clinic 2-3 silas hs. Encouraged to continue to text weekly her weight and with any questions or concerns Orders: Orders Insulin Today E87.6 - Hypokalemia, I10 - Essential (primary) hypertension, Z98.84 - Bariatric surgery status Hemoglobin A1c Today E87.6 - Hypokalemia, I10 - Essential (primary) hypertension, Z98.84 - Bariatric surgery status Vitamin B12 and Folate Today E87.6 - Hypokalemia, I10 - Essential (primary) hypertension, Z98.84 - Bariatric surgery status Zinc Today E87.6 - Hypokalemia, I10 - Essential (primary) hypertension, Z98.84 - Bariatric surgery status C Reactive Protein Today E87.6 - Hypokalemia, I10 - Essential (primary) hypertension, Z98.84 - Bariatric surgery status Ferritin Today E87.6 - Hypokalemia, I10 - Essential (primary) hypertension, Z 98.84 - Bariatric surgery status Lipid Panel Today E87.6 - Hypokalemia, I10 - Essential (primary) hypertension, Z98.84 - Bariatric surgery status IRON PROFILE Today E87.6 - Hypokalemia, I10 - Essential (primary) hypertension, Z98.84 - Bariatric surgery status Comprehensive Met. Panel Today E87.6 - Hypokalemia, I10 - Essential (primary) hypertension, Z98.84 - Bariatric surgery status Vitamin B1 Today E87.6 - Hypokalemia, I10 - Essential (primary) hypertension, Z98.84 - Bariatric surgery status Vitamin A Today E87.6 - Hypokalemia, I10 - Essential (primary) hypertension, Z98.84 - Bariatric surgery status TSH reflex Free T4 Today E87.6 - Hypokalemia, I10 - Essential (primary) hypertension, Z98.84 - Bariatric surgery status Vitamin D 25-OH Total Today E87.6 - Hypokalemia, I10 - Essential (primary) hypertension, Z98.84 - Bariatric surgery status Medications: Refilled docusate sodium (Colace) 100 mg PO DAILY 90 caps 0RF K59.00 - Constipation, unspecified
[2024-08-26 09:26] VITALS: BP 122/68; PULSE 63; TEMP 36.6; O2SAT 96; BMI 26.6
--- OUTSIDE RECORDS SUMMARY | 2024-08-26 09:58 | XMS_ITS | Clinical Summary ---
Author Organization [employer] [facility] Address [address] [place] [address] Care Team Providers Care Team Guide Name Role Phone Unavailable Primary Care Provider [...]
--- OUTSIDE RECORDS SUMMARY | 2024-08-26 09:58 | XMS_ITS | Clinical Summary ---
Author Organization [employer] Address [address] [place] [address] Care Team Providers Care Horse Farm Manager Name Role Phone Unavailable Primary Care Provider [...] left knee 05/21/2024 Polyp of colon 05/21/2024 Social History Tobacco Use Types Packs/Day Years [...] Mass Index - - Plan of Treatment Health Maintenance Due Date [...] Procedure Name Priority Date/Time Associated Diagnosis Comments PROPHYLAXIS - ADULT Routine 03/05/2024 8 :00 [...] Most Recently Relevant to Health Maintenance [facility] [place] [id number]
== END 2024-08-26 09:56 | disposition home or self-care (01) ==
LOC: HO.HBS 09:12
PROVIDERS: PCP Nurse Practitioner Family; Visit Provider Physician Assistant Surgical
DX: E66.3 Overweight (principal); Z68.26 Body mass index [BMI] 26.0-26.9, adult; Z90.3 Acquired absence of stomach [part of]; Z98.84 Bariatric surgery status
CPT/HCPCS: 99213; G2211

== ENCOUNTER → 2024-08-26 09:12 | Outpatient (BNVA) | payer OTHER, SELFPAY | PROVIDERS: PCP Nurse Practitioner Family; Visit Provider Physician Assistant Surgical | DX: Z98.84 Bariatric surgery status (principal) | CPT/HCPCS: 99212 ==

== ENCOUNTER 2024-08-27 08:43 | Outpatient (REF) | payer OTHER, SELFPAY ==
--- OUTSIDE RECORDS SUMMARY | 2024-08-27 09:00 | XMS_ITS | Clinical Summary ---
Author Organization [employer] [facility] Address [address] [place] [address] Care Team Providers Care Microcomputer Support Specialist Name Role Phone Unavailable Primary Care Provider [...]
--- OUTSIDE RECORDS SUMMARY | 2024-08-27 09:00 | XMS_ITS | Clinical Summary ---
Author Organization [employer] Address [address] [place] [address] Care Team Providers Care Semiconductor Packages Sealer Name Role Phone Unavailable Primary Care Provider [...] Most Recently Relevant to Health Maintenance [facility] [place] [id number]
[2024-08-27 09:44] LABS: Estimated Average Glucose 91 mg/dL; Hemoglobin A1C 99.8262 umol/L; Hemoglobin A1c % 4.8 % (<6.0); Total Hemoglobin (HGBA1C) 3386.1069 umol/L
[2024-08-27 10:38] LABS: Alanine Aminotransferase 10 U/L (0-31); Alkaline Phosphatase 47 U/L (39-117); Anion Gap 11 (12-20); Aspartate Amino Transferase 16 U/L (5-31); Blood Urea Nitrogen 15 mg/dL (9-16); C Reactive Protein 0.35 mg/dL (< or = 0.50); Calcium 9.5 mg/dL (8.4-10.2); Carbon Dioxide 26 mmol/L (22-29); Chloride 106 mmol/L (96-108); Cholesterol 169 mg/dL (<200); Estimated Glomerular Filt Rate > 60; Glucose Random 76 mg/dL (60-115); HDL Cholesterol 44 mg/dL (>40); Iron 114 mcg/dL (30-160); LDL Cholesterol Calculated 112 mg/dL (<100); Percent Iron Saturation 53 % (15-50); Sodium 139 mmol/L (135-145); Total Iron Binding Capacity 214 mcg/dL (228-428); Total Protein 6.7 g/dL (6.5-8.0); Triglycerides 65 mg/dL (<150); Unsaturated Iron Binding 100 ug/dL
[2024-08-27 10:42] LABS: Ferritin 169 ng/mL (10-250); Insulin 3 uU/mL (2-29); TSH reflex Free T4 2.47 uIU/mL (0.32-4.0); Vitamin D 25-OH Total 43.6 ng/mL (>30)
[2024-08-27 10:51] LABS: Folate 9.6 ng/mL (> or = 4.0); Vitamin B12 501 pg/mL (200-900)
[2024-08-30 10:53] LABS: Zinc 74 mcg/dL (60-130)
[2024-08-30 16:58] LABS: Vitamin A 32 mcg/dL (38-98)
[2024-09-03 16:48] LABS: Vitamin B1 12 nmol/L (8-30)
== END 2024-08-27 08:44 | disposition home or self-care (01) ==
LOC: HO.LAB 08:43
PROVIDERS: PCP Pediatrics; Visit Provider Physician Assistant Surgical
DX: Z98.84 Bariatric surgery status (principal); E87.6 Hypokalemia; I10 Essential (primary) hypertension
CPT/HCPCS: 36415; 80053; 80061; 82306; 82607; 82728; 82746; 83036; 83525; 83540; 84425; 84443; 84590; 84630; 86140

== ENCOUNTER 2024-10-02 11:17 | Outpatient (AMB) | payer OTHER, SELFPAY ==
--- NOTE | 2024-10-02 11:20 | A.OFFVIS_ITS ---
Vital Signs 10/02/24 11:28 Height 5 ft 4 in Weight 154 lb BMI 26.4 Handedness Left Intake Visit Reasons: OV - right shoulder strain Intake Note: Teri is a 49 year old left hand dominant female who presents today for a follow up of her right shoulder strain. Patient states her pain has improved slightly. She mentions that her range of motion is still limited. Patient is going to go to [facility] to make her appointments since she came back from [place]. Allergies No Known Allergies Allergy (Verified 10/02/24 11:27) HPI HPI OV - right shoulder strain: Details: Ms. Mireya Chin is a 49-year-old left-hand dominant female who presents to the office today for routine follow-up status post right rotator cuff strain. Date of injury was July 19 after she was working out and was encouraged to increase her weight. At her last appointment on 08/14/2024 the patient was offered a cortisone injection but declined at that time as her symptoms were improving. Additionally, she was referred to physical therapy. She reports that she has not attended any physical therapy to date because she was away in [place] and then when she returned she did not hear anything from physical therapy to schedule an appointment. [facility] Medical History BMI 34.0-34.9,adult Hypokalemia Anxiety Depression Sleep apnea treated with continuous positive airway pressure (CPAP) Fibromyalgia Hypertension Asthma Morbid obesity Surgical History S/P laparoscopic sleeve gastrectomy History of appendectomy History of laparoscopic cholecystectomy History of delivery Social History Household Members: Family Housing: Apartment Are you a primary healthcare recruiter to a significant other at home: No Do you presently have visiting nurse or other home services: No Unable to assess alcohol history related to: Unknown Alcohol intake: never Patient Tobacco Use Status: Former Tobacco user Tobacco use type: Cigarette Current occupational status: unemployed 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 No ecchymosis, erythema, or edema. Lacking 45 degrees of forward flexion and abduction. External rotation to 45 degrees. Able to reach T12. Negative cross-body reach. Negative empty can. Negative drop arm. NVI. Assessment & Plan Assessment & Plan (1) Strain of rotator cuff of right shoulder: Code(s): S46.011A - Strain of muscle(s) and tendon(s) of the rotator cuff of right lilibeth tima, initial encounter Category: Medical Plan Ms. Mireya Chin is a 49-year-old left-hand dominant female who presents to the office today for routine follow-up status post right rotator cuff strain. Date of injury was July 19 after she was working out and was encouraged to increase her weight. At her last appointment on 08/14/2024 the patient was offered a cortisone injection but declined at that time as her symptoms were improving. Additionally, she was referred to physical therapy. She reports that she has not attended any physical therapy to date because she was away in [place] and then when she returned she did not hear anything from physical therapy to schedule an appointment. While the office today, we discussed the role of physical therapy and the importance of attending in her treatment plan. We did discuss again the role of cortisone injection but the patient has declined at this time stating she would like to try physical therapy 1st. A new order has been placed while in the office today. She will follow up in 6-8 weeks after physical therapy, sooner if needed. Coding Level of Care Code Est Pt Level 3 (52409) Diagnoses Strain of rotator cuff of right shoulder S46.011A
[2024-10-02 11:28] VITALS: BMI 26.4
--- OUTSIDE RECORDS SUMMARY | 2024-10-02 13:27 | XMS_ITS | Clinical Summary ---
Author Organization [employer] Address [address] [facility] [address] [place] [address] Care Team Providers Care Cement Gun Operator Name Role Phone Unavailable Primary Care Provider [...] Panel 1974 SDOH Screening 1974 Sigmoidoscopy 1974 Disability Screening 1974 Alcohol/Substance Use Screening 1986 Family Planning [...] Most Recently Relevant to Health Maintenance [facility] [place] [id number]
== END 2024-10-02 12:22 | disposition home or self-care (01) ==
LOC: HO.HOS 11:17
PROVIDERS: PCP Nurse Practitioner Family; Visit Provider Physician Assistant
DX: S46.011A Strain of muscle(s) and tendon(s) of the rotator cuff of right shoulder, initial encounter (principal)
CPT/HCPCS: 99213

== ENCOUNTER → 2024-10-02 11:17 | Outpatient (BNVA) | payer OTHER, SELFPAY | PROVIDERS: PCP Nurse Practitioner Family; Visit Provider Physician Assistant | DX: S46.011A Strain of muscle(s) and tendon(s) of the rotator cuff of right shoulder, initial encounter (principal); X50.0XXA Overexertion from strenuous movement or load, initial encounter; Y93.79 Activity, other specified sports and athletics; Y92.39 Other specified sports and athletic area as the place of occurrence of the external cause; Y99.9 Unspecified external cause status | CPT/HCPCS: 99212 ==

== ENCOUNTER 2024-12-03 08:01 | Outpatient (AMB) | payer OTHER, SELFPAY ==
--- OUTSIDE RECORDS SUMMARY | 2024-12-03 08:04 | XMS_ITS | Clinical Summary ---
Author Organization [facility] Address [address] [place] [address] Care Team Providers Care Compugraph Operator Name Role Phone Unavailable Primary Care [...] Vaccine ( - 2023-2 5 season) 2023 Depression Screening 04/30/2024 Pneumococcal Vaccine: 50+ Ye ars (1 of 1 - PCV) 2024 Zoster Vaccines (1 of 2) 2024 Colorectal Cancer Screening: Colonoscopy 07/10/2024 HIV Screening 07/10/2024 Hepatitis C Screening 07/10/2024 Social Influencers of Health Screening 07/10/2024 Influenza Vaccine (#1) 2024 HIB Vaccines Aged Out No longer [...]
--- OUTSIDE RECORDS SUMMARY | 2024-12-03 08:04 | XMS_ITS | Clinical Summary ---
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 Tooth sensitivity to cold 11/03/2024 Stage 3 grade B generalized periodontitis per AAP/EFP 2017 classification 11/03/2024 Abnormal mammogram 05/21/2024 Anemia 05/21/2024 Asthma 05/21/2024 [...] Encounters Date Type Department Care Team Description 11/03/2024 9:00 AM EDT Office Visit [facility] [address] [place] [address] Yvette Ventura Dental calculus (Primary Dx); Generalized gingival recession, moderate; Periodontal disease; Abfraction; Tooth sensitivity to cold; Stage 3 grade B generalized periodontitis per AAP/EFP 2017 classification from Last 3 Months Social History Tobacco [...] Sign Reading Time Taken Comments Blood Pressure 122/74 11/03/2024 8:46 AM EDT Pulse - - Temperature - - Respiratory Rate - - Oxygen Saturation - - Inhaled Oxygen Concentration - - Weight - - Height - - Body Mass Index - - Plan of Treatment Upcoming Encounters Date Type Department Care Team (Late st Contact Info) Description 12/05/2024 8:30 AM EDT Office Visit [facility] [address] [place] [address] Camelia Jimenez, DDS [address] [place] [address] 05/12/2025 10:00 AM EST Office Visit [facility] [address] [place] [address] Yvette Ventura [address] [place] [address] Health Maintenance Due Date Last Done Comments [...] 08/11/2020 Zoster Vaccines (1 of 2) 2024 Influenza Vaccine (#1) 2024 , 01/25/2023, 01/25/2023, Additional history exists Dental Oral Exam 05/07/2025 11/03/2024, 03/05/2024 Dental Prophylaxis 05/07/2025 11/03/2024, 03/05/2024 Tobacco Screening 11/03/2025 11/03/2024 Dental X-Ray: Bitewings 11/04/2025 11/03/2024, 03/05 Dental X-Ray: Full Mouth 03/06/2027 03/05/2024 DTaP/Tdap/Td Vaccines (2 - Td or Tdap) 09/15/2032 09/15/2022, 10/08/2012 RSV Patients and Patients Aged 60 years or older (1 - 1-dose 75+ series) 2049 HIB Vaccines Aged Out No longer eligi [...] Procedure Name Priority Date/Time Associated Diagnosis Comments 24,25 INTRAORAL - PERIAPICAL EACH ADDITIONAL RADIOGRAPHIC IMAGE Routine 11/03/2024 9:00 AM EDT Dental calculus Generalized gingival recession, moderate Periodontal disease Abfraction Tooth sensitivity to cold Stage 3 grade B generalized periodontitis per AAP/EFP 2017 classification 8,9 INTRAORAL - PERIAPICAL FIRST RADIOGRAPHIC IMAGE Routine 11/03/2024 9:00 AM EDT Dental calculus Generalized gingival recession, moderate Periodontal disease Abfraction Tooth sensitivity to cold Stage 3 grade B generalized periodontitis per AAP/EFP 2017 classification BITEWINGS - 4 RADIOGRAPHIC IMAGES Routine 11/03/2024 9:00 AM EDT Dental calculus Generalized gingival recession, moderate Periodontal disease Abfraction Tooth sensitivity to cold Stage 3 grade B generalized periodontitis per AAP/EFP 2017 classification ORAL HYGIENE INSTRUCTIONS Routine 11/03/2024 9:00 AM EDT Dental calculus Generalized gingival recession, moderate Periodontal disease Abfraction Tooth sensitivity to cold Stage 3 grade B generalized periodontitis per AAP/EFP 2017 classification PERIODIC ORAL EVALUATION - ESTABLISHED PATIENT Routine 11/03/2024 9:00 AM EDT CASE PRESENTATION, DETAILED AND EXTENSIVE TREATMENT PLANNING Routine 11/03/2024 9:00 AM EDT Dental calculus Generalized gingival recession, moderate Periodontal disease Abfraction Tooth sensitivity to cold Stage 3 grade B generalized periodontitis per AAP/EFP 2017 classification PROPHYLAXIS - ADULT Routine 11/03/2024 9 :00 AM EDT Dental calculus Periodontal disease Stage 3 grade B generalized periodontitis per AAP/EFP 2017 classification INTRAORAL - COMPLETE SERIES OF RADIOGRAPHIC IMAGES Routine 03/05/2024 8:00 AM EST History of periodontal disease Generalized gingival recession, moderate Dental calculus Dental plaque from Last 3 Months or Most Recently Relevant to Health Maintenance Insurance [facility] MEDICAID STAND ADULT * Guarantor: Teri Gomes Account Type Relation to Patient Date of Phone Billing Address Personal/Family Self 1975 [address] [place] [id number]
--- NOTE | 2024-12-03 08:11 | MHC.OFFVISWM ---
VS Expanded 12/03/24 08:25 BP 130/59 L Blood Pressure Location Rt brachial Blood Pressure Position Sitting Pulse 56 Pulse Source Pulse Oximeter Temp 96.5 F L Temperature Source Temporal Artery Scan Pulse Oximetry 100 Oxygen Delivery Method Room Air Height 5 ft 4 in Weight 150 lb 6.4 oz BMI 25.8 Body Fat % 29.9 Body Fat Mass 45.0 Fat Free Mass 105.4 Visceral Fat Rating 6.0 Body Water % 49.9 Body Water Mass 75.0 Muscle Mass/Score 100.0 Basal Metabolic Rate/Score 1,414 Intake Visit Reasons: (OV) PO LSG 02/12/24 Conversion Developer Required: Yes Conversion Developer Services: Conversion Developer Present Conversion Developer Name: hospital cmi Allergies No Known Allergies Allergy (Verified 12/03/24 08:19) Medication List - Last Reconciled 12/03/24 by LOKI Humphrey albuterol 90 mcg/actuation 90 mcg inhalation Q4H PRN albuterol sulfate 90 mcg/actuation (Ventolin HFA) inhalation albuterol sulfate mg continuous nebulization bisacodyl (Dulcolax (bisacodyl)) 10 mg [place] DAILY PRN budesonide-formoterol 160-4.5 mcg/actuation (Symbicort) 1 puff inhalation DAILY cetirizine 10 mg PO DAILY clonazepam 0.5 mg PO DAILY cyclobenzaprine 5 mg PO Q8H PRN 5 days diclofenac sodium 1% topical docusate sodium (Colace) 100 mg PO DAILY escitalopram oxalate 10 mg PO DAILY fluticasone propionate 50 mcg/actuation intranasal lidocaine 5% (Lidoderm) 1 patch topical DAILY PRN MDD remove after 12 hours montelukast 10 mg PO DAILY pregabalin 300 mg PO .qhs tiotropium bromide 2.5 mcg/actuation (Spiriva Respimat) 2 puffs inhalation DAILY vitamin A palmitate 3,000 mcg PO DAILY 90 days HPI Comments Details: his?a?49?yo female who is s/p LSG without hiatal hernia repair on?02/12/2024. Presents for 10 month post op visit. Weight today is 150.4 pounds, with a BMI of 25.8. There has been a 82.8 pound weight loss,(initial weight 233.2 pounds) since starting the program on 10/16/2023 reflecting a 35.5 % total body weight loss and a weight loss of 51.1 pounds since surgery (operative weight 201.5 pounds) reflecting a 25.3 % TBWL since surgery. No complaints of nausea, emesis, abdominal pain or reflux. Reports infrequent but normal bowel movements every 2-3 days and uses stool softeners regularly. Reports that she is feeling great. Taking celebrate MVI. Also taking vitamin-A supplement She states that she has had right hip pain for the last month. She has seen psychiatry and lyrica was increased. No radiation of the pain. Described as a dull ache. Worse with walking up stairs or increased walking. Present meal plan includes: using [employer] life shake rtd 30 gm 1 shake from 10-1 6 oz of shake with 2 oz of unsweetened almond milk at 2-4 Meal at 6 pm with 4 forks of protein and 4 forks of vegetables Drinking 40 oz water daily ?Exercise routine includes: started weight training at the gym 3-5 days per week 500 calories treadmill, depending on her ride [facility] Medical History BMI 34.0-34.9,adult Hypokalemia Anxiety Depression Sleep apnea treated with continuous positive airway pressure (CPAP) Fibromyalgia Hypertension Asthma Morbid obesity Surgical History S/P laparoscopic sleeve gastrectomy History of appendectomy History of laparoscopic cholecystectomy History of delivery Social History Household Members: Family Housing: Apartment Are you a primary rn complex care to a significant other at home: No Do you presently have visiting nurse or other home services: No Unable to assess alcohol history related to: Unknown Alcohol intake: never Patient Tobacco Use Status: Former Tobacco user Tobacco use type: Cigarette Current occupational status: unemployed 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 She has achieved a healthy weight and is practicing a healthy lifestyle. She does have fibromyalgia and complains of right hip pain for which the Lyrica was increased. She is taking 300 mg at HS with some improvement. We will have her return to the office for her 1 year follow-up in January. Recheck labs at that time including vitamin-A which was supplemented due to her low vitamin-A level at her six-month follow-up. Encouraged to continue to communicate and increase exercise as she is able.
[2024-12-03 08:25] VITALS: BP 130/59; PULSE 56; TEMP 35.8; O2SAT 100; BMI 25.8
== END 2024-12-03 08:45 | disposition home or self-care (01) ==
LOC: HO.HBS 08:02
PROVIDERS: PCP Pediatrics; Visit Provider Physician Assistant Surgical
DX: E66.3 Overweight (principal); Z98.84 Bariatric surgery status; Z90.3 Acquired absence of stomach [part of]; Z68.25 Body mass index [BMI] 25.0-25.9, adult
CPT/HCPCS: 99213; G2211

== ENCOUNTER → 2024-12-03 08:01 | Outpatient (BNVA) | payer OTHER, SELFPAY | PROVIDERS: PCP Pediatrics; Visit Provider Physician Assistant Surgical | DX: E66.9 Obesity, unspecified (principal); M79.7 Fibromyalgia; Z68.25 Body mass index [BMI] 25.0-25.9, adult; Z90.49 Acquired absence of other specified parts of digestive tract; Z90.3 Acquired absence of stomach [part of] | CPT/HCPCS: 99212 ==

== ENCOUNTER 2024-12-05 11:21 | Outpatient (AMB) | payer OTHER, SELFPAY ==
--- NOTE | 2024-12-05 11:23 | MHC.OFFVIS ---
Vital Signs 12/05/24 11:27 Height 5 ft 4 in Weight 150 lb BMI 25.7 Handedness Left Intake Visit Reasons: OV - right rotator cuff strain, DOI 07/19/24 Intake Note: Teri is a 49 year old left hand dominant female who presents today for a follow up of her right shoulder strain. At her last appointment she was referred to attend physical therapy. She states that she has some discomfort when she is extended her arm out. Patient states physical therapy helped. Biochemistry Technician Services: Biochemistry Technician Present (Aramis ([id number])) Allergies No Known Allergies Allergy (Verified 12/05/24 11:27) HPI HPI OV - right rotator cuff strain, DOI 07/19/24: Details: Patient is a 49-year-old left-hand dominant female who presents to the office today for follow up of a right shoulder injury that she sustained on 07/19/2024. Patient was referred to physical therapy and has been attending appointments with a home exercise program. She reports that physical therapy has helped her pain and improved her range of motion. She reports that she still has some discomfort when she is raising her arm laterally. She is able to demonstrate this to me in the office and stops roughly at the 90 degree shukri due to some discomfort. At the last appointment we deferred a cortisone injection at that time but the patient reports that she is interested in moving forward with this today. [facility] Medical History BMI 34.0-34.9,adult Hypokalemia Anxiety Depression Sleep apnea treated with continuous positive airway pressure (CPAP) Fibromyalgia Hypertension Asthma Morbid obesity Surgical History S/P laparoscopic sleeve gastrectomy History of appendectomy History of laparoscopic cholecystectomy History of delivery Social History Household Members: Family Housing: Apartment Are you a primary tire care manager to a significant other at home: No Do you presently have visiting nurse or other home services: No Unable to assess alcohol history related to: Unknown Alcohol intake: never Patient Tobacco Use Status: Former Tobacco user Tobacco use type: Cigarette Current occupational status: unemployed 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 No ecchymosis, erythema, or edema. Full shoulder ROM in all planes passively. Patient is able to perform full forward flexion actively. She is able to actively abduct to 90 degrees. Negative cross-body reach. Negative empty can. Negative drop arm. NVI. Psych Appearance: grossly normal Mental Status: mental status grossly normal Attitude: cooperative Office Procedures AMB Joint Injection/Aspiration Joint Injection/Aspiration Primary Site: right shoulder Prep: site was prepped using aseptic technique, ethochloride spray was applied and injection warnings given Injected: 80 mg of, DepoMedrol, with 8 mL of (2% plain lidocaine) and in the subcromial space Approach Used: posterolateral Procedure: The patient tolerated the procedure well, but had some pain with the injection and there was some relief with the local anesthesia Coding 53193 - Large joint Procedure code (CPT) selection complete Assessment & Plan Assessment & Plan (1) Impingement of right shoulder: Code(s): M25.811 - Other specified joint disorders, right shoulder Category: Medical Plan Patient is a 49-year-old left-hand dominant female who presents to the office today for follow up of a right shoulder injury that she sustained on 07/19/2024. Patient was referred to physical therapy and has been attending appointments with a home exercise program. She reports that physical therapy has helped her pain and improved her range of motion. She reports that she still has some discomfort when she is raising her arm laterally. She is able to demonstrate this to me in the office and stops roughly at the 90 degree shukri due to some discomfort. At the last appointment we deferred a cortisone injection at that time but the patient reports that she is interested in moving forward with this today. The patient was offered a cortisone injection in the right shoulder with 80 mg of DepoMedrol. The patient was explained the risks, benefits, and alternatives to receiving this injection. After receiving consent for the injection, the patient had the procedure done while in the office today. The patient tolerated the procedure well with no complications. Patient was encouraged to continue home exercise program. Follow-up will be PRN, or sooner if needed Coding Level of Care Code Est Pt Level 3 (64606) Diagnoses Impingement of right shoulder M25.811 CPT Codes Coding - 93184 Large joint: 96658 - Large joint ([id number])
--- OUTSIDE RECORDS SUMMARY | 2024-12-05 11:24 | XMS_ITS | Clinical Summary ---
Author Organization [employer] Address [address] [place] [address] Care Team Providers Care Wellness Manager Name Role Phone Unavailable Primary Care [...] Description 11/03/2024 9:00 AM EDT Office Visit [facility] [address] [place] [address] Yvette Ventura Dental calculus (Primary Dx); Generalized [...] Care Team (Late st Contact Info) Description 05/12/2025 10:00 AM EST Office Visit [facility] [address] [place] [address] Yvette Ventura [address] [place] [address] Health Maintenance Due Date Last Done Comments [...] Health Maintenance Insurance [facility] TAMAR TORRES [id number] TAMAR ADHIKARI [id number]
--- OUTSIDE RECORDS SUMMARY | 2024-12-05 11:24 | XMS_ITS | Clinical Summary ---
Author Organization [employer] [facility] it Address [address] [place] [address] Care Team Providers Care Biostatistics Director Name Role Phone Unavailable Primary Care Provider [...]
[2024-12-05 11:27] VITALS: BMI 25.7
== END 2024-12-05 12:01 | disposition home or self-care (01) ==
LOC: HO.HOS 11:22
PROVIDERS: PCP Pediatrics; Visit Provider Physician Assistant
DX: M25.811 Other specified joint disorders, right shoulder (principal)
CPT/HCPCS: 20610; 99213

== ENCOUNTER → 2024-12-05 11:21 | Outpatient (BNVA) | payer OTHER, SELFPAY | PROVIDERS: PCP Pediatrics; Visit Provider Physician Assistant | DX: M25.811 Other specified joint disorders, right shoulder (principal) | CPT/HCPCS: 20610; 99212; J1010; J2003 ==